=== PATIENT | male | born 1955 | race Caucasian/White ===

== ENCOUNTER 2024-07-26 14:43 | Inpatient (IN) | payer MEDICARE ==
[~2024-07-26] VITALS: Ht 177.8 cm; Wt 144.3 kg
--- NOTE | 2024-07-26 15:04 | EKG ---
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
[2024-07-26 15:17] LABS: BASOPHILS # (AUTO) 0.03 K/uL (0.00-0.20); BASOPHILS % (AUTO) 0.3 % (0.0-5.0); EOSINOPHILS # (AUTO) 0.26 K/uL (0.00-0.70); EOSINOPHILS % (AUTO) 2.2 % (0.0-8.0); HEMATOCRIT 52.6 % (42-54); IMMATURE GRANULOCYTE ABSOLUTE 0.05 K/uL (0-1); LYMPHOCYTES # (AUTO) 2.8 K/uL (1.0-4.8); LYMPHOCYTES % (AUTO) 24.3 % (21.0-51.0); MEAN CORPUSCULAR HEMOGLOBIN 30.1 pg (27.0-33.0); MEAN CORPUSCULAR HGB CONC 32.1 g/dL (32.0-36.0); MEAN CORPUSCULAR VOLUME 93.6 fL (79-99); MONOCYTES # (AUTO) 1.1 K/uL (0.1-1.0); MONOCYTES % (AUTO) 9.2 % (3.0-13.0); NEUTROPHILS # (AUTO) 7.4 K/uL (1.8-7.7); NEUTROPHILS % (AUTO) 63.6 % (40.0-77.0); PLATELET COUNT (AUTO) 164 K/uL (130-400); RED BLOOD CELL COUNT(AUTO) 5.62 MIL/uL (4.50-6.20); RED CELL DISTRIBUTION WIDTH 14.1 % (11.0-15.5); WHITE BLOOD COUNT (AUTO) 11.7 K/uL (4.8-10.8)
[2024-07-26 15:28] LABS: ABG BASE EXCESS -4.7 mmol/L (-2.0-3.0); ABG HCO3 19.2 mmol/L (21.0-28.0); ABG OXYGEN SATURATION 88.4 % (94.0-98.0); ABG PCO2 32 mmHg (35-48); PO2, ARTERIAL BG 54.4 mmHg (83.0-108.0); VENT MODE, BG RA (ROOM AIR)
[2024-07-26 15:35] LABS: INR 1.46 (0.85-1.15); PROTHROMBIN TIME 14.9 SEC (9.6-11.6)
--- NOTE | 2024-07-26 15:39 | ERN ---
General Chief Complaint: Shortness of Breath Stated Complaint: SOB,SWOLLEN ABDOMEN,MULTIPLE COMPLAINTS Time Seen by MD: 14:47 History of Present Illness Initial Comments 69-year-old gentleman presents from home for dyspnea, weakness, and fluid retention increasing over the last few months. Patient reports he was not seen a doctor in over 40 years. Over the last few months he has noticed his legs h ave been swelling more, he was having difficulty lying flat, he gets very winded with simple exercises such as short walks. He was also been feeling some palpitations on and off. He does not take any medications. He reports he does drink four or five beers on the weekends. No other drug use. He reports that as a young person he did have episodes of atrial fibrillation. He was briefly on medications for this but is not currently. He was in the process [place], but reports that over the last couple of days he becomes so winded that he can not even walk around his house without having to rest. Allergies: Coded Allergies: No Known Drug Allergies (Unverified Allergy, Unknown, 07/26/24) Past Medical History Past Medical History: Other Past Surgical History: None ROS Dictation CONSTITUTIONAL: No chills, no fever, no weakness, no diaphoresis, no malaise. HEAD/FACE: No signs of trauma. EENT: No eye pain, no blurred vision, no tearing, no double vision, no ear pain, no ear discharge, no nose pain, no nasal congestion, no throat pain, no throat swelling, no mouth pain. RESPIRATORY: Dyspnea, swelling CARDIOVASCULAR: No chest pain, no edema, no palpitations, no syncope. GASTROINTESTINAL/ABDOMINAL: No abdominal pain, no constipation, no diarrhea, no nausea, no vomiting. GENITOURINARY: No abnormal discharge, no dysuria, no frequent urination, no hematuria. No complaints of pain in the genitals. MUSCULOSKELETAL: No back pain, no gout, no joint pain, no joint swelling, no muscle pain, no muscle stiffness, no neck pain. INTEGUMENTARY: No change in color, no change in hair/nails, no dryness, no lesion, no lumps, no rash. NEUROLOGICAL/PSYCH: No anxiety, not depressed, no emotional problem, no headache, no numbness, no pre-existing deficit, no history of seizures, no tremors, no weakness. HEMATOLOGIC/LYMPHATIC: Not anemic, no history of blood clots, no apparent bleeding, no bruising, glands not swollen. All Systems Negative, Except as Noted. Physical Exam Physical Exam Dictation VITAL SIGNS: Reviewed. GENERAL APPEARANCE: Alert, oriented x3, moderate distress due to dyspnea HEAD AND FACE: Non-traumatic. EYES: PERRL, pink conjunctivas, eyelid no trauma, anterior chamber clear. EARS: Pinnas intact and no signs of trauma or erythema. Ear canals clear and no discharge. TMs no erythema. NOSE: No discharge, no bleeding. OROPHARYNX: Mouth normal, teeth no caries, tongue pink. Pharynx clear, no erythema. Tonsils no exudates, no abscesses noted. Mucous membrane moist. NECK: Supple, non-tender, no thyromegaly, no masses, no JVD, no bruits. BREAST: Deferred. CHEST: No tenderness, no crepitus, no paradoxical movement, no retractions. LUNGS: Crackles at the bases of the lungs HEART: Regular rate, regular rhythm, no murmur, no gallops. VASCULAR: No peripheral edema. ABDOMEN: Soft, positive bowel sounds, nondistended, no guarding, nontender, no rebound, no masses no hepatomegaly, no splenomegaly, no Zamudio's sign, no hernias. RECTAL: Deferred. GENITAL: Deferred. NEUROLOGICAL: Normal speech, gross motor function intact, gross sensory function intact. MUSCULOSKELETAL: Neck nontender, full range of motion, back nontender, full range of motion. EXTREMITIES: 4+ pitting edema up to the knees, abdominal distention SKIN: Color pink, dry, no turgor, no rash, no lacerations, no abrasions, no contusions. LYMPHATICS: Deferred. Results Laboratory and Microbiology Lab and Micro Result Laboratory Tests Test 07/26/24 15:03 07/26/24 15:26 07/26/24 16:32 White Blood Count 11.7 K/uL (4.8-10.8) H Red Blood Count 5.62 MIL/uL (4.50-6.20) Hemoglobin 16.9 g/dL (14.0-18.0) Hematocrit 52.6 % (42-54) Mean Corpuscular Volume 93.6 fL (79-99) Mean Corpuscular Hemoglobin 30.1 pg (27.0-33.0) Mean Corpuscular Hemoglobin Concent 32.1 g/dL (32.0-36.0) Red Cell Distribution Width 14.1 % (11.0-15.5) Platelet Count 164 K/uL (130-400) Mean Platelet Volume 11.1 fL (7.5-10.5) H Immature Granulocyte % (Auto) 0.4 % (0-1) Neutrophils (%) (Auto) 63.6 % (40.0-77.0) Lymphocytes (%) (Auto) 24.3 % (21.0-51.0) Monocytes (%) (Auto) 9.2 % (3.0-13.0) Eosinophils (%) (Auto) 2.2 % (0.0-8.0) Basophils (%) (Auto) 0.3 % (0.0-5.0) Neutrophils # (Auto) 7.4 K/uL (1.8-7.7) Lymphocytes # (Auto) 2.8 K/uL (1.0-4.8) Monocytes # (Auto) 1.1 K/uL (0.1-1.0) H Eosinophils # (Auto) 0.26 K/uL (0.00-0.70) Basophils # (Auto) 0.03 K/uL (0.00-0.20) Absolute Immature Granulocyte (auto 0.05 K/uL (0-1) Nucleated Red Blood Cells 0.0 % (0.0-0.19) Prothrombin Time 14.9 SEC (9.6-11.6) H Prothromb Time International Ratio 1.46 (0.85-1.15) H Hemoglobin A1c 6.9 % (4.0-6.0) H Estimated Average Glucose (eAG) 151 mg/dL (70-126) H Magnesium Level 2.50 mg/dL (1.80-2.40) H Total Creatine Kinase 90 U/L (21-232) Troponin I High Sensitivity 40.9 ng/L (4-75) B-Type Natriuretic Peptide 927 pg/mL (0-100) H Triglycerides Level 160 mg/dL (30-200) Cholesterol Level 159 mg/dL (<200) LDL Cholesterol 106 mg/dL (0-99) H HDL Cholesterol 30 mg/dL (29-71) Procalcitonin 0.14 ng/mL (0.05-0.5) Blood Gas Specimen Type Arterial Arterial Blood pH 7.390 (7.350-7.450) Arterial Blood Partial Pressure CO2 32 mmHg (35-48) L Arterial Blood Partial Pressure O2 54.4 mmHg (83.0-108.0) Arterial Blood HCO3 19.2 mmol/L (21.0-28.0) L Arterial Blood Oxygen Saturation 88.4 % (94.0-98.0) L Arterial Blood Base Excess -4.7 mmol/L (-2.0-3.0) L Blood Gas Temperature 37.0 CELSIUS (35.5-37.0) Blood Gas Vent Mode RA (ROOM AIR) FiO2 21.0 % Blood Gas Specimen Comment ANNETTE FERRELL MD Sodium Level 137 mmol/L (136-145) Potassium Level 4.8 mmol/L (3.5-5.1) Chloride Level 100 mmol/L (101-111) L Carbon Dioxide Level 23 mmol/L (21-32) Blood Urea Nitrogen 45 mg/dL (7-18) H Creatinine 2.6 mg/dL (0.5-1.3) H Glomerular Filtration Rate Calc 26 mL/min (>90) Random Glucose 178 mg/dL (70-105) H Total Calcium 9.2 mg/dL (8.5-10.1) MDM CC: Fluid overload, dyspnea, pedal edema, palpitations Historian: Patient Comorbidities: Obesity. Patient was not been to a physician in decades. Limitations by social determinants of health: None Differential diagnosis: Fluid overload, electrolyte abnormality, heart failure, kidney failure, liver failure, other. vital signs: Heart rate 145, blood pressure stable. Oxygen saturation 90% on room air. repeat vital signs: Heart rate improved to 109, oxygen saturation improved with the nasal cannula. Blood pressure remained stable. Initial EKG: Atrial fibrillation, rate 148, normal axis, delayed R-wave progression. Independently interpreted by me. Labs (independently ordered and interpreted by me ): Stable CBC. The ABG shows a pCO2 of 32,PaO2 of 54, Base excess -4.7, bicarb 19.2,otherwise unremarkable. coags mildly elevated INR 1.46. A1c is elevated 6.9 BNP elevated 927 consistent with presentation. Procalcitonin stable. Troponin stable. Metabolic panel shows stable electrolytes, the creatinine is 2.6 BUN of 45. CXR (independently interpreted by me ): Cardiomegaly, likely right pleural effusion, some vascular congestion. Consistent with fluid overload. Treatment in ED: 40 mg IV Lasix, 20 mg IV diltiazem, 30 mg oral diltiazem. Oxygen therapy. Re-evaluation: Vital signs have improved. Oxygen saturation has improved. Plan: We will admit for diuresis and further workup. Patient was agreeable. Consultation: Hospitalist for admission. ED Course Orders Procedure Category Date Status Time Cbc With Differential LAB 07/26/24 Complete 14:52 Prothrombin Time With LAB 07/26/24 Complete INR 14:52 B-Type Natriuretic LAB 07/26/24 Complete Peptide 14:52 Lipid Panel LAB 07/26/24 Complete 14:52 Chest 1vw RAD 07/26/24 Resulted 14:52 12 Lead Ekg Tracing- EKG 07/26/24 Complete Technical 14:52 Magnesium LAB 07/26/24 Complete 14:52 Arterial Blood Gas RT 07/26/24 Transmitted 14:52 Urinalysis LAB 07/26/24 Logged W/Microscopic 14:52 Procalcitonin LAB 07/26/24 Complete 14:52 Cardiac Panel LAB 07/26/24 Complete 14:52 Furosemide 40mg Vial PHA 07/26/24 Complete (Lasix 40mg Vial) 15:30 Arterial Blood Gas LAB 07/26/24 Complete 15:26 Diltiazem 25mg Inj PHA 07/26/24 Complete (Cardizem 25mg Inj) 16:00 Hemoglobin A1c LAB 07/26/24 Complete 15:40 Basic Metabolic Panel LAB 07/26/24 Complete 15:55 Diltiazem 60mg Tab PHA 07/26/24 Complete (Cardizem 60mg Tab) 16:30 Current Medications Medications (Trade) Dose Ordered Sig/Melinda Route PRN Reason Start Time Stop Time Status Last Admin Dose Admin Diltiazem HCl (CARDIzem 25MG INJ) 20 mg ONCE ONCE IVP 07/26/24 16:00 07/26/24 16:01 DC 07/26/24 15:44 Diltiazem HCl (CARDIzem 60MG TAB) 30 mg ONCE ONCE PO 07/26/24 16:30 07/26/24 16:31 DC 07/26/24 16:15 Furosemide (LASix 40MG VIAL) 40 mg ONCE ONCE IV 07/26/24 15:30 07/26/24 15:31 DC 07/26/24 15:44 Vital Signs Date Time Temp Pulse Resp B/P (MAP) Pulse Ox O2 Delivery O2 Flow Rate FiO2 07/26/24 16:48 97.9 115 22 113/77 94 Nasal Cannula* 4 36 07/26/24 16:17 97.9 114 22 120/78 92 Nasal Cannula* 4 36 07/26/24 16:04 97.9 109 24 122/87 91 Nasal Cannula* 4 36 07/26/24 15:52 97.9 109 24 133/77 91 Nasal Cannula* 4 36 07/26/24 15:44 145 129/92 07/26/24 14:48 69 22 144/114 91 Room Air 0 DX & DISP Disposition: Inpatient (Hospitalist ) Departure Impression: Primary Impression: Atrial fibrillation with rapid ventricular response Additional Impressions: Fluid overload, Respiratory failure with hypoxia, Diabetes mellitus, Renal disease Critical Time: 30 minutes (Critical Care Procedure NoteAuthorized and Performed by: meTotal critical care time: Approximately 36 minutesDue to a high probability of clinically significant, life threatening deterioration, the patient required my highest level of preparedness to intervene emergently and I personally spent this critical care time directly and personally managing the patient. This critical care time included obtaining a history; examining the patient; pulse oximetry; ordering and review of studies; arranging urgent treatment with development of a management plan; evaluation of patient's response to treatment; frequent reassessment; and, discussions with other providers.This critical care time was performed to assess and manage the high probability of imminent, life-threatening deterioration that could result in multi-organ failure. It was exclusive of separately billable procedures and treating other patients and teaching time.Please see MDM section and the rest of the note for further information on patient assessment and treatment.) Condition: Stable Referrals: SELF,REFERRAL (PCP) CONNOR FERRELL DO Jul 26, 2024 15:39
[2024-07-26 15:40] LABS: B-TYPE NATRIURETIC PEPTIDE 927 pg/mL (0-100)
[2024-07-26] MEDS: furoSEMIDE 40MG VIAL IV ONE (15:44)
[2024-07-26] MEDS: dilTIAZem 25MG INJ IVP ONE (15:44)
[2024-07-26 15:56] LABS: MAGNESIUM 2.5 mg/dL (1.80-2.40)
[2024-07-26 15:57] LABS: HEMOGLOBIN A1C 6.9 % (4.0-6.0)
[2024-07-26] MEDS: dilTIAZem 60MG TAB PO ONE (16:15)
--- NOTE | 2024-07-26 16:24 | HMCIMG ---
INDICATION: dyspnea TECHNIQUE: CHEST 1VW COMPARISON: None FINDINGS AND IMPRESSION: Mild bilateral airspace consolidation suggesting vascular congestion/edema versus pneumonia. Trace of right effusion is seen. Cardiomegaly is seen Mild degenerative changes of the spine. The visualized upper abdomen appears unremarkable.
[2024-07-26 16:48] LABS: CREATININE 2.6 mg/dL (0.5-1.3); POTASSIUM 4.8 mmol/L (3.5-5.1)
--- NOTE | 2024-07-26 17:46 | HP ---
[facility] HISTORY AND PHYSICAL Date of Service: Jul 26, 2024 Time of Service: 17:46 HISTORY OF PRESENT ILLNESS: 69-year-old male with no significant past medical history who presented to the hospital secondary to shortness of breath and lower extremity edema. Patient states he has noted he has been having shortness of breath for the past 2-3 months. He has also noted swelling in the lower extremities. He endorses orthopnea and uses a pillow to sleep. He has has difficulty lying down flat and gets short of breath at rest and with exertion. He has not seen a physician in more than 40 years. He has never had prior cardiac workup or blood draws. He does not take any medications at home. Denies any chest pain at exertion, cough, fever, chills, dysuria, changes in his bowel movements. He has noted decreased urination but states he has been drinking fluids at home. Denied any melena, hematochezia, hematemesis. Secondary to non improving symptoms patient thereafter came to the hospital for further evaluation. Labs in the ED were notable for white count of 11.7, hemoglobin was 16.9, platelet count was 164 K, sodium was 137, potassium was 4.8, creatinine was 2.6, BUN was 45, blood glucose was 178, magnesium was Chest x-ray showed right-sided small effusion with congestive changes. Patient received Lasix IV 40 mg in the ED. patient also received 20 mg Cardizem, 30 mg oral Cardizem in the ED. The patient was noted to be in AFib RVR with heart rate in the 120s to 130 In the ED patient's temperature was 97.9�, heart rate was 109, blood pressure was 133/77, respiratory rate was 24 REVIEW OF SYSTEMS CONSTITUTIONAL: Denies fevers, chills, or night sweats. Denied any changes in weight NEUROLOGICAL: Denies headache, amaurosis fugax, motor weakness, sensory deficit, vertigo/spinning sensation, gait abnormalities, or tremors. ENT: No hearing loss, otalgia, otorrhea, rhinitis, rhinorrhea, hoarseness, or sore throat. CARDIOVASCULAR: Denies any exertional angina, dyspnea on exertion, orthopnea, paroxysmal nocturnal dyspnea, palpitations, life-threatening arrhythmias, claudication. PULMONARY: Positive for shortness of breath, cough. Denied any sputum production GASTROINTESTINAL: Denies any type of dysphagia to either liquids or solids. Denies nausea, vomiting, pyrosis, early satiety, abdominal pain, diarrhea, constipation, or changes in stool consistency or caliber. Denies coffee-ground emesis, hematemesis, hematochezia, or melanotic stools. GENITOURINARY: Positive for decreased urination. Denied any hematuria, dysuria ENDOCRINOLOGIC: Denies polyuria, polydipsia, polyphagia or heat/cold intolerances. HEMATOLOGIC: Denies thrombophilia/previous clots, or coagulopathy/bleeding di sorders. ONCOLOGIC: Denies personal history of malignancy. DERMATOLOGIC: Denies rashes or pruritus. PSYCHIATRIC: Denies any suicidal or homicidal ideation. Denies hallucinations. Musculoskeletal: Positive for swelling in the lower extremity PAST MEDICAL HISTORY: No significant medical history PAST SURGICAL HISTORY: Denied any previous surgical history PAST SOCIAL HISTORY: Drinks 4-5 beers every 3-4 days for at least 10 years. Denied any smoking or drug use FAMILY HISTORY: Denied any pertinent family history Coded Allergies: No Known Drug Allergies (Unverified Allergy, Unknown, 07/26/24) Penicillins (Verified Allergy, Unknown, 07/26/24) PHYSICAL EXAM GENERAL APPEARANCE: The patient is awake, alert, and oriented, in no acute cardiopulmonary distress. NEUROLOGICAL: Cranial nerves II-XII grossly intact. Motor is 5/5 in bilateral upper and lower extremities proximal to distal. No sensory deficits. HEENT: Face is symmetric. Pupils are equal and reactive. Extraocular movements are intact. NECK: Supple. No JVD. No thyromegaly. No submental, submandibular, pre- /postauricular, occipital or supraclavicular lymphadenopathy. CHEST: Normal chest expansion. No Telemetry. LUNGS: Positive for crackles in the right side CARDIOVASCULAR: Regular. S1 and S2 normal. No appreciable rubs, murmurs or gallops. ABDOMEN: Abdomen is distended. He has soft tissue edema in the abdominal wall. Bowel sounds are active. : Deferred. No Garcia. EXTREMITIES:3+ pitting edema in the lower extremity bilaterally he also has venous stasis changes.. No clubbing. Good capillary refill. SKIN: No skin breakdown. Vital Sign (Last 24 Hours) 07/26/24 17:36 Temp 98.1 Pulse 115 Resp 20 B/P (MAP) 132/74 Pulse Ox 94 O2 Delivery Nasal Cannula* O2 Flow Rate 4 FiO2 36 LABS: Laboratory: Test 07/26/24 16:32 07/26/24 15:26 07/26/24 15:03 Range/Units Sodium Level 137 136-145 mmol/L Potassium Level 4.8 3.5-5.1 mmol/L Chloride Level 100 L 101-111 mmol/L Carbon Dioxide Level 23 21-32 mmol/L Blood Urea Nitrogen 45 H 7-18 mg/dL Creatinine 2.6 H 0.5-1.3 mg/dL Glomerular Filtration Rate Calc 26 >90 mL/min Random Glucose 178 H 70-105 mg/dL Total Calcium 9.2 8.5-10.1 mg/dL Blood Gas Specimen Type Arterial Arterial Blood pH 7.390 7.350-7.450 Arterial Blood Partial Pressure CO2 32 L 35-48 mmHg Arterial Blood Partial Pressure O2 54.4 *L 83.0-108.0 mmHg Arterial Blood HCO3 19.2 L 21.0-28.0 mmol/L Arterial Blood Oxygen Saturation 88.4 L 94.0-98.0 % Arterial Blood Base Excess -4.7 L -2.0-3.0 mmol/L Blood Gas Temperature 37.0 35.5-37.0 CELSIUS Blood Gas Vent Mode RA ROOM AIR FiO2 21.0 % Blood Gas Specimen Comment RR MD MARIAELENA White Blood Count 11.7 H 4.8-10.8 K/uL Red Blood Count 5.62 4.50-6.20 MIL/uL Hemoglobin 16.9 14.0-18.0 g/dL Hematocrit 52.6 42-54 % Mean Corpuscular Volume 93.6 79-99 fL Mean Corpuscular Hemoglobin 30.1 27.0-33.0 pg Mean Corpuscular Hemoglobin Concent 32.1 32.0-36.0 g/dL Red Cell Distribution Width 14.1 11.0-15.5 % Platelet Count 164 130-400 K/uL Mean Platelet Volume 11.1 H 7.5-10.5 fL Immature Granulocyte % (Auto) 0.4 0-1 % Neutrophils (%) (Auto) 63.6 40.0-77.0 % Lymphocytes (%) (Auto) 24.3 21.0-51.0 % Monocytes (%) (Auto) 9.2 3.0-13.0 % Eosinophils (%) (Auto) 2.2 0.0-8.0 % Basophils (%) (Auto) 0.3 0.0-5.0 % Neutrophils # (Auto) 7.4 1.8-7.7 K/uL Lymphocytes # (Auto) 2.8 1.0-4.8 K/uL Monocytes # (Auto) 1.1 H 0.1-1.0 K/uL Eosinophils # (Auto) 0.26 0.00-0.70 K/uL Basophils # (Auto) 0.03 0.00-0.20 K/uL Absolute Immature Granulocyte (auto 0.05 0-1 K/uL Nucleated Red Blood Cells 0.0 0.0-0.19 % Prothrombin Time 14.9 H 9.6-11.6 SEC Prothromb Time International Ratio 1.46 H 0.85-1.15 Hemoglobin A1c 6.9 H 4.0-6.0 % Estimated Average Glucose (eAG) 151 H 70-126 mg/dL Magnesium Level 2.50 H 1.80-2.40 mg/dL Total Creatine Kinase 90 21-232 U/L Troponin I High Sensitivity 40.9 4-75 ng/L B-Type Natriuretic Peptide 927 H 0-100 pg/mL Triglycerides Level 160 30-200 mg/dL Cholesterol Level 159 <200 mg/dL LDL Cholesterol 106 H 0-99 mg/dL HDL Cholesterol 30 29-71 mg/dL Procalcitonin 0.14 0.05-0.5 ng/mL Current Medications Medications (Trade) Dose Ordered Sig/Melinda Route PRN Reason Start Time Stop Time Status Last Admin Dose Admin Acetaminophen (TYLenol 500MG TAB) 500 mg Q6H PRN PO MILD PAIN (1-3) 07/26/24 18:00 08/25/24 17:59 UNV Folic Acid (FOLic ACID 1 MG TABLET) 1 mg DAILY PO 07/27/24 09:00 08/26/24 08:59 UNV Furosemide (LASix 40MG VIAL) 40 mg Q12H IV 07/26/24 23:00 08/25/24 22:59 UNV Magnesium Sulfate 50 ml @ 0 mls/hr PROTOCOL PRN IV hypomagnesemia 07/26/24 18:00 08/25/24 17:59 UNV Metoprolol Tartrate (loprESSOR) 25 mg BID PO 07/26/24 21:00 08/25/24 20:59 UNV Potassium Chloride 100 ml @ 100 mls/hr AD PRN IV POTASSIUM PROTOCOL 07/26/24 18:00 08/25/24 17:59 UNV Potassium Chloride (K-Dur/Klor-Con 20meq) 20 meq AD PRN PO POTASSIUM PROTOCOL 07/26/24 18:00 08/25/24 17:59 UNV Potassium Chloride (KCl 10% Elixir 20meq/15ml) 20 meq AD PRN PO POTASSIUM PROTOCOL 07/26/24 18:00 08/25/24 17:59 UNV Thiamine HCl (Vitamin B-1) 100 mg DAILY PO 07/27/24 09:00 08/26/24 08:59 UNV DIAGNOSTICS / RADIOLOGY: [ ] ASSESSMENT: Acute CHF exacerbation POA Acute hypoxic respiratory failure secondary to CHF exacerbation New onset paroxysmal atrial fibrillation with RVR Generalized anasarca Acute kidney injury Lower extremity edema History of alcohol use Mild coagulopathy Mild leukocytosis differential infectious versus reactive PLAN: - patient to be admitted to PCCU -in reference to CHF exacerbation. Patient will be started on IV Lasix 40 mg q.12 hours. Monitor urine output. Daily weights. Obtain a echocardiogram. Keep potassium greater than four and magnesium greater than two. Request con sultation with Cardiology. We will start patient on Lopressor 25 mg. We will follow up with Cardiology regarding anticoagulation -in reference to acute kidney injury. We will obtain a UA, urine sodium, urine creatinine. We will request consultation with Nephrology -obtain a CT abdomen pelvis for further evaluation -check TSH, A1c, procal, CRP -obtain a venous Doppler -start patient on thiamine and folic acid. Closely monitor patient for alcohol withdrawals -further orders per hospitalization course. Advanced Care Planning Which of the following were discussed: Hospice care: Yes __ No _x_ Therapeutic options: Yes __ No __ Advance directives: Yes __ No __ Other discussions: Discussed with who?: patient (Patient, family or surrogates) Voluntary nature of this service was explained to the patient? Yes _x_ No __ Amount of time spent: 25 minutes SHERRI Junior MD, MD Jul 26, 2024 17:46
[2024-07-26] MEDS ORDERED: PoTASSium chl 10% ELIXIR 20MEQ 20 MEQ/15 ML UDCUP PO PRN (18:00)
[2024-07-26 18:21] LABS: THYROID STIMULATING HORMONE 3.57 uIU/mL (0.36-3.74)
--- NOTE | 2024-07-26 18:35 | HMCIMG ---
CT ABDOMEN/PELVIS W/O CONTRAST INDICATION: abdominal distention, jefferson. TECHNIQUE: CT ABDOMEN/PELVIS W/O CONTRAST. Oral contrast was not given. Coronal and sagittal reformats were performed. CT was performed with one or more of the following dose reduction techniques: Automated exposure control, adjustment of the mA and/or kV according to the patient's size, or use of the iterative reconstruction technique. Comparison: None. FINDINGS: The noncontrast nature this study limits evaluation of abdominal viscera. Small right pleural effusion is seen with right lower lobe atelectasis infection. There is cardiomegaly. There is hepatic steatosis. No calcified gallstone is seen. The spleen, pancreas, and adrenal glands are within normal limits. No hydronephrosis. The urinary bladder is partially collapsed. 5.9 cm hypodense focus in the left kidney, probably a cyst. Consider correlation with nonemergent renal ultrasound. Study is degraded due to patient's large body habitus. No bowel obstruction is seen. Scattered diverticulosis coli without evidence of acute diverticulitis. Small amount of ascites seen in the upper abdomen and pelvis. There is diffuse soft tissue anasarca and mesenteric edema. Appendix is not clearly visualized limiting evaluation. Correlate clinically. Atherosclerotic changes of the aorta with calcified plaques. Degenerative changes of the spine are seen. IMPRESSION: 1. Study is degraded due to patient's large body habitus. No bowel obstruction is seen. 2. Scattered diverticulosis coli without evidence of acute diverticulitis. 3. Small amount of ascites seen in the upper abdomen and pelvis. 4. There is diffuse soft tissue anasarca and mesenteric edema. Additional findings as described above.
--- NOTE | 2024-07-26 18:52 | NUR ---
dr. tiff smith called back aware of consult. will be here shortly to assess pt.
--- NOTE | 2024-07-26 19:04 | CONS ---
CONSULT NOTE: CARDIOLOGY Reason for consult: CHF HPI/story at presentation: This is a pleasant 69-year-old male with past medical history as per present with complaints of shortness of breath with worsening edema and abdominal bloati ng and distention. He was diagnosed CHF exacerbation, cardiology scheduled for evaluation management. Patient was also found to be atrial fibrillation with rapid ventricular sponsor presentation to the hospital. Diuresis was initiated. Subjective: 07/26/2024 shortness of breath Past medical history: See below Allergies, Meds See chart Review of systems Review of Systems Constitutional: Negative for chills and fever. HENT: Negative for ear discharge and ear pain. Eyes: Negative for photophobia and discharge. Respiratory: Negative for cough, sputum production and stridor. Cardiovascular: Negative for chest pain and palpitations. Gastrointestinal: Negative for diarrhea and vomiting. Genitourinary: Negative for frequency. Musculoskeletal: Negative for myalgias. Skin: Negative for rash. Neurological: Negative for focal weakness and seizures. Endo/Heme/Allergies: Negative for polydipsia. Psychiatric/Behavioral: Negative for hallucinations. Vitals see chart PHYSICAL EXAMINATION GENERAL: The patient is alert and oriented*3 HEENT: Nonicteric sclerae, non traumatic HEART: Regular rate and rhythm with no murmurs LUNGS: mild crackles 07/26/2024 ABDOMEN: No acute issues, non tender GENITAL, RECTAL: deferred SKIN: No rash NEUROLOGIC: NFND EXTREMITIES: bilareral edema 07/26/2024 ASSESSMENT ATRIAL FIBRILLATION Presentation Associated RVR at presentation CONGESTIVE HEART FAILURE With abdominal distention lower extremity manage at presentation ACUTE KIDNEY INJURY At presentation Condition nephropathy versus prerenal OBESITY CORE MEASURES OTHER MEDICAL PROBLEMS Reviewed PLAN 07/26/2024 agree with rate control for atrial fibrillation, will likely benefit from further anticoagulation as well. Possible liver etiology of elevated INR. Follow-up with renal function panel including albumin ordered. Agree with diuresis for now. Echocardiogram has been ordered and is pending as well. On IV twice daily of Lasix and metoprolol at this time. Further recommendations after echo. Seen and examined 07/26/2024 around 1900 ATTESTATION I was involved substantially in the care of this patient Number and complexity of problems addressed: 1 acute illness with systemic features Amount and or complexity of data Review of prior external note(s) from each unique source: 2+ Ordering of each unique test : 0 Review of the result(s) of each unique test: 2+ Assessment requiring an independent historian(s): No Independent interpretation of test performed by another MD/QHCP/appropriate source (not separately reported) : No Discussion of management or test interpretation with external MD/QHCP/appropriate source (not separately reported) : No Risk status (cardiac, billing related): Moderate LANI GRACIA MD Jul 26, 2024 19:04
--- NOTE | 2024-07-26 19:20 | NUR ---
general clerk bedside
--- NOTE | 2024-07-26 19:33 | CONS ---
[facility] CONSULTATION NOTE Date Patient Seen: Jul 26, 2024 Time of Visit: 19:32 Supervising Physician: [ ] Reason for Consultation: [ ] Consulting Physician: Hospitalist Outpatient Specialists: [ ] Inpatient Consults: [ ] PROBLEM LIST: Acute hypoxic respiratory failure, POA Congestive heart failure, chest x-ray showed bilateral pulmonary congestion, with BNP above 900 POA Acute kidney injury, POA Leukocytosis, POA Atrial fibrillation with RVR, POA Morbid obesity, BMI of 38.7 Plan: Admit per primary Facilitate 2D echo Obtain EKG if not done Keep potassium level above four, magnesium level above two Continue cardiac monitoring Use BiPAP at night DuoNeb q.6 Consider diuretics Keep head of bed above 30� Aspiration precautions Pulmonary toilet Rest of plan care of Cardiology and primary HPI: 69-year-old male with past medical history of atrial fibrillation, mor bid obesity, possible ARNOLDO who presented to ED via private vehicle with complaint of worsening shortness of breaths for several days and found to have acute hypoxic respiratory failure, acute kidney injury, and CHF in acute exacerbation. Patient was seen and examined in ED with present at bedside. According to the patient he has been having issues with shortness of breaths worse with exertion with associated dizziness, and palpitation. Patient also reported that he needs to sleep in the recliner as he can not tolerate laying flat in bed. There is also worsening bilateral lower extremity edema. In ED stat chest x-ray was done and showed bilateral vascular congestion, cardiomegaly, and right trace pleural effusion. His venous Doppler did not reveal any DVT, his CBC showed WBC of 11.7, chemistry is significant for creatinine level of 2.6, and BUN of 45, BNP more than 900, and initial troponin of 40. EKG showed atrial fibrillation. Initial evaluation in ED patient was found to be mildly hypoxic on ABG with significant improvement on O2 administration. Be IS pulmonology is consulted for acute respiratory failure. At present patient is currently hemodynamically stable, irregularly irregular on the monitor, not in acute respiratory distress, on auscultation there is coarse bilateral lung sounds, and 4+ pitting edema on bilateral lower extremity. Patient denies any fever, chest pain, abdominal pain, cough, diarrhea, or difficulty urinating. Patient denies any smoking, alcohol intake, or illicit drug use. Patient is previously vaccinated with COVID vaccine. Does not take flu shot PAST MEDICAL HX: see above PAST SURGICAL HX: noncontributory SOCIAL HISTORY: No tobacco, ETOH, or illicit drug use Coded Allergies: No Known Drug Allergies (Unverified Allergy, Unknown, 07/26/24) Penicillins (Verified Allergy, Unknown, 07/26/24) REVIEW OF SYSTEMS: 12 point ROS reviewed with patient. Pertinent positives mentioned above. Otherwise negative. PHYSICAL EXAM: GENERAL: alert, weak, awake oriented x 3 HEENT: EOMI, Sclera non icteric, moist mucosa NECK: Supple, no JVD, trachea midline LUNGS: Coarse bilateral lung sounds HEART: Regular rate and rhythm. Normal S1 and S2, without murmurs ABD: Large abdomen EXT: 4+ pitting edema NEURO: Alert and oriented to person, follows commands Vital Signs (last 8hr) Date Time Temp Pulse Resp B/P (MAP) Pulse Ox O2 Delivery O2 Flow Rate FiO2 07/26/24 18:28 97.9 120 22 141/86 92 Nasal Cannula* 4 36 07/26/24 17:36 98.1 115 20 132/74 94 Nasal Cannula* 4 36 07/26/24 16:48 97.9 115 22 113/77 94 Nasal Cannula* 4 36 07/26/24 16:17 97.9 114 22 120/78 92 Nasal Cannula* 4 36 07/26/24 16:04 97.9 109 24 122/87 91 Nasal Cannula* 4 36 07/26/24 15:52 97.9 109 24 133/77 91 Nasal Cannula* 4 36 07/26/24 15:44 145 129/92 07/26/24 14:48 69 22 144/114 91 Room Air 0 LABS: Hematology Labs: Test 07/26/24 15:03 Range/Units White Blood Count 11.7 H 4.8-10.8 K/uL Red Blood Count 5.62 4.50-6.20 MIL/uL Hemoglobin 16.9 14.0-18.0 g/dL Hematocrit 52.6 42-54 % Mean Corpuscular Volume 93.6 79-99 fL Mean Corpuscular Hemoglobin 30.1 27.0-33.0 pg Mean Corpuscular Hemoglobin Concent 32.1 32.0-36.0 g/dL Red Cell Distribution Width 14.1 11.0-15.5 % Platelet Count 164 130-400 K/uL Mean Platelet Volume 11.1 H 7.5-10.5 fL Immature Granulocyte % (Auto) 0.4 0-1 % Neutrophils (%) (Auto) 63.6 40.0-77.0 % Lymphocytes (%) (Auto) 24.3 21.0-51.0 % Monocytes (%) (Auto) 9.2 3.0-13.0 % Eosinophils (%) (Auto) 2.2 0.0-8.0 % Basophils (%) (Auto) 0.3 0.0-5.0 % Neutrophils # (Auto) 7.4 1.8-7.7 K/uL Lymphocytes # (Auto) 2.8 1.0-4.8 K/uL Monocytes # (Auto) 1.1 H 0.1-1.0 K/uL Eosinophils # (Auto) 0.26 0.00-0.70 K/uL Basophils # (Auto) 0.03 0.00-0.20 K/uL Absolute Immature Granulocyte (auto 0.05 0-1 K/uL Nucleated Red Blood Cells 0.0 0.0-0.19 % Chemistry Labs: Test 07/26/24 16:32 07/26/24 15:03 Range/Units Sodium Level 137 136-145 mmol/L Potassium Level 4.8 3.5-5.1 mmol/L Chloride Level 100 L 101-111 mmol/L Carbon Dioxide Level 23 21-32 mmol/L Blood Urea Nitrogen 45 H 7-18 mg/dL Creatinine 2.6 H 0.5-1.3 mg/dL Glomerular Filtration Rate Calc 26 >90 mL/min Random Glucose 178 H 70-105 mg/dL Total Calcium 9.2 8.5-10.1 mg/dL C-Reactive Protein, Quantitative 29.20 H 0.5-3.0 mg/L Thyroid Stimulating Hormone (TSH) 3.57 0.36-3.74 uIU/mL Hemoglobin A1c 6.9 H 4.0-6.0 % Estimated Average Glucose (eAG) 151 H 70-126 mg/dL Magnesium Level 2.50 H 1.80-2.40 mg/dL Total Creatine Kinase 90 21-232 U/L Troponin I High Sensitivity 40.9 4-75 ng/L B-Type Natriuretic Peptide 927 H 0-100 pg/mL Triglycerides Level 160 30-200 mg/dL Cholesterol Level 159 <200 mg/dL LDL Cholesterol 106 H 0-99 mg/dL HDL Cholesterol 30 29-71 mg/dL Procalcitonin 0.14 0.05-0.5 ng/mL Coagulation Labs: Test 07/26/24 15:03 Range/Units Prothrombin Time 14.9 H 9.6-11.6 SEC Prothromb Time International Ratio 1.46 H 0.85-1.15 DIAGNOSTICS / RADIOLOGY RESULTS: INDICATION: dyspnea TECHNIQUE: CHEST 1VW COMPARISON: None FINDINGS AND IMPRESSION: Mild bilateral airspace consolidation suggesting vascular congestion/edema versus pneumonia. Trace of right effusion is seen. Cardiomegaly is seen Mild degenerative changes of the spine. The visualized upper abdomen appears unremarkable. CT ABDOMEN/PELVIS W/O CONTRAST INDICATION: abdominal distention, jefferson. TECHNIQUE: CT ABDOMEN/PELVIS W/O CONTRAST. Oral contrast was not given. Coronal and sagittal reformats were performed. CT was performed with one or more of the following dose reduction techniques: Automated exposure control, adjustment of the mA and/or kV according to the patient's size, or use of the iterative reconstruction technique. Comparison: None. FINDINGS: The noncontrast nature this study limits evaluation of abdominal viscera. Small right pleural effusion is seen with right lower lobe atelectasis infection. There is cardiomegaly. There is hepatic steatosis. No calcified gallstone is seen. The spleen, pancreas, and adrenal glands are within normal limits. No hydronephrosis. The urinary bladder is partially collapsed. 5.9 cm hypodense focus in the left kidney, probably a cyst. Consider correlation with nonemergent renal ultrasound. Study is degraded due to patient's large body habitus. No bowel obstruction is seen. Scattered diverticulosis coli without evidence of acute diverticulitis. Small amount of ascites seen in the upper abdomen and pelvis. There is diffuse soft tissue anasarca and mesenteric edema. Appendix is not clearly visualized limiting evaluation. Correlate clinically. Atherosclerotic changes of the aorta with calcified plaques. Degenerative changes of the spine are seen. IMPRESSION: 1. Study is degraded due to patient's large body habitus. No bowel obstruction is seen. 2. Scattered diverticulosis coli without evidence of acute diverticulitis. 3. Small amount of ascites seen in the upper abdomen and pelvis. 4. There is diffuse soft tissue anasarca and mesenteric edema. Additional findings as described above. PLAN NEURO: Minimize central acting medications as possible. Maintain fall precautions, adequate lighting during the day PULMONARY: Supplemental 02 as needed. Maintain aspiration precautions at all times CARDIOVASCULAR: Follow hemodynamics. Vital signs per facility protocol GI & NUTRITION: Continue with nutritional support. Continue stool softeners and laxatives as needed. KIDNEYS & ELECTROLYTES: Strict monitoring of intake, output and overall fluid balance. Avoid nephrotoxic medications to the extent possible. Medications to be dosed according to renal function. Monitor electrolytes and replace as needed ENDOCRINE: Maintain blood glucose between 100-180 at all times. Hypoglycemia protocol in place INFECTIOUS DISEASE: Trend temperature, WBC and procalcitonin level Follow cultures, deescalate antibiotics as soon as possible. Panculture if new onset fever ONCOLOGY/HEMATOLOGY/COAGULATION: Monitor for s/s of bleeding Monitor hemoglobin, coagulation studies as needed SKIN: Pressure ulcer prevention per facility protocol Specialty mattress ORTHO/REHAB: Continue PT/OT Prophylaxis: Continue GI and DVT prophylaxis Code Status: Full Resuscitation Disposition: TBD Other: Total patient care time exceeds 35 minutes excluding all procedures. Supervising physician: JUS June BALLAST CLEANING OPERATOR Jul 26, 2024 19:33
--- NOTE | 2024-07-26 20:30 | HMCIMG ---
US VENOUS DOPPLER BILATERAL INDICATION: Swelling. Evaluate for dvt TECHNIQUE: US VENOUS DOPPLER BILATERAL Real-time venous Doppler ultrasound was performed using B mode, color flow and spectral analysis. FINDINGS: The visualized greater saphenous junction, common femoral, deep femoral, superficial femoral, popliteal and posterior tibial veins demonstrate normal compressibility and flow. No DVT is identified. Left superficial femoral vein was not visualized. Study is degraded due to patient's large body habitus. IMPRESSION: No evidence of DVT in the visualized bilateral extremities.
[2024-07-26] MEDS: metoPROLOL tartRATE 25 MG TAB PO SCH (21:06)
[2024-07-26] MEDS: HEParin 5,000 UNIT VIAL SQ SCH (21:07)
[2024-07-26 22:00] LABS: APPEARANCE,URINE CLOUDY (CLEAR); BILIRUBIN,URINE NEGATIVE (NEGATIVE); COLOR,URINE YELLOW (YELLOW); GLUCOSE, URINE (UA) NEGATIVE (NEGATIVE); KETONES,URINE NEGATIVE (NEGATIVE); LEUKOCYTE ESTERASE ,URINE NEGATIVE Leu/uL (NEGATIVE); NITRATE,URINE NEGATIVE (NEGATIVE); OCCULT BLOOD,URINE NEGATIVE (NEGATIVE); PROTEIN,URINE 20 mg/dL (NEGATIVE)
[2024-07-26 22:02] LABS: ADD UA MICROSCOPIC YES
[2024-07-26 22:03] LABS: CREATININE,URINE RANDOM 209.62 mg/dL (30-135); SODIUM,URINE RANDOM 48 mmol/l (40-220)
[2024-07-26 22:04] LABS: MUCUS,URINE RARE LPF (None Seen); RBC,URINE 0-1 /HPF (0-1); SQUAMOUS EPITHELIAL CELL,UR RARE /HPF (0-2)
[2024-07-26] MEDS: furoSEMIDE 40MG VIAL IV SCH (23:09)
[2024-07-27] VITALS (10 sets, daily range): BP systolic 115–134; BP diastolic 65–94; PULSE 100–130; RESP 18–23; TEMP 93.4–97.8; O2SAT 94–96
[2024-07-27 01:08] LABS: ALBUMIN 3.6 g/dL (3.5-5.0); BILIRUBIN,TOTAL 0.9 mg/dL (0.2-1.0); CREATININE 2.8 mg/dL (0.5-1.3); POTASSIUM 5.4 mmol/L (3.5-5.1); TOTAL PROTEIN, SERUM 6.6 g/dL (6.0-8.3)
[2024-07-27] MEDS: HEParin 25,000 UNITS/250ML D5W 250 ML IV SCH (02:37)
--- NOTE | 2024-07-27 07:30 | NUR ---
placed 20g on right hand, patent, saline lock.
--- NOTE | 2024-07-27 08:00 | NUR ---
NO HOME MEDICATIONS.
[2024-07-27 08:20] LABS: BASOPHILS # (AUTO) 0.03 K/uL (0.00-0.20); BASOPHILS % (AUTO) 0.3 % (0.0-5.0); EOSINOPHILS # (AUTO) 0.55 K/uL (0.00-0.70); EOSINOPHILS % (AUTO) 4.7 % (0.0-8.0); HEMATOCRIT 48.9 % (42-54); IMMATURE GRANULOCYTE ABSOLUTE 0.03 K/uL (0-1); LYMPHOCYTES # (AUTO) 3.6 K/uL (1.0-4.8); LYMPHOCYTES % (AUTO) 31.4 % (21.0-51.0); MEAN CORPUSCULAR HEMOGLOBIN 30.3 pg (27.0-33.0); MEAN CORPUSCULAR HGB CONC 32.1 g/dL (32.0-36.0); MEAN CORPUSCULAR VOLUME 94.2 fL (79-99); MONOCYTES # (AUTO) 1.2 K/uL (0.1-1.0); MONOCYTES % (AUTO) 10.2 % (3.0-13.0); NEUTROPHILS # (AUTO) 6.2 K/uL (1.8-7.7); NEUTROPHILS % (AUTO) 53.1 % (40.0-77.0); PLATELET COUNT (AUTO) 141 K/uL (130-400); RED BLOOD CELL COUNT(AUTO) 5.19 MIL/uL (4.50-6.20); RED CELL DISTRIBUTION WIDTH 14.2 % (11.0-15.5); WHITE BLOOD COUNT (AUTO) 11.6 K/uL (4.8-10.8)
[2024-07-27 08:32] LABS: INR 1.48 (0.85-1.15); PROTHROMBIN TIME 15.1 SEC (9.6-11.6)
[2024-07-27] MEDS: FOLic ACID 1 MG TABLET PO SCH (08:53)
[2024-07-27] MEDS: BUMETANIDE 1MG/4ML VIAL IVP SCH (08:53)
--- NOTE | 2024-07-27 08:59 | NUR ---
waiting for ptt results to adjust heparin drip
[2024-07-27] MEDS: THIAMINE HCL 100 MG TABLET PO SCH (09:00)
--- NOTE | 2024-07-27 09:00 | NUR ---
Called Sherrie from pharmacy to notify her that we do not have thiamine po in [facility]. Waiting for it to be restock.
--- NOTE | 2024-07-27 09:00 | NUR ---
HEPARIN STOPPED PER PROTOCOL. PTT 102
[2024-07-27 09:04] LABS: PARTIAL THROMBOPLASTIN TIME 102.5 SEC (26.3-35.5)
[2024-07-27 09:21] LABS: CREATININE 2.6 mg/dL (0.5-1.3); POTASSIUM 4.7 mmol/L (3.5-5.1)
--- NOTE | 2024-07-27 10:02 | NUR ---
CALLED [facility], GAVE REPORT TO MRS. KEKE LIPSCOMB. NOTOFY HER THAT PATIENT IS IN A HEPARIN DRIP AND HAS NO HOME MEDICATIONS. SHE VERBALIZED UNDERSTANDING.
--- NOTE | 2024-07-27 10:08 | NUR ---
WAITING ON 2D ECHO TO BE DONE SO THAT I CAN TRANSPORT PATIENT TO ROOM 226.
--- NOTE | 2024-07-27 10:10 | NUR ---
HEPARIN DRIP RE STARTED, 2UNITS/KG/HR. HEPARIN DRIP AT 14.99U/KG/HR
[2024-07-27] MEDS: metOPROLol sucCINATE 50 MG TAB.SR.24H PO SCH (11:52)
--- NOTE | 2024-07-27 12:21 | HMCSR ---
APPROVED REPORT EXAM: Two-dimensional and M-mode echocardiogram with Doppler and color Doppler. INDICATION ICD: Congestive heart failure, new onset of atrial fibrillation 2D Dimensions RVDd5.5 cmLVEF(%)17.1 (>50%)LVED Vol(simp.)151.0 mL IVSd1.1 (0.7-1.1cm)FS(%)8 %LVES Vol(simp.)124.0 mL LVDd6.1 (3.8-5.6cm)LA (2D)6.0 (1.6-4.0cm)LVEF(%, simp.)18 % PWd1.2 (0.7-1.1cm)Ao Root(2D)3.8 (2.0-3.7cm)LA ESV INDEX (BP)46.39 mL/m2 IVSs1.3 cmLVOT diam2.6 (1.8-2.4cm) LVDs5.6 (2.5-4.0cm) PWs1.3 cm M-Mode Dimensions EPSS1.8 cm LA (MM)6.1 (1.6-4.0cm) Ao Root(MM)4.3 (2.0-3.7cm) Aortic Valve AoV Vmax1.0 m/Lit Peak GR3.9 mmHgLVOT Vmax0.5 m/s AoV VTI0.1 mAo Mean GR2.6 mmHgLVOT VTI0.07 m GABRIELLA (VMAX)2.41 cm2AVA (VTI) 2.4 cm2 Mitral Valve MV E Vmax85.1 cm/sDECEL Zmpz187 ms P 1/2 T33 ms MVA (PHT)6.7 cm2 TDI E/E' Ppjazc47.9E/E' Upyhhsf46.0 Medial E' Peak V1.94 cm/sLateral E' Peak V5.32 cm/s Tricuspid Valve TR Vmax3.1 m/sRAP (EST) 8 sdAmAJKP52.1 mmHg TR Peak GR40.1 mmHg Left Ventricle The left ventricle is dilated. Severe hypokinesis There is normal left ventricular wall thickness. Se verely reduced left ventricular function <20%. The LV diastolic function was unable to be assessed du e to atrial arrhythmia. Right Ventricle The right ventricle is severely dilated. Right ventricular systolic function is severely reduced. Atria The left atrium is moderately dilated. The right atrium is severely dilated. Aortic Valve Aortic valve is trileaflet and opens well. No aortic regurgitation is present. There is no aortic june vular stenosis. Mitral Valve The mitral valve is normal in structure. There is mild mitral valve regurgitation noted. There is no mitral valve stenosis. Tricuspid Valve The tricuspid valve is normal in structure. There is mild to moderate tricuspid valve regurgitation n oted. May be underestimated due to low flow pressure gradient. Pulmonic Valve The pulmonary valve is normal in structure. There is no pulmonic valvular regurgitation. Great Vessels The aortic root is normal in size. IVC is not well visualized. Pericardium There is no pericardial effusion. Other Information Quality : Adequate Conclusion Severely reduced left ventricular function <20%. The LV diastolic function was unable to be assessed due to atrial arrhythmia. There is normal left ventricular wall thickness. The left ventricle is dilated. Severe hypokinesis The right ventricle is severely dilated. Right ventricular systolic function is severely reduced. The left atrium is moderately dilated. The right atrium is severely dilated. There is mild mitral valve regurgitation noted. There is mild to moderate tricuspid valve regurgitation noted. May be underestimated due to low flow pressure gradient. There is no pericardial effusion.
--- NOTE | 2024-07-27 14:05 | PN ---
[facility] PROGRESS NOTE Date of Service: Jul 27, 2024 Time of Service: 14:04 SUBJECTIVE: [ 69 YEAR OLD MALE ADMITTED FOR SOB, HE WAS NOTED WITH BILATERAL LOWER EXTREMITY EDEMA AND DISTENDED ABDOMEN. 2D ECHO WAS DONE THIS MORNING WHICH SHOWED LESS THAN 20% EF. PATIENT IS BEING FOLLOWED BY HAMMER OPERATOR, DR. WILLARD AND CRITICAL CARE TEAM. HE IS CURRENTLY ON O2 VIA NASAL CANNULA AT 2 L WITH SATURATION AT 96%. PATIENT HAS FAMILY HISTORY OF MALIGNANT HYPERTHERMIA. PATIENT CONTINUES TO BE WITH AFIB RVR HE IS ON BETA POORNIMA AND DIURETICS. WE WILL CONTINUE TO MONITOR AND FOLLOW RECOMMENDATIONS FROM HAMMER OPERATOR.] REVIEW OF SYSTEMS CONSTITUTIONAL: Denies fevers, chills, or night sweats. Denied any changes in weight NEUROLOGICAL: Denies headache, amaurosis fugax, motor weakness, sensory deficit, vertigo/spinning sensation, gait abnormalities, or tremors. ENT: No hearing loss, otalgia, otorrhea, rhinitis, rhinorrhea, hoarseness, or sore throat. CARDIOVASCULAR: Denies any exertional angina, dyspnea on exertion, orthopnea, paroxysmal nocturnal dyspnea, palpitations, life-threatening arrhythmias, claudication. PULMONARY: Positive for shortness of breath, cough. Denied any sputum production GASTROINTESTINAL: Denies any type of dysphagia to either liquids or solids. Denies nausea, vomiting, pyrosis, early satiety, abdominal pain, diarrhea, constipation, or changes in stool consistency or caliber. Denies coffee-ground emesis, hematemesis, hematochezia, or melanotic stools. GENITOURINARY: Positive for decreased urination. Denied any hematuria, dysuria ENDOCRINOLOGIC: Denies polyuria, polydipsia, polyphagia or heat/cold intolerances. HEMATOLOGIC: Denies thrombophilia/previous clots, or coagulopathy/bleeding disorders. ONCOLOGIC: Denies personal history of malignancy. DERMATOLOGIC: Denies rashes or pruritus. PSYCHIATRIC: Denies any suicidal or homicidal ideation. Denies hallucinations. Musculoskeletal: Positive for swelling in the lower extremity PHYSICAL EXAM GENERAL APPEARANCE: The patient is awake, alert, and oriented, in no acute cardiopulmonary distress. NEUROLOGICAL: Cranial nerves II-XII grossly intact. Motor is 5/5 in bilateral upper and lower extremities proximal to distal. No sensory deficits. HEENT: Face is symmetric. Pupils are equal and reactive. Extraocular movements are intact. NECK: Supple. No JVD. No thyromegaly. No submental, submandibular, pre- /postauricular, occipital or supraclavicular lymphadenopathy. CHEST: Normal chest expansion. No Telemetry. LUNGS: Positive for crackles in the right side CARDIOVASCULAR: Regular. S1 and S2 normal. No appreciable rubs, murmurs or gallops. ABDOMEN: Abdomen is distended. He has soft tissue edema in the abdominal wall. Bowel sounds are active. : Deferred. No Garcia. EXTREMITIES:3+ pitting edema in the lower extremity bilaterally he also has venous stasis changes.. No clubbing. Good capillary refill. SKIN: No skin breakdown. Vital Signs (last 8hr) Date Time Temp Pulse Resp B/P (MAP) Pulse Ox O2 Delivery O2 Flow Rate FiO2 07/27/24 13:25 97.9 07/27/24 10:44 96 Nasal Cannula* 2 28 07/27/24 10:21 93.4 117 20 134/94 92 Room Air 07/27/24 10:21 93.9 07/27/24 07:05 98.1 113 21 113/60 97 Nasal Cannula* 4 36 LABS: Laboratory: Test 07/27/24 09:05 07/27/24 08:14 07/27/24 00:28 07/26/24 21:30 Range/Units Sodium Level 137 136-145 mmol/L Potassium Level 4.7 3.5-5.1 mmol/L Chloride Level 103 101-111 mmol/L Carbon Dioxide Level 24 21-32 mmol/L Blood Urea Nitrogen 48 H 7-18 mg/dL Creatinine 2.6 H 0.5-1.3 mg/dL Glomerular Filtration Rate Calc 26 >90 mL/min Random Glucose 144 H 70-105 mg/dL Total Calcium 8.8 8.5-10.1 mg/dL White Blood Count 11.6 H 4.8-10.8 K/uL Red Blood Count 5.19 4.50-6.20 MIL/uL Hemoglobin 15.7 14.0-18.0 g/dL Hematocrit 48.9 42-54 % Mean Corpuscular Volume 94.2 79-99 fL Mean Corpuscular Hemoglobin 30.3 27.0-33.0 pg Mean Corpuscular Hemoglobin Concent 32.1 32.0-36.0 g/dL Red Cell Distribution Width 14.2 11.0-15.5 % Platelet Count 141 130-400 K/uL Mean Platelet Volume 11.1 H 7.5-10.5 fL Immature Granulocyte % (Auto) 0.3 0-1 % Neutrophils (%) (Auto) 53.1 40.0-77.0 % Lymphocytes (%) (Auto) 31.4 21.0-51.0 % Monocytes (%) (Auto) 10.2 3.0-13.0 % Eosinophils (%) (Auto) 4.7 0.0-8.0 % Basophils (%) (Auto) 0.3 0.0-5.0 % Neutrophils # (Auto) 6.2 1.8-7.7 K/uL Lymphocytes # (Auto) 3.6 1.0-4.8 K/uL Monocytes # (Auto) 1.2 H 0.1-1.0 K/uL Eosinophils # (Auto) 0.55 0.00-0.70 K/uL Basophils # (Auto) 0.03 0.00-0.20 K/uL Absolute Immature Granulocyte (auto 0.03 0-1 K/uL Nucleated Red Blood Cells 0.0 0.0-0.19 % Prothrombin Time 15.1 H 9.6-11.6 SEC Prothromb Time International Ratio 1.48 H 0.85-1.15 Activated Partial Thromboplast Time 102.5 #*H 26.3-35.5 SEC Hemoglobin A1c 7.0 H 4.0-6.0 % Estimated Average Glucose (eAG) 154 H 70-126 mg/dL Total Bilirubin 0.9 0.2-1.0 mg/dL Aspartate Amino Transf (AST/SGOT) 30 10-37 U/L Alanine Aminotransferase (ALT/SGPT) 20 12-78 U/L Alkaline Phosphatase 77 50-136 U/L Total Protein 6.6 6.0-8.3 g/dL Albumin 3.6 3.5-5.0 g/dL Urine Color YELLOW YELLOW Urine Appearance CLOUDY H CLEAR Urine pH 5.0 5.0-8.0 Urine Specific [place] 1.015 1.001-1.031 Urine Protein 20 H NEGATIVE mg/dL Urine Glucose (UA) NEGATIVE NEGATIVE mg/dL Urine Ketones NEGATIVE NEGATIVE mg/dL Urine Occult Blood NEGATIVE NEGATIVE Urine Nitrate NEGATIVE NEGATIVE Urine Bilirubin NEGATIVE NEGATIVE mg/dL Urine Urobilinogen 2.0 H 0.2-1.0 mg/dL Urine Leukocyte Esterase NEGATIVE NEGATIVE Max/uL Urine RBC 0-1 0-1 /HPF Urine WBC 2-5 H 0-1 /HPF Urine Squamous Epithelial Cells RARE 0-2 /HPF Urine Bacteria None None Seen /HPF Urine Hyaline Casts 11-25 H 0-1 /LPF /LPF Urine Random Creatinine 209.62 H 30-135 mg/dL Urine Random Sodium 48 40-220 mmol/l Test 07/26/24 16:32 07/26/24 15:26 07/26/24 15:03 Range/Units C-Reactive Protein, Quantitative 29.20 H 0.5-3.0 mg/L Thyroid Stimulating Hormone (TSH) 3.57 0.36-3.74 uIU/mL Blood Gas Specimen Type Arterial Arterial Blood pH 7.390 7.350-7.450 Arterial Blood Partial Pressure CO2 32 L 35-48 mmHg Arterial Blood Partial Pressure O2 54.4 *L 83.0-108.0 mmHg Arterial Blood HCO3 19.2 L 21.0-28.0 mmol/L Arterial Blood Oxygen Saturation 88.4 L 94.0-98.0 % Arterial Blood Base Excess -4.7 L -2.0-3.0 mmol/L Blood Gas Temperature 37.0 35.5-37.0 CELSIUS Blood Gas Vent Mode RA ROOM AIR FiO2 21.0 % Blood Gas Specimen Comment RR MD MARIAELENA Magnesium Level 2.50 H 1.80-2.40 mg/dL Total Creatine Kinase 90 21-232 U/L Troponin I High Sensitivity 40.9 4-75 ng/L B-Type Natriuretic Peptide 927 H 0-100 pg/mL Triglycerides Level 160 30-200 mg/dL Cholesterol Level 159 <200 mg/dL LDL Cholesterol 106 H 0-99 mg/dL HDL Cholesterol 30 29-71 mg/dL Procalcitonin 0.14 0.05-0.5 ng/mL Current Medications Medications (Trade) Dose Ordered Sig/Melinda Route PRN Reason Start Time Stop Time Status Last Admin Dose Admin Acetaminophen (TYLenol 500MG TAB) 500 mg Q6H PRN PO MILD PAIN (1-3) 07/26/24 18:00 08/25/24 17:59 Bumetanide (Bumex 1mg Vial) 1 mg Q12H IVP 07/27/24 09:00 08/26/24 08:59 07/27/24 08:53 1 MG Folic Acid (FOLic ACID 1 MG TABLET) 1 mg DAILY PO 07/27/24 09:00 08/26/24 08:59 07/27/24 08:53 1 MG Furosemide (LASix 40MG VIAL) 40 mg Q12H IV 07/26/24 23:00 07/27/24 06:31 DC 07/26/24 23:09 40 MG Heparin Sodium (Porcine) (HEParin 5,000 UNIT VIAL) 5,000 unit Q12H SQ 07/26/24 21:00 07/27/24 00:12 DC 07/26/24 21:07 5,000 UNIT Heparin Sodium/ Dextrose 250 ml @ 0 mls/hr Q6H IV 07/27/24 01:00 08/26/24 00:59 07/27/24 09:18 10.9 MLS/HR Magnesium Sulfate 50 ml @ 0 mls/hr PROTOCOL PRN IV hypomagnesemia 07/26/24 18:00 08/25/24 17:59 Metoprolol Succinate (TopROL XL) 50 mg BID PO 07/27/24 10:30 08/26/24 10:29 07/27/24 11:52 50 MG Metoprolol Tartrate (loprESSOR) 25 mg BID PO 07/26/24 21:00 07/27/24 10:29 DC 07/27/24 08:53 25 MG Pantoprazole Sodium (PROTonix 40MG INJ) 40 mg DAILY IVP 07/28/24 09:00 08/27/24 08:59 Potassium Chloride 100 ml @ 100 mls/hr AD PRN IV POTASSIUM PROTOCOL 07/26/24 18:00 08/25/24 17:59 Potassium Chloride (K-Dur/Klor-Con 20meq) 20 meq AD PRN PO POTASSIUM PROTOCOL 07/26/24 18:00 08/25/24 17:59 Potassium Chloride (KCl 10% Elixir 20meq/15ml) 20 meq AD PRN PO POTASSIUM PROTOCOL 07/26/24 18:00 08/25/24 17:59 Thiamine HCl (Vitamin B-1) 100 mg DAILY PO 07/27/24 09:00 08/26/24 08:59 DIAGNOSTICS / RADIOLOGY: [ ] ASSESSMENT: Acute CHF exacerbation POA Acute hypoxic respiratory failure secondary to CHF exacerbation New onset paroxysmal atrial fibrillation with RVR Generalized anasarca Acute kidney injury Lower extremity edema History of alcohol use Mild coagulopathy Mild leukocytosis differential infectious versus reactive PLAN: - patient to be admitted to [facility] -in reference to CHF exacerbation. CONTINUE WITH OXYGEN SUPPLEMENTATION TO KEEP O2 SAT GREATER THAN 92% CONTINUE WITH IV DIURETICS WITH BUMEX 1 MG Q.12 HOURS PATIENT WILL BE ON STRICT I&O AND DAILY WEIGHTS PATIENT WILL BE ON HEPARIN DRIP PER PROTOCOL WE WILL CONTINUE TO MONITOR KIDNEY FUNCTION NEPHROLOGY CONSULTED, WE WILL RENALLY DOSE MEDICATION AND AVOID OF NEPHROTOXIC PATIENT HAS BILATERAL LOWER EXTREMITY EDEMA WITH LOWER EXTREMITY ULCER, WE WILL ORDER ARTERIAL DOPPLER BILATERALLY CONTINUE WITH GI AND DVT PROPHYLAXIS REPEAT LABS TOMORROW CASE WAS SEEN AND EXAMINED WITH DR. BANEGAS, ABOVE PLAN WAS FORMULATED ATTESTATION BY PHYSICIAN I have seen and examined the patient. I reviewed the documentation, medical decision making, and treatment plan as noted by the mid-level provider above. I agree with the findings and plan of care. Xochitl Banegas MD, [facility] Jul 27, 2024 14:05
--- NOTE | 2024-07-27 15:40 | CONS ---
REFERRING PHYSICIAN: Kristopher Mae MD REASON FOR CONSULTATION: Renal failure. HISTORY OF PRESENT ILLNESS: A 69-year-old male denies any significant past history. The patient presents to the hospital with increasing shortness of breath and orthopnea. The patient states for the past 2 months, he has noted increasing shortness of breath and lower extremity edema. The patient presented to the hospital and found to have significant renal dysfunction with an elevated BUN and creatinine. The patient's chest x-ray consistent with pulmonary vascular congestion. CT scan did reveal ascites and he is being seen as a followup visit for all the above. The patient was started on the diuretics. PAST MEDICAL HISTORY: He denies. SOCIAL HISTORY: There is no alcohol or tobacco use. FAMILY HISTORY: There is no renal disease in the family. ALLERGIES: There are no allergies. MEDICATIONS: Noted. REVIEW OF SYSTEMS: GENERAL: He is feeling weak and tired. HEENT: No change in vision. No change in hearing. CARDIOVASCULAR: There is no current chest pain or palpitations. PULMONARY: As described above. GASTROINTESTINAL: The patient is tolerating a diet. MUSCULOSKELETAL: Complains of weakness. NEUROLOGIC: No seizures or focal deficits. PSYCHIATRIC: No history of hallucinations or psychosis. ENDOCRINE: He denies diabetes mellitus or thyroid disease. HEME: No history of anemia or malignancy. PHYSICAL EXAMINATION: VITAL SIGNS: Blood pressure 134/94, pulse 100s. He is afebrile. GENERAL: He is a chronically ill male, obese, lying in bed on the medical floor. HEENT: Head is traumatic. Pupils are equal, roving to light. Oropharynx is without exudate. Near is clear. NECK: There is no JVP. There is no thyromegaly. No masses. CARDIOVASCULAR: Regular. There is no S3, S4 gallop. LUNGS: Coarse with equal thoracic movement. ABDOMEN: Soft, nondistended, nontender. EXTREMITIES: Reveal no clubbing or cyanosis. NEUROLOGICAL: He is awake. He is alert. He is oriented. SKIN: Reveals no rashes or nodules. BACK: There is no CVA tenderness. No back deformities. LABORATORY DATA: BUN 48, creatinine 2.6, sodium 137, potassium 4.7. Hemoglobin 15, hematocrit 48, white blood cell count 11,000. Urinalysis is noted. less than 1. Chest x-ray reveals pulmonary vascular congestion. IMPRESSION: * Acute on chronic renal failure. * Volume overload. * Ascites. * Hypertension. * Electrolyte abnormalities. PLAN: The patient presents with significant volume overload. Urinalysis reveals minimal amount of proteinuria. No evidence of nephrotic syndrome. The patient was started on the diuretics and we will continue to follow the patient closely. 2D echo is pending. The patient's electrolytes have all been aggressively repleted and we will follow the patient closely. We will obtain a renal ultrasound for completeness and we will follow the patient while in the hospital. TID: [id number] RECEIPT: [id number]
--- NOTE | 2024-07-27 16:00 | NUR ---
HEPARIN DRIP PROTOCOL PTT RESULTED 132, CRITICAL HIGH. HEPARIN DRIP STOPPED PER PROTOCOL.
--- NOTE | 2024-07-27 17:05 | NUR ---
HEPARIN DRIP HEPARIN DRIP DECREASED BY 2 UNITS/KG/HR. HEPARIN DRIP RESTARTED AT LOWER RATE OF 13 UNITS/KG/HR.
--- NOTE | 2024-07-27 17:50 | NUR ---
DR. MONTSE WILLARD ROUNDING ON PATIENT. DR. WILLARD REVIEWED PLAN OF CARE WITH PATIENT. ORDERS RECEIVED.
--- NOTE | 2024-07-27 17:53 | PN ---
CARDIOLOGY Reason for consult: CHF HPI/story at presentation: This is a pleasant 69-year-old male with past medical history as per present with complaints of shortness of breath with worsening edema and abdominal bloating and distention. He was diagnosed CHF exacerbation, cardiology scheduled for evaluation management. Patient was also found to be atrial fibrillation with rapid ventricular sponsor presentation to the hospital. Diuresis was initiated. Subjective: 07/26/2024 shortness of breath Past medical history: See below Allergies, Meds See chart Review of systems Review of Systems Constitutional: Negative for chills and fever. HENT: Negative for ear discharge and ear pain. Eyes: Negative for photophobia and discharge. Respiratory: Negative for cough, sputum production and stridor. Cardiovascular: Negative for chest pain and palpitations. Gastrointestinal: Negative for diarrhea and vomiting. Genitourinary: Negative for frequency. Musculoskeletal: Negative for myalgias. Skin: Negative for rash. Neurological: Negative for focal weakness and seizures. Endo/Heme/Allergies: Negative for polydipsia. Psychiatric/Behavioral: Negative for hallucinations. Vitals see chart PHYSICAL EXAMINATION GENERAL: The patient is alert and oriented*3 HEENT: Nonicteric sclerae, non traumatic HEART: Regular rate and rhythm with no murmurs LUNGS: mild crackles 07/26/2024 ABDOMEN: No acute issues, non tender GENITAL, RECTAL: deferred SKIN: No rash NEUROLOGIC: NFND EXTREMITIES: bilareral edema 07/26/2024 ASSESSMENT ATRIAL FIBRILLATION Presentation Associated RVR at presentation CONGESTIVE HEART FAILURE With abdominal distention lower extremity manage at presentation ACUTE KIDNEY INJURY At presentation Condition nephropathy versus prerenal OBESITY CORE MEASURES OTHER MEDICAL PROBLEMS Reviewed PLAN 07/26/2024 agree with rate control for atrial fibrillation, will likely benefit from further anticoagulation as well. Possible liver etiology of elevated INR. Follow-up with renal function panel including albumin ordered. Agree with diuresis for now. Echocardiogram has been ordered and is pending as well. On IV twice daily of Lasix and metoprolol at this time. Further recommendations after echo. Seen and examined 07/26/2024 around 1900 07/27/2024 Shortness of breath is stable. Labs reviewed. Renal function is still elevated between 2.6 and 3. On heparin for anticoagulation. Echocardiogram with EF less than 20%, arterial duplex was normal. Ultrasound of the lower extremities and venous duplex were within normal limits. Renal ultrasound was negative, bladder scan with less than 100 cc. Difficult situation in the setting of significant RV failure associated with edema and ascites in the setting of severe cardiomyopathy and A-fib RVR. Suspected nonischemic in setting of A-fib although, CAD has not been ruled out yet. Unable to proceed with catheterization given acute kidney injury. milrinone was started to better help with renal perfusion. Caution in the setting of underlying renal dysfunction and therefore starting a low dose first. No dobutamine as patient is on beta eugene for rate control . May transfer to the heart failure center if renal function continues to worsen or if rate control is a challenge. Critically ill, prognosis is guarded. Spoke with multiple family members during the course of the day seen and examined multiple times, 07/27/2024. ATTESTATION I was involved substantially in the care of this patient Number and complexity of problems addressed: 1 acute illness that is a threat to life or bodily function Amount and or complexity of data Review of prior external note(s) from each unique source: 2+ Ordering of each unique test : 0 Review of the result(s) of each unique test: 2+ Assessment requiring an independent historian(s): No Independent interpretation of test performed by another MD/QHCP/appropriate source (not separately reported) : No Discussion of management or test interpretation with external MD/QHCP/appropriate source (not separately reported) : IM Risk status (cardiac, billing related): high Vitals/Labs Vital Signs Date Time Temp Pulse Resp B/P (MAP) Pulse Ox O2 Delivery O2 Flow Rate FiO2 07/27/24 16:19 97.5 112 18 128/65 95 Nasal Cannula 2.0 07/27/24 10:44 28 Laboratory Tests 07/27/24 00:28 07/27/24 08:14 07/27/24 09:05 Medications Current Medications Furosemide 40 mg ONCE ONCE IV Last administered on 07/26/24at 15:44; Start 07/26/24 at 15:30; Stop 07/26/24 at 15:31; Status DC Diltiazem HCl 20 mg ONCE ONCE IVP Last administered on 07/26/24at 15:44; Start 07/26/24 at 16:00; Stop 07/26/24 at 16:01; Status DC Diltiazem HCl 30 mg ONCE ONCE PO Last administered on 07/26/24at 16:15; Start 07/26/24 at 16:30; Stop 07/26/24 at 16:31; Status DC Acetaminophen 500 mg Q6H PRN PO; Start 07/26/24 at 18:00; Stop 08/25/24 at 17:59 Thiamine HCl 100 mg DAILY PO; Start 07/27/24 at 09:00; Stop 08/26/24 at 08:59 Folic Acid 1 mg DAILY PO Last administered on 07/27/24at 08:53; Start 07/27/24 at 09:00; Stop 08/26/24 at 08:59 Metoprolol Tartrate 25 mg BID PO Last administered on 07/27/24at 08:53; Start 07/26/24 at 21:00; Stop 07/27/24 at 10:29; Status DC Potassium Chloride 100 ml @ 100 mls/hr AD PRN IV; Start 07/26/24 at 18:00; Stop 08/25/24 at 17:59 Potassium Chloride 20 meq AD PRN PO; Start 07/26/24 at 18:00; Stop 08/25/24 at 17:59 Potassium Chloride 20 meq AD PRN PO; Start 07/26/24 at 18:00; Stop 08/25/24 at 17:59 Magnesium Sulfate 50 ml @ 0 mls/hr PROTOCOL PRN IV; Start 07/26/24 at 18:00; Stop 08/25/24 at 17:59 Furosemide 40 mg Q12H IV Last administered on 07/26/24at 23:09; Start 07/26/24 at 23:00; Stop 07/27/24 at 06:31; Status DC Heparin Sodium (Porcine) 5,000 unit Q12H SQ Last administered on 07/26/24at 21:07; Start 07/26/24 at 21:00; Stop 07/27/24 at 00:12; Status DC Heparin Sodium/ Dextrose 250 ml @ 0 mls/hr Q6H IV Last administered on 07/27/24at 17:12; Start 07/27/24 at 01:00; Stop 08/26/24 at 00:59 Bumetanide 1 mg Q12H IVP Last administered on 07/27/24at 08:53; Start 07/27/24 at 09:00; Stop 08/26/24 at 08:59 Pantoprazole Sodium 40 mg DAILY IVP; Start 07/28/24 at 09:00; Stop 08/27/24 at 08:59 Metoprolol Succinate 50 mg BID PO Last administered on 07/27/24at 11:52; Start 07/27/24 at 10:30; Stop 08/26/24 at 10:29 LANI GRACIA MD Jul 27, 2024 17:52
[2024-07-27] MEDS ORDERED: MILRINONE-D5W 20 MG/100 ML 100 ML IV SCH (18:00)
[2024-07-27] MEDS: MILRINONE-D5W 20 MG/100 ML 100 ML IV SCH (18:44)
--- NOTE | 2024-07-27 18:45 | HMCIMG ---
US RENAL SONOGRAM HISTORY: renal failure TECHNIQUE: US RENAL SONOGRAM. FINDINGS: RIGHT KIDNEY: The right kidney measures 10.3cm. No hydronephrosis or renal calculus seen. LEFT KIDNEY: The left kidney measures 9.3cm. There is no hydronephrosis. There is an approximate pole cyst measuring 5.5 cm. The visualized urinary bladder is within normal limits. IMPRESSION: No hydronephrosis is seen.
--- NOTE | 2024-07-27 18:50 | HMCIMG ---
US ARTERIAL BILAT LOW EXT DUPL HISTORY: CHECK CIRCULATION TECHNIQUE: Real-time arterial doppler ultrasound of the lower extremity was performed using B mode, color flow and spectral analysis. FINDINGS: RIGHT: Normal triphasic and biphasic waveforms seen in the evaluated arteries. The visualized common femoral, superficial femoral, popliteal, posterior tibial, anterior tibial and dorsalis pedis arteries demonstrate velocities within normal limits. LEFT: Normal triphasic and biphasic waveforms seen in the evaluated arteries. The visualized common femoral, superficial femoral, popliteal, posterior tibial, anterior tibial and dorsalis pedis arteries demonstrate velocities within normal limits. IMPRESSION: No evidence of major vessel occlusion or high-grade stenosis.
--- NOTE | 2024-07-27 19:41 | NUR ---
cm note met with pt and spouse,states lives with spouse, independent with adls/ambulation. no dme. no home services. drives. dc plan is home. states no dc needs. Addendum: 07/27/24 at 1950 by SARI CHARLES CM Amended: Links added.
--- NOTE | 2024-07-27 21:38 | PN ---
[facility] PROGRESS NOTE Date Patient Seen: Jul 27, 2024 Time of Visit: 21:38 Supervising Physician: Dr. Iggy Oreilly Consulting Physician: Hospitalist Outpatient Specialists: [ ] Inpatient Consults: Dr. Javier (cardio) PROBLEM LIST: Acute hypoxic respiratory failure, POA Congestive heart failure, chest x-ray showed bilateral pulmonary congestion, with BNP above 900 POA Acute kidney injury, POA Leukocytosis, POA Atrial fibrillation with RVR, POA Morbid obesity, BMI of 38.7 Plan: Admit per primary Facilitate 2D echo Obtain EKG if not done Keep potassium level above four, magnesium level above two Continue cardiac monitoring Use BiPAP at night DuoNeb q.6 Consider diuretics Keep head of bed above 30� Aspiration precautions Pulmonary toilet Rest of plan care of Cardiology and primary INTERVAL HISTORY: Patient evaluated at bedside in the emergency department, currently on 2 L nasal cannula, no acute distress at this time. Patient's BNP remains elevated he continues to diurese, he is being seen by Cardiology at this time. Currently on Bumex, radiology studies show CHF pulmonary vascular congestion, we will defer antibiotic therapy at this time and continue with the aggressive management of congestive heart failure per cardiology's recommendations. Pending COVID and flu rapid test We will continue to follow the patient while on the floor. REVIEW OF SYSTEMS: 12 point ROS reviewed with patient. Pertinent positives mentioned above. Otherwise negative. PHYSICAL EXAM: GENERAL: alert, weak, awake oriented x 3 HEENT: EOMI, Sclera non icteric, moist mucosa NECK: Supple, no JVD, trachea midline LUNGS: Coarse bilateral lung sounds HEART: Regular rate and rhythm. Normal S1 and S2, without murmurs ABD: Large abdomen EXT: 4+ pitting edema NEURO: Alert and oriented to person, follows commands Vital Signs (last 8hr) Date Time Temp Pulse Resp B/P (MAP) Pulse Ox O2 Delivery O2 Flow Rate FiO2 07/27/24 20:12 97.3 130 20 115/79 96 Nasal Cannula 2.0 07/27/24 18:36 97.3 123 20 118/84 93 Nasal Cannula 2.0 07/27/24 16:19 97.5 112 18 128/65 95 Nasal Cannula 2.0 LABS: Hematology Labs: Test 07/27/24 08:14 Range/Units White Blood Count 11.6 H 4.8-10.8 K/uL Red Blood Count 5.19 4.50-6.20 MIL/uL Hemoglobin 15.7 14.0-18.0 g/dL Hematocrit 48.9 42-54 % Mean Corpuscular Volume 94.2 79-99 fL Mean Corpuscular Hemoglobin 30.3 27.0-33.0 pg Mean Corpuscular Hemoglobin Concent 32.1 32.0-36.0 g/dL Red Cell Distribution Width 14.2 11.0-15.5 % Platelet Count 141 130-400 K/uL Mean Platelet Volume 11.1 H 7.5-10.5 fL Immature Granulocyte % (Auto) 0.3 0-1 % Neutrophils (%) (Auto) 53.1 40.0-77.0 % Lymphocytes (%) (Auto) 31.4 21.0-51.0 % Monocytes (%) (Auto) 10.2 3.0-13.0 % Eosinophils (%) (Auto) 4.7 0.0-8.0 % Basophils (%) (Auto) 0.3 0.0-5.0 % Neutrophils # (Auto) 6.2 1.8-7.7 K/uL Lymphocytes # (Auto) 3.6 1.0-4.8 K/uL Monocytes # (Auto) 1.2 H 0.1-1.0 K/uL Eosinophils # (Auto) 0.55 0.00-0.70 K/uL Basophils # (Auto) 0.03 0.00-0.20 K/uL Absolute Immature Granulocyte (auto 0.03 0-1 K/uL Nucleated Red Blood Cells 0.0 0.0-0.19 % Chemistry Labs: Test 07/27/24 19:32 07/27/24 09:05 07/27/24 00:28 07/26/24 16:32 Range/Units Whole Blood Glucose 185 H 70-110 MG/DL Sodium Level 137 136-145 mmol/L Potassium Level 4.7 3.5-5.1 mmol/L Chloride Level 103 101-111 mmol/L Carbon Dioxide Level 24 21-32 mmol/L Blood Urea Nitrogen 48 H 7-18 mg/dL Creatinine 2.6 H 0.5-1.3 mg/dL Glomerular Filtration Rate Calc 26 >90 mL/min Random Glucose 144 H 70-105 mg/dL Total Calcium 8.8 8.5-10.1 mg/dL Hemoglobin A1c 7.0 H 4.0-6.0 % Estimated Average Glucose (eAG) 154 H 70-126 mg/dL Total Bilirubin 0.9 0.2-1.0 mg/dL Aspartate Amino Transf (AST/SGOT) 30 10-37 U/L Alanine Aminotransferase (ALT/SGPT) 20 12-78 U/L Alkaline Phosphatase 77 50-136 U/L Total Protein 6.6 6.0-8.3 g/dL Albumin 3.6 3.5-5.0 g/dL C-Reactive Protein, Quantitative 29.20 H 0.5-3.0 mg/L Thyroid Stimulating Hormone (TSH) 3.57 0.36-3.74 uIU/mL Test 07/26/24 15:03 Range/Units Magnesium Level 2.50 H 1.80-2.40 mg/dL Total Creatine Kinase 90 21-232 U/L Troponin I High Sensitivity 40.9 4-75 ng/L B-Type Natriuretic Peptide 927 H 0-100 pg/mL Triglycerides Level 160 30-200 mg/dL Cholesterol Level 159 <200 mg/dL LDL Cholesterol 106 H 0-99 mg/dL HDL Cholesterol 30 29-71 mg/dL Procalcitonin 0.14 0.05-0.5 ng/mL Coagulation Labs: Test 07/27/24 21:00 07/27/24 08:14 Range/Units Activated Partial Thromboplast Time 82.2 #H 26.3-35.5 SEC Prothrombin Time 15.1 H 9.6-11.6 SEC Prothromb Time International Ratio 1.48 H 0.85-1.15 DIAGNOSTICS / RADIOLOGY RESULTS: [ ] PLAN NEURO: Minimize central acting medications as possible. Maintain fall precautions, adequate lighting during the day PULMONARY: Supplemental 02 as needed. Maintain aspiration precautions at all times CARDIOVASCULAR: Follow hemodynamics. Vital signs per facility protocol GI & NUTRITION: Continue with nutritional support. Continue stool softeners and laxatives as needed. KIDNEYS & ELECTROLYTES: Strict monitoring of intake, output and overall fluid balance. Avoid nephrotoxic medications to the extent possible. Medications to be dosed according to renal function. Monitor electrolytes and replace as needed ENDOCRINE: Maintain blood glucose between 100-180 at all times. Hypoglycemia protocol in place INFECTIOUS DISEASE: Trend temperature, WBC and procalcitonin level Follow cultures, deescalate antibiotics as soon as possible. Panculture if new onset fever ONCOLOGY/HEMATOLOGY/COAGULATION: Monitor for s/s of bleeding Monitor hemoglobin, coagulation studies as needed SKIN: Pressure ulcer prevention per facility protocol Specialty mattress ORTHO/REHAB: Continue PT/OT Prophylaxis: Continue GI and DVT prophylaxis Code Status: Full Resuscitation Disposition: TBD Other: Total patient care time exceeds 35 minutes excluding all procedures. DELMY SEWELL Jul 27, 2024 21:38
--- NOTE | 2024-07-27 22:45 | NUR ---
RE: HR Informed Dr. Mitchell regarding pt with HR sustaining 130s despite Toprol administration at 2019. MD also made aware of urine out of only 50 ml after IV bumex administration. Per Dr. Mitchell administer additional dose of metoprolol succinate 50 mg and change dose to 100 mg PO BID. Obtain stat BMP and call back with results.
[2024-07-27] MEDS: metOPROLol sucCINATE 50 MG TAB.SR.24H PO ONE (23:43)
--- NOTE | 2024-07-27 23:45 | NUR ---
RE: BMP Results Readback BMP results to Dr. Mitchell. Informed him patient had not voided since earlier just [address] Mitchell do bladder scan. Bladder scan performed and only [address] Mitchell increase milrinone drip to 0.25 mcg/kg/min.
--- NOTE | 2024-07-27 23:45 | NUR ---
Patient states he does not like the bipap. Addendum: 07/27/24 at 2346 by JORGE MOHAMUD RT Amended: Links added.
[2024-07-28] VITALS (13 sets, daily range): BP systolic 98–144; BP diastolic 62–79; PULSE 57–122; RESP 16–20; TEMP 97–97.8; O2SAT 92–95
--- NOTE | 2024-07-28 02:28 | NUR ---
RE: Urine Output Informed Dr. Mitchell pt has not voided despite increase in milrinone. Bladder scan repeat reveals [address] Mitchell, start patient on lasix drip at 10 mg/hr and reduce milrinone to 0.125 mcg/kg/min.
[2024-07-28] MEDS: furoSEMIDE 100MG VIAL 100 MG in 0.9%NACL 100ML 100 ML IV SCH (03:02)
[2024-07-28 04:23] LABS: BASOPHILS # (AUTO) 0.04 K/uL (0.00-0.20); BASOPHILS % (AUTO) 0.3 % (0.0-5.0); EOSINOPHILS # (AUTO) 0.07 K/uL (0.00-0.70); EOSINOPHILS % (AUTO) 0.6 % (0.0-8.0); HEMATOCRIT 46.3 % (42-54); IMMATURE GRANULOCYTE ABSOLUTE 0.04 K/uL (0-1); LYMPHOCYTES % (AUTO) 32.9 % (21.0-51.0); MEAN CORPUSCULAR HEMOGLOBIN 29.9 pg (27.0-33.0); MEAN CORPUSCULAR HGB CONC 31.3 g/dL (32.0-36.0); MEAN CORPUSCULAR VOLUME 95.5 fL (79-99); MONOCYTES # (AUTO) 1.3 K/uL (0.1-1.0); MONOCYTES % (AUTO) 10.6 % (3.0-13.0); NEUTROPHILS # (AUTO) 6.7 K/uL (1.8-7.7); NEUTROPHILS % (AUTO) 55.3 % (40.0-77.0); NUCLEATED RED BLOOD CELLS 0.2 % (0.0-0.19); PLATELET COUNT (AUTO) 155 K/uL (130-400); RED BLOOD CELL COUNT(AUTO) 4.85 MIL/uL (4.50-6.20); RED CELL DISTRIBUTION WIDTH 14.1 % (11.0-15.5); WHITE BLOOD COUNT (AUTO) 12.1 K/uL (4.8-10.8)
[2024-07-28 04:47] LABS: CREATININE 3.2 mg/dL (0.5-1.3)
--- NOTE | 2024-07-28 08:53 | PN ---
[facility] PROGRESS NOTE Date Patient Seen: Jul 28, 2024 Time of Visit: 08:52 Supervising Physician: Dr. Iggy Oreilly Consulting Physician: Hospitalist Outpatient Specialists: [ ] Inpatient Consults: Dr. Javier (cardio) PROBLEM LIST: Acute hypoxic respiratory failure, POA Congestive heart failure, chest x-ray showed bilateral pulmonary congestion, with BNP above 900 POA Acute kidney injury, POA Leukocytosis, POA Atrial fibrillation with RVR, POA Morbid obesity, BMI of 38.7 Plan: Admit per primary Facilitate 2D echo Obtain EKG if not done Keep potassium level above four, magnesium level above two Continue cardiac monitoring Use BiPAP at night DuoNeb q.6 Consider diuretics Keep head of bed above 30� Aspiration precautions Pulmonary toilet Rest of plan care of Cardiology and primary INTERVAL HISTORY: Patient evaluated at bedside, he is currently on 3 L nasal cannula, patient has been transitioned to a furosemide drip along with Milrinone per Cardiology recommendations, patient's BNP this morning is 866, creatinine is 3.2. Patient negative for COVID and flu. Cardiology continuing with the aggressive management of his diuresis for biventricular heart failure. Pulmonary Services will continue to follow the patient while he remains in supplemental O2. REVIEW OF SYSTEMS: 12 point ROS reviewed with patient. Pertinent positives mentioned above. Otherwise negative. PHYSICAL EXAM: GENERAL: alert, weak, awake oriented x 3 HEENT: EOMI, Sclera non icteric, moist mucosa NECK: Supple, no JVD, trachea midline LUNGS: Coarse bilateral lung sounds HEART: Regular rate and rhythm. Normal S1 and S2, without murmurs ABD: Large abdomen EXT: 4+ pitting edema NEURO: Alert and oriented to person, follows commands Vital Signs (last 8hr) Date Time Temp Pulse Resp B/P (MAP) Pulse Ox O2 Delivery O2 Flow Rate FiO2 07/28/24 07:48 97.0 122 18 132/70 92 Nasal Cannula 2.0 07/28/24 07:30 95 Nasal Cannula* 2 28 07/28/24 06:57 74 20 07/28/24 06:56 74 20 N/Cannula Low lpm 2.0 07/28/24 04:00 97.7 57 20 118/79 91 Nasal Cannula 2.0 LABS: Hematology Labs: Test 07/28/24 04:08 Range/Units White Blood Count 12.1 H 4.8-10.8 K/uL Red Blood Count 4.85 4.50-6.20 MIL/uL Hemoglobin 14.5 14.0-18.0 g/dL Hematocrit 46.3 42-54 % Mean Corpuscular Volume 95.5 79-99 fL Mean Corpuscular Hemoglobin 29.9 27.0-33.0 pg Mean Corpuscular Hemoglobin Concent 31.3 L 32.0-36.0 g/dL Red Cell Distribution Width 14.1 11.0-15.5 % Platelet Count 155 130-400 K/uL Mean Platelet Volume 10.7 H 7.5-10.5 fL Immature Granulocyte % (Auto) 0.3 0-1 % Neutrophils (%) (Auto) 55.3 40.0-77.0 % Lymphocytes (%) (Auto) 32.9 21.0-51.0 % Monocytes (%) (Auto) 10.6 3.0-13.0 % Eosinophils (%) (Auto) 0.6 0.0-8.0 % Basophils (%) (Auto) 0.3 0.0-5.0 % Neutrophils # (Auto) 6.7 1.8-7.7 K/uL Lymphocytes # (Auto) 4.0 1.0-4.8 K/uL Monocytes # (Auto) 1.3 H 0.1-1.0 K/uL Eosinophils # (Auto) 0.07 0.00-0.70 K/uL Basophils # (Auto) 0.04 0.00-0.20 K/uL Absolute Immature Granulocyte (auto 0.04 0-1 K/uL Nucleated Red Blood Cells 0.2 H 0.0-0.19 % Chemistry Labs: Test 07/28/24 05:26 07/28/24 04:08 07/27/24 00:28 07/26/24 16:32 Range/Units Whole Blood Glucose 137 H 70-110 MG/DL Sodium Level 134 L 136-145 mmol/L Potassium Level 5.0 3.5-5.1 mmol/L Chloride Level 97 L 101-111 mmol/L Carbon Dioxide Level 28 21-32 mmol/L Blood Urea Nitrogen 56 H 7-18 mg/dL Creatinine 3.2 H 0.5-1.3 mg/dL Glomerular Filtration Rate Calc 20 >90 mL/min Random Glucose 142 H 70-105 mg/dL Total Calcium 9.0 8.5-10.1 mg/dL B-Type Natriuretic Peptide 866 H 0-100 pg/mL Hemoglobin A1c 7.0 H 4.0-6.0 % Estimated Average Glucose (eAG) 154 H 70-126 mg/dL Total Bilirubin 0.9 0.2-1.0 mg/dL Aspartate Amino Transf (AST/SGOT) 30 10-37 U/L Alanine Aminotransferase (ALT/SGPT) 20 12-78 U/L Alkaline Phosphatase 77 50-136 U/L Total Protein 6.6 6.0-8.3 g/dL Albumin 3.6 3.5-5.0 g/dL C-Reactive Protein, Quantitative 29.20 H 0.5-3.0 mg/L Thyroid Stimulating Hormone (TSH) 3.57 0.36-3.74 uIU/mL Test 07/26/24 15:03 Range/Units Magnesium Level 2.50 H 1.80-2.40 mg/dL Total Creatine Kinase 90 21-232 U/L Troponin I High Sensitivity 40.9 4-75 ng/L Triglycerides Level 160 30-200 mg/dL Cholesterol Level 159 <200 mg/dL LDL Cholesterol 106 H 0-99 mg/dL HDL Cholesterol 30 29-71 mg/dL Procalcitonin 0.14 0.05-0.5 ng/mL Coagulation Labs: Test 07/28/24 04:08 07/27/24 08:14 Range/Units Activated Partial Thromboplast Time 84.2 H 26.3-35.5 SEC Prothrombin Time 15.1 H 9.6-11.6 SEC Prothromb Time International Ratio 1.48 H 0.85-1.15 DIAGNOSTICS / RADIOLOGY RESULTS: [ ] PLAN NEURO: Minimize central acting medications as possible. Maintain fall precautions, adequate lighting during the day PULMONARY: Supplemental 02 as needed. Maintain aspiration precautions at all times CARDIOVASCULAR: Follow hemodynamics. Vital signs per facility protocol GI & NUTRITION: Continue with nutritional support. Continue stool softeners and laxatives as needed. KIDNEYS & ELECTROLYTES: Strict monitoring of intake, output and overall fluid balance. Avoid nephrotoxic medications to the extent possible. Medications to be dosed according to renal function. Monitor electrolytes and replace as needed ENDOCRINE: Maintain blood glucose between 100-180 at all times. Hypoglycemia protocol in place INFECTIOUS DISEASE: Trend temperature, WBC and procalcitonin level Follow cultures, deescalate antibiotics as soon as possible. Panculture if new onset fever ONCOLOGY/HEMATOLOGY/COAGULATION: Monitor for s/s of bleeding Monitor hemoglobin, coagulation studies as needed SKIN: Pressure ulcer prevention per facility protocol Specialty mattress ORTHO/REHAB: Continue PT/OT Prophylaxis: Continue GI and DVT prophylaxis Code Status: Full Resuscitation Disposition: TBD Other: Total patient care time exceeds 35 minutes excluding all procedures. DELMY SEWELL Jul 28, 2024 08:53
--- NOTE | 2024-07-28 09:05 | PN ---
FOLLOWUP PROGRESS NOTE SUBJECTIVE: A 69-year-old male presented to the hospital and was found to have severe cardiomyopathy. The patient has an ejection fraction of 20%. The patient was started on milrinone. He has had acute on chronic renal failure in the hospital. Creatinine has been elevated and the patient is being seen as a followup visit for all of the above. REVIEW OF SYSTEMS: GENERAL: He is feeling somewhat improved. HEENT: No change in vision. No change in hearing. CARDIOVASCULAR: There is no current chest pain or palpitations. PULMONARY: Shortness of breath has improved. GASTROINTESTINAL: The patient is tolerating a diet. MUSCULOSKELETAL: Complaints of weakness. PHYSICAL EXAMINATION: VITAL SIGNS: Blood pressure is 132/70, pulse in the 70s, afebrile. GENERAL: He is a chronically ill male, lying in bed on the medical floor. HEENT: Head is atraumatic. Pupils are equal, roving to light. Oropharynx is without exudate. Nares clear. NECK: There is no JVP. There is no thyromegaly. No mass. CARDIOVASCULAR: Regular. There is no S3 or S4 gallop. LUNGS: Coarse with equal thoracic movement. ABDOMEN: Soft, nondistended, and nontender. EXTREMITIES: Reveal no clubbing, no cyanosis. NEUROLOGICAL: He is awake. He is alert. LABORATORY DATA: Sodium 134, potassium is 5, BUN 56, creatinine 3.2. Hemoglobin 14, hematocrit 46. IMPRESSION: * Acute on chronic renal failure. * Severe cardiomyopathy. * Diabetes mellitus. * Hypertension. PLAN: The patient's creatinine continues to be elevated. The patient has been started on milrinone. We will continue to monitor the chemistries closely. The patient has been started on the IV Lasix. Workup is ongoing per Cardiology and we will follow the patient closely. The patient with multiple questions, all of which were all answered. TID: [id number] RECEIPT: [id number]
[2024-07-28] MEDS: metOPROLol sucCINATE 50 MG TAB.SR.24H PO SCH (09:41)
[2024-07-28] MEDS: PANTOPrazole 40 MG/VIAL IVP SCH (09:41)
--- NOTE | 2024-07-28 11:03 | PN ---
CARDIOLOGY Reason for consult: CHF HPI/story at presentation: This is a pleasant 69-year-old male with past medical history as per present with complaints of shortness of breath with worsening edema and abdominal bloating and distention. He was diagnosed CHF exacerbation, cardiology scheduled for evaluation management. Patient was also found to be atrial fibrillation with rapid ventricular sponsor presentation to the hospital. Diuresis was initiated. Subjective: 07/26/2024 shortness of breath Past medical history: See below Allergies, Meds See chart Review of systems Review of Systems Constitutional: Negative for chills and fever. HENT: Negative for ear discharge and ear pain. Eyes: Negative for photophobia and discharge. Respiratory: Negative for cough, sputum production and stridor. Cardiovascular: Negative for chest pain and palpitations. Gastrointestinal: Negative for diarrhea and vomiting. Genitourinary: Negative for frequency. Musculoskeletal: Negative for myalgias. Skin: Negative for rash. Neurological: Negative for focal weakness and seizures. Endo/Heme/Allergies: Negative for polydipsia. Psychiatric/Behavioral: Negative for hallucinations. Vitals see chart PHYSICAL EXAMINATION GENERAL: The patient is alert and oriented*3 HEENT: Nonicteric sclerae, non traumatic HEART: Regular rate and rhythm with no murmurs LUNGS: mild crackles 07/26/2024 ABDOMEN: No acute issues, non tender GENITAL, RECTAL: deferred SKIN: No rash NEUROLOGIC: NFND EXTREMITIES: bilareral edema 07/26/2024 ASSESSMENT ATRIAL FIBRILLATION Presentation Associated RVR at presentation CONGESTIVE HEART FAILURE With abdominal distention lower extremity manage at presentation ACUTE KIDNEY INJURY At presentation Condition nephropathy versus prerenal OBESITY CORE MEASURES OTHER MEDICAL PROBLEMS Reviewed PLAN 07/26/2024 agree with rate control for atrial fibrillation, will likely benefit from further anticoagulation as well. Possible liver etiology of elevated INR. Follow-up with renal function panel including albumin ordered. Agree with diuresis for now. Echocardiogram has been ordered and is pending as well. On IV twice daily of Lasix and metoprolol at this time. Further recommendations after echo. Seen and examined 07/26/2024 around 1900 07/27/2024 Shortness of breath is stable. Labs reviewed. Renal function is still elevated between 2.6 and 3. On heparin for anticoagulation. Echocardiogram with EF less than 20%, arterial duplex was normal. Ultrasound of the lower extremities and venous duplex were within normal limits. Renal ultrasound was negative, bladder scan with less than 100 cc. Difficult situation in the setting of significant RV failure associated with edema and ascites in the setting of severe cardiomyopathy and A-fib RVR. Suspected nonischemic in setting of A-fib although, CAD has not been ruled out yet. Unable to proceed with catheterization given acute kidney injury. milrinone was started to better help with renal perfusion. Caution in the setting of underlying renal dysfunction and therefore starting a low dose first. No dobutamine as patient is on beta eugene for rate control . May transfer to the heart failure center if renal function continues to worsen or if rate control is a challenge. Critically ill, prognosis is guarded. Spoke with multiple family members during the course of the day seen and examined multiple times, 07/27/2024. 07/28/2024 Overnight, patient was started on milrinone to help with urine output but there is no significant response to bed and this was increased from 0.125- 0.25. However, even with elevated doses, no significant output was present after a few hours. Given underlying renal failure, milrinone was not increased any further. Also, patient was having issues with tachycardia with increased dose of milrinone. Metoprolol was increased to help with rate control. Dobutamine is not being considered because of metoprolol use. Diuresis was ineffective and therefore, patient was started on a Lasix drip at 10 to try to help with diuresis. This morning, urine output has improved about 200 cc. Low- dose milrinone has been continued, urine is dark, possibly ATN. Will watch for worsening renal function although, this is likely in the current situation. Will need to ensure there is quite adequate urine output. Discussed transfer to advanced heart failure management programs and at this time, plan is to wait. Seen and examined 07/28/2024 at around 1130 ATTESTATION I was involved substantially in the care of this patient Number and complexity of problems addressed: 1 acute illness that is a threat to life or bodily function Amount and or complexity of data Review of prior external note(s) from each unique source: 2+ Ordering of each unique test : 0 Review of the result(s) of each unique test: 2+ Assessment requiring an independent historian(s): No Independent interpretation of test performed by another MD/QHCP/appropriate source (not separately reported) : No Discussion of management or test interpretation with external MD/QHCP/appropriate source (not separately reported) : IM Risk status (cardiac, billing related): high Vitals/Labs Vital Signs Date Time Temp Pulse Resp B/P (MAP) Pulse Ox O2 Delivery O2 Flow Rate FiO2 07/28/24 07:48 97.0 122 18 132/70 92 Nasal Cannula 2.0 07/28/24 07:30 28 Laboratory Tests 07/27/24 23:05 07/28/24 04:08 Medications Current Medications Furosemide 40 mg ONCE ONCE IV Last administered on 07/26/24at 15:44; Start 07/26/24 at 15:30; Stop 07/26/24 at 15:31; Status DC Diltiazem HCl 20 mg ONCE ONCE IVP Last administered on 07/26/24at 15:44; Start 07/26/24 at 16:00; Stop 07/26/24 at 16:01; Status DC Diltiazem HCl 30 mg ONCE ONCE PO Last administered on 07/26/24at 16:15; Start 07/26/24 at 16:30; Stop 07/26/24 at 16:31; Status DC Acetaminophen 500 mg Q6H PRN PO; Start 07/26/24 at 18:00; Stop 08/25/24 at 17:59 Thiamine HCl 100 mg DAILY PO Last administered on 07/28/24at 09:41; Start 07/27/24 at 09:00; Stop 08/26/24 at 08:59 Folic Acid 1 mg DAILY PO Last administered on 07/28/24at 09:41; Start 07/27/24 at 09:00; Stop 08/26/24 at 08:59 Metoprolol Tartrate 25 mg BID PO Last administered on 07/27/24at 08:53; Start 07/26/24 at 21:00; Stop 07/27/24 at 10:29; Status DC Potassium Chloride 100 ml @ 100 mls/hr AD PRN IV; Start 07/26/24 at 18:00; Stop 08/25/24 at 17:59 Potassium Chloride 20 meq AD PRN PO; Start 07/26/24 at 18:00; Stop 08/25/24 at 17:59 Potassium Chloride 20 meq AD PRN PO; Start 07/26/24 at 18:00; Stop 08/25/24 at 17:59 Magnesium Sulfate 50 ml @ 0 mls/hr PROTOCOL PRN IV; Start 07/26/24 at 18:00; Stop 08/25/24 at 17:59 Furosemide 40 mg Q12H IV Last administered on 07/26/24at 23:09; Start 07/26/24 at 23:00; Stop 07/27/24 at 06:31; Status DC Heparin Sodium (Porcine) 5,000 unit Q12H SQ Last administered on 07/26/24at 21:07; Start 07/26/24 at 21:00; Stop 07/27/24 at 00:12; Status DC Heparin Sodium/ Dextrose 250 ml @ 0 mls/hr Q6H IV Last administered on 07/27/24at 17:12; Start 07/27/24 at 01:00; Stop 08/26/24 at 00:59 Bumetanide 1 mg Q12H IVP Last administered on 07/27/24at 20:19; Start 07/27/24 at 09:00; Stop 07/28/24 at 02:44; Status DC Pantoprazole Sodium 40 mg DAILY IVP Last administered on 07/28/24at 09:41; Start 07/28/24 at 09:00; Stop 08/27/24 at 08:59 Metoprolol Succinate 50 mg BID PO Last administered on 07/27/24at 20:19; Start 07/27/24 at 10:30; Stop 07/27/24 at 22:52; Status DC Milrinone Lactate/ Dextrose 100 ml @ 0 mls/hr PROTOCOL IV; Start 07/27/24 at 18:00; Stop 07/27/24 at 18:05; Status DC Milrinone Lactate/ Dextrose 100 ml @ 0 mls/hr PROTOCOL IV Last administered on 07/27/24at 18:44; Start 07/27/24 at 18:30; Stop 08/26/24 at 18:29 Metoprolol Succinate 50 mg ONCE ONCE PO Last administered on 07/27/24at 23:43; Start 07/27/24 at 23:00; Stop 07/27/24 at 23:01; Status DC Metoprolol Succinate 100 mg BID PO Last administered on 07/28/24at 09:41; Start 07/28/24 at 09:00; Stop 08/27/24 at 08:59 Furosemide 100 mg/ Sodium Chloride 100 ml @ 0 mls/hr PROTOCOL IV Last administered on 07/28/24at 03:02; Start 07/28/24 at 03:00; Stop 08/27/24 at 02:59 LANI GRACIA MD Jul 28, 2024 11:03
[2024-07-28 12:37] LABS: COVID19 (SARS ANTIGEN RAPID) PRESUMPTIVE NEGATIVE (NEGATIVE)
[2024-07-28 12:38] LABS: INFLUENZA TYPE A Negative For Type A (NEGATIVE); INFLUENZA TYPE B Negative For Type B (NEGATIVE)
--- NOTE | 2024-07-28 12:58 | PN ---
[facility] PROGRESS NOTE Date of Service: Jul 28, 2024 Time of Service: 12:55 SUBJECTIVE: [ 69 YEAR OLD MALE ADMITTED FOR SOB, HE WAS NOTED WITH BILATERAL LOWER EXTREMITY EDEMA AND DISTENDED ABDOMEN. 2D ECHO WAS DONE THIS MORNING WHICH SHOWED LESS THAN 20% EF. PATIENT IS BEING FOLLOWED BY PRINTING SERVICES COORDINATOR, DR. WILLARD AND CRITICAL CARE TEAM. HE IS CURRENTLY ON O2 VIA NASAL CANNULA AT 2 L WITH SATURATION AT 96%. PATIENT HAS FAMILY HISTORY OF MALIGNANT HYPERTHERMIA. PATIENT CONTINUES TO BE WITH AFIB RVR HE IS ON BETA POORNIMA AND DIURETICS. WE WILL CONTINUE TO MONITOR AND FOLLOW RECOMMENDATIONS FROM PRINTING SERVICES COORDINATOR.] REVIEW OF SYSTEMS CONSTITUTIONAL: Denies fevers, chills, or night sweats. Denied any changes in weight NEUROLOGICAL: Denies headache, amaurosis fugax, motor weakness, sensory deficit, vertigo/spinning sensation, gait abnormalities, or tremors. ENT: No hearing loss, otalgia, otorrhea, rhinitis, rhinorrhea, hoarseness, or sore throat. CARDIOVASCULAR: Denies any exertional angina, dyspnea on exertion, orthopnea, paroxysmal nocturnal dyspnea, palpitations, life-threatening arrhythmias, claudication. PULMONARY: Positive for shortness of breath, cough. Denied any sputum production GASTROINTESTINAL: Denies any type of dysphagia to either liquids or solids. Denies nausea, vomiting, pyrosis, early satiety, abdominal pain, diarrhea, constipation, or changes in stool consistency or caliber. Denies coffee-ground emesis, hematemesis, hematochezia, or melanotic stools. GENITOURINARY: Positive for decreased urination. Denied any hematuria, dysuria ENDOCRINOLOGIC: Denies polyuria, polydipsia, polyphagia or heat/cold intolerances. HEMATOLOGIC: Denies thrombophilia/previous clots, or coagulopathy/bleeding disorders. ONCOLOGIC: Denies personal history of malignancy. DERMATOLOGIC: Denies rashes or pruritus. PSYCHIATRIC: Denies any suicidal or homicidal ideation. Denies hallucinations. Musculoskeletal: Positive for swelling in the lower extremity PHYSICAL EXAM GENERAL APPEARANCE: The patient is awake, alert, and oriented, in no acute cardiopulmonary distress. NEUROLOGICAL: Cranial nerves II-XII grossly intact. Motor is 5/5 in bilateral upper and lower extremities proximal to distal. No sensory deficits. HEENT: Face is symmetric. Pupils are equal and reactive. Extraocular movements are intact. NECK: Supple. No JVD. No thyromegaly. No submental, submandibular, pre- /postauricular, occipital or supraclavicular lymphadenopathy. CHEST: Normal chest expansion. No Telemetry. LUNGS: Positive for crackles in the right side CARDIOVASCULAR: Regular. S1 and S2 normal. No appreciable rubs, murmurs or gallops. ABDOMEN: Abdomen is distended. He has soft tissue edema in the abdominal wall. Bowel sounds are active. : Deferred. No Garcia. EXTREMITIES:3+ pitting edema in the lower extremity bilaterally he also has venous stasis changes.. No clubbing. Good capillary refill. SKIN: No skin breakdown. Vital Signs (last 8hr) Date Time Temp Pulse Resp B/P (MAP) Pulse Ox O2 Delivery O2 Flow Rate FiO2 07/28/24 12:04 97.5 112 18 108/65 92 Nasal Cannula 2.0 07/28/24 07:48 97.0 122 18 132/70 92 Nasal Cannula 2.0 07/28/24 07:30 95 Nasal Cannula* 2 28 07/28/24 06:57 74 20 07/28/24 06:56 74 20 N/Cannula Low lpm 2.0 LABS: Laboratory: Test 07/28/24 11:27 07/28/24 11:25 07/28/24 10:57 07/28/24 04:08 Range/Units Whole Blood Glucose 139 H 70-110 MG/DL Influenza Type A Antigen Negative For Type A NEGATIVE Influenza Type B Antigen Negative For Type B NEGATIVE SARS-CoV-2 Antigen (Rapid) PRESUMPTIVE NEGATIVE NEGATIVE Activated Partial Thromboplast Time 67.8 H 26.3-35.5 SEC White Blood Count 12.1 H 4.8-10.8 K/uL Red Blood Count 4.85 4.50-6.20 MIL/uL Hemoglobin 14.5 14.0-18.0 g/dL Hematocrit 46.3 42-54 % Mean Corpuscular Volume 95.5 79-99 fL Mean Corpuscular Hemoglobin 29.9 27.0-33.0 pg Mean Corpuscular Hemoglobin Concent 31.3 L 32.0-36.0 g/dL Red Cell Distribution Width 14.1 11.0-15.5 % Platelet Count 155 130-400 K/uL Mean Platelet Volume 10.7 H 7.5-10.5 fL Immature Granulocyte % (Auto) 0.3 0-1 % Neutrophils (%) (Auto) 55.3 40.0-77.0 % Lymphocytes (%) (Auto) 32.9 21.0-51.0 % Monocytes (%) (Auto) 10.6 3.0-13.0 % Eosinophils (%) (Auto) 0.6 0.0-8.0 % Basophils (%) (Auto) 0.3 0.0-5.0 % Neutrophils # (Auto) 6.7 1.8-7.7 K/uL Lymphocytes # (Auto) 4.0 1.0-4.8 K/uL Monocytes # (Auto) 1.3 H 0.1-1.0 K/uL Eosinophils # (Auto) 0.07 0.00-0.70 K/uL Basophils # (Auto) 0.04 0.00-0.20 K/uL Absolute Immature Granulocyte (auto 0.04 0-1 K/uL Nucleated Red Blood Cells 0.2 H 0.0-0.19 % Sodium Level 134 L 136-145 mmol/L Potassium Level 5.0 3.5-5.1 mmol/L Chloride Level 97 L 101-111 mmol/L Carbon Dioxide Level 28 21-32 mmol/L Blood Urea Nitrogen 56 H 7-18 mg/dL Creatinine 3.2 H 0.5-1.3 mg/dL Glomerular Filtration Rate Calc 20 >90 mL/min Random Glucose 142 H 70-105 mg/dL Total Calcium 9.0 8.5-10.1 mg/dL B-Type Natriuretic Peptide 866 H 0-100 pg/mL Test 07/27/24 08:14 07/27/24 00:28 07/26/24 21:30 07/26/24 16:32 Range/Units Prothrombin Time 15.1 H 9.6-11.6 SEC Prothromb Time International Ratio 1.48 H 0.85-1.15 Hemoglobin A1c 7.0 H 4.0-6.0 % Estimated Average Glucose (eAG) 154 H 70-126 mg/dL Total Bilirubin 0.9 0.2-1.0 mg/dL Aspartate Amino Transf (AST/SGOT) 30 10-37 U/L Alanine Aminotransferase (ALT/SGPT) 20 12-78 U/L Alkaline Phosphatase 77 50-136 U/L Total Protein 6.6 6.0-8.3 g/dL Albumin 3.6 3.5-5.0 g/dL Urine Color YELLOW YELLOW Urine Appearance CLOUDY H CLEAR Urine pH 5.0 5.0-8.0 Urine Specific [place] 1.015 1.001-1.031 Urine Protein 20 H NEGATIVE mg/dL Urine Glucose (UA) NEGATIVE NEGATIVE mg/dL Urine Ketones NEGATIVE NEGATIVE mg/dL Urine Occult Blood NEGATIVE NEGATIVE Urine Nitrate NEGATIVE NEGATIVE Urine Bilirubin NEGATIVE NEGATIVE mg/dL Urine Urobilinogen 2.0 H 0.2-1.0 mg/dL Urine Leukocyte Esterase NEGATIVE NEGATIVE Max/uL Urine RBC 0-1 0-1 /HPF Urine WBC 2-5 H 0-1 /HPF Urine Squamous Epithelial Cells RARE 0-2 /HPF Urine Bacteria None None Seen /HPF Urine Hyaline Casts 11-25 H 0-1 /LPF /LPF Urine Random Creatinine 209.62 H 30-135 mg/dL Urine Random Sodium 48 40-220 mmol/l C-Reactive Protein, Quantitative 29.20 H 0.5-3.0 mg/L Thyroid Stimulating Hormone (TSH) 3.57 0.36-3.74 uIU/mL Test 07/26/24 15:26 07/26/24 15:03 Range/Units Blood Gas Specimen Type Arterial Arterial Blood pH 7.390 7.350-7.450 Arterial Blood Partial Pressure CO2 32 L 35-48 mmHg Arterial Blood Partial Pressure O2 54.4 *L 83.0-108.0 mmHg Arterial Blood HCO3 19.2 L 21.0-28.0 mmol/L Arterial Blood Oxygen Saturation 88.4 L 94.0-98.0 % Arterial Blood Base Excess -4.7 L -2.0-3.0 mmol/L Blood Gas Temperature 37.0 35.5-37.0 CELSIUS Blood Gas Vent Mode RA ROOM AIR FiO2 21.0 % Blood Gas Specimen Comment RR MD MARIAELENA Magnesium Level 2.50 H 1.80-2.40 mg/dL Total Creatine Kinase 90 21-232 U/L Troponin I High Sensitivity 40.9 4-75 ng/L Triglycerides Level 160 30-200 mg/dL Cholesterol Level 159 <200 mg/dL LDL Cholesterol 106 H 0-99 mg/dL HDL Cholesterol 30 29-71 mg/dL Procalcitonin 0.14 0.05-0.5 ng/mL Current Medications Medications (Trade) Dose Ordered Sig/Melinda Route PRN Reason Start Time Stop Time Status Last Admin Dose Admin Acetaminophen (TYLenol 500MG TAB) 500 mg Q6H PRN PO MILD PAIN (1-3) 07/26/24 18:00 08/25/24 17:59 Bumetanide (Bumex 1mg Vial) 1 mg Q12H IVP 07/27/24 09:00 07/28/24 02:44 DC 07/27/24 20:19 1 MG Folic Acid (FOLic ACID 1 MG TABLET) 1 mg DAILY PO 07/27/24 09:00 08/26/24 08:59 07/28/24 09:41 1 MG Furosemide (LASix 40MG VIAL) 40 mg Q12H IV 07/26/24 23:00 07/27/24 06:31 DC 07/26/24 23:09 40 MG Furosemide 100 mg/ Sodium Chloride 100 ml @ 0 mls/hr PROTOCOL IV 07/28/24 03:00 08/27/24 02:59 07/28/24 12:43 10 MLS/HR Heparin Sodium (Porcine) (HEParin 5,000 UNIT VIAL) 5,000 unit Q12H SQ 07/26/24 21:00 07/27/24 00:12 DC 07/26/24 21:07 5,000 UNIT Heparin Sodium/ Dextrose 250 ml @ 0 mls/hr Q6H IV 07/27/24 01:00 08/26/24 00:59 07/28/24 12:29 13.65 MLS/HR Magnesium Sulfate 50 ml @ 0 mls/hr PROTOCOL PRN IV hypomagnesemia 07/26/24 18:00 08/25/24 17:59 Metoprolol Succinate (TopROL XL) 50 mg BID PO 07/27/24 10:30 07/27/24 22:52 DC 07/27/24 20:19 50 MG Metoprolol Succinate (TopROL XL) 100 mg BID PO 07/28/24 09:00 08/27/24 08:59 07/28/24 09:41 100 MG Metoprolol Tartrate (loprESSOR) 25 mg BID PO 07/26/24 21:00 07/27/24 10:29 DC 07/27/24 08:53 25 MG Milrinone Lactate/ Dextrose 100 ml @ 0 mls/hr PROTOCOL IV 07/27/24 18:00 07/27/24 18:05 DC Milrinone Lactate/ Dextrose 100 ml @ 0 mls/hr PROTOCOL IV 07/27/24 18:30 08/26/24 18:29 07/27/24 18:44 2.58 MLS/HR Pantoprazole Sodium (PROTonix 40MG INJ) 40 mg DAILY IVP 07/28/24 09:00 08/27/24 08:59 07/28/24 09:41 40 MG Potassium Chloride 100 ml @ 100 mls/hr AD PRN IV POTASSIUM PROTOCOL 07/26/24 18:00 08/25/24 17:59 Potassium Chloride (K-Dur/Klor-Con 20meq) 20 meq AD PRN PO POTASSIUM PROTOCOL 07/26/24 18:00 08/25/24 17:59 Potassium Chloride (KCl 10% Elixir 20meq/15ml) 20 meq AD PRN PO POTASSIUM PROTOCOL 07/26/24 18:00 08/25/24 17:59 Thiamine HCl (Vitamin B-1) 100 mg DAILY PO 07/27/24 09:00 08/26/24 08:59 07/28/24 09:41 100 MG DIAGNOSTICS / RADIOLOGY: [ ] ATTESTATION BY PHYSICIAN I have seen and examined the patient. I reviewed the documentation, medical decision making, and treatment plan as noted by the mid-level provider above. I agree with the findings and plan of care. Xochitl Rothman MD ASSESSMENT: Acute CHF exacerbation POA Acute hypoxic respiratory failure secondary to CHF exacerbation New onset paroxysmal atrial fibrillation with RVR Generalized anasarca Acute kidney injury, 2/2 ATN, POA Lower extremity edema History of alcohol use Mild coagulopathy Mild leukocytosis differential infectious versus reactive PLAN: - patient to be admitted to PCCU -in reference to CHF exacerbation. CONTINUE WITH OXYGEN SUPPLEMENTATION TO KEEP O2 SAT GREATER THAN 92% -CONTINUE WITH MILRINONE GTT PATIENT WILL BE ON STRICT I&O AND DAILY WEIGHTS PATIENT WILL BE ON HEPARIN DRIP PER PROTOCOL WE WILL CONTINUE TO MONITOR KIDNEY FUNCTION NEPHROLOGY CONSULTED, WE WILL RENALLY DOSE MEDICATION AND AVOID OF NEPHROTOXIC CONTINUE WITH GI AND DVT PROPHYLAXIS REPEAT LABS TOMORROW CASE WAS SEEN AND EXAMINED WITH DR. ROTHMAN, ABOVE PLAN WAS FORMULATED ALICE DE LOS SANTOS AGPCNEELAM Jul 28, 2024 12:58
--- NOTE | 2024-07-28 16:35 | NUR ---
[facility] Consult: Patient assessed by wound healing team. See wound assessment. Assessment and recommendations provided to primary nurse. Education provided. Wound care done. Addendum: 07/29/24 at 1350 by GAGE DOBBINS RN RN/ Amended: Links added.
[2024-07-28 19:06] LABS: CREATININE 3.1 mg/dL (0.5-1.3); MAGNESIUM 2.4 mg/dL (1.80-2.40); POTASSIUM 4.9 mmol/L (3.5-5.1)
[2024-07-29] VITALS (10 sets, daily range): BP systolic 106–130; BP diastolic 70–89; PULSE 104–120; RESP 17–20; TEMP 97.6–98.3; O2SAT 94–97
[2024-07-29 03:58] LABS: HEMATOCRIT 42.6 % (42-54); MEAN CORPUSCULAR HEMOGLOBIN 30.5 pg (27.0-33.0); MEAN CORPUSCULAR HGB CONC 32.4 g/dL (32.0-36.0); MEAN CORPUSCULAR VOLUME 94.2 fL (79-99); NUCLEATED RED BLOOD CELLS 0.2 % (0.0-0.19); RED BLOOD CELL COUNT(AUTO) 4.52 MIL/uL (4.50-6.20); WHITE BLOOD COUNT (AUTO) 8.6 K/uL (4.8-10.8)
[2024-07-29 04:07] LABS: CREATININE 2.9 mg/dL (0.5-1.3); POTASSIUM 4.6 mmol/L (3.5-5.1)
--- NOTE | 2024-07-29 09:23 | PN ---
[facility] PROGRESS NOTE Date of Service: Jul 29, 2024 Time of Service: 09:14 SUBJECTIVE: [69 old male admitted due to shortness of breaths, patient was REVIEW OF SYSTEMS CONSTITUTIONAL: Denies fevers, chills, or night sweats. Denied any changes in weight NEUROLOGICAL: Denies headache, amaurosis fugax, motor weakness, sensory deficit, vertigo/spinning sensation, gait abnormalities, or tremors. ENT: No hearing loss, otalgia, otorrhea, rhinitis, rhinorrhea, hoarseness, or sore throat. CARDIOVASCULAR: Denies any exertional angina, dyspnea on exertion, orthopnea, paroxysmal nocturnal dyspnea, palpitations, life-threatening arrhythmias, claudication. PULMONARY: Positive for shortness of breath, cough. Denied any sputum production GASTROINTESTINAL: Denies any type of dysphagia to either liquids or solids. Denies nausea, vomiting, pyrosis, early satiety, abdominal pain, diarrhea, constipation, or changes in stool consistency or caliber. Denies coffee-ground emesis, hematemesis, hematochezia, or melanotic stools. GENITOURINARY: Positive for decreased urination. Denied any hematuria, dysuria ENDOCRINOLOGIC: Denies polyuria, polydipsia, polyphagia or heat/cold intolerances. HEMATOLOGIC: Denies thrombophilia/previous clots, or coagulopathy/bleeding disorders. ONCOLOGIC: Denies personal history of malignancy. DERMATOLOGIC: Denies rashes or pruritus. PSYCHIATRIC: Denies any suicidal or homicidal ideation. Denies hallucinations. Musculoskeletal: Positive for swelling in the lower extremity PHYSICAL EXAM GENERAL APPEARANCE: The patient is awake, alert, and oriented, in no acute cardiopulmonary distress. NEUROLOGICAL: Cranial nerves II-XII grossly intact. Motor is 5/5 in bilateral upper and lower extremities proximal to distal. No sensory deficits. HEENT: Face is symmetric. Pupils are equal and reactive. Extraocular movements are intact. NECK: Supple. No JVD. No thyromegaly. No submental, submandibular, pre-/postauricular, occipital or supraclavicular lymphadenopathy. CHEST: Normal chest expansion. No Telemetry. LUNGS: Positive for crackles in the right side CARDIOVASCULAR: Regular. S1 and S2 normal. No appreciable rubs, murmurs or gallops. ABDOMEN: Abdomen is distended. He has soft tissue edema in the abdominal wall. Bowel sounds are active. : Deferred. No Garcia. EXTREMITIES:3+ pitting edema in the lower extremity bilaterally he also has venous stasis changes.. No clubbing. Good capillary refill. SKIN: No skin breakdown. Vital Signs (last 8hr) Date Time Temp Pulse Resp B/P (MAP) Pulse Ox O2 Delivery O2 Flow Rate FiO2 07/29/24 07:06 112 20 N/Cannula Low lpm 2.0 28 07/29/24 07:00 97.7 112 17 122/80 95 Nasal Cannula 2.0 07/29/24 03:22 97.5 109 20 114/71 95 Nasal Cannula 2.0 LABS: Laboratory: Test 07/29/24 03:38 07/28/24 18:30 07/28/24 16:35 07/28/24 11:27 Range/Units White Blood Count 8.6 # 4.8-10.8 K/uL Red Blood Count 4.52 4.50-6.20 MIL/uL Hemoglobin 13.8 L 14.0-18.0 g/dL Hematocrit 42.6 42-54 % Mean Corpuscular Volume 94.2 79-99 fL Mean Corpuscular Hemoglobin 30.5 27.0-33.0 pg Mean Corpuscular Hemoglobin Concent 32.4 32.0-36.0 g/dL Red Cell Distribution Width 14.0 11.0-15.5 % Platelet Count 144 130-400 K/uL Mean Platelet Volume 10.2 7.5-10.5 fL Nucleated Red Blood Cells 0.2 H 0.0-0.19 % Sodium Level 134 L 136-145 mmol/L Potassium Level 4.6 3.5-5.1 mmol/L Chloride Level 98 L 101-111 mmol/L Carbon Dioxide Level 29 21-32 mmol/L Blood Urea Nitrogen 59 H 7-18 mg/dL Creatinine 2.9 H 0.5-1.3 mg/dL Glomerular Filtration Rate Calc 23 >90 mL/min Random Glucose 148 H 70-105 mg/dL Total Calcium 8.6 8.5-10.1 mg/dL B-Type Natriuretic Peptide 633 H 0-100 pg/mL Magnesium Level 2.40 1.80-2.40 mg/dL Activated Partial Thromboplast Time 57.1 H 26.3-35.5 SEC Whole Blood Glucose 139 H 70-110 MG/DL Test 07/28/24 11:25 07/28/24 04:08 Range/Units Influenza Type A Antigen Negative For Type A NEGATIVE Influenza Type B Antigen Negative For Type B NEGATIVE SARS-CoV-2 Antigen (Rapid) PRESUMPTIVE NEGATIVE NEGATIVE Immature Granulocyte % (Auto) 0.3 0-1 % Neutrophils (%) (Auto) 55.3 40.0-77.0 % Lymphocytes (%) (Auto) 32.9 21.0-51.0 % Monocytes (%) (Auto) 10.6 3.0-13.0 % Eosinophils (%) (Auto) 0.6 0.0-8.0 % Basophils (%) (Auto) 0.3 0.0-5.0 % Neutrophils # (Auto) 6.7 1.8-7.7 K/uL Lymphocytes # (Auto) 4.0 1.0-4.8 K/uL Monocytes # (Auto) 1.3 H 0.1-1.0 K/uL Eosinophils # (Auto) 0.07 0.00-0.70 K/uL Basophils # (Auto) 0.04 0.00-0.20 K/uL Absolute Immature Granulocyte (auto 0.04 0-1 K/uL Current Medications Medications (Trade) Dose Ordered Sig/Melinda Route PRN Reason Start Time Stop Time Status Last Admin Dose Admin Acetaminophen (TYLenol 500MG TAB) 500 mg Q6H PRN PO MILD PAIN (1-3) 07/26/24 18:00 08/25/24 17:59 Bacitracin (Bacitracin 28.4gm) Right and left lower leg DAILY TP 07/29/24 09:00 08/28/24 08:59 Bumetanide (Bumex 1mg Vial) 1 mg Q12H IVP 07/27/24 09:00 07/28/24 02:44 DC 07/27/24 20:19 1 MG Folic Acid (FOLic ACID 1 MG TABLET) 1 mg DAILY PO 07/27/24 09:00 08/26/24 08:59 07/29/24 08:33 1 MG Furosemide (LASix 40MG VIAL) 40 mg Q12H IV 07/26/24 23:00 07/27/24 06:31 DC 07/26/24 23:09 40 MG Furosemide 100 mg/ Sodium Chloride 100 ml @ 0 mls/hr PROTOCOL IV 07/28/24 03:00 08/27/24 02:59 07/29/24 01:39 10 MLS/HR Heparin Sodium (Porcine) (HEParin 5,000 UNIT VIAL) 5,000 unit Q12H SQ 07/26/24 21:00 07/27/24 00:12 DC 07/26/24 21:07 5,000 UNIT Heparin Sodium/ Dextrose 250 ml @ 0 mls/hr Q6H IV 07/27/24 01:00 08/26/24 00:59 07/29/24 07:26 13.6 MLS/HR Magnesium Sulfate 50 ml @ 0 mls/hr PROTOCOL PRN IV hypomagnesemia 07/26/24 18:00 08/25/24 17:59 Metoprolol Succinate (TopROL XL) 50 mg BID PO 07/27/24 10:30 07/27/24 22:52 DC 07/27/24 20:19 50 MG Metoprolol Succinate (TopROL XL) 100 mg BID PO 07/28/24 09:00 08/27/24 08:59 07/29/24 08:32 100 MG Metoprolol Tartrate (loprESSOR) 25 mg BID PO 07/26/24 21:00 07/27/24 10:29 DC 07/27/24 08:53 25 MG Milrinone Lactate/ Dextrose 100 ml @ 0 mls/hr PROTOCOL IV 07/27/24 18:00 07/27/24 18:05 DC Milrinone Lactate/ Dextrose 100 ml @ 0 mls/hr PROTOCOL IV 07/27/24 18:30 08/26/24 18:29 07/28/24 20:03 2.5 MLS/HR Pantoprazole Sodium (PROTonix 40MG INJ) 40 mg DAILY IVP 07/28/24 09:00 08/27/24 08:59 07/29/24 08:29 40 MG Potassium Chloride 100 ml @ 100 mls/hr AD PRN IV POTASSIUM PROTOCOL 07/26/24 18:00 08/25/24 17:59 Potassium Chloride (K-Dur/Klor-Con 20meq) 20 meq AD PRN PO POTASSIUM PROTOCOL 07/26/24 18:00 08/25/24 17:59 Potassium Chloride (KCl 10% Elixir 20meq/15ml) 20 meq AD PRN PO POTASSIUM PROTOCOL 07/26/24 18:00 08/25/24 17:59 Thiamine HCl (Vitamin B-1) 100 mg DAILY PO 07/27/24 09:00 08/26/24 08:59 07/29/24 08:33 100 MG DIAGNOSTICS / RADIOLOGY: [ ] ATTESTATION BY PHYSICIAN I have seen and examined the patient. I reviewed the documentation, medical decision making, and treatment plan as noted by the mid-level provider above. I agree with the findings and plan of care. Xochitl Banegas MD ASSESSMENT: Acute CHF exacerbation POA Acute hypoxic respiratory failure secondary to CHF exacerbation New onset paroxysmal atrial fibrillation with RVR Generalized anasarca Acute kidney injury, 2/2 ATN, POA Lower extremity edema History of alcohol use Mild coagulopathy Mild leukocytosis differential infectious versus reactive PLAN: - patient to be admitted to PCCU -in reference to CHF exacerbation. CONTINUE WITH OXYGEN SUPPLEMENTATION TO KEEP O2 SAT GREATER THAN 92% -CONTINUE WITH MILRINONE GTT PATIENT WILL BE ON STRICT I&O AND DAILY WEIGHTS PATIENT WILL BE ON HEPARIN DRIP PER PROTOCOL WE WILL CONTINUE TO MONITOR KIDNEY FUNCTION NEPHROLOGY CONSULTED, WE WILL RENALLY DOSE MEDICATION AND AVOID OF NEPHROTOXIC CONTINUE WITH GI AND DVT PROPHYLAXIS REPEAT LABS TOMORROW CASE WAS SEEN AND EXAMINED WITH DR. BANEGAS, ABOVE PLAN WAS FORMULATED ALICE DE LOS SANTOS Jul 29, 2024 09:23
--- NOTE | 2024-07-29 09:30 | PN ---
FOLLOWUP PROGRESS NOTE SUBJECTIVE: The patient is a 69-year-old male who presented to the hospital and found to have severe cardiomyopathy. The patient was started on milrinone and creatinine has stabilized overnight. The patient's urine output is greatly improved and he is being seen as a followup visit for all of the above. REVIEW OF SYSTEMS: GENERAL: He is feeling improved. HEENT: No change in vision. No change in hearing. CARDIOVASCULAR: There is no current chest pain, palpitations. PULMONARY: Shortness of breath has improved. GASTROINTESTINAL: The patient is tolerating a diet. MUSCULOSKELETAL: Complaints of weakness. PHYSICAL EXAMINATION: VITAL SIGNS: Blood pressure is 122/80, pulse in the 100s. GENERAL: He is a chronically ill male. Lying in bed on the medical floor. HEENT: Head is atraumatic. Pupils are equal, roving to light. Oropharynx is without exudate. Nares clear. NECK: There is no JVP. There is no thyromegaly, no mass. CARDIOVASCULAR: Regular. There is no S3, S4 gallop. LUNGS: Coarse with equal thoracic movement. ABDOMEN: Soft, nondistended, and nontender. EXTREMITIES: Reveal no clubbing, no cyanosis. NEUROLOGICAL: He is awake. He is alert. He is oriented. LABORATORY DATA: Sodium 134, potassium 4.6, BUN 59, creatinine 2.9, hemoglobin 13, hematocrit 42. IMPRESSION: * Acute renal failure. * Cardiomyopathy. * Hypertension. * Volume overload. PLAN: The patient's creatinine has stabilized overnight. The patient's urine output has improved with milrinone. We will continue to follow the patient closely. The patient's cardiac workup is ongoing and we will follow the chemistries closely. The patient with multiple questions, which were all answered. TID: [id number] RECEIPT: [id number]
[2024-07-29] MEDS: BACITRACIN 28.4 GM OINT TP SCH (14:14)
--- NOTE | 2024-07-29 14:30 | PN ---
[facility] PROGRESS NOTE Date of Service: Jul 29, 2024 Time of Service: 14:28 SUBJECTIVE: [69 old male admitted due to shortness of breaths, patient was at kidney failure on admission suspected due to acute tubular necrosis. Patient also was noted with cardiomyopathy, EF is less than 20%, patient is currently on oxygen supplementation. Cardiology on board on Milrinone drip being adjusted and monitored closely. 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 REVIEW OF SYSTEMS CONSTITUTIONAL: Denies fevers, chills, or night sweats. Denied any changes in weight NEUROLOGICAL: Denies headache, amaurosis fugax, motor weakness, sensory deficit, vertigo/spinning sensation, gait abnormalities, or tremors. ENT: No hearing loss, otalgia, otorrhea, rhinitis, rhinorrhea, hoarseness, or sore throat. CARDIOVASCULAR: Denies any exertional angina, dyspnea on exertion, orthopnea, paroxysmal nocturnal dyspnea, palpitations, life-threatening arrhythmias, claudication. PULMONARY: Positive for shortness of breath, cough. Denied any sputum production GASTROINTESTINAL: Denies any type of dysphagia to either liquids or solids. Denies nausea, vomiting, pyrosis, early satiety, abdominal pain, diarrhea, constipation, or changes in stool consistency or caliber. Denies coffee-ground emesis, hematemesis, hematochezia, or melanotic stools. GENITOURINARY: Positive for decreased urination. Denied any hematuria, dysuria ENDOCRINOLOGIC: Denies polyuria, polydipsia, polyphagia or heat/cold intolerances. HEMATOLOGIC: Denies thrombophilia/previous clots, or coagulopathy/bleeding disorders. ONCOLOGIC: Denies personal history of malignancy. DERMATOLOGIC: Denies rashes or pruritus. PSYCHIATRIC: Denies any suicidal or homicidal ideation. Denies hallucinations. Musculoskeletal: Positive for swelling in the lower extremity PHYSICAL EXAM GENERAL APPEARANCE: The patient is awake, alert, and oriented, in no acute cardiopulmonary distress. NEUROLOGICAL: Cranial nerves II-XII grossly intact. Motor is 5/5 in bilateral upper and lower extremities proximal to distal. No sensory deficits. HEENT: Face is symmetric. Pupils are equal and reactive. Extraocular movements are intact. NECK: Supple. No JVD. No thyromegaly. No submental, submandibular, pre- /postauricular, occipital or supraclavicular lymphadenopathy. CHEST: Normal chest expansion. No Telemetry. LUNGS: Positive for crackles in the right side CARDIOVASCULAR: Regular. S1 and S2 normal. No appreciable rubs, murmurs or gallops. ABDOMEN: Abdomen is distended. He has soft tissue edema in the abdominal wall. Bowel sounds are active. : Deferred. No Garcia. EXTREMITIES:3+ pitting edema in the lower extremity bilaterally he also has v enous stasis changes.. No clubbing. Good capillary refill. SKIN: No skin breakdown. Vital Signs (last 8hr) Date Time Temp Pulse Resp B/P (MAP) Pulse Ox O2 Delivery O2 Flow Rate FiO2 07/29/24 11:00 97.9 110 18 117/70 96 Nasal Cannula 2.0 07/29/24 08:00 97 Nasal Cannula* 2 07/29/24 07:06 112 20 N/Cannula Low lpm 2.0 07/29/24 07:00 97.7 112 17 122/80 95 Nasal Cannula 2.0 LABS: Laboratory: Test 07/29/24 03:38 07/28/24 18:30 07/28/24 16:35 07/28/24 11:27 Range/Units White Blood Count 8.6 # 4.8-10.8 K/uL Red Blood Count 4.52 4.50-6.20 MIL/uL Hemoglobin 13.8 L 14.0-18.0 g/dL Hematocrit 42.6 42-54 % Mean Corpuscular Volume 94.2 79-99 fL Mean Corpuscular Hemoglobin 30.5 27.0-33.0 pg Mean Corpuscular Hemoglobin Concent 32.4 32.0-36.0 g/dL Red Cell Distribution Width 14.0 11.0-15.5 % Platelet Count 144 130-400 K/uL Mean Platelet Volume 10.2 7.5-10.5 fL Nucleated Red Blood Cells 0.2 H 0.0-0.19 % Sodium Level 134 L 136-145 mmol/L Potassium Level 4.6 3.5-5.1 mmol/L Chloride Level 98 L 101-111 mmol/L Carbon Dioxide Level 29 21-32 mmol/L Blood Urea Nitrogen 59 H 7-18 mg/dL Creatinine 2.9 H 0.5-1.3 mg/dL Glomerular Filtration Rate Calc 23 >90 mL/min Random Glucose 148 H 70-105 mg/dL Total Calcium 8.6 8.5-10.1 mg/dL B-Type Natriuretic Peptide 633 H 0-100 pg/mL Magnesium Level 2.40 1.80-2.40 mg/dL Activated Partial Thromboplast Time 57.1 H 26.3-35.5 SEC Whole Blood Glucose 139 H 70-110 MG/DL Test 07/28/24 11:25 07/28/24 04:08 Range/Units Influenza Type A Antigen Negative For Type A NEGATIVE Influenza Type B Antigen Negative For Type B NEGATIVE SARS-CoV-2 Antigen (Rapid) PRESUMPTIVE NEGATIVE NEGATIVE Immature Granulocyte % (Auto) 0.3 0-1 % Neutrophils (%) (Auto) 55.3 40.0-77.0 % Lymphocytes (%) (Auto) 32.9 21.0-51.0 % Monocytes (%) (Auto) 10.6 3.0-13.0 % Eosinophils (%) (Auto) 0.6 0.0-8.0 % Basophils (%) (Auto) 0.3 0.0-5.0 % Neutrophils # (Auto) 6.7 1.8-7.7 K/uL Lymphocytes # (Auto) 4.0 1.0-4.8 K/uL Monocytes # (Auto) 1.3 H 0.1-1.0 K/uL Eosinophils # (Auto) 0.07 0.00-0.70 K/uL Basophils # (Auto) 0.04 0.00-0.20 K/uL Absolute Immature Granulocyte (auto 0.04 0-1 K/uL Current Medications Medications (Trade) Dose Ordered Sig/Melinda Route PRN Reason Start Time Stop Time Status Last Admin Dose Admin Acetaminophen (TYLenol 500MG TAB) 500 mg Q6H PRN PO MILD PAIN (1-3) 07/26/24 18:00 08/25/24 17:59 Bacitracin (Bacitracin 28.4gm) Right and left lower leg DAILY TP 07/29/24 09:00 08/28/24 08:59 07/29/24 14:14 1 GM Bumetanide (Bumex 1mg Vial) 1 mg Q12H IVP 07/27/24 09:00 07/28/24 02:44 DC 07/27/24 20:19 1 MG Folic Acid (FOLic ACID 1 MG TABLET) 1 mg DAILY PO 07/27/24 09:00 08/26/24 08:59 07/29/24 08:33 1 MG Furosemide (LASix 40MG VIAL) 40 mg Q12H IV 07/26/24 23:00 07/27/24 06:31 DC 07/26/24 23:09 40 MG Furosemide 100 mg/ Sodium Chloride 100 ml @ 0 mls/hr PROTOCOL IV 07/28/24 03:00 08/27/24 02:59 07/29/24 01:39 10 MLS/HR Heparin Sodium (Porcine) (HEParin 5,000 UNIT VIAL) 5,000 unit Q12H SQ 07/26/24 21:00 07/27/24 00:12 DC 07/26/24 21:07 5,000 UNIT Heparin Sodium/ Dextrose 250 ml @ 0 mls/hr Q6H IV 07/27/24 01:00 08/26/24 00:59 07/29/24 07:26 13.6 MLS/HR Magnesium Sulfate 50 ml @ 0 mls/hr PROTOCOL PRN IV hypomagnesemia 07/26/24 18:00 08/25/24 17:59 Metoprolol Succinate (TopROL XL) 50 mg BID PO 07/27/24 10:30 07/27/24 22:52 DC 07/27/24 20:19 50 MG Metoprolol Succinate (TopROL XL) 100 mg BID PO 07/28/24 09:00 08/27/24 08:59 07/29/24 08:32 100 MG Metoprolol Tartrate (loprESSOR) 25 mg BID PO 07/26/24 21:00 07/27/24 10:29 DC 07/27/24 08:53 25 MG Milrinone Lactate/ Dextrose 100 ml @ 0 mls/hr PROTOCOL IV 07/27/24 18:00 07/27/24 18:05 DC Milrinone Lactate/ Dextrose 100 ml @ 0 mls/hr PROTOCOL IV 07/27/24 18:30 08/26/24 18:29 07/28/24 20:03 2.5 MLS/HR Pantoprazole Sodium (PROTonix 40MG INJ) 40 mg DAILY IVP 07/28/24 09:00 08/27/24 08:59 07/29/24 08:29 40 MG Potassium Chloride 100 ml @ 100 mls/hr AD PRN IV POTASSIUM PROTOCOL 07/26/24 18:00 08/25/24 17:59 Potassium Chloride (K-Dur/Klor-Con 20meq) 20 meq AD PRN PO POTASSIUM PROTOCOL 07/26/24 18:00 08/25/24 17:59 Potassium Chloride (KCl 10% Elixir 20meq/15ml) 20 meq AD PRN PO POTASSIUM PROTOCOL 07/26/24 18:00 08/25/24 17:59 Thiamine HCl (Vitamin B-1) 100 mg DAILY PO 07/27/24 09:00 08/26/24 08:59 07/29/24 08:33 100 MG DIAGNOSTICS / RADIOLOGY: [ ] ASSESSMENT: Acute CHF exacerbation POA Acute hypoxic respiratory failure secondary to CHF exacerbation New onset paroxysmal atrial fibrillation with RVR Generalized anasarca Acute kidney injury, 2/2 ATN, POA Lower extremity edema History of alcohol use Mild coagulopathy Mild leukocytosis differential infectious versus reactive PLAN: - patient to be admitted to [facility] -in reference to CHF exacerbation; -CONTINUE WITH MILRINONE GTT CONTINUE WITH OXYGEN SUPPLEMENTATION TO KEEP O2 SAT GREATER THAN 92% PATIENT WILL BE ON STRICT I&O AND DAILY WEIGHTS PATIENT WILL BE ON HEPARIN DRIP PER PROTOCOL WE WILL CONTINUE TO MONITOR KIDNEY FUNCTION NEPHROLOGY CONSULTED, WE WILL continue RENALLY DOSE MEDICATION AND AVOID OF NEPHROTOXIC CONTINUE WITH GI AND DVT PROPHYLAXIS REPEAT LABS TOMORROW CASE WAS SEEN AND EXAMINED WITH DR. BANEGAS, ABOVE PLAN WAS FORMULATED ATTESTATION BY PHYSICIAN I have seen and examined the patient. I reviewed the documentation, medical decision making, and treatment plan as noted by the mid-level provider above. I agree with the findings and plan of care. Xochitl Banegas MD, [facility] Jul 29, 2024 14:30
--- NOTE | 2024-07-29 15:09 | PN ---
CARDIOLOGY Reason for consult: CHF HPI/story at presentation: This is a pleasant 69-year-old male with past medical history as per present with complaints of shortness of breath with worsening edema and abdominal bloating and distention. He was diagnosed CHF exacerbation, cardiology scheduled for evaluation management. Patient was also found to be atrial fibrillation with rapid ventricular sponsor presentation to the hospital. Diuresis was initiated. Subjective: 07/26/2024 shortness of breath 07/29/2024 no complaints Past medical history: See below Allergies, Meds See chart Review of systems Review of Systems Constitutional: Negative for chills and fever. HENT: Negative for ear discharge and ear pain. Eyes: Negative for photophobia and discharge. Respiratory: Negative for cough, sputum production and stridor. Cardiovascular: Negative for chest pain and palpitations. Gastrointestinal: Negative for diarrhea and vomiting. Genitourinary: Negative for frequency. Musculoskeletal: Negative for myalgias. Skin: Negative for rash. Neurological: Negative for focal weakness and seizures. Endo/Heme/Allergies: Negative for polydipsia. Psychiatric/Behavioral: Negative for hallucinations. Vitals see chart PHYSICAL EXAMINATION GENERAL: The patient is alert and oriented*3 HEENT: Nonicteric sclerae, non traumatic HEART: Regular rate and rhythm with no murmurs LUNGS: mild crackles 07/26/2024 ABDOMEN: No acute issues, non tender GENITAL, RECTAL: deferred SKIN: No rash NEUROLOGIC: NFND EXTREMITIES: bilareral edema 07/26/2024 ASSESSMENT ATRIAL FIBRILLATION Presentation Associated RVR at presentation CONGESTIVE HEART FAILURE With abdominal distention lower extremity manage at presentation ACUTE KIDNEY INJURY At presentation Condition nephropathy versus prerenal OBESITY CORE MEASURES OTHER MEDICAL PROBLEMS Reviewed PLAN 07/26/2024 agree with rate control for atrial fibrillation, will likely benefit from further anticoagulation as well. Possible liver etiology of elevated INR. Follow-up with renal function panel including albumin ordered. Agree with diuresis for now. Echocardiogram has been ordered and is pending as well. On IV twice daily of Lasix and metoprolol at this time. Further recommendations after echo. Seen and examined 07/26/2024 around 1900 07/27/2024 Shortness of breath is stable. Labs reviewed. Renal function is still elevated between 2.6 and 3. On heparin for anticoagulation. Echocardiogram with EF less than 20%, arterial duplex was normal. Ultrasound of the lower extremities and venous duplex were within normal limits. Renal ultrasound was negative, bladder scan with less than 100 cc. Difficult situation in the setting of significant RV failure associated with edema and ascites in the setting of severe cardiomyopathy and A-fib RVR. Suspected nonischemic in setting of A-fib although, CAD has not been ruled out yet. Unable to proceed with catheterization given acute kidney injury. milrinone was started to better help with renal perfusion. Caution in the setting of underlying renal dysfunction and therefore starting a low dose first. No dobutamine as patient is on beta eugene for rate control . May transfer to the heart failure center if renal function continues to worsen or if rate control is a challenge. Critically ill, prognosis is guarded. Spoke with multiple family members during the course of the day seen and examined multiple times, 07/27/2024. 07/28/2024 Overnight, patient was started on milrinone to help with urine output but there is no significant response to bed and this was increased from 0.125- 0.25. However, even with elevated doses, no significant output was present after a few hours. Given underlying renal failure, milrinone was not increased any further. Also, patient was having issues with tachycardia with increased dose of milrinone. Metoprolol was increased to help with rate control. Dobutamine is not being considered because of metoprolol use. Diuresis was ineffective and therefore, patient was started on a Lasix drip at 10 to try to help with diuresis. This morning, urine output has improved about 200 cc. Low- dose milrinone has been continued, urine is dark, possibly ATN. Will watch for worsening renal function although, this is likely in the current situation. Will need to ensure there is quite adequate urine output. Discussed transfer to advanced heart failure management programs and at this time, plan is to wait. Seen and examined 07/28/2024 at around 1130 07/29/2024 Renal function somewhat better. Output has improved, continue current regimen. Breathing better rates are acceptable. May need to consider increasing beta-eugene. On 100 twice daily metoprolol succinate at this time. Seen and examined 07/29/2024 at around 1600 ATTESTATION I was involved substantially in the care of this patient Number and complexity of problems addressed: 1 acute illness that is a threat to life or bodily function Amount and or complexity of data Review of prior external note(s) from each unique source: 2+ Ordering of each unique test : 0 Review of the result(s) of each unique test: 2+ Assessment requiring an independent historian(s): No Independent interpretation of test performed by another MD/QHCP/appropriate source (not separately reported) : No Discussion of management or test interpretation with external MD/QHCP/appropriate source (not separately reported) : IM Risk status (cardiac, billing related): high Vitals/Labs Vital Signs Date Time Temp Pulse Resp B/P (MAP) Pulse Ox O2 Delivery O2 Flow Rate FiO2 07/29/24 11:00 97.9 110 18 117/70 96 Nasal Cannula 2.0 07/29/24 08:00 28 Laboratory Tests 07/28/24 18:30 07/29/24 03:38 Medications Current Medications Furosemide 40 mg ONCE ONCE IV Last administered on 07/26/24at 15:44; Start 07/26/24 at 15:30; Stop 07/26/24 at 15:31; Status DC Diltiazem HCl 20 mg ONCE ONCE IVP Last administered on 07/26/24at 15:44; Start 07/26/24 at 16:00; Stop 07/26/24 at 16:01; Status DC Diltiazem HCl 30 mg ONCE ONCE PO Last administered on 07/26/24at 16:15; Start 07/26/24 at 16:30; Stop 07/26/24 at 16:31; Status DC Acetaminophen 500 mg Q6H PRN PO; Start 07/26/24 at 18:00; Stop 08/25/24 at 17:59 Thiamine HCl 100 mg DAILY PO Last administered on 07/29/24at 08:33; Start 07/27/24 at 09:00; Stop 08/26/24 at 08:59 Folic Acid 1 mg DAILY PO Last administered on 07/29/24at 08:33; Start 07/27/24 at 09:00; Stop 08/26/24 at 08:59 Metoprolol Tartrate 25 mg BID PO Last administered on 07/27/24at 08:53; Start 07/26/24 at 21:00; Stop 07/27/24 at 10:29; Status DC Potassium Chloride 100 ml @ 100 mls/hr AD PRN IV; Start 07/26/24 at 18:00; Stop 08/25/24 at 17:59 Potassium Chloride 20 meq AD PRN PO; Start 07/26/24 at 18:00; Stop 08/25/24 at 17:59 Potassium Chloride 20 meq AD PRN PO; Start 07/26/24 at 18:00; Stop 08/25/24 at 17:59 Magnesium Sulfate 50 ml @ 0 mls/hr PROTOCOL PRN IV; Start 07/26/24 at 18:00; Stop 08/25/24 at 17:59 Furosemide 40 mg Q12H IV Last administered on 07/26/24at 23:09; Start 07/26/24 at 23:00; Stop 07/27/24 at 06:31; Status DC Heparin Sodium (Porcine) 5,000 unit Q12H SQ Last administered on 07/26/24at 21:07; Start 07/26/24 at 21:00; Stop 07/27/24 at 00:12; Status DC Heparin Sodium/ Dextrose 250 ml @ 0 mls/hr Q6H IV Last administered on 07/29/24at 07:26; Start 07/27/24 at 01:00; Stop 08/26/24 at 00:59 Bumetanide 1 mg Q12H IVP Last administered on 07/27/24at 20:19; Start 07/27/24 at 09:00; Stop 07/28/24 at 02:44; Status DC Pantoprazole Sodium 40 mg DAILY IVP Last administered on 07/29/24at 08:29; Start 07/28/24 at 09:00; Stop 08/27/24 at 08:59 Metoprolol Succinate 50 mg BID PO Last administered on 07/27/24at 20:19; Start 07/27/24 at 10:30; Stop 07/27/24 at 22:52; Status DC Milrinone Lactate/ Dextrose 100 ml @ 0 mls/hr PROTOCOL IV; Start 07/27/24 at 18:00; Stop 07/27/24 at 18:05; Status DC Milrinone Lactate/ Dextrose 100 ml @ 0 mls/hr PROTOCOL IV Last administered on 07/28/24at 20:03; Start 07/27/24 at 18:30; Stop 08/26/24 at 18:29 Metoprolol Succinate 50 mg ONCE ONCE PO Last administered on 07/27/24at 23:43; Start 07/27/24 at 23:00; Stop 07/27/24 at 23:01; Status DC Metoprolol Succinate 100 mg BID PO Last administered on 07/29/24at 08:32; Start 07/28/24 at 09:00; Stop 08/27/24 at 08:59 Furosemide 100 mg/ Sodium Chloride 100 ml @ 0 mls/hr PROTOCOL IV Last administered on 07/29/24at 14:33; Start 07/28/24 at 03:00; Stop 08/27/24 at 02:59 Bacitracin Right and left lower leg DAILY TP Last administered on 07/29/24at 14:14; Start 07/29/24 at 09:00; Stop 08/28/24 at 08:59 LANI GRACIA MD Jul 29, 2024 15:09
--- NOTE | 2024-07-29 22:37 | PN ---
[facility] PROGRESS NOTE Date Patient Seen: Jul 29, 2024 Time of Visit: 22:34 Supervising Physician: Dr. Alonso Consulting Physician: Hospitalist Outpatient Specialists: [ ] Inpatient Consults: Dr. Mitchell (cardio) PROBLEM LIST: Acute hypoxic respiratory failure, POA Congestive heart failure, chest x-ray showed bilateral pulmonary congestion, with BNP above 900 POA Acute kidney injury, POA Leukocytosis, POA Atrial fibrillation with RVR, POA Morbid obesity, BMI of 38.7 INTERVAL HISTORY: Patient evaluated at bedside, he is currently on 3 L nasal cannula, patient has been transitioned to a furosemide drip along with Milrinone per Cardiology recommendations, patient's BNP this morning is 866, creatinine is 3.2. Patient negative for COVID and flu. Cardiology continuing with the aggressive management of his diuresis for biventricular heart failure. Pulmonary Services will continue to follow the patient while he remains in supplemental O2. 07/29/2024: At the time of my evaluation, the patient was lying in bed. Staff nurse reports no acute events overnight. On the monitor, the patient remains on nasal cannula. She is mildly tachycardic and normotensive. Patient had a urinary output of approximately 1 L over the past 24 hours. Laboratory data was notable for a sodium of 134, chloride of 98, BUN of 59, creatinine of 2.9 and a GFR of 23. BNP of 633. Remaining laboratory data were not of concern. Blood cultures x2 are negative. The patient remains on diuretic therapy with furosemide, Milrinone and is on a heparin drip. No new complaint. REVIEW OF SYSTEMS: 12 point ROS reviewed with patient. Pertinent positives mentioned above. Otherwise negative. PHYSICAL EXAM: GENERAL: alert, weak, awake oriented x 3 HEENT: EOMI, Sclera non icteric, moist mucosa NECK: Supple, no JVD, trachea midline LUNGS: Coarse bilateral lung sounds HEART: Regular rate and rhythm. Normal S1 and S2, without murmurs ABD: Large abdomen EXT: 4+ pitting edema NEURO: Alert and oriented to person, follows commands Vital Signs (last 8hr) Date Time Temp Pulse Resp B/P (MAP) Pulse Ox O2 Delivery O2 Flow Rate FiO2 07/29/24 19:00 98.2 120 20 118/72 95 Nasal Cannula 2.0 07/29/24 18:56 104 20 N/Cannula Low lpm 2.0 28 07/29/24 15:30 97.9 109 17 130/89 97 Nasal Cannula 2.0 LABS: Hematology Labs: Test 07/29/24 03:38 07/28/24 04:08 Range/Units White Blood Count 8.6 # 4.8-10.8 K/uL Red Blood Count 4.52 4.50-6.20 MIL/uL Hemoglobin 13.8 L 14.0-18.0 g/dL Hematocrit 42.6 42-54 % Mean Corpuscular Volume 94.2 79-99 fL Mean Corpuscular Hemoglobin 30.5 27.0-33.0 pg Mean Corpuscular Hemoglobin Concent 32.4 32.0-36.0 g/dL Red Cell Distribution Width 14.0 11.0-15.5 % Platelet Count 144 130-400 K/uL Mean Platelet Volume 10.2 7.5-10.5 fL Nucleated Red Blood Cells 0.2 H 0.0-0.19 % Immature Granulocyte % (Auto) 0.3 0-1 % Neutrophils (%) (Auto) 55.3 40.0-77.0 % Lymphocytes (%) (Auto) 32.9 21.0-51.0 % Monocytes (%) (Auto) 10.6 3.0-13.0 % Eosinophils (%) (Auto) 0.6 0.0-8.0 % Basophils (%) (Auto) 0.3 0.0-5.0 % Neutrophils # (Auto) 6.7 1.8-7.7 K/uL Lymphocytes # (Auto) 4.0 1.0-4.8 K/uL Monocytes # (Auto) 1.3 H 0.1-1.0 K/uL Eosinophils # (Auto) 0.07 0.00-0.70 K/uL Basophils # (Auto) 0.04 0.00-0.20 K/uL Absolute Immature Granulocyte (auto 0.04 0-1 K/uL Chemistry Labs: Test 07/29/24 03:38 07/28/24 18:30 07/28/24 11:27 Range/Units Sodium Level 134 L 136-145 mmol/L Potassium Level 4.6 3.5-5.1 mmol/L Chloride Level 98 L 101-111 mmol/L Carbon Dioxide Level 29 21-32 mmol/L Blood Urea Nitrogen 59 H 7-18 mg/dL Creatinine 2.9 H 0.5-1.3 mg/dL Glomerular Filtration Rate Calc 23 >90 mL/min Random Glucose 148 H 70-105 mg/dL Total Calcium 8.6 8.5-10.1 mg/dL B-Type Natriuretic Peptide 633 H 0-100 pg/mL Magnesium Level 2.40 1.80-2.40 mg/dL Whole Blood Glucose 139 H 70-110 MG/DL Coagulation Labs: Test 07/29/24 16:39 Range/Units Activated Partial Thromboplast Time 58.3 H 26.3-35.5 SEC DIAGNOSTICS / RADIOLOGY RESULTS: [ ] PLAN 07/29/2024: For now, going to continue current management for the patient. We will continue diuresing the patient on the furosemide on Milrinone, we will hip close eye on the renal function. The patient is to continue to limit his fluid intake and strict I and O. We are going to follow the recommendation of the Nephrology and Cardiology Specialists. We will repeat surveillance labs in the morning. We will monitor the patient's progress and response to management. We will continue to provide general supportive care, GI and DVT prophylaxis. Further orders per attending MD and hospital course. NEURO: Minimize central acting medications as possible. Maintain fall precautions, adequate lighting during the day PULMONARY: Supplemental 02 as needed. Maintain aspiration precautions at all times CARDIOVASCULAR: Follow hemodynamics. Vital signs per facility protocol GI & NUTRITION: Continue with nutritional support. Continue stool softeners and laxatives as needed. KIDNEYS & ELECTROLYTES: Strict monitoring of intake, output and overall fluid balance. Avoid nephrotoxic medications to the extent possible. Medications to be dosed according to renal function. Monitor electrolytes and replace as needed ENDOCRINE: Maintain blood glucose between 100-180 at all times. Hypoglycemia protocol in place INFECTIOUS DISEASE: Trend temperature, WBC and procalcitonin level Follow cultures, deescalate antibiotics as soon as possible. Panculture if new onset fever ONCOLOGY/HEMATOLOGY/COAGULATION: Monitor for s/s of bleeding Monitor hemoglobin, coagulation studies as needed SKIN: Pressure ulcer prevention per facility protocol Specialty mattress ORTHO/REHAB: Continue PT/OT Prophylaxis: Continue GI and DVT prophylaxis Code Status: Full Resuscitation Disposition: TBD Other: Total patient care time exceeds 35 minutes excluding all procedures. TONG CACERES NP Jul 29, 2024 22:37
[2024-07-30] VITALS (8 sets, daily range): BP systolic 103–137; BP diastolic 65–80; PULSE 60–110; RESP 18–20; TEMP 97.4–98.4; O2SAT 94–98
[2024-07-30 03:36] LABS: MEAN CORPUSCULAR HGB CONC 31.8 g/dL (32.0-36.0); MEAN CORPUSCULAR VOLUME 94.4 fL (79-99); RED BLOOD CELL COUNT(AUTO) 4.66 MIL/uL (4.50-6.20); RED CELL DISTRIBUTION WIDTH 14.2 % (11.0-15.5); WHITE BLOOD COUNT (AUTO) 8.1 K/uL (4.8-10.8)
[2024-07-30 03:56] LABS: ALBUMIN 3.4 g/dL (3.5-5.0); BILIRUBIN,TOTAL 0.8 mg/dL (0.2-1.0); CREATININE 2.8 mg/dL (0.5-1.3); POTASSIUM 4.1 mmol/L (3.5-5.1); TOTAL PROTEIN, SERUM 6.1 g/dL (6.0-8.3)
--- NOTE | 2024-07-30 07:01 | PN ---
[facility] PROGRESS NOTE Date of Service: Jul 30, 2024 Time of Service: 06:58 SUBJECTIVE: [69 old male admitted due to shortness of breaths, patient was at kidney failure on admission suspected due to acute tubular necrosis. Patient also was noted with cardiomyopathy, EF is less than 20%, patient is currently on oxygen supplementation. Today he continues with tachycardia, BB increased yesterday, now on Metoprolol XL 100 mg PO BID. He is still needs oxygen supplementation, on and off on 2L via [place]. Continue with strict I&O. REVIEW OF SYSTEMS CONSTITUTIONAL: Denies fevers, chills, or night sweats. Denied any changes in weight NEUROLOGICAL: Denies headache, amaurosis fugax, motor weakness, sensory deficit, vertigo/spinning sensation, gait abnormalities, or tremors. ENT: No hearing loss, otalgia, otorrhea, rhinitis, rhinorrhea, hoarseness, or sore throat. CARDIOVASCULAR: Denies any exertional angina, dyspnea on exertion, orthopnea, paroxysmal nocturnal dyspnea, palpitations, life-threatening arrhythmias, claudication. PULMONARY: Positive for shortness of breath, cough. Denied any sputum production GASTROINTESTINAL: Denies any type of dysphagia to either liquids or solids. Denies nausea, vomiting, pyrosis, early satiety, abdominal pain, diarrhea, constipation, or changes in stool consistency or caliber. Denies coffee-ground emesis, hematemesis, hematochezia, or melanotic stools. GENITOURINARY: Positive for decreased urination. Denied any hematuria, dysuria ENDOCRINOLOGIC: Denies polyuria, polydipsia, polyphagia or heat/cold intolerances. HEMATOLOGIC: Denies thrombophilia/previous clots, or coagulopathy/bleeding disorders. ONCOLOGIC: Denies personal history of malignancy. DERMATOLOGIC: Denies rashes or pruritus. PSYCHIATRIC: Denies any suicidal or homicidal ideation. Denies hallucinations. Musculoskeletal: Positive for swelling in the lower extremity PHYSICAL EXAM GENERAL APPEARANCE: The patient is awake, alert, and oriented, in no acute cardiopulmonary distress. NEUROLOGICAL: Cranial nerves II-XII grossly intact. Motor is 5/5 in bilateral upper and lower extremities proximal to distal. No sensory deficits. HEENT: Face is symmetric. Pupils are equal and reactive. Extraocular movements are intact. NECK: Supple. No JVD. No thyromegaly. No submental, submandibular, pre- /postauricular, occipital or supraclavicular lymphadenopathy. CHEST: Normal chest expansion. No Telemetry. LUNGS: Positive for crackles in the right side CARDIOVASCULAR: Regular. S1 and S2 normal. No appreciable rubs, murmurs or gallops. ABDOMEN: Abdomen is distended. He has soft tissue edema in the abdominal wall. Bowel sounds are active. : Deferred. No Garcia. EXTREMITIES:3+ pitting edema in the lower extremity bilaterally he also has venous stasis changes.. No clubbing. Good capillary refill. SKIN: No skin breakdown. Vital Signs (last 8hr) Date Time Temp Pulse Resp B/P (MAP) Pulse Ox O2 Delivery O2 Flow Rate FiO2 07/30/24 03:43 97.3 110 20 122/80 95 Room Air 07/29/24 23:19 97.9 110 20 106/70 95 Nasal Cannula 2.0 LABS: Laboratory: Test 07/30/24 03:26 07/29/24 16:39 07/29/24 03:38 07/28/24 18:30 Range/Units White Blood Count 8.1 4.8-10.8 K/uL Red Blood Count 4.66 4.50-6.20 MIL/uL Hemoglobin 14.0 14.0-18.0 g/dL Hematocrit 44.0 42-54 % Mean Corpuscular Volume 94.4 79-99 fL Mean Corpuscular Hemoglobin 30.0 27.0-33.0 pg Mean Corpuscular Hemoglobin Concent 31.8 L 32.0-36.0 g/dL Red Cell Distribution Width 14.2 11.0-15.5 % Platelet Count 148 130-400 K/uL Mean Platelet Volume 10.0 7.5-10.5 fL Nucleated Red Blood Cells 0.0 0.0-0.19 % Sodium Level 134 L 136-145 mmol/L Potassium Level 4.1 3.5-5.1 mmol/L Chloride Level 96 L 101-111 mmol/L Carbon Dioxide Level 31 21-32 mmol/L Blood Urea Nitrogen 59 H 7-18 mg/dL Creatinine 2.8 H 0.5-1.3 mg/dL Glomerular Filtration Rate Calc 24 >90 mL/min Random Glucose 137 H 70-105 mg/dL Total Calcium 8.5 8.5-10.1 mg/dL Total Bilirubin 0.8 0.2-1.0 mg/dL Aspartate Amino Transf (AST/SGOT) 29 10-37 U/L Alanine Aminotransferase (ALT/SGPT) 24 12-78 U/L Alkaline Phosphatase 76 50-136 U/L Total Protein 6.1 6.0-8.3 g/dL Albumin 3.4 L 3.5-5.0 g/dL Activated Partial Thromboplast Time 58.3 H 26.3-35.5 SEC B-Type Natriuretic Peptide 633 H 0-100 pg/mL Magnesium Level 2.40 1.80-2.40 mg/dL Test 07/28/24 11:27 07/28/24 11:25 Range/Units Whole Blood Glucose 139 H 70-110 MG/DL Influenza Type A Antigen Negative For Type A NEGATIVE Influenza Type B Antigen Negative For Type B NEGATIVE SARS-CoV-2 Antigen (Rapid) PRESUMPTIVE NEGATIVE NEGATIVE Current Medications Medications (Trade) Dose Ordered Sig/Melinda Route PRN Reason Start Time Stop Time Status Last Admin Dose Admin Acetaminophen (TYLenol 500MG TAB) 500 mg Q6H PRN PO MILD PAIN (1-3) 07/26/24 18:00 08/25/24 17:59 Bacitracin (Bacitracin 28.4gm) Right and left lower leg DAILY TP 07/29/24 09:00 08/28/24 08:59 07/29/24 14:14 1 GM Bumetanide (Bumex 1mg Vial) 1 mg Q12H IVP 07/27/24 09:00 07/28/24 02:44 DC 07/27/24 20:19 1 MG Folic Acid (FOLic ACID 1 MG TABLET) 1 mg DAILY PO 07/27/24 09:00 08/26/24 08:59 07/29/24 08:33 1 MG Furosemide (LASix 40MG VIAL) 40 mg Q12H IV 07/26/24 23:00 07/27/24 06:31 DC 07/26/24 23:09 40 MG Furosemide 100 mg/ Sodium Chloride 100 ml @ 0 mls/hr PROTOCOL IV 07/28/24 03:00 08/27/24 02:59 07/30/24 00:35 10 MLS/HR Heparin Sodium (Porcine) (HEParin 5,000 UNIT VIAL) 5,000 unit Q12H SQ 07/26/24 21:00 07/27/24 00:12 DC 07/26/24 21:07 5,000 UNIT Heparin Sodium/ Dextrose 250 ml @ 0 mls/hr Q6H IV 07/27/24 01:00 08/26/24 00:59 07/30/24 01:59 13.65 MLS/HR Magnesium Sulfate 50 ml @ 0 mls/hr PROTOCOL PRN IV hypomagnesemia 07/26/24 18:00 08/25/24 17:59 Metoprolol Succinate (TopROL XL) 50 mg BID PO 07/27/24 10:30 07/27/24 22:52 DC 07/27/24 20:19 50 MG Metoprolol Succinate (TopROL XL) 100 mg BID PO 07/28/24 09:00 08/27/24 08:59 07/29/24 20:50 100 MG Metoprolol Tartrate (loprESSOR) 25 mg BID PO 07/26/24 21:00 07/27/24 10:29 DC 07/27/24 08:53 25 MG Milrinone Lactate/ Dextrose 100 ml @ 0 mls/hr PROTOCOL IV 07/27/24 18:00 07/27/24 18:05 DC Milrinone Lactate/ Dextrose 100 ml @ 0 mls/hr PROTOCOL IV 07/27/24 18:30 08/26/24 18:29 07/30/24 06:23 2.58 MLS/HR Pantoprazole Sodium (PROTonix 40MG INJ) 40 mg DAILY IVP 07/28/24 09:00 08/27/24 08:59 07/29/24 08:29 40 MG Potassium Chloride 100 ml @ 100 mls/hr AD PRN IV POTASSIUM PROTOCOL 07/26/24 18:00 08/25/24 17:59 Potassium Chloride (K-Dur/Klor-Con 20meq) 20 meq AD PRN PO POTASSIUM PROTOCOL 07/26/24 18:00 08/25/24 17:59 Potassium Chloride (KCl 10% Elixir 20meq/15ml) 20 meq AD PRN PO POTASSIUM PROTOCOL 07/26/24 18:00 08/25/24 17:59 Thiamine HCl (Vitamin B-1) 100 mg DAILY PO 07/27/24 09:00 08/26/24 08:59 Hold 07/29/24 08:33 100 MG Thiamine HCl (Vitamin B-1) 300 mg DAILY08 IVP 07/30/24 08:00 08/01/24 08:01 DIAGNOSTICS / RADIOLOGY: [ ] ASSESSMENT: Acute CHF exacerbation POA Acute hypoxic respiratory failure secondary to CHF exacerbation New onset paroxysmal atrial fibrillation with RVR Generalized anasarca Acute kidney injury, 2/2 ATN, POA Lower extremity edema History of alcohol use Mild coagulopathy Mild leukocytosis differential infectious versus reactive PLAN: - patient to be admitted to [facility] -in reference to CHF exacerbation; -CONTINUE WITH MILRINONE GTT CONTINUE WITH OXYGEN SUPPLEMENTATION TO KEEP O2 SAT GREATER THAN 92% PATIENT WILL BE ON STRICT I&O AND DAILY WEIGHTS PATIENT WILL BE ON HEPARIN DRIP PER PROTOCOL WE WILL CONTINUE TO MONITOR KIDNEY FUNCTION APPRECIATE REC' S FROM NEPHRO AND PULMO, WE WILL FOLLOW THEIR RECOMMENDATIONS CONTINUE WITH GI AND DVT PROPHYLAXIS REPEAT LABS TOMORROW CASE WAS SEEN AND EXAMINED WITH DR. BANEGAS, ABOVE PLAN WAS FORMULATED ATTESTATION BY PHYSICIAN I have seen and examined the patient. I reviewed the documentation, medical decision making, and treatment plan as noted by the mid-level provider above. I agree with the findings and plan of care. Xochitl Banegas MD, [facility] Jul 30, 2024 07:01
--- NOTE | 2024-07-30 08:47 | PN ---
FOLLOWUP PROGRESS NOTE SUBJECTIVE: A 69-year-old male, history of known cardiomyopathy. The patient was initially admitted, found to have significant congestive heart failure. The patient was started on milrinone and Lasix. The patient's pulmonary symptoms have greatly improved. Creatinine continues to slowly improve and he is being seen as a followup visit for all of the above. REVIEW OF SYSTEMS: He is feeling much improved. HEENT: No change in vision. No change in hearing. CARDIOVASCULAR: There is no current chest pain or palpitations. PULMONARY: Shortness of breath has improved. GASTROINTESTINAL: He is tolerating a diet. MUSCULOSKELETAL: Complains of weakness. PHYSICAL EXAMINATION: VITAL SIGNS: Blood pressure 122/80, pulse in the 70s, afebrile. GENERAL: Chronically ill male, lying in bed on the medical floor. HEENT: Head is atraumatic. Pupils are equal, roving to light. Oropharynx is without exudate. Nares are clear. NECK: There is no JVP. There is no thyromegaly. No mass. CARDIOVASCULAR: Regular. There is no S3, S4 gallop. LUNGS: Coarse with equal thoracic movement. ABDOMEN: Soft, nondistended, and nontender. EXTREMITIES: Reveal no clubbing, no cyanosis. NEUROLOGICAL: He is awake. He is alert. LABORATORY DATA: Sodium 134, potassium is 4, BUN 59, creatinine is 2.8. Hemoglobin 14, hematocrit 44. IMPRESSION: * Acute on chronic renal failure. * Cardiomyopathy. * Hypertension. * Volume overload. PLAN: The patient's creatinine continues to slowly improve. The patient remains on the milrinone as well as the diuretics. We will continue to monitor the chemistries closely. Workup is ongoing per Cardiology. The patient with multiple questions, all of which were answered. TID: [id number] RECEIPT: [id number]
[2024-07-30] MEDS: THIAMINE HCL 100 MG/ML 2ML VIAL IVP SCH (10:01)
[2024-07-30] MEDS: acetaMINOPHEN 500 MG TABLET PO PRN (10:06)
--- NOTE | 2024-07-30 14:17 | PN ---
[facility] PROGRESS NOTE Date Patient Seen: Jul 30, 2024 Time of Visit: 14:17 Supervising Physician: Dr. Alonso Consulting Physician: Hospitalist Outpatient Specialists: [ ] Inpatient Consults: Dr. Mitchell (cardio) PROBLEM LIST: Acute hypoxic respiratory failure, POA Congestive heart failure, chest x-ray showed bilateral pulmonary congestion, with BNP above 900 POA Acute kidney injury, POA Leukocytosis, POA Atrial fibrillation with RVR, POA Morbid obesity, BMI of 38.7 INTERVAL HISTORY: Patient evaluated at bedside, he is currently on 3 L nasal cannula, patient has been transitioned to a furosemide drip along with Milrinone per Cardiology recommendations, patient's BNP this morning is 866, creatinine is 3.2. Patient negative for COVID and flu. Cardiology continuing with the aggressive management of his diuresis for biventricular heart failure. Pulmonary Services will continue to follow the patient while he remains in supplemental O2. 07/29/2024: At the time of my evaluation, the patient was lying in bed. Staff nurse reports no acute events overnight. On the monitor, the patient remains on nasal cannula. She is mildly tachycardic and normotensive. Patient had a urinary output of approximately 1 L over the past 24 hours. Laboratory data was notable for a sodium of 134, chloride of 98, BUN of 59, creatinine of 2.9 and a GFR of 23. BNP of 633. Remaining laboratory data were not of concern. Blood cultures x2 are negative. The patient remains on diuretic therapy with furosemide, Milrinone and is on a heparin drip. No new complaint. 07/30/2024: At the time of my evaluation, the patient was lying in bed. He reports feeling much better today. On the monitor, the patient is on room air and is hemodynamically stable. Laboratory data today is notable for improving renal parameters with a BUN of 59, creatinine of 2.8 and a GFR of 24. The patient had a urinary output in the last 24 hours of 1999 with a net balance of -485. No new imaging for review. The patient remains on a furosemide, Milrinone and heparin drip. No other complaint. REVIEW OF SYSTEMS: 12 point ROS reviewed with patient. Pertinent positives mentioned above. Otherwise negative. PHYSICAL EXAM: GENERAL: alert, weak, awake oriented x 3 HEENT: EOMI, Sclera non icteric, moist mucosa NECK: Supple, no JVD, trachea midline LUNGS: Coarse bilateral lung sounds HEART: Regular rate and rhythm. Normal S1 and S2, without murmurs ABD: Large abdomen EXT: 4+ pitting edema NEURO: Alert and oriented to person, follows commands Vital Signs (last 8hr) Date Time Temp Pulse Resp B/P (MAP) Pulse Ox O2 Delivery O2 Flow Rate FiO2 07/30/24 12:00 98.2 110 20 103/65 98 Nasal Cannula 2.0 07/30/24 08:00 96 Nasal Cannula* 2 28 07/30/24 08:00 97.5 96 20 136/77 96 Nasal Cannula 2.0 07/30/24 07:10 72 20 N/Cannula Low lpm 2.0 28 LABS: Hematology Labs: Test 07/30/24 03:26 Range/Units White Blood Count 8.1 4.8-10.8 K/uL Red Blood Count 4.66 4.50-6.20 MIL/uL Hemoglobin 14.0 14.0-18.0 g/dL Hematocrit 44.0 42-54 % Mean Corpuscular Volume 94.4 79-99 fL Mean Corpuscular Hemoglobin 30.0 27.0-33.0 pg Mean Corpuscular Hemoglobin Concent 31.8 L 32.0-36.0 g/dL Red Cell Distribution Width 14.2 11.0-15.5 % Platelet Count 148 130-400 K/uL Mean Platelet Volume 10.0 7.5-10.5 fL Nucleated Red Blood Cells 0.0 0.0-0.19 % Chemistry Labs: Test 07/30/24 03:26 07/29/24 03:38 07/28/24 18:30 Range/Units Sodium Level 134 L 136-145 mmol/L Potassium Level 4.1 3.5-5.1 mmol/L Chloride Level 96 L 101-111 mmol/L Carbon Dioxide Level 31 21-32 mmol/L Blood Urea Nitrogen 59 H 7-18 mg/dL Creatinine 2.8 H 0.5-1.3 mg/dL Glomerular Filtration Rate Calc 24 >90 mL/min Random Glucose 137 H 70-105 mg/dL Total Calcium 8.5 8.5-10.1 mg/dL Total Bilirubin 0.8 0.2-1.0 mg/dL Aspartate Amino Transf (AST/SGOT) 29 10-37 U/L Alanine Aminotransferase (ALT/SGPT) 24 12-78 U/L Alkaline Phosphatase 76 50-136 U/L Total Protein 6.1 6.0-8.3 g/dL Albumin 3.4 L 3.5-5.0 g/dL B-Type Natriuretic Peptide 633 H 0-100 pg/mL Magnesium Level 2.40 1.80-2.40 mg/dL Coagulation Labs: Test 07/29/24 16:39 Range/Units Activated Partial Thromboplast Time 58.3 H 26.3-35.5 SEC DIAGNOSTICS / RADIOLOGY RESULTS: [ ] PLAN 07/29/2024: For now, going to continue current management for the patient. We will continue diuresing the patient on the furosemide on Milrinone, we will hip close eye on the renal function. The patient is to continue to limit his fluid intake and strict I and O. We are going to follow the recommendation of the Nephrology and Cardiology Specialists. We will repeat surveillance labs in the morning. We will monitor the patient's progress and response to management. We will continue to provide general supportive care, GI and DVT prophylaxis. Further orders per attending MD and hospital course. 07/30/2024: For now, going to continue current management as guided by the Cardiology team. The patient will remain on current management and we will adjust as necessary. We will continue to monitor strict I and O. We will monitor the patient's progress and response to management. We will continue to provide general supportive care, GI and DVT prophylaxis. Further orders per attending MD and hospital course. NEURO: Minimize central acting medications as possible. Maintain fall precautions, adequate lighting during the day PULMONARY: Supplemental 02 as needed. Maintain aspiration precautions at all times CARDIOVASCULAR: Follow hemodynamics. Vital signs per facility protocol GI & NUTRITION: Continue with nutritional support. Continue stool softeners and laxatives as needed. KIDNEYS & ELECTROLYTES: Strict monitoring of intake, output and overall fluid balance. Avoid nephrotoxic medications to the extent possible. Medications to be dosed according to renal function. Monitor electrolytes and replace as needed ENDOCRINE: Maintain blood glucose between 100-180 at all times. Hypoglycemia protocol in place INFECTIOUS DISEASE: Trend temperature, WBC and procalcitonin level Follow cultures, deescalate antibiotics as soon as possible. Panculture if new onset fever ONCOLOGY/HEMATOLOGY/COAGULATION: Monitor for s/s of bleeding Monitor hemoglobin, coagulation studies as needed SKIN: Pressure ulcer prevention per facility protocol Specialty mattress ORTHO/REHAB: Continue PT/OT Prophylaxis: Continue GI and DVT prophylaxis Code Status: Full Resuscitation Disposition: TBD Other: The patient was seen and case was discussed with supervising MD. Plan was discu ssed and agreed upon. TONG CACERES [employer] Jul 30, 2024 14:17
--- NOTE | 2024-07-30 16:09 | PN ---
CARDIOLOGY Reason for consult: CHF HPI/story at presentation: This is a pleasant 69-year-old male with past medical history as per present with complaints of shortness of breath with worsening edema and abdominal bloating and distention. He was diagnosed CHF exacerbation, cardiology scheduled for evaluation management. Patient was also found to be atrial fibrillation with rapid ventricular sponsor presentation to the hospital. Diuresis was initiated. Subjective: 07/26/2024 shortness of breath 07/29/2024 no complaints 07/30/2024 no complaints Past medical history: See below Allergies, Meds See chart Review of systems Review of Systems Constitutional: Negative for chills and fever. HENT: Negative for ear discharge and ear pain. Eyes: Negative for photophobia and discharge. Respiratory: Negative for cough, sputum production and stridor. Cardiovascular: Negative for chest pain and palpitations. Gastrointestinal: Negative for diarrhea and vomiting. Genitourinary: Negative for frequency. Musculoskeletal: Negative for myalgias. Skin: Negative for rash. Neurological: Negative for focal weakness and seizures. Endo/Heme/Allergies: Negative for polydipsia. Psychiatric/Behavioral: Negative for hallucinations. Vitals see chart PHYSICAL EXAMINATION GENERAL: The patient is alert and oriented*3 HEENT: Nonicteric sclerae, non traumatic HEART: Regular rate and rhythm with no murmurs LUNGS: mild crackles 07/26/2024 ABDOMEN: No acute issues, non tender GENITAL, RECTAL: deferred SKIN: No rash NEUROLOGIC: NFND EXTREMITIES: bilareral edema 07/26/2024 ASSESSMENT ATRIAL FIBRILLATION Presentation Associated RVR at presentation CONGESTIVE HEART FAILURE With abdominal distention lower extremity manage at presentation ACUTE KIDNEY INJURY At presentation Condition nephropathy versus prerenal OBESITY CORE MEASURES OTHER MEDICAL PROBLEMS Reviewed PLAN 07/26/2024 agree with rate control for atrial fibrillation, will likely benefit from further anticoagulation as well. Possible liver etiology of elevated INR. Follow-up with renal function panel including albumin ordered. Agree with diuresis for now. Echocardiogram has been ordered and is pending as well. On IV twice daily of Lasix and metoprolol at this time. Further recommendations after echo. Seen and examined 07/26/2024 around 1900 07/27/2024 Shortness of breath is stable. Labs reviewed. Renal function is still elevated between 2.6 and 3. On heparin for anticoagulation. Echocardiogram with EF less than 20%, arterial duplex was normal. Ultrasound of the lower extremities and venous duplex were within normal limits. Renal ultrasound was negative, bladder scan with less than 100 cc. Difficult situation in the setting of significant RV failure associated with edema and ascites in the setting of severe cardiomyopathy and A-fib RVR. Suspected nonischemic in setting of A-fib although, CAD has not been ruled out yet. Unable to proceed with catheterization given acute kidney injury. milrinone was started to better help with renal perfusion. Caution in the setting of underlying renal dysfunction and therefore starting a low dose first. No dobutamine as patient is on beta eugene for rate control . May transfer to the heart failure center if renal function continues to worsen or if rate control is a challenge. Critically ill, prognosis is guarded. Spoke with multiple family members during the course of the day seen and examined multiple times, 07/27/2024. 07/28/2024 Overnight, patient was started on milrinone to help with urine output but there is no significant response to bed and this was increased from 0.125- 0.25. However, even with elevated doses, no significant output was present after a few hours. Given underlying renal failure, milrinone was not increased any further. Also, patient was having issues with tachycardia with increased dose of milrinone. Metoprolol was increased to help with rate control. Dobutamine is not being considered because of metoprolol use. Diuresis was ineffective and therefore, patient was started on a Lasix drip at 10 to try to help with diuresis. This morning, urine output has improved about 200 cc. Low- dose milrinone has been continued, urine is dark, possibly ATN. Will watch for worsening renal function although, this is likely in the current situation. Will need to ensure there is quite adequate urine output. Discussed transfer to advanced heart failure management programs and at this time, plan is to wait. Seen and examined 07/28/2024 at around 1130 07/29/2024 Renal function somewhat better. Output has improved, continue current regimen. Breathing better rates are acceptable. May need to consider increasing beta-eugene. On 100 twice daily metoprolol succinate at this time. Seen and examined 07/29/2024 at around 1600 07/30/2024 Clinically, continues to improve, no active cardiac complaints at this time. Shortness of breath is better, abdominal bloating has improved. Induration edema is persistent but better as well. Continue current medical therapy. Will likely stop milrinone tomorrow to see how he does just with diuresis. Renal function continues to improve. Seen and examined 07/30/2024 at around 1600. ATTESTATION I was involved substantially in the care of this patient Number and complexity of problems addressed: 1 acute illness that is a threat to life or bodily function Amount and or complexity of data Review of prior external note(s) from each unique source: 2+ Ordering of each unique test : 0 Review of the result(s) of each unique test: 2+ Assessment requiring an independent historian(s): No Independent interpretation of test performed by another MD/QHCP/appropriate source (not separately reported) : No Discussion of management or test interpretation with external MD/QHCP/appropriate source (not separately reported) : IM Risk status (cardiac, billing related): high Vitals/Labs Vital Signs Date Time Temp Pulse Resp B/P (MAP) Pulse Ox O2 Delivery O2 Flow Rate FiO2 07/30/24 12:00 98.2 110 20 103/65 98 Nasal Cannula 2.0 07/30/24 08:00 28 Laboratory Tests 07/30/24 03:26 Medications Current Medications Furosemide 40 mg ONCE ONCE IV Last administered on 07/26/24at 15:44; Start 07/26/24 at 15:30; Stop 07/26/24 at 15:31; Status DC Diltiazem HCl 20 mg ONCE ONCE IVP Last administered on 07/26/24at 15:44; Start 07/26/24 at 16:00; Stop 07/26/24 at 16:01; Status DC Diltiazem HCl 30 mg ONCE ONCE PO Last administered on 07/26/24at 16:15; Start 07/26/24 at 16:30; Stop 07/26/24 at 16:31; Status DC Acetaminophen 500 mg Q6H PRN PO Last administered on 07/30/24at 10:06; Start 07/26/24 at 18:00; Stop 08/25/24 at 17:59 Thiamine HCl 100 mg DAILY PO Last administered on 07/29/24at 08:33; Start 07/27/24 at 09:00; Stop 08/26/24 at 08:59; Status Hold Folic Acid 1 mg DAILY PO Last administered on 07/30/24at 10:00; Start 07/27/24 at 09:00; Stop 08/26/24 at 08:59 Metoprolol Tartrate 25 mg BID PO Last administered on 07/27/24at 08:53; Start 07/26/24 at 21:00; Stop 07/27/24 at 10:29; Status DC Potassium Chloride 100 ml @ 100 mls/hr AD PRN IV; Start 07/26/24 at 18:00; Stop 08/25/24 at 17:59 Potassium Chloride 20 meq AD PRN PO; Start 07/26/24 at 18:00; Stop 08/25/24 at 17:59 Potassium Chloride 20 meq AD PRN PO; Start 07/26/24 at 18:00; Stop 08/25/24 at 17:59 Magnesium Sulfate 50 ml @ 0 mls/hr PROTOCOL PRN IV; Start 07/26/24 at 18:00; Stop 08/25/24 at 17:59 Furosemide 40 mg Q12H IV Last administered on 07/26/24at 23:09; Start 07/26/24 at 23:00; Stop 07/27/24 at 06:31; Status DC Heparin Sodium (Porcine) 5,000 unit Q12H SQ Last administered on 07/26/24at 21:07; Start 07/26/24 at 21:00; Stop 07/27/24 at 00:12; Status DC Heparin Sodium/ Dextrose 250 ml @ 0 mls/hr Q6H IV Last administered on 07/30/24at 01:59; Start 07/27/24 at 01:00; Stop 08/26/24 at 00:59 Bumetanide 1 mg Q12H IVP Last administered on 07/27/24at 20:19; Start 07/27/24 at 09:00; Stop 07/28/24 at 02:44; Status DC Pantoprazole Sodium 40 mg DAILY IVP Last administered on 07/30/24at 10:00; Start 07/28/24 at 09:00; Stop 08/27/24 at 08:59 Metoprolol Succinate 50 mg BID PO Last administered on 07/27/24at 20:19; Start 07/27/24 at 10:30; Stop 07/27/24 at 22:52; Status DC Milrinone Lactate/ Dextrose 100 ml @ 0 mls/hr PROTOCOL IV; Start 07/27/24 at 18:00; Stop 07/27/24 at 18:05; Status DC Milrinone Lactate/ Dextrose 100 ml @ 0 mls/hr PROTOCOL IV Last administered on 07/30/24at 06:23; Start 07/27/24 at 18:30; Stop 08/26/24 at 18:29 Metoprolol Succinate 50 mg ONCE ONCE PO Last administered on 07/27/24at 23:43; Start 07/27/24 at 23:00; Stop 07/27/24 at 23:01; Status DC Metoprolol Succinate 100 mg BID PO Last administered on 07/30/24at 10:01; Start 07/28/24 at 09:00; Stop 08/27/24 at 08:59 Furosemide 100 mg/ Sodium Chloride 100 ml @ 0 mls/hr PROTOCOL IV Last administered on 07/30/24at 12:51; Start 07/28/24 at 03:00; Stop 08/27/24 at 02:59 Bacitracin Right and left lower leg DAILY TP Last administered on 07/30/24at 10:01; Start 07/29/24 at 09:00; Stop 08/28/24 at 08:59 Thiamine HCl 300 mg DAILY08 IVP Last administered on 07/30/24at 10:01; Start 07/30/24 at 08:00; Stop 08/01/24 at 08:01 LANI GRACIA MD Jul 30, 2024 16:08
[2024-07-31] VITALS (8 sets, daily range): BP systolic 105–124; BP diastolic 65–76; PULSE 82–105; RESP 18–20; TEMP 98–98.7; O2SAT 96–98
[2024-07-31 03:48] LABS: BASOPHILS # (AUTO) 0.02 K/uL (0.00-0.20); BASOPHILS % (AUTO) 0.3 % (0.0-5.0); EOSINOPHILS % (AUTO) 1.5 % (0.0-8.0); HEMATOCRIT 45.7 % (42-54); IMMATURE GRANULOCYTE ABSOLUTE 0.03 K/uL (0-1); LYMPHOCYTES # (AUTO) 1.9 K/uL (1.0-4.8); LYMPHOCYTES % (AUTO) 27.7 % (21.0-51.0); MEAN CORPUSCULAR HEMOGLOBIN 29.7 pg (27.0-33.0); MEAN CORPUSCULAR HGB CONC 30.9 g/dL (32.0-36.0); MEAN CORPUSCULAR VOLUME 96.4 fL (79-99); MONOCYTES # (AUTO) 0.7 K/uL (0.1-1.0); MONOCYTES % (AUTO) 10.5 % (3.0-13.0); NEUTROPHILS # (AUTO) 4.1 K/uL (1.8-7.7); NEUTROPHILS % (AUTO) 59.6 % (40.0-77.0); PLATELET COUNT (AUTO) 141 K/uL (130-400); RED BLOOD CELL COUNT(AUTO) 4.74 MIL/uL (4.50-6.20); RED CELL DISTRIBUTION WIDTH 14.4 % (11.0-15.5); WHITE BLOOD COUNT (AUTO) 6.8 K/uL (4.8-10.8)
[2024-07-31 04:48] LABS: CREATININE 2.3 mg/dL (0.5-1.3); MAGNESIUM 2.2 mg/dL (1.80-2.40); POTASSIUM 3.8 mmol/L (3.5-5.1)
--- NOTE | 2024-07-31 09:38 | HMCIMG ---
CHEST 1VW HISTORY: CHF COMPARISON: 07/26/2024 FINDINGS: A frontal projection of the chest was obtained. Mild bilateral pulmonary infiltrates are seen may be related to mild pulmonary vascular congestion with possible superimposed pneumonitis. The heart is enlarged. Degenerative changes are seen. No evidence of aortic calcification is seen. IMPRESSION: 1. Mild bilateral pulmonary infiltrates are seen may be related to mild pulmonary vascular congestion with possible superimposed pneumonitis.
--- NOTE | 2024-07-31 14:29 | PN ---
FOLLOWUP PROGRESS NOTE SUBJECTIVE: A 69-year-old male, initially presented with cardiomyopathy. The patient was started on milrinone as well as the IV Lasix. Renal function continues to slowly improve and he is being seen as a followup visit for all of the above. The patient is being seen by Cardiology. REVIEW OF SYSTEMS: CONSTITUTIONAL: He is feeling improved. HEENT: No change in vision. No change in hearing. CARDIOVASCULAR: There is no current chest pain or palpitations. PULMONARY: His shortness of breath has improved. GASTROINTESTINAL: The patient is tolerating a diet. PHYSICAL EXAMINATION: VITAL SIGNS: Blood pressure is 105/69, pulse in the 100s. He is afebrile. GENERAL: He is a chronically ill male, lying in bed on the medical floor. HEENT: Head is atraumatic. Pupils are equal, roving to light. Oropharynx is without exudate. Nares are clear. NECK: There is no JVP. There is no thyromegaly. No masses. CARDIOVASCULAR: Regular. There is no S3 or S4 gallop. LUNGS: Coarse with equal thoracic movement. ABDOMEN: Soft, nondistended, nontender. EXTREMITIES: The edema is improved. LABORATORY DATA: BUN 53, creatinine 2.3, sodium 138. Hemoglobin 14, hematocrit 45. IMPRESSION: * Acute on chronic renal failure. * Severe cardiomyopathy. * Hypertension. * Volume overload. PLAN: The patient's creatinine continues to slowly improve. The patient remains on amiodarone as well as diuretics. The patient is being seen by Cardiology. The patient eventually will require heart catheterization. We will continue to follow closely. All labs can be repeated in the morning. TID: [id number] RECEIPT: [id number]
--- NOTE | 2024-07-31 15:33 | NUR ---
[facility] Follow-up: Patient re-assessed by wound healing team. See wound assessment. Assessment and recommendations provided to primary nurse. Education provided. Addendum: 08/01/24 at 1232 by GAGE DOBBINS RN RN/ Amended: Links added.
--- NOTE | 2024-07-31 16:20 | PN ---
[facility] PROGRESS NOTE Date of Service: July 31, 2024 Time of Service: 16:18 SUBJECTIVE: [69 old male admitted due to shortness of breaths, patient was at kidney failure on admission suspected due to acute tubular necrosis. Patient also was noted with cardiomyopathy, EF is less than 20%, patient is currently on oxygen supplementation. Today he continues with tachycardia, BB increased yesterday, now on Metoprolol XL 100 mg PO BID. He is still needs oxygen supplementation, on and off on 2L via [place]. Continue with strict I&O. 07/31/24 patient was seen and examined. Case discussed with RN. He has presented with ischemic cardiomyopathy requiring aggressive diuresis. He was on diuretics are being carefully managed by Nephrology and Cardiology monitoring his renal function. Clinically he says he was getting better REVIEW OF SYSTEMS CONSTITUTIONAL: Denies fevers, chills, or night sweats. Denied any changes in weight NEUROLOGICAL: Denies headache, amaurosis fugax, motor weakness, sensory deficit, vertigo/spinning sensation, gait abnormalities, or tremors. ENT: No hearing loss, otalgia, otorrhea, rhinitis, rhinorrhea, hoarseness, or sore throat. CARDIOVASCULAR: Denies any exertional angina, dyspnea on exertion, orthopnea, paroxysmal nocturnal dyspnea, palpitations, life-threatening arrhythmias, claudication. PULMONARY: Positive for shortness of breath, cough. Denied any sputum producti on GASTROINTESTINAL: Denies any type of dysphagia to either liquids or solids. Denies nausea, vomiting, pyrosis, early satiety, abdominal pain, diarrhea, constipation, or changes in stool consistency or caliber. Denies coffee-ground emesis, hematemesis, hematochezia, or melanotic stools. GENITOURINARY: Positive for decreased urination. Denied any hematuria, dysuria ENDOCRINOLOGIC: Denies polyuria, polydipsia, polyphagia or heat/cold int olerances. HEMATOLOGIC: Denies thrombophilia/previous clots, or coagulopathy/bleeding disorders. ONCOLOGIC: Denies personal history of malignancy. DERMATOLOGIC: Denies rashes or pruritus. PSYCHIATRIC: Denies any suicidal or homicidal ideation. Denies hallucinations. Musculoskeletal: Positive for swelling in the lower extremity PHYSICAL EXAM GENERAL APPEARANCE: The patient is awake, alert, and oriented, in no acute cardiopulmonary distress. NEUROLOGICAL: Cranial nerves II-XII grossly intact. Motor is 5/5 in bilateral upper and lower extremities proximal to distal. No sensory deficits. HEENT: Face is symmetric. Pupils are equal and reactive. Extraocular movements are intact. NECK: Supple. No JVD. No thyromegaly. No submental, submandibular, pre- /postauricular, occipital or supraclavicular lymphadenopathy. CHEST: Normal chest expansion. No Telemetry. LUNGS: Positive for crackles in the right side CARDIOVASCULAR: Regular. S1 and S2 normal. No appreciable rubs, murmurs or gallops. ABDOMEN: Abdomen is distended. He has soft tissue edema in the abdominal wall. Bowel sounds are active. : Deferred. No Garcia. EXTREMITIES:3+ pitting edema in the lower extremity bilaterally he also has venous stasis changes.. No clubbing. Good capillary refill. SKIN: No skin breakdown. Vital Signs (last 8hr) Date Time Temp Pulse Resp B/P (MAP) Pulse Ox O2 Delivery O2 Flow Rate FiO2 07/31/24 12:00 98.1 99 19 108/69 98 Nasal Cannula 2.0 07/31/24 09:49 89 18 N/Cannula Low lpm 2.0 28 LABS: Laboratory: Test 07/31/24 03:21 07/30/24 16:50 07/30/24 03:26 Range/Units White Blood Count 6.8 4.8-10.8 K/uL Red Blood Count 4.74 4.50-6.20 MIL/uL Hemoglobin 14.1 14.0-18.0 g/dL Hematocrit 45.7 42-54 % Mean Corpuscular Volume 96.4 79-99 fL Mean Corpuscular Hemoglobin 29.7 27.0-33.0 pg Mean Corpuscular Hemoglobin Concent 30.9 L 32.0-36.0 g/dL Red Cell Distribution Width 14.4 11.0-15.5 % Platelet Count 141 130-400 K/uL Mean Platelet Volume 10.1 7.5-10.5 fL Immature Granulocyte % (Auto) 0.4 0-1 % Neutrophils (%) (Auto) 59.6 40.0-77.0 % Lymphocytes (%) (Auto) 27.7 21.0-51.0 % Monocytes (%) (Auto) 10.5 3.0-13.0 % Eosinophils (%) (Auto) 1.5 0.0-8.0 % Basophils (%) (Auto) 0.3 0.0-5.0 % Neutrophils # (Auto) 4.1 1.8-7.7 K/uL Lymphocytes # (Auto) 1.9 1.0-4.8 K/uL Monocytes # (Auto) 0.7 0.1-1.0 K/uL Eosinophils # (Auto) 0.10 0.00-0.70 K/uL Basophils # (Auto) 0.02 0.00-0.20 K/uL Absolute Immature Granulocyte (auto 0.03 0-1 K/uL Nucleated Red Blood Cells 0.0 0.0-0.19 % Red Blood Cell Morphology See comments Sodium Level 138 136-145 mmol/L Potassium Level 3.8 3.5-5.1 mmol/L Chloride Level 99 L 101-111 mmol/L Carbon Dioxide Level 34 H 21-32 mmol/L Blood Urea Nitrogen 53 H 7-18 mg/dL Creatinine 2.3 H 0.5-1.3 mg/dL Glomerular Filtration Rate Calc 30 >90 mL/min Random Glucose 122 H 70-105 mg/dL Total Calcium 8.3 L 8.5-10.1 mg/dL Magnesium Level 2.20 1.80-2.40 mg/dL B-Type Natriuretic Peptide 800 H 0-100 pg/mL Activated Partial Thromboplast Time 54.3 H 26.3-35.5 SEC Total Bilirubin 0.8 0.2-1.0 mg/dL Aspartate Amino Transf (AST/SGOT) 29 10-37 U/L Alanine Aminotransferase (ALT/SGPT) 24 12-78 U/L Alkaline Phosphatase 76 50-136 U/L Total Protein 6.1 6.0-8.3 g/dL Albumin 3.4 L 3.5-5.0 g/dL Current Medications Medications (Trade) Dose Ordered Sig/Melinda Route PRN Reason Start Time Stop Time Status Last Admin Dose Admin Acetaminophen (TYLenol 500MG TAB) 500 mg Q6H PRN PO MILD PAIN (1-3) 07/26/24 18:00 08/25/24 17:59 07/30/24 10:06 500 MG Bacitracin (Bacitracin 28.4gm) Right and left lower leg DAILY TP 07/29/24 09:00 08/28/24 08:59 07/31/24 09:17 1 GM Bumetanide (Bumex 1mg Vial) 1 mg Q12H IVP 07/27/24 09:00 07/28/24 02:44 DC 07/27/24 20:19 1 MG Folic Acid (FOLic ACID 1 MG TABLET) 1 mg DAILY PO 07/27/24 09:00 08/26/24 08:59 07/30/24 10:00 1 MG Furosemide (LASix 40MG VIAL) 40 mg Q12H IV 07/26/24 23:00 07/27/24 06:31 DC 07/26/24 23:09 40 MG Furosemide 100 mg/ Sodium Chloride 100 ml @ 0 mls/hr PROTOCOL IV 07/28/24 03:00 08/27/24 02:59 07/31/24 15:01 10 MLS/HR Heparin Sodium (Porcine) (HEParin 5,000 UNIT VIAL) 5,000 unit Q12H SQ 07/26/24 21:00 07/27/24 00:12 DC 07/26/24 21:07 5,000 UNIT Heparin Sodium/ Dextrose 250 ml @ 0 mls/hr Q6H IV 07/27/24 01:00 08/26/24 00:59 07/30/24 19:36 13.65 MLS/HR Magnesium Sulfate 50 ml @ 0 mls/hr PROTOCOL PRN IV hypomagnesemia 07/26/24 18:00 08/25/24 17:59 Metoprolol Succinate (TopROL XL) 50 mg BID PO 07/27/24 10:30 07/27/24 22:52 DC 07/27/24 20:19 50 MG Metoprolol Succinate (TopROL XL) 100 mg BID PO 07/28/24 09:00 08/27/24 08:59 07/30/24 20:23 100 MG Metoprolol Tartrate (loprESSOR) 25 mg BID PO 07/26/24 21:00 07/27/24 10:29 DC 07/27/24 08:53 25 MG Milrinone Lactate/ Dextrose 100 ml @ 0 mls/hr PROTOCOL IV 07/27/24 18:00 07/27/24 18:05 DC Milrinone Lactate/ Dextrose 100 ml @ 0 mls/hr PROTOCOL IV 07/27/24 18:30 08/26/24 18:29 07/30/24 06:23 2.58 MLS/HR Pantoprazole Sodium (PROTonix 40MG INJ) 40 mg DAILY IVP 07/28/24 09:00 08/27/24 08:59 07/30/24 10:00 40 MG Potassium Chloride 100 ml @ 100 mls/hr AD PRN IV POTASSIUM PROTOCOL 07/26/24 18:00 08/25/24 17:59 Potassium Chloride (K-Dur/Klor-Con 20meq) 20 meq AD PRN PO POTASSIUM PROTOCOL 07/26/24 18:00 08/25/24 17:59 Potassium Chloride (KCl 10% Elixir 20meq/15ml) 20 meq AD PRN PO POTASSIUM PROTOCOL 07/26/24 18:00 08/25/24 17:59 Thiamine HCl (Vitamin B-1) 100 mg DAILY PO 07/27/24 09:00 08/26/24 08:59 Hold 07/29/24 08:33 100 MG Thiamine HCl (Vitamin B-1) 300 mg DAILY08 IVP 07/30/24 08:00 08/01/24 08:01 07/30/24 10:01 300 MG DIAGNOSTICS / RADIOLOGY: [ ] ASSESSMENT: Acute CHF exacerbation POA Acute hypoxic respiratory failure secondary to CHF exacerbation New onset paroxysmal atrial fibrillation with RVR Generalized anasarca Acute kidney injury, 2/2 ATN, POA Lower extremity edema History of alcohol use Mild coagulopathy Mild leukocytosis differential infectious versus reactive PLAN: - patient to be admitted to [facility] -in reference to CHF exacerbation; -CONTINUE WITH MILRINONE GTT CONTINUE WITH OXYGEN SUPPLEMENTATION TO KEEP O2 SAT GREATER THAN 92% PATIENT WILL BE ON STRICT I&O AND DAILY WEIGHTS PATIENT WILL BE ON HEPARIN DRIP PER PROTOCOL WE WILL CONTINUE TO MONITOR KIDNEY FUNCTION APPRECIATE REC' S FROM NEPHRO AND PULMO, WE WILL FOLLOW THEIR RECOMMENDATIONS CONTINUE WITH GI AND DVT PROPHYLAXIS REPEAT LABS TOMORROW CASE WAS SEEN AND EXAMINED WITH DR. ROTHMAN, ABOVE PLAN WAS FORMULATED YAZMIN ROTHMAN MD July 31, 2024 16:20
--- NOTE | 2024-07-31 17:31 | PN ---
[facility] PROGRESS NOTE Date Patient Seen: July 31, 2024 Time of Visit: 17:30 Supervising Physician: Dr. Garth Stratton Consulting Physician: Hospitalist Outpatient Specialists: [ ] Inpatient Consults: Dr. Mitchell (cardio) PROBLEM LIST: Acute hypoxic respiratory failure, POA Congestive heart failure, chest x-ray showed bilateral pulmonary congestion, with BNP above 900 POA Acute kidney injury, POA Leukocytosis, POA Atrial fibrillation with RVR, POA Morbid obesity, BMI of 38.7 INTERVAL HISTORY: Patient evaluated at bedside, he is currently on 3 L nasal cannula, patient has been transitioned to a furosemide drip along with Milrinone per Cardiology recommendations, patient's BNP this morning is 866, creatinine is 3.2. Patient negative for COVID and flu. Cardiology continuing with the aggressive managemen t of his diuresis for biventricular heart failure. Pulmonary Services will continue to follow the patient while he remains in supplemental O2. 07/29/2024: At the time of my evaluation, the patient was lying in bed. Staff nurse reports no acute events overnight. On the monitor, the patient remains on nasal cannula. She is mildly tachycardic and normotensive. Patient had a uri nary output of approximately 1 L over the past 24 hours. Laboratory data was notable for a sodium of 134, chloride of 98, BUN of 59, creatinine of 2.9 and a GFR of 23. BNP of 633. Remaining laboratory data were not of concern. Blood cultures x2 are negative. The patient remains on diuretic therapy with furosemide, Milrinone and is on a heparin drip. No new complaint. 07/30/2024: At the time of my evaluation, the patient was lying in bed. He reports feeling much better today. On the monitor, the patient is on room air and is hemodynamically stable. Laboratory data today is notable for improving renal parameters with a BUN of 59, creatinine of 2.8 and a GFR of 24. The patient had a urinary output in the last 24 hours of 1999 with a net balance of -485. No new imaging for review. The patient remains on a furosemide, Milrinone and heparin drip. No other complaint. 07/31/2024: At the time of my evaluation, the patient is lying in bed. Per the staff nurse the patient is started with hematuric changes to his urine. On monitor, the patient remains on a nasal cannula and is otherwise hemodynamically stable. Laboratory data today is notable for a chloride of 99, CO2 of 34, BUN of 53, creatinine of 2.3, GFR of 30 and a BNP of 800. Microbiology data showing blood cultures x2 with no growth. Chest x-ray today showing pulmonary vascular congestion bilaterally with suspicion for obscured pneumonic infiltrates. Currently, the patient continues on furosemide, Milrinone and heparin drip. Otherwise, no other complaint. REVIEW OF SYSTEMS: 12 point ROS reviewed with patient. Pertinent positives mentioned above. Otherwise negative. PHYSICAL EXAM: GENERAL: alert, weak, awake oriented x 3 HEENT: EOMI, Sclera non icteric, moist mucosa NECK: Supple, no JVD, trachea midline LUNGS: Coarse bilateral lung sounds HEART: Regular rate and rhythm. Normal S1 and S2, without murmurs ABD: Large abdomen EXT: 4+ pitting edema NEURO: Alert and oriented to person, follows commands Vital Signs (last 8hr) Date Time Temp Pulse Resp B/P (MAP) Pulse Ox O2 Delivery O2 Flow Rate FiO2 07/31/24 12:00 98.1 99 19 108/69 98 Nasal Cannula 2.0 07/31/24 09:49 89 18 N/Cannula Low lpm 2.0 28 LABS: Hematology Labs: Test 07/31/24 03:21 Range/Units White Blood Count 6.8 4.8-10.8 K/uL Red Blood Count 4.74 4.50-6.20 MIL/uL Hemoglobin 14.1 14.0-18.0 g/dL Hematocrit 45.7 42-54 % Mean Corpuscular Volume 96.4 79-99 fL Mean Corpuscular Hemoglobin 29.7 27.0-33.0 pg Mean Corpuscular Hemoglobin Concent 30.9 L 32.0-36.0 g/dL Red Cell Distribution Width 14.4 11.0-15.5 % Platelet Count 141 130-400 K/uL Mean Platelet Volume 10.1 7.5-10.5 fL Immature Granulocyte % (Auto) 0.4 0-1 % Neutrophils (%) (Auto) 59.6 40.0-77.0 % Lymphocytes (%) (Auto) 27.7 21.0-51.0 % Monocytes (%) (Auto) 10.5 3.0-13.0 % Eosinophils (%) (Auto) 1.5 0.0-8.0 % Basophils (%) (Auto) 0.3 0.0-5.0 % Neutrophils # (Auto) 4.1 1.8-7.7 K/uL Lymphocytes # (Auto) 1.9 1.0-4.8 K/uL Monocytes # (Auto) 0.7 0.1-1.0 K/uL Eosinophils # (Auto) 0.10 0.00-0.70 K/uL Basophils # (Auto) 0.02 0.00-0.20 K/uL Absolute Immature Granulocyte (auto 0.03 0-1 K/uL Nucleated Red Blood Cells 0.0 0.0-0.19 % Red Blood Cell Morphology See comments Chemistry Labs: Test 07/31/24 03:21 07/30/24 03:26 Range/Units Sodium Level 138 136-145 mmol/L Potassium Level 3.8 3.5-5.1 mmol/L Chloride Level 99 L 101-111 mmol/L Carbon Dioxide Level 34 H 21-32 mmol/L Blood Urea Nitrogen 53 H 7-18 mg/dL Creatinine 2.3 H 0.5-1.3 mg/dL Glomerular Filtration Rate Calc 30 >90 mL/min Random Glucose 122 H 70-105 mg/dL Total Calcium 8.3 L 8.5-10.1 mg/dL Magnesium Level 2.20 1.80-2.40 mg/dL B-Type Natriuretic Peptide 800 H 0-100 pg/mL Total Bilirubin 0.8 0.2-1.0 mg/dL Aspartate Amino Transf (AST/SGOT) 29 10-37 U/L Alanine Aminotransferase (ALT/SGPT) 24 12-78 U/L Alkaline Phosphatase 76 50-136 U/L Total Protein 6.1 6.0-8.3 g/dL Albumin 3.4 L 3.5-5.0 g/dL Coagulation Labs: Test 07/31/24 16:54 Range/Units Activated Partial Thromboplast Time 56.1 H 26.3-35.5 SEC DIAGNOSTICS / RADIOLOGY RESULTS: [ ] PLAN 07/29/2024: For now, going to continue current management for the patient. We will continue diuresing the patient on the furosemide on Milrinone, we will hip close eye on the renal function. The patient is to continue to limit his fluid intake and strict I and O. We are going to follow the recommendation of the Nephrology and Cardiology Specialists. We will repeat surveillance labs in the morning. We will monitor the patient's progress and response to management. We will continue to provide general supportive care, GI and DVT prophylaxis. Further orders per attending MD and hospital course. 07/30/2024: For now, going to continue current management as guided by the Cardiology team. The patient will remain on current management and we will adjust as necessary. We will continue to monitor strict I and O. We will monitor the patient's progress and response to management. We will continue to provide general supportive care, GI and DVT prophylaxis. Further orders per attending MD and hospital course. 07/31/2024: For now, we are going to continue current management for the patient. We are going to continue diuresis as ordered and we will monitor the recommendation of the Cardiology team. Going to monitor the hematuria and possibly consult the urologist considering that the patient is on a heparin drip. We will monitor the patient's progress and response to management. We will continue to provide general supportive care, GI and DVT prophylaxis. Further orders per attending MD and hospital course. NEURO: Minimize central acting medications as possible. Maintain fall precautions, adequate lighting during the day PULMONARY: Supplemental 02 as needed. Maintain aspiration precautions at all times CARDIOVASCULAR: Follow hemodynamics. Vital signs per facility protocol GI & NUTRITION: Continue with nutritional support. Continue stool softeners and laxatives as needed. KIDNEYS & ELECTROLYTES: Strict monitoring of intake, output and overall fluid balance. Avoid nephrotoxic medications to the extent possible. Medications to be dosed according to renal function. Monitor electrolytes and replace as needed ENDOCRINE: Maintain blood glucose between 100-180 at all times. Hypoglycemia protocol in place INFECTIOUS DISEASE: Trend temperature, WBC and procalcitonin level Follow cultures, deescalate antibiotics as soon as possible. Panculture if new onset fever ONCOLOGY/HEMATOLOGY/COAGULATION: Monitor for s/s of bleeding Monitor hemoglobin, coagulation studies as needed SKIN: Pressure ulcer prevention per facility protocol Specialty mattress ORTHO/REHAB: Continue PT/OT Prophylaxis: Continue GI and DVT prophylaxis Code Status: Full Resuscitation Disposition: TBD Other: The patient was seen and case was discussed with supervising MD. Plan was discussed and agreed upon. TNOG CACERES NP July 31, 2024 17:31
--- NOTE | 2024-07-31 18:00 | NUR ---
STOP MILRINONE TONIGHT, MONITOR OUTPUT OVERNIGHT. DEPENDING ON THE OUTPUT, THE MILRINONE MAY BE RESTARTED. NOTIFY DR. GRACIA. ON OVERNIGHT OUTPUT.
--- NOTE | 2024-07-31 18:05 | PN ---
CARDIOLOGY Reason for consult: CHF HPI/story at presentation: This is a pleasant 69-year-old male with past medical history as per present with complaints of shortness of breath with worsening edema and abdominal bloating and distention. He was diagnosed CHF exacerbation, cardiology scheduled for evaluation management. Patient was also found to be atrial fibrillation with rapid ventricular sponsor presentation to the hospital. Diuresis was initiated. Subjective: 07/26/2024 shortness of breath 07/29/2024 no complaints 07/30/2024 no complaints 07/31/2024 no complaints Past medical history: See below Allergies, Meds See chart Review of systems Review of Systems Constitutional: Negative for chills and fever. HENT: Negative for ear discharge and ear pain. Eyes: Negative for photophobia and discharge. Respiratory: Negative for cough, sputum production and stridor. Cardiovascular: Negative for chest pain and palpitations. Gastrointestinal: Negative for diarrhea and vomiting. Genitourinary: Negative for frequency. Musculoskeletal: Negative for myalgias. Skin: Negative for rash. Neurological: Negative for focal weakness and seizures. Endo/Heme/Allergies: Negative for polydipsia. Psychiatric/Behavioral: Negative for hallucinations. Vitals see chart PHYSICAL EXAMINATION GENERAL: The patient is alert and oriented*3 HEENT: Nonicteric sclerae, non traumatic HEART: Regular rate and rhythm with no murmurs LUNGS: mild crackles 07/26/2024 ABDOMEN: No acute issues, non tender GENITAL, RECTAL: deferred SKIN: No rash NEUROLOGIC: NFND EXTREMITIES: bilareral edema 07/26/2024 ASSESSMENT ATRIAL FIBRILLATION Presentation Associated RVR at presentation CONGESTIVE HEART FAILURE With abdominal distention lower extremity manage at presentation ACUTE KIDNEY INJURY At presentation Condition nephropathy versus prerenal OBESITY CORE MEASURES OTHER MEDICAL PROBLEMS Reviewed PLAN 07/26/2024 agree with rate control for atrial fibrillation, will likely benefit from further anticoagulation as well. Possible liver etiology of elevated INR. Follow-up with renal function panel including albumin ordered. Agree with diuresis for now. Echocardiogram has been ordered and is pending as well. On IV twice daily of Lasix and metoprolol at this time. Further recommendations after echo. Seen and examined 07/26/2024 around 1900 07/27/2024 Shortness of breath is stable. Labs reviewed. Renal function is still elevated between 2.6 and 3. On heparin for anticoagulation. Echocardiogram with EF less than 20%, arterial duplex was normal. Ultrasound of the lower extremities and venous duplex were within normal limits. Renal ultrasound was negative, bladder scan with less than 100 cc. Difficult situation in the setting of significant RV failure associated with edema and ascites in the setting of severe cardiomyopathy and A-fib RVR. Suspected nonischemic in setting of A-fib although, CAD has not been ruled out yet. Unable to proceed with catheterization given acute kidney injury. milrinone was started to better help with renal perfusion. Caution in the setting of underlying renal dysfunction and therefore starting a low dose first. No dobutamine as patient is on beta eugene for rate control . May transfer to the heart failure center if renal function continues to worsen or if rate control is a challenge. Critically ill, prognosis is guarded. Spoke with multiple family members during the course of the day seen and examined multiple times, 07/27/2024. 07/28/2024 Overnight, patient was started on milrinone to help with urine output but there is no significant response to bed and this was increased from 0.125- 0.25. However, even with elevated doses, no significant output was present after a few hours. Given underlying renal failure, milrinone was not increased any further. Also, patient was having issues with tachycardia with increased dose of milrinone. Metoprolol was increased to help with rate control. Dobutamine is not being considered because of metoprolol use. Diuresis was ineffective and therefore, patient was started on a Lasix drip at 10 to try to help with diuresis. This morning, urine output has improved about 200 cc. Low- dose milrinone has been continued, urine is dark, possibly ATN. Will watch for worsening renal function although, this is likely in the current situation. Will need to ensure there is quite adequate urine output. Discussed transfer to advanced heart failure management programs and at this time, plan is to wait. Seen and examined 07/28/2024 at around 1130 07/29/2024 Renal function somewhat better. Output has improved, continue current regimen. Breathing better rates are acceptable. May need to consider increasing beta-eugene. On 100 twice daily metoprolol succinate at this time. Seen and examined 07/29/2024 at around 1600 07/30/2024 Clinically, continues to improve, no active cardiac complaints at this time. Shortness of breath is better, abdominal bloating has improved. Induration edema is persistent but better as well. Continue current medical therapy. Will likely stop milrinone tomorrow to see how he does just with diuresis. Renal function continues to improve. Seen and examined 07/30/2024 at around 1600. 07/31/2024 stop milrinone and reevaluate. Good urine output. Remains on IV Lasix and heparin at this time. Appreciate nephrology, primary team. Clinically, doing well, ambulating encouraged.rates ok Seen and examined 07/31/2024 at around 1800. ATTESTATION I was involved substantially in the care of this patient Number and complexity of problems addressed: 1 acute illness that is a threat to life or bodily function Amount and or complexity of data Review of prior external note(s) from each unique source: 2+ Ordering of each unique test : 0 Review of the result(s) of each unique test: 2+ Assessment requiring an independent historian(s): No Independent interpretation of test performed by another MD/QHCP/appropriate source (not separately reported) : No Discussion of management or test interpretation with external MD/QHCP/appropriate source (not separately reported) : IM Risk status (cardiac, billing related): high Vitals/Labs Vital Signs Date Time Temp Pulse Resp B/P (MAP) Pulse Ox O2 Delivery O2 Flow Rate FiO2 07/31/24 12:00 98.1 99 19 108/69 98 Nasal Cannula 2.0 07/31/24 09:49 28 Laboratory Tests 07/31/24 03:21 Medications Current Medications Furosemide 40 mg ONCE ONCE IV Last administered on 07/26/24at 15:44; Start 07/26/24 at 15:30; Stop 07/26/24 at 15:31; Status DC Diltiazem HCl 20 mg ONCE ONCE IVP Last administered on 07/26/24at 15:44; Start 07/26/24 at 16:00; Stop 07/26/24 at 16:01; Status DC Diltiazem HCl 30 mg ONCE ONCE PO Last administered on 07/26/24at 16:15; Start 07/26/24 at 16:30; Stop 07/26/24 at 16:31; Status DC Acetaminophen 500 mg Q6H PRN PO Last administered on 07/30/24at 10:06; Start 07/26/24 at 18:00; Stop 08/25/24 at 17:59 Thiamine HCl 100 mg DAILY PO Last administered on 07/29/24at 08:33; Start 07/27/24 at 09:00; Stop 08/26/24 at 08:59; Status Hold Folic Acid 1 mg DAILY PO Last administered on 07/30/24at 10:00; Start 07/27/24 at 09:00; Stop 08/26/24 at 08:59 Metoprolol Tartrate 25 mg BID PO Last administered on 07/27/24at 08:53; Start 07/26/24 at 21:00; Stop 07/27/24 at 10:29; Status DC Potassium Chloride 100 ml @ 100 mls/hr AD PRN IV; Start 07/26/24 at 18:00; Stop 08/25/24 at 17:59 Potassium Chloride 20 meq AD PRN PO; Start 07/26/24 at 18:00; Stop 08/25/24 at 17:59 Potassium Chloride 20 meq AD PRN PO; Start 07/26/24 at 18:00; Stop 08/25/24 at 17:59 Magnesium Sulfate 50 ml @ 0 mls/hr PROTOCOL PRN IV; Start 07/26/24 at 18:00; Stop 08/25/24 at 17:59 Furosemide 40 mg Q12H IV Last administered on 07/26/24at 23:09; Start 07/26/24 at 23:00; Stop 07/27/24 at 06:31; Status DC Heparin Sodium (Porcine) 5,000 unit Q12H SQ Last administered on 07/26/24at 21:07; Start 07/26/24 at 21:00; Stop 07/27/24 at 00:12; Status DC Heparin Sodium/ Dextrose 250 ml @ 0 mls/hr Q6H IV Last administered on 07/30/24at 19:36; Start 07/27/24 at 01:00; Stop 08/26/24 at 00:59 Bumetanide 1 mg Q12H IVP Last administered on 07/27/24at 20:19; Start 07/27/24 at 09:00; Stop 07/28/24 at 02:44; Status DC Pantoprazole Sodium 40 mg DAILY IVP Last administered on 07/30/24at 10:00; Start 07/28/24 at 09:00; Stop 08/27/24 at 08:59 Metoprolol Succinate 50 mg BID PO Last administered on 07/27/24at 20:19; Start 07/27/24 at 10:30; Stop 07/27/24 at 22:52; Status DC Milrinone Lactate/ Dextrose 100 ml @ 0 mls/hr PROTOCOL IV; Start 07/27/24 at 18:00; Stop 07/27/24 at 18:05; Status DC Milrinone Lactate/ Dextrose 100 ml @ 0 mls/hr PROTOCOL IV Last administered on 07/30/24at 06:23; Start 07/27/24 at 18:30; Stop 08/26/24 at 18:29 Metoprolol Succinate 50 mg ONCE ONCE PO Last administered on 07/27/24at 23:43; Start 07/27/24 at 23:00; Stop 07/27/24 at 23:01; Status DC Metoprolol Succinate 100 mg BID PO Last administered on 07/30/24at 20:23; Start 07/28/24 at 09:00; Stop 08/27/24 at 08:59 Furosemide 100 mg/ Sodium Chloride 100 ml @ 0 mls/hr PROTOCOL IV Last administered on 07/31/24at 15:01; Start 07/28/24 at 03:00; Stop 08/27/24 at 02:59 Bacitracin Right and left lower leg DAILY TP Last administered on 07/31/24at 09:17; Start 07/29/24 at 09:00; Stop 08/28/24 at 08:59 Thiamine HCl 300 mg DAILY08 IVP Last administered on 07/30/24at 10:01; Start 07/30/24 at 08:00; Stop 08/01/24 at 08:01 Wound Care/ Dressing Products 1 gm BID TP; Start 07/31/24 at 21:00; Stop 08/30/24 at 20:59 LANI GRACIA MD July 31, 2024 18:05
[2024-07-31] MEDS: BALSAM PERU/CASTOR OIL 60 GM TUBE TP SCH (22:25)
[2024-08-01] VITALS (11 sets, daily range): BP systolic 101–132; BP diastolic 61–79; PULSE 80–105; RESP 17–20; TEMP 97.5–98; O2SAT 96–98
[2024-08-01] MEDS: BALSAM PERU/CASTOR OIL 60 GM TUBE TP SCH (08:31)
[2024-08-01 09:19] LABS: HEMATOCRIT 45.8 % (42-54); MEAN CORPUSCULAR HEMOGLOBIN 29.6 pg (27.0-33.0); MEAN CORPUSCULAR VOLUME 95.6 fL (79-99); RED BLOOD CELL COUNT(AUTO) 4.79 MIL/uL (4.50-6.20); RED CELL DISTRIBUTION WIDTH 14.6 % (11.0-15.5); WHITE BLOOD COUNT (AUTO) 6.7 K/uL (4.8-10.8)
[2024-08-01 09:31] LABS: PHOSPHORUS 4.6 mg/dL (2.5-4.9); POTASSIUM 4.1 mmol/L (3.5-5.1)
--- NOTE | 2024-08-01 09:37 | PN ---
FOLLOWUP PROGRESS NOTE SUBJECTIVE: A 69-year-old male who has had a prolonged hospital course. The patient is admitted, found to have congestive heart failure. Workup is consistent with severe cardiomyopathy. The patient remains on milrinone as well as Lasix. The patient's creatinine continues to slowly improve. The patient is being seen by Cardiology and the patient is being seen as a followup visit for all of the above. REVIEW OF SYSTEMS: GENERAL: He is feeling improved. HEENT: No change in vision. No change in hearing. CARDIOVASCULAR: There is no current chest pain or palpitations. PULMONARY: Shortness of breath has improved. GASTROINTESTINAL: He is tolerating a diet. MUSCULOSKELETAL: Complaints of weakness. PHYSICAL EXAMINATION: VITAL SIGNS: Blood pressure is 106/79, pulse in the 100s. He is afebrile. GENERAL: He is a chronically ill, obese male, lying in bed on the medical floor. HEENT: Head is atraumatic. Pupils are equal, roving to light. Oropharynx is without exudate. Nares clear. NECK: There is no JVP. There is no thyromegaly. No mass. CARDIOVASCULAR: Regular. There is no S3 or S4 gallop. LUNGS: Coarse with equal thoracic movement. ABDOMEN: Soft, nondistended, nontender. EXTREMITIES: Reveal no clubbing, no cyanosis. NEUROLOGICAL: He is awake. He is alert. LABORATORY DATA: BUN 53, creatinine is 2.3. Hemoglobin 14, hematocrit 45. IMPRESSION: * Acute on chronic renal failure. * Cardiomyopathy. * Volume overload. * Hypertension. PLAN: The patient's creatinine continues to slowly improve. The patient remains on the milrinone as well as the Lasix. The patient's cardiac workup is ongoing. The patient eventually will need to have a heart cath. We will continue to follow closely and make further recommendations accordingly. TID: [id number] RECEIPT: [id number]
--- NOTE | 2024-08-01 13:20 | NUR ---
[facility] Follow-up: Patient re-assessed by wound healing team. Patient ambulating with PT, per primary nurse no issues with BLE wounds. Addendum: 08/01/24 at 1321 by GAGE DOBBINS RN RN/ Amended: Links added.
--- NOTE | 2024-08-01 15:34 | PN ---
[facility] PROGRESS NOTE Date of Service: August 01, 2024 Time of Service: 15:33 SUBJECTIVE: [69 old male admitted due to shortness of breaths, patient was at kidney failure on admission suspected due to acute tubular necrosis. Patient also was noted with cardiomyopathy, EF is less than 20%, patient is currently on oxygen supplementation. Today he continues with tachycardia, BB increased yesterday, now on Metoprolol XL 100 mg PO BID. He is still needs oxygen supplementation, on and off on 2L via [place]. Continue with strict I&O. 07/31/24 patient was seen and examined. Case discussed with RN. He has presented with ischemic cardiomyopathy requiring aggressive diuresis. He was on diuretics are being carefully managed by Nephrology and Cardiology monitoring his renal function. Clinically he says he was getting better 08/01/24 patient was seen and examined. Case discussed with the RN. He was co ntinuing with the aggressive diuresis and electrolytes and labs are being monitored. He was having bloody discharge from the end of the penis as if there was some trauma. We will continue to monitor H and H and if this is a consistent problem urology may need to evaluate him REVIEW OF SYSTEMS CONSTITUTIONAL: Denies fevers, chills, or night sweats. Denied any changes in weight NEUROLOGICAL: Denies headache, amaurosis fugax, motor weakness, sensory deficit, vertigo/spinning sensation, gait abnormalities, or tremors. ENT: No hearing loss, otalgia, otorrhea, rhinitis, rhinorrhea, hoarseness, or sore throat. CARDIOVASCULAR: Denies any exertional angina, dyspnea on exertion, orthopnea, paroxysmal nocturnal dyspnea, palpitations, life-threatening arrhythmias, claudication. PULMONARY: Positive for shortness of breath, cough. Denied any sputum production GASTROINTESTINAL: Denies any type of dysphagia to either liquids or solids. Denies nausea, vomiting, pyrosis, early satiety, abdominal pain, diarrhea, constipation, or changes in stool consistency or caliber. Denies coffee-ground emesis, hematemesis, hematochezia, or melanotic stools. GENITOURINARY: Positive for decreased urination. Denied any hematuria, dysuria ENDOCRINOLOGIC: Denies polyuria, polydipsia, polyphagia or heat/cold intolerances. HEMATOLOGIC: Denies thrombophilia/previous clots, or coagulopathy/bleeding disorders. ONCOLOGIC: Denies personal history of malignancy. DERMATOLOGIC: Denies rashes or pruritus. PSYCHIATRIC: Denies any suicidal or homicidal ideation. Denies hallucinations. Musculoskeletal: Positive for swelling in the lower extremity PHYSICAL EXAM GENERAL APPEARANCE: The patient is awake, alert, and oriented, in no acute cardiopulmonary distress. NEUROLOGICAL: Cranial nerves II-XII grossly intact. Motor is 5/5 in bilateral upper and lower extremities proximal to distal. No sensory deficits. HEENT: Face is symmetric. Pupils are equal and reactive. Extraocular movements are intact. NECK: Supple. No JVD. No thyromegaly. No submental, submandibular, pre-/postauricular, occipital or supraclavicular lymphadenopathy. CHEST: Normal chest expansion. No Telemetry. LUNGS: Positive for crackles in the right side CARDIOVASCULAR: Regular. S1 and S2 normal. No appreciable rubs, murmurs or gallops. ABDOMEN: Abdomen is distended. He has soft tissue edema in the abdominal wall. Bowel sounds are active. : Deferred. No Garcia. EXTREMITIES:3+ pitting edema in the lower extremity bilaterally he also has venous stasis changes.. No clubbing. Good capillary refill. SKIN: No skin breakdown. Vital Signs (last 8hr) Date Time Temp Pulse Resp B/P (MAP) Pulse Ox O2 Delivery O2 Flow Rate FiO2 08/01/24 11:00 97.5 98 18 109/75 99 Nasal Cannula 2.0 08/01/24 08:00 98 Nasal Cannula* 2 28 LABS: Laboratory: Test 08/01/24 09:00 07/31/24 16:54 07/31/24 03:21 Range/Units White Blood Count 6.7 4.8-10.8 K/uL Red Blood Count 4.79 4.50-6.20 MIL/uL Hemoglobin 14.2 14.0-18.0 g/dL Hematocrit 45.8 42-54 % Mean Corpuscular Volume 95.6 79-99 fL Mean Corpuscular Hemoglobin 29.6 27.0-33.0 pg Mean Corpuscular Hemoglobin Concent 31.0 L 32.0-36.0 g/dL Red Cell Distribution Width 14.6 11.0-15.5 % Platelet Count 110 L 130-400 K/uL Mean Platelet Volume 9.8 7.5-10.5 fL Nucleated Red Blood Cells 0.0 0.0-0.19 % Sodium Level 140 136-145 mmol/L Potassium Level 4.1 3.5-5.1 mmol/L Chloride Level 100 L 101-111 mmol/L Carbon Dioxide Level 37 H 21-32 mmol/L Blood Urea Nitrogen 48 H 7-18 mg/dL Creatinine 2.0 H 0.5-1.3 mg/dL Glomerular Filtration Rate Calc 35 >90 mL/min Random Glucose 172 H 70-105 mg/dL Total Calcium 8.5 8.5-10.1 mg/dL Phosphorus Level 4.6 2.5-4.9 mg/dL Magnesium Level 2.00 1.80-2.40 mg/dL Activated Partial Thromboplast Time 56.1 H 26.3-35.5 SEC Immature Granulocyte % (Auto) 0.4 0-1 % Neutrophils (%) (Auto) 59.6 40.0-77.0 % Lymphocytes (%) (Auto) 27.7 21.0-51.0 % Monocytes (%) (Auto) 10.5 3.0-13.0 % Eosinophils (%) (Auto) 1.5 0.0-8.0 % Basophils (%) (Auto) 0.3 0.0-5.0 % Neutrophils # (Auto) 4.1 1.8-7.7 K/uL Lymphocytes # (Auto) 1.9 1.0-4.8 K/uL Monocytes # (Auto) 0.7 0.1-1.0 K/uL Eosinophils # (Auto) 0.10 0.00-0.70 K/uL Basophils # (Auto) 0.02 0.00-0.20 K/uL Absolute Immature Granulocyte (auto 0.03 0-1 K/uL Red Blood Cell Morphology See comments B-Type Natriuretic Peptide 800 H 0-100 pg/mL Current Medications Medications (Trade) Dose Ordered Sig/Melinda Route PRN Reason Start Time Stop Time Status Last Admin Dose Admin Acetaminophen (TYLenol 500MG TAB) 500 mg Q6H PRN PO MILD PAIN (1-3) 07/26/24 18:00 08/25/24 17:59 07/30/24 10:06 500 MG Bacitracin (Bacitracin 28.4gm) Right and left lower leg DAILY TP 07/29/24 09:00 08/28/24 08:59 08/01/24 08:32 1 GM Bumetanide (Bumex 1mg Vial) 1 mg Q12H IVP 07/27/24 09:00 07/28/24 02:44 DC 07/27/24 20:19 1 MG Folic Acid (FOLic ACID 1 MG TABLET) 1 mg DAILY PO 07/27/24 09:00 08/26/24 08:59 08/01/24 08:30 1 MG Furosemide (LASix 40MG VIAL) 40 mg Q12H IV 07/26/24 23:00 07/27/24 06:31 DC 07/26/24 23:09 40 MG Furosemide 100 mg/ Sodium Chloride 100 ml @ 0 mls/hr PROTOCOL IV 07/28/24 03:00 08/27/24 02:59 08/01/24 12:02 10 MLS/HR Heparin Sodium (Porcine) (HEParin 5,000 UNIT VIAL) 5,000 unit Q12H SQ 07/26/24 21:00 07/27/24 00:12 DC 07/26/24 21:07 5,000 UNIT Heparin Sodium/ Dextrose 250 ml @ 0 mls/hr Q6H IV 07/27/24 01:00 08/26/24 00:59 08/01/24 11:23 13.65 MLS/HR Magnesium Sulfate 50 ml @ 0 mls/hr PROTOCOL PRN IV hypomagnesemia 07/26/24 18:00 08/25/24 17:59 Metoprolol Succinate (TopROL XL) 50 mg BID PO 07/27/24 10:30 07/27/24 22:52 DC 07/27/24 20:19 50 MG Metoprolol Succinate (TopROL XL) 100 mg BID PO 07/28/24 09:00 08/27/24 08:59 07/31/24 22:11 100 MG Metoprolol Tartrate (loprESSOR) 25 mg BID PO 07/26/24 21:00 07/27/24 10:29 DC 07/27/24 08:53 25 MG Milrinone Lactate/ Dextrose 100 ml @ 0 mls/hr PROTOCOL IV 07/27/24 18:00 07/27/24 18:05 DC Milrinone Lactate/ Dextrose 100 ml @ 0 mls/hr PROTOCOL IV 07/27/24 18:30 08/26/24 18:29 07/30/24 06:23 2.58 MLS/HR Pantoprazole Sodium (PROTonix 40MG INJ) 40 mg DAILY IVP 07/28/24 09:00 08/27/24 08:59 08/01/24 08:27 40 MG Potassium Chloride 100 ml @ 100 mls/hr AD PRN IV POTASSIUM PROTOCOL 07/26/24 18:00 08/25/24 17:59 Potassium Chloride (K-Dur/Klor-Con 20meq) 20 meq AD PRN PO POTASSIUM PROTOCOL 07/26/24 18:00 08/25/24 17:59 Potassium Chloride (KCl 10% Elixir 20meq/15ml) 20 meq AD PRN PO POTASSIUM PROTOCOL 07/26/24 18:00 08/25/24 17:59 Thiamine HCl (Vitamin B-1) 100 mg DAILY PO 07/27/24 09:00 08/01/24 08:49 DC 07/29/24 08:33 100 MG Thiamine HCl (Vitamin B-1) 300 mg DAILY08 IVP 07/30/24 08:00 08/01/24 08:01 DC 08/01/24 08:27 300 MG Wound Care/ Dressing Products (Venelex Ointment) 1 gm BID TP 07/31/24 21:00 08/01/24 08:19 DC 07/31/24 22:25 1 GM Wound Care/ Dressing Products (Venelex Ointment) apply to buttocks BID TP 08/01/24 09:00 08/30/24 20:59 08/01/24 08:31 1 GM DIAGNOSTICS / RADIOLOGY: [ ] ASSESSMENT: Acute CHF exacerbation POA Acute hypoxic respiratory failure secondary to CHF exacerbation New onset paroxysmal atrial fibrillation with RVR Generalized anasarca Acute kidney injury, 2/2 ATN, POA Lower extremity edema History of alcohol use Mild coagulopathy Mild leukocytosis differential infectious versus reactive PLAN: - patient to be admitted to [facility] -in reference to CHF exacerbation; -CONTINUE WITH MILRINONE GTT CONTINUE WITH OXYGEN SUPPLEMENTATION TO KEEP O2 SAT GREATER THAN 92% PATIENT WILL BE ON STRICT I&O AND DAILY WEIGHTS PATIENT WILL BE ON HEPARIN DRIP PER PROTOCOL WE WILL CONTINUE TO MONITOR KIDNEY FUNCTION APPRECIATE REC' S FROM NEPHRO AND PULMO, WE WILL FOLLOW THEIR RECOMMENDATIONS CONTINUE WITH GI AND DVT PROPHYLAXIS REPEAT LABS TOMORROW CASE WAS SEEN AND EXAMINED WITH DR. ROTHMAN, ABOVE PLAN WAS FORMULATED YAZMIN ROTHMAN MD August 01, 2024 15:34
--- NOTE | 2024-08-01 17:08 | PN ---
CARDIOLOGY Reason for consult: CHF HPI/story at presentation: This is a pleasant 69-year-old male with past medical history as per present with complaints of shortness of breath with worsening edema and abdominal bloating and distention. He was diagnosed CHF exacerbation, cardiology scheduled for evaluation management. Patient was also found to be atrial fibrillation with rapid ventricular sponsor presentation to the hospital. Diuresis was initiated. Subjective: 07/26/2024 shortness of breath 07/29/2024 no complaints 07/30/2024 no complaints 07/31/2024 no complaints Past medical history: See below Allergies, Meds See chart Review of systems Review of Systems Constitutional: Negative for chills and fever. HENT: Negative for ear discharge and ear pain. Eyes: Negative for photophobia and discharge. Respiratory: Negative for cough, sputum production and stridor. Cardiovascular: Negative for chest pain and palpitations. Gastrointestinal: Negative for diarrhea and vomiting. Genitourinary: Negative for frequency. Musculoskeletal: Negative for myalgias. Skin: Negative for rash. Neurological: Negative for focal weakness and seizures. Endo/Heme/Allergies: Negative for polydipsia. Psychiatric/Behavioral: Negative for hallucinations. Vitals see chart PHYSICAL EXAMINATION GENERAL: The patient is alert and oriented*3 HEENT: Nonicteric sclerae, non traumatic HEART: Regular rate and rhythm with no murmurs LUNGS: mild crackles 07/26/2024 ABDOMEN: No acute issues, non tender GENITAL, RECTAL: deferred SKIN: No rash NEUROLOGIC: NFND EXTREMITIES: bilareral edema 07/26/2024 ASSESSMENT ATRIAL FIBRILLATION Presentation Associated RVR at presentation CONGESTIVE HEART FAILURE With abdominal distention lower extremity manage at presentation ACUTE KIDNEY INJURY At presentation Condition nephropathy versus prerenal OBESITY CORE MEASURES OTHER MEDICAL PROBLEMS Reviewed PLAN 07/26/2024 agree with rate control for atrial fibrillation, will likely benefit from further anticoagulation as well. Possible liver etiology of elevated INR. Follow-up with renal function panel including albumin ordered. Agree with diuresis for now. Echocardiogram has been ordered and is pending as well. On IV twice daily of Lasix and metoprolol at this time. Further recommendations after echo. Seen and examined 07/26/2024 around 1900 07/27/2024 Shortness of breath is stable. Labs reviewed. Renal function is still elevated between 2.6 and 3. On heparin for anticoagulation. Echocardiogram with EF less than 20%, arterial duplex was normal. Ultrasound of the lower extremities and venous duplex were within normal limits. Renal ultrasound was negative, bladder scan with less than 100 cc. Difficult situation in the setting of significant RV failure associated with edema and ascites in the setting of severe cardiomyopathy and A-fib RVR. Suspected nonischemic in setting of A-fib although, CAD has not been ruled out yet. Unable to proceed with catheterization given acute kidney injury. milrinone was started to better help with renal perfusion. Caution in the setting of underlying renal dysfunction and therefore starting a low dose first. No dobutamine as patient is on beta eugene for rate control . May transfer to the heart failure center if renal function continues to worsen or if rate control is a challenge. Critically ill, prognosis is guarded. Spoke with multiple family members during the course of the day seen and examined multiple times, 07/27/2024. 07/28/2024 Overnight, patient was started on milrinone to help with urine output but there is no significant response to bed and this was increased from 0.125- 0.25. However, even with elevated doses, no significant output was present after a few hours. Given underlying renal failure, milrinone was not increased any further. Also, patient was having issues with tachycardia with increased dose of milrinone. Metoprolol was increased to help with rate control. Dobutamine is not being considered because of metoprolol use. Diuresis was ineffective and therefore, patient was started on a Lasix drip at 10 to try to help with diuresis. This morning, urine output has improved about 200 cc. Low- dose milrinone has been continued, urine is dark, possibly ATN. Will watch for worsening renal function although, this is likely in the current situation. Will need to ensure there is quite adequate urine output. Discussed transfer to advanced heart failure management programs and at this time, plan is to wait. Seen and examined 07/28/2024 at around 1130 07/29/2024 Renal function somewhat better. Output has improved, continue current regimen. Breathing better rates are acceptable. May need to consider increasing beta-eugene. On 100 twice daily metoprolol succinate at this time. Seen and examined 07/29/2024 at around 1600 07/30/2024 Clinically, continues to improve, no active cardiac complaints at this time. Shortness of breath is better, abdominal bloating has improved. Induration edema is persistent but better as well. Continue current medical therapy. Will likely stop milrinone tomorrow to see how he does just with diuresis. Renal function continues to improve. Seen and examined 07/30/2024 at around 1600. 07/31/2024 stop milrinone and reevaluate. Good urine output. Remains on IV Lasix and heparin at this time. Appreciate nephrology, primary team. Clinically, doing well, ambulating encouraged.rates ok Seen and examined 07/31/2024 at around 1800. 08/01/2024 Creatinine continues to improve, currently at 2. Has done well without the milrinone, will continue to hold. Remains on Lasix stent and on heparin. Plans are made for eventual cardiac catheterization next week. Rates are good. Has some hematuria and this will need to be looked into. Defer to primary. Seen and examined 08/01/2024 at around 1800. ATTESTATION I was involved substantially in the care of this patient Number and complexity of problems addressed: 1 acute illness that is a threat to life or bodily function Amount and or complexity of data Review of prior external note(s) from each unique source: 2+ Ordering of each unique test : 0 Review of the result(s) of each unique test: 2+ Assessment requiring an independent historian(s): No Independent interpretation of test performed by another MD/QHCP/appropriate source (not separately reported) : No Discussion of management or test interpretation with external MD/QHCP/appropriate source (not separately reported) : IM Risk status (cardiac, billing related): high Vitals/Labs Vital Signs Date Time Temp Pulse Resp B/P (MAP) Pulse Ox O2 Delivery O2 Flow Rate FiO2 08/01/24 11:00 97.5 98 18 109/75 99 Nasal Cannula 2.0 08/01/24 08:00 28 Laboratory Tests 08/01/24 09:00 Medications Current Medications Furosemide 40 mg ONCE ONCE IV Last administered on 07/26/24at 15:44; Start 07/26/24 at 15:30; Stop 07/26/24 at 15:31; Status DC Diltiazem HCl 20 mg ONCE ONCE IVP Last administered on 07/26/24at 15:44; Start 07/26/24 at 16:00; Stop 07/26/24 at 16:01; Status DC Diltiazem HCl 30 mg ONCE ONCE PO Last administered on 07/26/24at 16:15; Start 07/26/24 at 16:30; Stop 07/26/24 at 16:31; Status DC Acetaminophen 500 mg Q6H PRN PO Last administered on 07/30/24at 10:06; Start 07/26/24 at 18:00; Stop 08/25/24 at 17:59 Thiamine HCl 100 mg DAILY PO Last administered on 07/29/24at 08:33; Start 07/27/24 at 09:00; Stop 08/01/24 at 08:49; Status DC Folic Acid 1 mg DAILY PO Last administered on 08/01/24at 08:30; Start 07/27/24 at 09:00; Stop 08/26/24 at 08:59 Metoprolol Tartrate 25 mg BID PO Last administered on 07/27/24at 08:53; Start 07/26/24 at 21:00; Stop 07/27/24 at 10:29; Status DC Potassium Chloride 100 ml @ 100 mls/hr AD PRN IV; Start 07/26/24 at 18:00; Stop 08/25/24 at 17:59 Potassium Chloride 20 meq AD PRN PO; Start 07/26/24 at 18:00; Stop 08/25/24 at 17:59 Potassium Chloride 20 meq AD PRN PO; Start 07/26/24 at 18:00; Stop 08/25/24 at 17:59 Magnesium Sulfate 50 ml @ 0 mls/hr PROTOCOL PRN IV; Start 07/26/24 at 18:00; Stop 08/25/24 at 17:59 Furosemide 40 mg Q12H IV Last administered on 07/26/24at 23:09; Start 07/26/24 at 23:00; Stop 07/27/24 at 06:31; Status DC Heparin Sodium (Porcine) 5,000 unit Q12H SQ Last administered on 07/26/24at 21:07; Start 07/26/24 at 21:00; Stop 07/27/24 at 00:12; Status DC Heparin Sodium/ Dextrose 250 ml @ 0 mls/hr Q6H IV Last administered on 08/01/24at 11:23; Start 07/27/24 at 01:00; Stop 08/26/24 at 00:59 Bumetanide 1 mg Q12H IVP Last administered on 07/27/24at 20:19; Start 07/27/24 at 09:00; Stop 07/28/24 at 02:44; Status DC Pantoprazole Sodium 40 mg DAILY IVP Last administered on 08/01/24at 08:27; Start 07/28/24 at 09:00; Stop 08/27/24 at 08:59 Metoprolol Succinate 50 mg BID PO Last administered on 07/27/24at 20:19; Start 07/27/24 at 10:30; Stop 07/27/24 at 22:52; Status DC Milrinone Lactate/ Dextrose 100 ml @ 0 mls/hr PROTOCOL IV; Start 07/27/24 at 18:00; Stop 07/27/24 at 18:05; Status DC Milrinone Lactate/ Dextrose 100 ml @ 0 mls/hr PROTOCOL IV Last administered on 07/30/24at 06:23; Start 07/27/24 at 18:30; Stop 08/26/24 at 18:29 Metoprolol Succinate 50 mg ONCE ONCE PO Last administered on 07/27/24at 23:43; Start 07/27/24 at 23:00; Stop 07/27/24 at 23:01; Status DC Metoprolol Succinate 100 mg BID PO Last administered on 07/31/24at 22:11; Start 07/28/24 at 09:00; Stop 08/27/24 at 08:59 Furosemide 100 mg/ Sodium Chloride 100 ml @ 0 mls/hr PROTOCOL IV Last administered on 08/01/24at 12:02; Start 07/28/24 at 03:00; Stop 08/27/24 at 02:59 Bacitracin Right and left lower leg DAILY TP Last administered on 08/01/24at 08:32; Start 07/29/24 at 09:00; Stop 08/28/24 at 08:59 Thiamine HCl 300 mg DAILY08 IVP Last administered on 08/01/24at 08:27; Start 07/30/24 at 08:00; Stop 08/01/24 at 08:01; Status DC Wound Care/ Dressing Products 1 gm BID TP Last administered on 07/31/24at 22:25; Start 07/31/24 at 21:00; Stop 08/01/24 at 08:19; Status DC Wound Care/ Dressing Products apply to buttocks BID TP Last administered on 08/01/24at 08:31; Start 08/01/24 at 09:00; Stop 08/30/24 at 20:59 LANI GRACIA MD August 01, 2024 17:08
--- NOTE | 2024-08-01 21:03 | PN ---
[facility] PROGRESS NOTE Date Patient Seen: August 01, 2024 Time of Visit: 21:01 Supervising Physician: Dr. Oreilly Consulting Physician: Hospitalist Outpatient Specialists: [ ] Inpatient Consults: Dr. Mitchell (cardio) PROBLEM LIST: Acute hypoxic respiratory failure, POA Congestive heart failure, chest x-ray showed bilateral pulmonary congestion, with BNP above 900 POA Acute kidney injury, POA Leukocytosis, POA Atrial fibrillation with RVR, POA Morbid obesity, BMI of 38.7 INTERVAL HISTORY: Patient evaluated at bedside, he is currently on 3 L nasal cannula, patient has been transitioned to a furosemide drip along with Milrinone per Cardiology recommendations, patient's BNP this morning is 866, creatinine is 3.2. Patient negative for COVID and flu. Cardiology continuing with the aggressive management of his diuresis for biventricular heart failure. Pulmonary Services will continue to follow the patient while he remains in supplemental O2. 07/29/2024: At the time of my evaluation, the patient was lying in bed. Staff nurse reports no acute events overnight. On the monitor, the patient remains on nasal cannula. She is mildly tachycardic and normotensive. Patient had a urinary output of approximately 1 L over the past 24 hours. Laboratory data was notable for a sodium of 134, chloride of 98, BUN of 59, creatinine of 2.9 and a GFR of 23. BNP of 633. Remaining laboratory data were not of concern. Blood cultures x2 are negative. The patient remains on diuretic therapy with furosemide, Milrinone and is on a heparin drip. No new complaint. 07/30/2024: At the time of my evaluation, the patient was lying in bed. He reports feeling much better today. On the monitor, the patient is on room air and is hemodynamically stable. Laboratory data today is notable for improving renal parameters with a BUN of 59, creatinine of 2.8 and a GFR of 24. The patient had a urinary output in the last 24 hours of 1999 with a net balance of -485. No new imaging for review. The patient remains on a furosemide, Milrinone and heparin drip. No other complaint. 07/31/2024: At the time of my evaluation, the patient is lying in bed. Per the staff nurse the patient is started with hematuric changes to his urine. On monitor, the patient remains on a nasal cannula and is otherwise hemodynamically stable. Laboratory data today is notable for a chloride of 99, CO2 of 34, BUN of 53, creatinine of 2.3, GFR of 30 and a BNP of 800. Microbiology data showing blood cultures x2 with no growth. Chest x-ray today showing pulmonary vascular congestion bilaterally with suspicion for obscured pneumonic infiltrates. Currently, the patient continues on furosemide, Milrinone and heparin drip. Otherwise, no other complaint. 08/01/2024: At the time of evaluation, the patient was sitting up to the bedside chair. The family members we will bedside visiting with the patient. The patient reports persistent hematuria. He remains on nasal cannula and on the monitor he is hemodynamically stable. Laboratory data obtained today was notable for improving renal parameters with a BUN of 40 creatinine of 2.0 and a GFR of 35. Blood cultures x2 final results showing no growth. No new imaging for review today. The patient was taken off the Milrinone drip and is currently only on furosemide drip. No other complaint. REVIEW OF SYSTEMS: 12 point ROS reviewed with patient. Pertinent positives mentioned above. Otherwise negative. PHYSICAL EXAM: GENERAL: alert, weak, awake oriented x 3 HEENT: EOMI, Sclera non icteric, moist mucosa NECK: Supple, no JVD, trachea midline LUNGS: Coarse bilateral lung sounds HEART: Regular rate and rhythm. Normal S1 and S2, without murmurs ABD: Large abdomen EXT: 4+ pitting edema NEURO: Alert and oriented to person, follows commands Vital Signs (last 8hr) Date Time Temp Pulse Resp B/P (MAP) Pulse Ox O2 Delivery O2 Flow Rate FiO2 08/01/24 20:06 97.7 105 20 110/71 97 Nasal Cannula 2.0 08/01/24 20:00 97 Nasal Cannula* 2 28 08/01/24 19:26 88 18 N/Cannula Low lpm 2.0 28 08/01/24 15:30 97.7 97 18 110/61 98 Nasal Cannula 2.0 LABS: Hematology Labs: Test 08/01/24 17:10 08/01/24 09:00 07/31/24 03:21 Range/Units Hemoglobin 15.1 14.0-18.0 g/dL Hematocrit 48.0 42-54 % White Blood Count 6.7 4.8-10.8 K/uL Red Blood Count 4.79 4.50-6.20 MIL/uL Mean Corpuscular Volume 95.6 79-99 fL Mean Corpuscular Hemoglobin 29.6 27.0-33.0 pg Mean Corpuscular Hemoglobin Concent 31.0 L 32.0-36.0 g/dL Red Cell Distribution Width 14.6 11.0-15.5 % Platelet Count 110 L 130-400 K/uL Mean Platelet Volume 9.8 7.5-10.5 fL Nucleated Red Blood Cells 0.0 0.0-0.19 % Immature Granulocyte % (Auto) 0.4 0-1 % Neutrophils (%) (Auto) 59.6 40.0-77.0 % Lymphocytes (%) (Auto) 27.7 21.0-51.0 % Monocytes (%) (Auto) 10.5 3.0-13.0 % Eosinophils (%) (Auto) 1.5 0.0-8.0 % Basophils (%) (Auto) 0.3 0.0-5.0 % Neutrophils # (Auto) 4.1 1.8-7.7 K/uL Lymphocytes # (Auto) 1.9 1.0-4.8 K/uL Monocytes # (Auto) 0.7 0.1-1.0 K/uL Eosinophils # (Auto) 0.10 0.00-0.70 K/uL Basophils # (Auto) 0.02 0.00-0.20 K/uL Absolute Immature Granulocyte (auto 0.03 0-1 K/uL Red Blood Cell Morphology See comments Chemistry Labs: Test 08/01/24 09:00 07/31/24 03:21 Range/Units Sodium Level 140 136-145 mmol/L Potassium Level 4.1 3.5-5.1 mmol/L Chloride Level 100 L 101-111 mmol/L Carbon Dioxide Level 37 H 21-32 mmol/L Blood Urea Nitrogen 48 H 7-18 mg/dL Creatinine 2.0 H 0.5-1.3 mg/dL Glomerular Filtration Rate Calc 35 >90 mL/min Random Glucose 172 H 70-105 mg/dL Total Calcium 8.5 8.5-10.1 mg/dL Phosphorus Level 4.6 2.5-4.9 mg/dL Magnesium Level 2.00 1.80-2.40 mg/dL B-Type Natriuretic Peptide 800 H 0-100 pg/mL Coagulation Labs: Test 08/01/24 17:10 Range/Units Activated Partial Thromboplast Time 75.8 H 26.3-35.5 SEC DIAGNOSTICS / RADIOLOGY RESULTS: [ ] PLAN 07/29/2024: For now, going to continue current management for the patient. We will continue diuresing the patient on the furosemide on Milrinone, we will hip close eye on the renal function. The patient is to continue to limit his fluid intake and strict I and O. We are going to follow the recommendation of the Nephrology and Cardiology Specialists. We will repeat surveillance labs in the morning. We will monitor the patient's progress and response to management. We will continue to provide general supportive care, GI and DVT prophylaxis. Further orders per attending MD and hospital course. 07/30/2024: For now, going to continue current management as guided by the Cardiology team. The patient will remain on current management and we will adjust as necessary. We will continue to monitor strict I and O. We will monitor the patient's progress and response to management. We will continue to provide general supportive care, GI and DVT prophylaxis. Further orders per attending MD and hospital course. 07/31/2024: For now, we are going to continue current management for the patient. We are going to continue diuresis as ordered and we will monitor the recommendation of the Cardiology team. Going to monitor the hematuria and p ossibly consult the urologist considering that the patient is on a heparin drip. We will monitor the patient's progress and response to management. We will continue to provide general supportive care, GI and DVT prophylaxis. Further orders per attending MD and hospital course. 08/01/2024: For now, going to continue current management for the patient. I am going to request a repeat UA CS and we will also perform STD testing. We will continue diuresis with furosemide monitor the renal parameters and urinary output. We will repeat surveillance labs in the morning. We will monitor the patient's progress and response to management continue to provide general supportive care, GI and DVT prophylaxis. Further orders per attending MD and hospital course. NEURO: Minimize central acting medications as possible. Maintain fall precautions, adequate lighting during the day PULMONARY: Supplemental 02 as needed. Maintain aspiration precautions at all times CARDIOVASCULAR: Follow hemodynamics. Vital signs per facility protocol GI & NUTRITION: Continue with nutritional support. Continue stool softeners and laxatives as needed. KIDNEYS & ELECTROLYTES: Strict monitoring of intake, output and overall fluid balance. Avoid nephrotoxic medications to the extent possible. Medications to be dosed according to renal function. Monitor electrolytes and replace as needed ENDOCRINE: Maintain blood glucose between 100-180 at all times. Hypoglycemia protocol in place INFECTIOUS DISEASE: Trend temperature, WBC and procalcitonin level Follow cultures, deescalate antibiotics as soon as possible. Panculture if new onset fever ONCOLOGY/HEMATOLOGY/COAGULATION: Monitor for s/s of bleeding Monitor hemoglobin, coagulation studies as needed SKIN: Pressure ulcer prevention per facility protocol Specialty mattress ORTHO/REHAB: Continue PT/OT Prophylaxis: Continue GI and DVT prophylaxis Code Status: Full Resuscitation Disposition: TBD Other: The patient was seen and case was discussed with supervising MD. Plan was discussed and agreed upon. Total critical care time 40 minutes TONG CACERES NP August 01, 2024 21:03 ELIZABETH MENDEZ MD August 02, 2024 09:44
[2024-08-02] VITALS (10 sets, daily range): BP systolic 103–136; BP diastolic 62–81; PULSE 84–100; RESP 18–21; TEMP 97.5–98.6; O2SAT 96–99
[2024-08-02 00:33] LABS: HEMATOCRIT 44.9 % (42-54)
[2024-08-02 05:33] LABS: BASOPHILS # (AUTO) 0.02 K/uL (0.00-0.20); BASOPHILS % (AUTO) 0.3 % (0.0-5.0); EOSINOPHILS # (AUTO) 0.08 K/uL (0.00-0.70); EOSINOPHILS % (AUTO) 1.2 % (0.0-8.0); HEMATOCRIT 45.8 % (42-54); IMMATURE GRANULOCYTE ABSOLUTE 0.02 K/uL (0-1); LYMPHOCYTES # (AUTO) 1.8 K/uL (1.0-4.8); LYMPHOCYTES % (AUTO) 26.5 % (21.0-51.0); MEAN CORPUSCULAR VOLUME 96.8 fL (79-99); MONOCYTES # (AUTO) 0.7 K/uL (0.1-1.0); NEUTROPHILS # (AUTO) 4.1 K/uL (1.8-7.7); NEUTROPHILS % (AUTO) 61.7 % (40.0-77.0); PLATELET COUNT (AUTO) 118 K/uL (130-400); RED BLOOD CELL COUNT(AUTO) 4.73 MIL/uL (4.50-6.20); RED CELL DISTRIBUTION WIDTH 14.3 % (11.0-15.5); WHITE BLOOD COUNT (AUTO) 6.7 K/uL (4.8-10.8)
[2024-08-02 05:44] LABS: CREATININE 1.5 mg/dL (0.5-1.3); POTASSIUM 3.4 mmol/L (3.5-5.1)
[2024-08-02] MEDS: PoTASSium chloRIDE 20MEQ ER 20 MEQ ERTAB PO PRN (06:06)
--- NOTE | 2024-08-02 10:09 | PN ---
NEPHROLOGY PROGRESS NOTE Date/Time Patient Seen: August 02, 2024 SUBJECTIVE: This is a 69-year-old male with no significant past medical history He has had a prolonged hospital course. The patient is admitted, found to have congestive heart failure. Workup is consistent with severe cardiomyopathy. The patient remains on Lasix and heparin drip. Milrinone drip has been discontinued The patient's creatinine continues to slowly improve. Urine output was noted The patient is being seen by Cardiology He was seen in telemetry, in no acute distress Family at the bedside Condition remains guarded REVIEW OF SYSTEMS: GENERAL: Negative for any nausea, vomiting, fevers, chills, or weight loss. NEUROLOGIC: Negative for any blurry vision, blind spots, double vision, facial asymmetry, dysphagia, dysarthria, hemiparesis, hemisensory deficits, vertigo, ataxia. HEENT: Negative for any head trauma, neck trauma, neck stiffness, photophobia, phonophobia, sinusitis, rhinitis. CARDIAC: Negative for any chest pain, dyspnea on exertion, paroxysmal nocturnal dyspnea, peripheral edema. PULMONARY: Negative for any shortness of breath, wheezing, COPD, or TB exposure. GASTROINTESTINAL: Negative for any abdominal pain, nausea, vomiting, bright red blood per rectum, melena. GENITOURINARY: Negative for any dysuria, hematuria, incontinence. INTEGUMENTARY: Negative for any rashes, cuts, insect bites. RHEUMATOLOGIC: Negative for any joint pains, photosensitive rashes, history of vasculitis or kidney problems. HEMATOLOGIC: Negative for any abnormal bruising, frequent infections or bleeding. Vital Signs (last 8hr) Date Time Temp Pulse Resp B/P (MAP) Pulse Ox O2 Delivery O2 Flow Rate FiO2 08/02/24 07:34 97.7 97 18 113/76 97 Nasal Cannula 2.0 08/02/24 06:39 18 N/Cannula Low lpm 2.0 28 08/02/24 04:07 97.9 98 21 136/62 99 Nasal Cannula 2.0 PHYSICAL EXAM: GENERAL: Alert and oriented x 3. No acute distress. Well-nourished. EYES: EOMI. Anicteric. HENT: Moist mucous membranes. No scleral icterus. No cervical lymphadenopathy. LUNGS: Clear to auscultation bilaterally. No accessory muscle use. CARDIOVASCULAR: Regular rate and rhythm. No murmur. No JVD. ABDOMEN: Soft, non-tender and non-distended. No palpable masses. EXTREMITIES: No edema. Non-tender.?SKIN: No rashes or lesions. Warm. NEUROLOGIC: No focal neurological deficits. CN II-XII grossly intact, but not individually tested. PSYCHIATRIC: Cooperative. Appropriate mood and affect. Current Medications Medications (Trade) Dose Ordered Sig/Melinda Route PRN Reason Start Time Stop Time Status Last Admin Dose Admin Acetaminophen (TYLenol 500MG TAB) 500 mg Q6H PRN PO MILD PAIN (1-3) 07/26/24 18:00 08/25/24 17:59 07/30/24 10:06 500 MG Bacitracin (Bacitracin 28.4gm) Right and left lower leg DAILY TP 07/29/24 09:00 08/28/24 08:59 08/01/24 08:32 1 GM Bumetanide (Bumex 1mg Vial) 1 mg Q12H IVP 07/27/24 09:00 07/28/24 02:44 DC 07/27/24 20:19 1 MG Folic Acid (FOLic ACID 1 MG TABLET) 1 mg DAILY PO 07/27/24 09:00 08/26/24 08:59 08/01/24 08:30 1 MG Furosemide (LASix 40MG VIAL) 40 mg Q12H IV 07/26/24 23:00 07/27/24 06:31 DC 07/26/24 23:09 40 MG Furosemide 100 mg/ Sodium Chloride 100 ml @ 0 mls/hr PROTOCOL IV 07/28/24 03:00 08/27/24 02:59 08/02/24 00:38 10 MLS/HR Heparin Sodium (Porcine) (HEParin 5,000 UNIT VIAL) 5,000 unit Q12H SQ 07/26/24 21:00 07/27/24 00:12 DC 07/26/24 21:07 5,000 UNIT Heparin Sodium/ Dextrose 250 ml @ 0 mls/hr Q6H IV 07/27/24 01:00 08/26/24 00:59 08/01/24 11:23 13.65 MLS/HR Magnesium Sulfate 50 ml @ 0 mls/hr PROTOCOL PRN IV hypomagnesemia 07/26/24 18:00 08/25/24 17:59 Metoprolol Succinate (TopROL XL) 50 mg BID PO 07/27/24 10:30 07/27/24 22:52 DC 07/27/24 20:19 50 MG Metoprolol Succinate (TopROL XL) 100 mg BID PO 07/28/24 09:00 08/27/24 08:59 08/01/24 19:51 100 MG Metoprolol Tartrate (loprESSOR) 25 mg BID PO 07/26/24 21:00 07/27/24 10:29 DC 07/27/24 08:53 25 MG Milrinone Lactate/ Dextrose 100 ml @ 0 mls/hr PROTOCOL IV 07/27/24 18:00 07/27/24 18:05 DC Milrinone Lactate/ Dextrose 100 ml @ 0 mls/hr PROTOCOL IV 07/27/24 18:30 08/26/24 18:29 07/30/24 06:23 2.58 MLS/HR Pantoprazole Sodium (PROTonix 40MG INJ) 40 mg DAILY IVP 07/28/24 09:00 08/27/24 08:59 08/01/24 08:27 40 MG Potassium Chloride 100 ml @ 100 mls/hr AD PRN IV POTASSIUM PROTOCOL 07/26/24 18:00 08/25/24 17:59 Potassium Chloride (K-Dur/Klor-Con 20meq) 20 meq AD PRN PO POTASSIUM PROTOCOL 07/26/24 18:00 08/25/24 17:59 08/02/24 06:06 20 MEQ Potassium Chloride (KCl 10% Elixir 20meq/15ml) 20 meq AD PRN PO POTASSIUM PROTOCOL 07/26/24 18:00 08/25/24 17:59 Thiamine HCl (Vitamin B-1) 100 mg DAILY PO 07/27/24 09:00 08/01/24 08:49 DC 07/29/24 08:33 100 MG Thiamine HCl (Vitamin B-1) 300 mg DAILY08 IVP 07/30/24 08:00 08/01/24 08:01 DC 08/01/24 08:27 300 MG Wound Care/ Dressing Products (Venelex Ointment) 1 gm BID TP 07/31/24 21:00 08/01/24 08:19 DC 07/31/24 22:25 1 GM Wound Care/ Dressing Products (Venelex Ointment) apply to buttocks BID TP 08/01/24 09:00 08/30/24 20:59 08/01/24 19:57 1 GM LABORATORY: [ ] Hematology Labs: Test 08/02/24 05:05 Range/Units White Blood Count 6.7 4.8-10.8 K/uL Red Blood Count 4.73 4.50-6.20 MIL/uL Hemoglobin 14.2 14.0-18.0 g/dL Hematocrit 45.8 42-54 % Mean Corpuscular Volume 96.8 79-99 fL Mean Corpuscular Hemoglobin 30.0 27.0-33.0 pg Mean Corpuscular Hemoglobin Concent 31.0 L 32.0-36.0 g/dL Red Cell Distribution Width 14.3 11.0-15.5 % Platelet Count 118 L 130-400 K/uL Mean Platelet Volume 9.6 7.5-10.5 fL Immature Granulocyte % (Auto) 0.3 0-1 % Neutrophils (%) (Auto) 61.7 40.0-77.0 % Lymphocytes (%) (Auto) 26.5 21.0-51.0 % Monocytes (%) (Auto) 10.0 3.0-13.0 % Eosinophils (%) (Auto) 1.2 0.0-8.0 % Basophils (%) (Auto) 0.3 0.0-5.0 % Neutrophils # (Auto) 4.1 1.8-7.7 K/uL Lymphocytes # (Auto) 1.8 1.0-4.8 K/uL Monocytes # (Auto) 0.7 0.1-1.0 K/uL Eosinophils # (Auto) 0.08 0.00-0.70 K/uL Basophils # (Auto) 0.02 0.00-0.20 K/uL Absolute Immature Granulocyte (auto 0.02 0-1 K/uL Nucleated Red Blood Cells 0.0 0.0-0.19 % Chemistry Labs: Test 08/02/24 05:05 08/01/24 09:00 Range/Units Sodium Level 139 136-145 mmol/L Potassium Level 3.4 L 3.5-5.1 mmol/L Chloride Level 100 L 101-111 mmol/L Carbon Dioxide Level 35 H 21-32 mmol/L Blood Urea Nitrogen 43 H 7-18 mg/dL Creatinine 1.5 H 0.5-1.3 mg/dL Glomerular Filtration Rate Calc 50 >90 mL/min Random Glucose 141 H 70-105 mg/dL Total Calcium 8.5 8.5-10.1 mg/dL Phosphorus Level 4.0 2.5-4.9 mg/dL Magnesium Level 2.00 1.80-2.40 mg/dL Coagulation Labs: Test 08/02/24 05:05 Range/Units Activated Partial Thromboplast Time 52.1 H 26.3-35.5 SEC DIAGNOSTICS / RADIOLOGY: REASON: CHF exacerbation ORDERING PHYSICIAN: TONG CACERES NP PROCEDURE: CXR1VW - CHEST 1VW CHEST 1VW HISTORY: CHF COMPARISON: 07/26/2024 FINDINGS: A frontal projection of the chest was obtained. Mild bilateral pulmonary infiltrates are seen may be related to mild pulmonary vascular congestion with possible superimposed pneumonitis. The heart is enlarged. Degenerative changes are seen. No evidence of aortic calcification is seen. IMPRESSION: 1. Mild bilateral pulmonary infiltrates are seen may be related to mild pulmonary vascular congestion with possible superimposed pneumonitis. DICTATED BY: ELIU ROMANO MD DATE: 07/31/2435 REASON: chf exacerbation, new onset a fib dr mcintyre to read ORDERING PHYSICIAN: LANI GRACIA MD PROCEDURE: ECHO CMP - ECHO 2-D COMPLETE APPROVED REPORT EXAM: Two-dimensional and M-mode echocardiogram with Doppler and color Doppler. INDICATION ICD: Congestive heart failure, new onset of atrial fibrillation 2D Dimensions RVDd 5.5 cm LVEF(%) 17.1 (>50%) LVED Vol(simp.) 151.0 mL IVSd 1.1 (0.7-1.1cm) FS(%) 8 % LVES Vol(simp.) 124.0 mL LVDd 6.1 (3.8-5.6cm) LA (2D) 6.0 (1.6-4.0cm) LVEF(%, simp.) 18 % PWd 1.2 (0.7-1.1cm) Ao Root(2D) 3.8 (2.0-3.7cm) LA ESV INDEX (BP) 46.39 mL/m2 IVSs 1.3 cm LVOT diam 2.6 (1.8-2.4cm) LVDs 5.6 (2.5-4.0cm) PWs 1.3 cm M-Mode Dimensions EPSS 1.8 cm LA (MM) 6.1 (1.6-4.0cm) Ao Root(MM) 4.3 (2.0-3.7cm) Aortic Valve AoV Vmax 1.0 m/s Ao Peak GR 3.9 mmHg LVOT Vmax 0.5 m/s AoV VTI 0.1 m Ao Mean GR 2.6 mmHg LVOT VTI 0.07 m GABRIELLA (VMAX) 2.41 cm2 GABRIELLA (VTI) 2.4 cm2 Mitral Valve MV E Vmax 85.1 cm/s DECEL Time 169 ms P 1/2 T 33 ms MVA (PHT) 6.7 cm2 TDI E/E' Medial 43.9 E/E' Lateral 16.0 Medial E' Peak V 1.94 cm/s Lateral E' Peak V 5.32 cm/s Tricuspid Valve TR Vmax 3.1 m/s RAP (EST) 8 mmHg RVSP 48.1 mmHg TR Peak GR 40.1 mmHg Left Ventricle The left ventricle is dilated. Severe hypokinesis There is normal left ventricular wall thickness. Severely reduced left ventricular function <20%. The LV diastolic function was unable to be assessed due to atrial arrhythmia. Right Ventricle The right ventricle is severely dilated. Right ventricular systolic function is severely reduced. Atria The left atrium is moderately dilated. The right atrium is severely dilated. Aortic Valve Aortic valve is trileaflet and opens well. No aortic regurgitation is present. There is no aortic valvular stenosis. Mitral Valve The mitral valve is normal in structure. There is mild mitral valve regurgitation noted. There is no mitral valve stenosis. Tricuspid Valve The tricuspid valve is normal in structure. There is mild to moderate tricuspid valve regurgitation noted. May be underestimated due to low flow pressure gra dient. Pulmonic Valve The pulmonary valve is normal in structure. There is no pulmonic valvular regurgitation. Great Vessels The aortic root is normal in size. IVC is not well visualized. Pericardium There is no pericardial effusion. Other Information Quality : Adequate Conclusion Severely reduced left ventricular function <20%. The LV diastolic function was unable to be assessed due to atrial arrhythmia. There is normal left ventricular wall thickness. The left ventricle is dilated. Severe hypokinesis The right ventricle is severely dilated. Right ventricular systolic function is severely reduced. The left atrium is moderately dilated. The right atrium is severely dilated. There is mild mitral valve regurgitation noted. There is mild to moderate tricuspid valve regurgitation noted. May be underestimated due to low flow pressure gradient. There is no pericardial effusion. DICTATED BY: LANI GRACIA MD DATE: 07/27/24 0952 REASON: renal failure ORDERING PHYSICIAN: JORGE NAVA MD PROCEDURE: RENAL - US RENAL SONOGRAM US RENAL SONOGRAM HISTORY: renal failure TECHNIQUE: US RENAL SONOGRAM. FINDINGS: RIGHT KIDNEY: The right kidney measures 10.3cm. No hydronephrosis or renal calculus seen. LEFT KIDNEY: The left kidney measures 9.3cm. There is no hydronephrosis. There is an approximate pole cyst measuring 5.5 cm. The visualized urinary bladder is within normal limits. IMPRESSION: No hydronephrosis is seen. DICTATED BY: EDUARDA MANUEL MD DATE: 07/27/24 1843 ASSESSMENT: Acute kidney injury Acute CHF exacerbation Acute hypoxic respiratory failure secondary to CHF exacerbation New onset paroxysmal atrial fibrillation with RVR Generalized anasarca Lower extremity edema History of alcohol use Mild coagulopathy Mild leukocytosis differential infectious versus reactive PLAN: Labs, diagnostic, radiologic exams reviewed and interpreted by myself and supervising physician. We have reviewed external records in detail Heparin and Lasix drip as per Cardiology Require close monitoring of renal function and electrolytes Order CBC, CMP,and electrolytes in am Renal diabetic diet BiPAP as necessary, for respiratory distress Monitor blood pressure adjust medication doses as needed Avoid hypotensive episodes May use Dilaudid 0.5 mg IV every 6 hours as needed for severe pain Monitor blood sugars Strict intake, output, and daily weight should be monitored Please renally adjust medications Avoid nephrotoxic and nonsteroidal drugs Avoid contrast if possible Will continue to monitor renal function, anemia, electrolytes Treatment plan discussed with patient Questions were answered We have discussed with the other team physicians in detail about the care plan We will continue to monitor the patient closely ATTESTATION BY PHYSICIAN I have seen and examined the patient. I reviewed the documentation, medical decision making, and treatment plan as noted by the mid-level provider above. I agree with the findings and plan of care. MARIVEL TOWNSEND MD, [facility] August 02, 2024 10:09
[2024-08-02 11:23] LABS: APPEARANCE,URINE TURBID (CLEAR); BILIRUBIN,URINE NEGATIVE (NEGATIVE); COLOR,URINE RED (YELLOW); GLUCOSE, URINE (UA) NEGATIVE (NEGATIVE); KETONES,URINE NEGATIVE (NEGATIVE); LEUKOCYTE ESTERASE ,URINE 25 Leu/uL (NEGATIVE); NITRATE,URINE NEGATIVE (NEGATIVE); OCCULT BLOOD,URINE LARGE (NEGATIVE); PH,URINE 5.5 (5.0-8.0); PROTEIN,URINE 100 mg/dL (NEGATIVE); UROBILINOGEN,URINE 0.2 mg/dL (0.2-1.0)
[2024-08-02 11:26] LABS: RBC,URINE TNTC /HPF (0-1)
[2024-08-02 11:27] LABS: BACTERIA,URINE None Seen /HPF (None Seen)
[2024-08-02 11:28] LABS: SQUAMOUS EPITHELIAL CELL,UR None Seen /HPF (0-2)
[2024-08-02 12:08] LABS: HEMATOCRIT 44.4 % (42-54)
--- NOTE | 2024-08-02 14:47 | NUR ---
DR. WILLARD ROUNDED. PER MD IF HEMATURIA CORRECTED AND CREATININE LEVEL IMPROVING PLAN FOR [facility] ON SUNDAY OR SUNDAY.
--- NOTE | 2024-08-02 17:09 | PN ---
[facility] PROGRESS NOTE Date of Service: August 02, 2024 Time of Service: 17:08 SUBJECTIVE: [69 old male admitted due to shortness of breaths, patient was at kidney failure on admission suspected due to acute tubular necrosis. Patient also was noted with cardiomyopathy, EF is less than 20%, patient is currently on oxygen supplementation. Today he continues with tachycardia, BB increased yesterday, now on Metoprolol XL 100 mg PO BID. He is still needs oxygen supplementation, on and off on 2L via [place]. Continue with strict I&O. 07/31/24 patient was seen and examined. Case discussed with RN. He has presented with ischemic cardiomyopathy requiring aggressive diuresis. He was on diuretics are being carefully managed by Nephrology and Cardiology monitoring his renal function. Clinically he says he was getting better 08/01/24 patient was seen and examined. Case discussed with the RN. He was co ntinuing with the aggressive diuresis and electrolytes and labs are being monitored. He was having bloody discharge from the end of the penis as if there was some trauma. We will continue to monitor H and H and if this is a consistent problem urology may need to evaluate him 08/02/24 patient was seen and examined. Case discussed with the RN and by the bedside. He is doing better today. Heparin drip has been turned off and the bloody discharge from the end of the pannus is improving. Continue to mo nitor that. Hemoglobin is stable. Cardiac catheterization has been planned for Sunday or Sunday REVIEW OF SYSTEMS CONSTITUTIONAL: Denies fevers, chills, or night sweats. Denied any changes in weight NEUROLOGICAL: Denies headache, amaurosis fugax, motor weakness, sensory deficit, vertigo/spinning sensation, gait abnormalities, or tremors. ENT: No hearing loss, otalgia, otorrhea, rhinitis, rhinorrhea, hoarseness, or sore throat. CARDIOVASCULAR: Denies any exertional angina, dyspnea on exertion, orthopnea, paroxysmal nocturnal dyspnea, palpitations, life-threatening arrhythmias, claudication. PULMONARY: Positive for shortness of breath, cough. Denied any sputum production GASTROINTESTINAL: Denies any type of dysphagia to either liquids or solids. Denies nausea, vomiting, pyrosis, early satiety, abdominal pain, diarrhea, constipation, or changes in stool consistency or caliber. Denies coffee-ground emesis, hematemesis, hematochezia, or melanotic stools. GENITOURINARY: Positive for decreased urination. Denied any hematuria, dysuria ENDOCRINOLOGIC: Denies polyuria, polydipsia, polyphagia or heat/cold intolerances. HEMATOLOGIC: Denies thrombophilia/previous clots, or coagulopathy/bleeding disorders. ONCOLOGIC: Denies personal history of malignancy. DERMATOLOGIC: Denies rashes or pruritus. PSYCHIATRIC: Denies any suicidal or homicidal ideation. Denies hallucinations. Musculoskeletal: Positive for swelling in the lower extremity PHYSICAL EXAM GENERAL APPEARANCE: The patient is awake, alert, and oriented, in no acute cardiopulmonary distress. NEUROLOGICAL: Cranial nerves II-XII grossly intact. Motor is 5/5 in bilateral upper and lower extremities proximal to distal. No sensory deficits. HEENT: Face is symmetric. Pupils are equal and reactive. Extraocular movements are intact. NECK: Supple. No JVD. No thyromegaly. No submental, submandibular, pre- /postauricular, occipital or supraclavicular lymphadenopathy. CHEST: Normal chest expansion. No Telemetry. LUNGS: Positive for crackles in the right side CARDIOVASCULAR: Regular. S1 and S2 normal. No appreciable rubs, murmurs or gallops. ABDOMEN: Abdomen is distended. He has soft tissue edema in the abdominal wall. Bowel sounds are active. : Deferred. No Garcia. EXTREMITIES:3+ pitting edema in the lower extremity bilaterally he also has venous stasis changes.. No clubbing. Good capillary refill. SKIN: No skin breakdown. Vital Signs (last 8hr) Date Time Temp Pulse Resp B/P (MAP) Pulse Ox O2 Delivery O2 Flow Rate FiO2 08/02/24 16:51 97.9 98 20 115/81 99 Nasal Cannula 2.0 08/02/24 11:24 97.5 100 20 103/71 98 Nasal Cannula 2.0 LABS: Laboratory: Test 08/02/24 12:03 08/02/24 09:17 08/02/24 05:05 08/01/24 09:00 Range/Units Hemoglobin 13.8 L 14.0-18.0 g/dL Hematocrit 44.4 42-54 % Urine Color RED YELLOW Urine Appearance TURBID CLEAR Urine pH 5.5 5.0-8.0 Urine Specific [place] 1.017 1.001-1.031 Urine Protein 100 H NEGATIVE mg/dL Urine Glucose (UA) NEGATIVE NEGATIVE mg/dL Urine Ketones NEGATIVE NEGATIVE mg/dL Urine Occult Blood LARGE H NEGATIVE Urine Nitrate NEGATIVE NEGATIVE Urine Bilirubin NEGATIVE NEGATIVE mg/dL Urine Urobilinogen 0.2 0.2-1.0 mg/dL Urine Leukocyte Esterase 25 H NEGATIVE Max/uL Urine RBC TNTC H 0-1 /HPF Urine WBC 2-5 H 0-1 /HPF Urine Squamous Epithelial Cells None Seen 0-2 /HPF Urine Bacteria None Seen None Seen /HPF White Blood Count 6.7 4.8-10.8 K/uL Red Blood Count 4.73 4.50-6.20 MIL/uL Mean Corpuscular Volume 96.8 79-99 fL Mean Corpuscular Hemoglobin 30.0 27.0-33.0 pg Mean Corpuscular Hemoglobin Concent 31.0 L 32.0-36.0 g/dL Red Cell Distribution Width 14.3 11.0-15.5 % Platelet Count 118 L 130-400 K/uL Mean Platelet Volume 9.6 7.5-10.5 fL Immature Granulocyte % (Auto) 0.3 0-1 % Neutrophils (%) (Auto) 61.7 40.0-77.0 % Lymphocytes (%) (Auto) 26.5 21.0-51.0 % Monocytes (%) (Auto) 10.0 3.0-13.0 % Eosinophils (%) (Auto) 1.2 0.0-8.0 % Basophils (%) (Auto) 0.3 0.0-5.0 % Neutrophils # (Auto) 4.1 1.8-7.7 K/uL Lymphocytes # (Auto) 1.8 1.0-4.8 K/uL Monocytes # (Auto) 0.7 0.1-1.0 K/uL Eosinophils # (Auto) 0.08 0.00-0.70 K/uL Basophils # (Auto) 0.02 0.00-0.20 K/uL Absolute Immature Granulocyte (auto 0.02 0-1 K/uL Nucleated Red Blood Cells 0.0 0.0-0.19 % Activated Partial Thromboplast Time 52.1 H 26.3-35.5 SEC Sodium Level 139 136-145 mmol/L Potassium Level 3.4 L 3.5-5.1 mmol/L Chloride Level 100 L 101-111 mmol/L Carbon Dioxide Level 35 H 21-32 mmol/L Blood Urea Nitrogen 43 H 7-18 mg/dL Creatinine 1.5 H 0.5-1.3 mg/dL Glomerular Filtration Rate Calc 50 >90 mL/min Random Glucose 141 H 70-105 mg/dL Total Calcium 8.5 8.5-10.1 mg/dL Phosphorus Level 4.0 2.5-4.9 mg/dL Magnesium Level 2.00 1.80-2.40 mg/dL Current Medications Medications (Trade) Dose Ordered Sig/Melinda Route PRN Reason Start Time Stop Time Status Last Admin Dose Admin Acetaminophen (TYLenol 500MG TAB) 500 mg Q6H PRN PO MILD PAIN (1-3) 07/26/24 18:00 08/25/24 17:59 07/30/24 10:06 500 MG Bacitracin (Bacitracin 28.4gm) Right and left lower leg DAILY TP 07/29/24 09:00 08/28/24 08:59 08/02/24 10:22 1 GM Bumetanide (Bumex 1mg Vial) 1 mg Q12H IVP 07/27/24 09:00 07/28/24 02:44 DC 07/27/24 20:19 1 MG Folic Acid (FOLic ACID 1 MG TABLET) 1 mg DAILY PO 07/27/24 09:00 08/26/24 08:59 08/02/24 10:22 1 MG Furosemide (LASix 40MG VIAL) 40 mg Q12H IV 07/26/24 23:00 07/27/24 06:31 DC 07/26/24 23:09 40 MG Furosemide (LASix 40MG VIAL) 40 mg TID IV 08/02/24 21:00 09/01/24 20:59 Furosemide 100 mg/ Sodium Chloride 100 ml @ 0 mls/hr PROTOCOL IV 07/28/24 03:00 08/02/24 14:47 DC 08/02/24 12:27 10 MLS/HR Heparin Sodium (Porcine) (HEParin 5,000 UNIT VIAL) 5,000 unit Q12H SQ 07/26/24 21:00 07/27/24 00:12 DC 07/26/24 21:07 5,000 UNIT Heparin Sodium/ Dextrose 250 ml @ 0 mls/hr Q6H IV 07/27/24 01:00 08/02/24 14:47 DC 08/02/24 10:25 10.43 MLS/HR Magnesium Sulfate 50 ml @ 0 mls/hr PROTOCOL PRN IV hypomagnesemia 07/26/24 18:00 08/25/24 17:59 Metoprolol Succinate (TopROL XL) 50 mg BID PO 07/27/24 10:30 07/27/24 22:52 DC 07/27/24 20:19 50 MG Metoprolol Succinate (TopROL XL) 100 mg BID PO 07/28/24 09:00 08/27/24 08:59 08/02/24 10:22 100 MG Metoprolol Tartrate (loprESSOR) 25 mg BID PO 07/26/24 21:00 07/27/24 10:29 DC 07/27/24 08:53 25 MG Milrinone Lactate/ Dextrose 100 ml @ 0 mls/hr PROTOCOL IV 07/27/24 18:00 07/27/24 18:05 DC Milrinone Lactate/ Dextrose 100 ml @ 0 mls/hr PROTOCOL IV 07/27/24 18:30 08/26/24 18:29 07/30/24 06:23 2.58 MLS/HR Pantoprazole Sodium (PROTonix 40MG INJ) 40 mg DAILY IVP 07/28/24 09:00 08/27/24 08:59 08/02/24 10:22 40 MG Potassium Chloride 100 ml @ 100 mls/hr AD PRN IV POTASSIUM PROTOCOL 07/26/24 18:00 08/25/24 17:59 Potassium Chloride (K-Dur/Klor-Con 20meq) 20 meq AD PRN PO POTASSIUM PROTOCOL 07/26/24 18:00 08/25/24 17:59 08/02/24 10:22 20 MEQ Potassium Chloride (KCl 10% Elixir 20meq/15ml) 20 meq AD PRN PO POTASSIUM PROTOCOL 07/26/24 18:00 08/25/24 17:59 Thiamine HCl (Vitamin B-1) 100 mg DAILY PO 07/27/24 09:00 08/01/24 08:49 DC 07/29/24 08:33 100 MG Thiamine HCl (Vitamin B-1) 300 mg DAILY08 IVP 07/30/24 08:00 08/01/24 08:01 DC 08/01/24 08:27 300 MG Wound Care/ Dressing Products (Venelex Ointment) 1 gm BID TP 07/31/24 21:00 08/01/24 08:19 DC 07/31/24 22:25 1 GM Wound Care/ Dressing Products (Venelex Ointment) apply to buttocks BID TP 08/01/24 09:00 08/30/24 20:59 08/02/24 10:23 1 GM DIAGNOSTICS / RADIOLOGY: [ ] ASSESSMENT: Acute CHF exacerbation POA Acute hypoxic respiratory failure secondary to CHF exacerbation New onset paroxysmal atrial fibrillation with RVR Generalized anasarca Acute kidney injury, 2/2 ATN, POA Lower extremity edema History of alcohol use Mild coagulopathy Mild leukocytosis differential infectious versus reactive PLAN: - patient to be admitted to [facility] -in reference to CHF exacerbation; -CONTINUE WITH MILRINONE GTT CONTINUE WITH OXYGEN SUPPLEMENTATION TO KEEP O2 SAT GREATER THAN 92% PATIENT WILL BE ON STRICT I&O AND DAILY WEIGHTS PATIENT WILL BE ON HEPARIN DRIP PER PROTOCOL WE WILL CONTINUE TO MONITOR KIDNEY FUNCTION APPRECIATE REC' S FROM NEPHRO AND PULMO, WE WILL FOLLOW THEIR RECOMMENDATIONS CONTINUE WITH GI AND DVT PROPHYLAXIS REPEAT LABS TOMORROW CASE WAS SEEN AND EXAMINED WITH DR. ROTHMAN, ABOVE PLAN WAS FORMULATED YAZMIN ROTHMAN MD August 02, 2024 17:08
[2024-08-02 18:49] LABS: HEMATOCRIT 44.4 % (42-54)
--- NOTE | 2024-08-02 19:45 | NUR ---
as per lab, urine collected needs to be recollected because the sample sent earlier was bloody.
[2024-08-02] MEDS: furoSEMIDE 40MG VIAL IV SCH (21:05)
--- NOTE | 2024-08-02 21:44 | PN ---
[facility] PROGRESS NOTE Date Patient Seen: August 02, 2024 Time of Visit: 21:41 Supervising Physician: Dr. Oreilly Consulting Physician: Hospitalist Outpatient Specialists: [ ] Inpatient Consults: Dr. Mitchell (cardio) PROBLEM LIST: Acute hypoxic respiratory failure, POA Congestive heart failure, chest x-ray showed bilateral pulmonary congestion, with BNP above 900 POA Acute kidney injury, POA improving Leukocytosis, POA resolved Atrial fibrillation with RVR, POA Hematuria Morbid obesity, BMI of 38.7 INTERVAL HISTORY: Patient evaluated at bedside, he is currently on 3 L nasal cannula, patient has been transitioned to a furosemide drip along with Milrinone per Cardiology recommendations, patient's BNP this morning is 866, creatinine is 3.2. Patient negative for COVID and flu. Cardiology continuing with the aggressive management of his diuresis for biventricular heart failure. Pulmonary Services will continue to follow the patient while he remains in supplemental O2. 07/29/2024: At the time of my evaluation, the patient was lying in bed. Staff nurse reports no acute events overnight. On the monitor, the patient remains on nasal cannula. She is mildly tachycardic and normotensive. Patient had a urinary output of approximately 1 L over the past 24 hours. Laboratory data was notable for a sodium of 134, chloride of 98, BUN of 59, creatinine of 2.9 and a GFR of 23. BNP of 633. Remaining laboratory data were not of concern. Blood cultures x2 are negative. The patient remains on diuretic therapy with furosemide, Milrinone and is on a heparin drip. No new complaint. 07/30/2024: At the time of my evaluation, the patient was lying in bed. He reports feeling much better today. On the monitor, the patient is on room air and is hemodynamically stable. Laboratory data today is notable for improving renal parameters with a BUN of 59, creatinine of 2.8 and a GFR of 24. The patient had a urinary output in the last 24 hours of 1999 with a net balance of -485. No new imaging for review. The patient remains on a furosemide, Milrinone and heparin drip. No other complaint. 07/31/2024: At the time of my evaluation, the patient is lying in bed. Per the staff nurse the patient is started with hematuric changes to his urine. On monitor, the patient remains on a nasal cannula and is otherwise hemodynamically stable. Laboratory data today is notable for a chloride of 99, CO2 of 34, BUN of 53, creatinine of 2.3, GFR of 30 and a BNP of 800. Microbiology data showing blood cultures x2 with no growth. Chest x-ray today showing pulmonary vascular congestion bilaterally with suspicion for obscured pneumonic infiltrates. Currently, the patient continues on furosemide, Milrinone and heparin drip. Otherwise, no other complaint. 08/01/2024: At the time of evaluation, the patient was sitting up to the bedside chair. The family members we will bedside visiting with the patient. The patient reports persistent hematuria. He remains on nasal cannula and on the monitor he is hemodynamically stable. Laboratory data obtained today was notable for improving renal parameters with a BUN of 40 creatinine of 2.0 and a GFR of 35. Blood cultures x2 final results showing no growth. No new imaging for review today. The patient was taken off the Milrinone drip and is currently only on furosemide drip. No other complaint. 08/02/2024: At the time of my evaluation, the patient him up to the bedside chair and was visiting with his family members. He is on room air vital signs are hemodynamically stable laboratory data obtained notable for an potassium of 3.4 and improved renal parameters today BUN 43, creatinine of 1.5 and a GFR of 50. Blood cultures x2 are negative. No new imaging of the chest tube the patient continues with hematuria. He continued on heparin drip, furosemide, metoprolol, Milrinone and furosemide. No other complaint. REVIEW OF SYSTEMS: 12 point ROS reviewed with patient. Pertinent positives mentioned above. Othe rwise negative. PHYSICAL EXAM: GENERAL: alert, weak, awake oriented x 3 HEENT: EOMI, Sclera non icteric, moist mucosa NECK: Supple, no JVD, trachea midline LUNGS: Coarse bilateral lung sounds HEART: Regular rate and rhythm. Normal S1 and S2, without murmurs ABD: Large abdomen EXT: 4+ pitting edema NEURO: Alert and oriented to person, follows commands Vital Signs (last 8hr) Date Time Temp Pulse Resp B/P (MAP) Pulse Ox O2 Delivery O2 Flow Rate FiO2 08/02/24 19:36 98.4 97 18 113/69 98 Room Air 08/02/24 19:01 98 18 N/Cannula Low lpm 2.0 28 08/02/24 16:51 97.9 98 20 115/81 99 Nasal Cannula 2.0 LABS: Hematology Labs: Test 08/02/24 18:39 08/02/24 05:05 Range/Units Hemoglobin 13.9 L 14.0-18.0 g/dL Hematocrit 44.4 42-54 % White Blood Count 6.7 4.8-10.8 K/uL Red Blood Count 4.73 4.50-6.20 MIL/uL Mean Corpuscular Volume 96.8 79-99 fL Mean Corpuscular Hemoglobin 30.0 27.0-33.0 pg Mean Corpuscular Hemoglobin Concent 31.0 L 32.0-36.0 g/dL Red Cell Distribution Width 14.3 11.0-15.5 % Platelet Count 118 L 130-400 K/uL Mean Platelet Volume 9.6 7.5-10.5 fL Immature Granulocyte % (Auto) 0.3 0-1 % Neutrophils (%) (Auto) 61.7 40.0-77.0 % Lymphocytes (%) (Auto) 26.5 21.0-51.0 % Monocytes (%) (Auto) 10.0 3.0-13.0 % Eosinophils (%) (Auto) 1.2 0.0-8.0 % Basophils (%) (Auto) 0.3 0.0-5.0 % Neutrophils # (Auto) 4.1 1.8-7.7 K/uL Lymphocytes # (Auto) 1.8 1.0-4.8 K/uL Monocytes # (Auto) 0.7 0.1-1.0 K/uL Eosinophils # (Auto) 0.08 0.00-0.70 K/uL Basophils # (Auto) 0.02 0.00-0.20 K/uL Absolute Immature Granulocyte (auto 0.02 0-1 K/uL Nucleated Red Blood Cells 0.0 0.0-0.19 % Chemistry Labs: Test 08/02/24 05:05 08/01/24 09:00 Range/Units Sodium Level 139 136-145 mmol/L Potassium Level 3.4 L 3.5-5.1 mmol/L Chloride Level 100 L 101-111 mmol/L Carbon Dioxide Level 35 H 21-32 mmol/L Blood Urea Nitrogen 43 H 7-18 mg/dL Creatinine 1.5 H 0.5-1.3 mg/dL Glomerular Filtration Rate Calc 50 >90 mL/min Random Glucose 141 H 70-105 mg/dL Total Calcium 8.5 8.5-10.1 mg/dL Phosphorus Level 4.0 2.5-4.9 mg/dL Magnesium Level 2.00 1.80-2.40 mg/dL Coagulation Labs: Test 08/02/24 05:05 Range/Units Activated Partial Thromboplast Time 52.1 H 26.3-35.5 SEC DIAGNOSTICS / RADIOLOGY RESULTS: [ ] PLAN 07/29/2024: For now, going to continue current management for the patient. We will continue diuresing the patient on the furosemide on Milrinone, we will hip close eye on the renal function. The patient is to continue to limit his fluid intake and strict I and O. We are going to follow the recommendation of the Nephrology and Cardiology Specialists. We will repeat surveillance labs in the morning. We will monitor the patient's progress and response to management. We will continue to provide general supportive care, GI and DVT prophylaxis. Further orders per attending MD and hospital course. 07/30/2024: For now, going to continue current management as guided by the Cardiology team. The patient will remain on current management and we will adjust as necessary. We will continue to monitor strict I and O. We will monitor the patient's progress and response to management. We will continue to provide general supportive care, GI and DVT prophylaxis. Further orders per attending MD and hospital course. 07/31/2024: For now, we are going to continue current management for the patient. We are going to continue diuresis as ordered and we will monitor the recommendation of the Cardiology team. Going to monitor the hematuria and possibly consult the urologist considering that the patient is on a heparin drip. We will monitor the patient's progress and response to management. We will continue to provide general supportive care, GI and DVT prophylaxis. Further orders per attending MD and hospital course. 08/01/2024: For now, going to continue current management for the patient. I am going to request a repeat UA CS and we will also perform STD testing. We will continue diuresis with furosemide monitor the renal parameters and urinary output. We will repeat surveillance labs in the morning. We will monitor the patient's progress and response to management continue to provide general supportive care, GI and DVT prophylaxis. Further orders per attending MD and hospital course. 08/02/2024: For now, going to continue current management for the patient. Because of the hematuria, cardiology okayed the discontinuation of the heparin drip and to continue monitoring the patient. He will continue on a Milrinone drip and Lasix was changed to IV t.i.d.. The possible plan is for possible cardiac intervention in the upcoming week. I discussed the findings and plan for further management with the patient. We will monitor the patient's progress and response to management. We will continue to provide general supportive care, GI and DVT prophylaxis. Further orders per attending MD and hospital course. NEURO: Minimize central acting medications as possible. Maintain fall precautions, adequate lighting during the day PULMONARY: Supplemental 02 as needed. Maintain aspiration precautions at all times CARDIOVASCULAR: Follow hemodynamics. Vital signs per facility protocol GI & NUTRITION: Continue with nutritional support. Continue stool softeners and laxatives as needed. KIDNEYS & ELECTROLYTES: Strict monitoring of intake, output and overall fluid balance. Avoid nephrotoxic medications to the extent possible. Medications to be dosed according to renal function. Monitor electrolytes and replace as needed ENDOCRINE: Maintain blood glucose between 100-180 at all times. Hypoglycemia protocol in place INFECTIOUS DISEASE: Trend temperature, WBC and procalcitonin level Follow cultures, deescalate antibiotics as soon as possible. Panculture if new onset fever ONCOLOGY/HEMATOLOGY/COAGULATION: Monitor for s/s of bleeding Monitor hemoglobin, coagulation studies as needed SKIN: Pressure ulcer prevention per facility protocol Specialty mattress ORTHO/REHAB: Continue PT/OT Prophylaxis: Continue GI and DVT prophylaxis Code Status: Full Resuscitation Disposition: TBD Other: The patient was seen and case was discussed with supervising MD. Plan was discussed and agreed upon. I personally spent 45 minutes of critical care time in treatment of this patient. This includes patient management, time at bedside, time reviewing tests, labs, appropriate images and studies, documentation, and patient care coordination. This time excludes separately billable procedures. TONG [employer]ES [employer] August 02, 2024 21:44
[2024-08-03] VITALS (9 sets, daily range): BP systolic 102–117; BP diastolic 69–79; PULSE 78–98; RESP 18–20; TEMP 97.5–98.1; O2SAT 97–99
[2024-08-03 04:58] LABS: BASOPHILS # (AUTO) 0.01 K/uL (0.00-0.20); BASOPHILS % (AUTO) 0.1 % (0.0-5.0); EOSINOPHILS # (AUTO) 0.09 K/uL (0.00-0.70); EOSINOPHILS % (AUTO) 1.1 % (0.0-8.0); HEMATOCRIT 44.5 % (42-54); IMMATURE GRANULOCYTE ABSOLUTE 0.02 K/uL (0-1); LYMPHOCYTES # (AUTO) 2.2 K/uL (1.0-4.8); LYMPHOCYTES % (AUTO) 27.6 % (21.0-51.0); MEAN CORPUSCULAR HEMOGLOBIN 30.5 pg (27.0-33.0); MEAN CORPUSCULAR HGB CONC 31.5 g/dL (32.0-36.0); MEAN CORPUSCULAR VOLUME 96.9 fL (79-99); MONOCYTES # (AUTO) 0.9 K/uL (0.1-1.0); MONOCYTES % (AUTO) 11.2 % (3.0-13.0); NEUTROPHILS # (AUTO) 4.8 K/uL (1.8-7.7); NEUTROPHILS % (AUTO) 59.7 % (40.0-77.0); PLATELET COUNT (AUTO) 120 K/uL (130-400); RED BLOOD CELL COUNT(AUTO) 4.59 MIL/uL (4.50-6.20); RED CELL DISTRIBUTION WIDTH 14.5 % (11.0-15.5)
[2024-08-03 05:11] LABS: ALBUMIN 3.1 g/dL (3.5-5.0); BILIRUBIN,TOTAL 0.7 mg/dL (0.2-1.0); CREATININE 1.5 mg/dL (0.5-1.3); POTASSIUM 4.4 mmol/L (3.5-5.1); TOTAL PROTEIN, SERUM 6.1 g/dL (6.0-8.3)
--- NOTE | 2024-08-03 05:57 | PN ---
date of service : 08/02/2024 CARDIOLOGY Reason for consult: CHF HPI/story at presentation: This is a pleasant 69-year-old male with past medical history as per present with complaints of shortness of breath with worsening edema and abdominal bloating and distention. He was diagnosed CHF exacerbation, cardiology scheduled for evaluation management. Patient was also found to be atrial fibrillation with rapid ventricular sponsor presentation to the hospital. Diuresis was initiated. Subjective: 07/26/2024 shortness of breath 07/29/2024 no complaints 07/30/2024 no complaints 07/31/2024 no complaints Past medical history: See below Allergies, Meds See chart Review of systems Review of Systems Constitutional: Negative for chills and fever. HENT: Negative for ear discharge and ear pain. Eyes: Negative for photophobia and discharge. Respiratory: Negative for cough, sputum production and stridor. Cardiovascular: Negative for chest pain and palpitations. Gastrointestinal: Negative for diarrhea and vomiting. Genitourinary: Negative for frequency. Musculoskeletal: Negative for myalgias. Skin: Negative for rash. Neurological: Negative for focal weakness and seizures. Endo/Heme/Allergies: Negative for polydipsia. Psychiatric/Behavioral: Negative for hallucinations. Vitals see chart PHYSICAL EXAMINATION GENERAL: The patient is alert and oriented*3 HEENT: Nonicteric sclerae, non traumatic HEART: Regular rate and rhythm with no murmurs LUNGS: mild crackles 07/26/2024 ABDOMEN: No acute issues, non tender GENITAL, RECTAL: deferred SKIN: No rash NEUROLOGIC: NFND EXTREMITIES: bilareral edema 07/26/2024 ASSESSMENT ATRIAL FIBRILLATION Presentation Associated RVR at presentation CONGESTIVE HEART FAILURE With abdominal distention lower extremity manage at presentation ACUTE KIDNEY INJURY At presentation Condition nephropathy versus prerenal OBESITY CORE MEASURES OTHER MEDICAL PROBLEMS Reviewed PLAN 07/26/2024 agree with rate control for atrial fibrillation, will likely benefit from further anticoagulation as well. Possible liver etiology of elevated INR. Follow-up with renal function panel including albumin ordered. Agree with diuresis for now. Echocardiogram has been ordered and is pending as well. On IV twice daily of Lasix and metoprolol at this time. Further recommendations after echo. Seen and examined 07/26/2024 around 1900 07/27/2024 Shortness of breath is stable. Labs reviewed. Renal function is still elevated between 2.6 and 3. On heparin for anticoagulation. Echocardiogram with EF less than 20%, arterial duplex was normal. Ultrasound of the lower extremities and venous duplex were within normal limits. Renal ultrasound was negative, bladder scan with less than 100 cc. Difficult situation in the setting of significant RV failure associated with edema and ascites in the setting of severe cardiomyopathy and A-fib RVR. Suspected nonischemic in setting of A-fib although, CAD has not been ruled out yet. Unable to proceed with catheterization given acute kidney injury. milrinone was started to better help with renal perfusion. Caution in the setting of underlying renal dysfunction and therefore starting a low dose first. No dobutamine as patient is on beta eugene for rate control . May transfer to the heart failure center if renal function continues to worsen or if rate control is a challenge. Critically ill, prognosis is guarded. Spoke with multiple family members during the course of the day seen and examined multiple times, 07/27/2024. 07/28/2024 Overnight, patient was started on milrinone to help with urine output but there is no significant response to bed and this was increased from 0.125- 0.25. However, even with elevated doses, no significant output was present after a few hours. Given underlying renal failure, milrinone was not increased any further. Also, patient was having issues with tachycardia with increased dose of milrinone. Metoprolol was increased to help with rate control. Dobutamine is not being considered because of metoprolol use. Diuresis was ineffective and therefore, patient was started on a Lasix drip at 10 to try to help with diuresis. This morning, urine output has improved about 200 cc. Low- dose milrinone has been continued, urine is dark, possibly ATN. Will watch for worsening renal function although, this is likely in the current situation. Will need to ensure there is quite adequate urine output. Discussed transfer to advanced heart failure management programs and at this time, plan is to wait. Seen and examined 07/28/2024 at around 1130 07/29/2024 Renal function somewhat better. Output has improved, continue current regimen. Breathing better rates are acceptable. May need to consider increasing beta-eugene. On 100 twice daily metoprolol succinate at this time. Seen and examined 07/29/2024 at around 1600 07/30/2024 Clinically, continues to improve, no active cardiac complaints at this time. Shortness of breath is better, abdominal bloating has improved. Induration edema is persistent but better as well. Continue current medical therapy. Will likely stop milrinone tomorrow to see how he does just with diuresis. Renal function continues to improve. Seen and examined 07/30/2024 at around 1600. 07/31/2024 stop milrinone and reevaluate. Good urine output. Remains on IV Lasix and heparin at this time. Appreciate nephrology, primary team. Clinically, doing well, ambulating encouraged.rates ok Seen and examined 07/31/2024 at around 1800. 08/01/2024 Creatinine continues to improve, currently at 2. Has done well without the milrinone, will continue to hold. Remains on Lasix stent and on heparin. Plans are made for eventual cardiac catheterization next week. Rates are good. Has some hematuria and this will need to be looked into. Defer to primary. Seen and examined 08/01/2024 at around 1800. ATTESTATION I was involved substantially in the care of this patient Number and complexity of problems addressed: 1 acute illness that is a threat to life or bodily function Amount and or complexity of data Review of prior external note(s) from each unique source: 2+ Ordering of each unique test : 0 Review of the result(s) of each unique test: 2+ Assessment requiring an independent historian(s): No Independent interpretation of test performed by another MD/QHCP/appropriate source (not separately reported) : No Discussion of management or test interpretation with external MD/QHCP/appropriate source (not separately reported) : IM Risk status (cardiac, billing related): high Vitals/Labs Vital Signs Date Time Temp Pulse Resp B/P (MAP) Pulse Ox O2 Delivery O2 Flow Rate FiO2 08/03/24 04:11 97.9 93 18 117/69 95 Room Air 08/02/24 20:00 2 28 Laboratory Tests 08/02/24 12:03 08/02/24 18:39 08/03/24 04:36 Medications Current Medications Furosemide 40 mg ONCE ONCE IV Last administered on 07/26/24at 15:44; Start 07/26/24 at 15:30; Stop 07/26/24 at 15:31; Status DC Diltiazem HCl 20 mg ONCE ONCE IVP Last administered on 07/26/24at 15:44; Start 07/26/24 at 16:00; Stop 07/26/24 at 16:01; Status DC Diltiazem HCl 30 mg ONCE ONCE PO Last administered on 07/26/24at 16:15; Start 07/26/24 at 16:30; Stop 07/26/24 at 16:31; Status DC Acetaminophen 500 mg Q6H PRN PO Last administered on 07/30/24at 10:06; Start 07/26/24 at 18:00; Stop 08/25/24 at 17:59 Thiamine HCl 100 mg DAILY PO Last administered on 07/29/24at 08:33; Start 07/27/24 at 09:00; Stop 08/01/24 at 08:49; Status DC Folic Acid 1 mg DAILY PO Last administered on 08/02/24at 10:22; Start 07/27/24 at 09:00; Stop 08/26/24 at 08:59 Metoprolol Tartrate 25 mg BID PO Last administered on 07/27/24at 08:53; Start 07/26/24 at 21:00; Stop 07/27/24 at 10:29; Status DC Potassium Chloride 100 ml @ 100 mls/hr AD PRN IV; Start 07/26/24 at 18:00; Stop 08/25/24 at 17:59 Potassium Chloride 20 meq AD PRN PO; Start 07/26/24 at 18:00; Stop 08/25/24 at 17:59 Potassium Chloride 20 meq AD PRN PO Last administered on 08/02/24at 21:18; Start 07/26/24 at 18:00; Stop 08/25/24 at 17:59 Magnesium Sulfate 50 ml @ 0 mls/hr PROTOCOL PRN IV; Start 07/26/24 at 18:00; Stop 08/25/24 at 17:59 Furosemide 40 mg Q12H IV Last administered on 07/26/24at 23:09; Start 07/26/24 at 23:00; Stop 07/27/24 at 06:31; Status DC Heparin Sodium (Porcine) 5,000 unit Q12H SQ Last administered on 07/26/24at 21:07; Start 07/26/24 at 21:00; Stop 07/27/24 at 00:12; Status DC Heparin Sodium/ Dextrose 250 ml @ 0 mls/hr Q6H IV Last administered on 08/02/24at 10:25; Start 07/27/24 at 01:00; Stop 08/02/24 at 14:47; Status DC Bumetanide 1 mg Q12H IVP Last administered on 07/27/24at 20:19; Start 07/27/24 at 09:00; Stop 07/28/24 at 02:44; Status DC Pantoprazole Sodium 40 mg DAILY IVP Last administered on 08/02/24 10:22; Start 07/28/24 at 09:00; Stop 08/27/24 at 08:59 Metoprolol Succinate 50 mg BID PO Last administered on 07/27/24at 20:19; Start 07/27/24 at 10:30; Stop 07/27/24 at 22:52; Status DC Milrinone Lactate/ Dextrose 100 ml @ 0 mls/hr PROTOCOL IV; Start 07/27/24 at 18:00; Stop 07/27/24 at 18:05; Status DC Milrinone Lactate/ Dextrose 100 ml @ 0 mls/hr PROTOCOL IV Last administered on 07/30/24at 06:23; Start 07/27/24 at 18:30; Stop 08/26/24 at 18:29 Metoprolol Succinate 50 mg ONCE ONCE PO Last administered on 07/27/24at 23:43; Start 07/27/24 at 23:00; Stop 07/27/24 at 23:01; Status DC Metoprolol Succinate 100 mg BID PO Last administered on 08/02/24at 21:04; Start 07/28/24 at 09:00; Stop 08/27/24 at 08:59 Furosemide 100 mg/ Sodium Chloride 100 ml @ 0 mls/hr PROTOCOL IV Last administered on 08/02/24at 12:27; Start 07/28/24 at 03:00; Stop 08/02/24 at 14:47; Status DC Bacitracin Right and left lower leg DAILY TP Last administered on 08/02/24 10:22; Start 07/29/24 at 09:00; Stop 08/28/24 at 08:59 Thiamine HCl 300 mg DAILY08 IVP Last administered on 08/01/24at 08:27; Start 07/30/24 at 08:00; Stop 08/01/24 at 08:01; Status DC Wound Care/ Dressing Products 1 gm BID TP Last administered on 5/1/25at 22:25; Start 07/31/24 at 21:00; Stop 08/01/24 at 08:19; Status DC Wound Care/ Dressing Products apply to buttocks BID TP Last administered on 08/02/24at 21:18; Start 08/01/24 at 09:00; Stop 08/30/24 at 20:59 Furosemide 40 mg TID IV Last administered on 08/02/24at 21:05; Start 08/02/24 at 21:00; Stop 09/01/24 at 20:59 LANI GRACIA MD August 03, 2024 05:57
--- NOTE | 2024-08-03 06:44 | NUR ---
DR QUARLES ROUNDED AND SAW PATIENT. AT BEDSIDE.
--- NOTE | 2024-08-03 07:45 | CONS ---
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 He presented to the hospital on 07/26/2024 with shortness of breath and lower extremity edema. He stated he had not been to see a doctor in more than 40 years. He was not taking any medication at home. He was diagnosed on this admission with atrial fibrillation, rapid ventricular response, a hemoglobin A1c of 6.9, consistent with diabetes, found to have congestive heart failure, acute hypoxic respiratory failure secondary to congestive heart failure, generalized anasarca, acute kidney injury that has been improving, lower extremity edema, history of alcohol abuse, mild coagulopathy, and leukocytosis. He is being followed for congestive heart failure by the Cardiology Service. He has complaints of shortness of breath and edema, abdominal bloating and distention. His renal function continues to improve on admission. Plan is for a cardiac catheterization by the Cardiology Service. I was asked to see the patient regarding onychomycosis, onychogryphosis to the nails of his feet. PAST MEDICAL HISTORY: Alcohol abuse, atrial fibrillation, rapid ventricular response, shortness of breath, anasarca, and diabetes with an A1c of 6.9. PAST SURGICAL HISTORY: Unremarkable. ALLERGIES: None known. MEDICATIONS: Currently include furosemide, metoprolol, Protonix, milrinone, folic acid, magnesium, potassium, and acetaminophen. REVIEW OF SYSTEMS: CONSTITUTIONAL: No chills, no fevers, no night sweats, no nausea, vomiting, no diarrhea. HEENT: No problems with eyes, ears, nose, or throat. CARDIOVASCULAR: Been evaluated for atrial fibrillation, rapid ventricular response. Cardiac catheterization planned this week. GENITOURINARY: Elevated renal function, improving this admission GASTROINTESTINAL: No dysphagia. ENDOCRINE: Diabetes. A1c 6.9. PSYCHIATRIC: Denied any depression. MUSCULOSKELETAL: Bunions and hammertoe deformities. INTEGUMENT: Onychomycosis, onychogryphosis to his nails. PHYSICAL EXAMINATION: His examination today shows he has nonpalpable pedal pulses, pitting edema to his feet bilaterally. Reflexes diminished, muscle strength decreased. Decreased pedal and ankle joint range of motion. Decreased protective sensation to his feet bilaterally. Elongated thick and brittle gryphotic toenails x 10, with subungual debris, mild interdigital maceration with diffuse dry plantar pedal scaly skin. LABORATORY DATA: Labs show white count 8.0, H and H 14 and 44, platelets 170. Potassium 4.4, BUN and creatinine 39 and 1.5. Hemoglobin A1c 6.9 on 07/26/2024, 7.0 on 07/27/2024. ASSESSMENT: Diabetes, hemoglobin A1c is 7.0. The patient with a history of alcohol abuse. The patient with a history of congestive heart failure, pending evaluation by the band saw operator for cardiac catheterization. History of atrial fibrillation, rapid ventricular response, history of congestive heart failure, history of hypoxic respiratory failure secondary to congestive heart failure exacerbation, anasarca, lower extremity edema, mild coagulopathy, leukocytosis, renal insufficiency, onychomycosis, and onychogryphosis. PLAN: I debrided the patient's toenails today extensively, reducing the length and girth to pink healthy tissue and removed subungual debris x 10 with a nail clipper and a dermal curette without incidence. I will write the patient for Lotrimin solution topically for his nails. We will follow the patient closely while in-house and then as an outpatient. TID: [id number] RECEIPT: [id number]
[2024-08-03] MEDS: CLOTRIMAZOLE/BETAMETHASONE DIP 45 GM CREAM.GM. TP SCH (09:25)
--- NOTE | 2024-08-03 10:11 | PN ---
NEPHROLOGY PROGRESS NOTE Date/Time Patient Seen: August 03, 2024 SUBJECTIVE: This is a 69-year-old male with no significant past medical history He has had a prolonged hospital course. The patient is admitted, found to have congestive heart failure. Workup is consistent with severe cardiomyopathy. He has been transitioned to IV Lasix 40 mg t.i.d. Milrinone drip has been discontinued The patient's creatinine continues to slowly improve. Urine output was noted The patient is being seen by Cardiology He was seen in telemetry, in no acute distress Family at the bedside Condition remains guarded REVIEW OF SYSTEMS: GENERAL: Negative for any nausea, vomiting, fevers, chills, or weight loss. NEUROLOGIC: Negative for any blurry vision, blind spots, double vision, facial asymmetry, dysphagia, dysarthria, hemiparesis, hemisensory deficits, vertigo, ataxia. HEENT: Negative for any head trauma, neck trauma, neck stiffness, photophobia, phonophobia, sinusitis, rhinitis. CARDIAC: Negative for any chest pain, dyspnea on exertion, paroxysmal nocturnal dyspnea, peripheral edema. PULMONARY: Negative for any shortness of breath, wheezing, COPD, or TB exposure. GASTROINTESTINAL: Negative for any abdominal pain, nausea, vomiting, bright red blood per rectum, melena. GENITOURINARY: Negative for any dysuria, hematuria, incontinence. INTEGUMENTARY: Negative for any rashes, cuts, insect bites. RHEUMATOLOGIC: Negative for any joint pains, photosensitive rashes, history of vasculitis or kidney problems. HEMATOLOGIC: Negative for any abnormal bruising, frequent infections or bleeding. Vital Signs (last 8hr) Date Time Temp Pulse Resp B/P (MAP) Pulse Ox O2 Delivery O2 Flow Rate FiO2 08/02/24 07:34 97.7 97 18 113/76 97 Nasal Cannula 2.0 08/02/24 06:39 18 N/Cannula Low lpm 2.0 28 08/02/24 04:07 97.9 98 21 136/62 99 Nasal Cannula 2.0 PHYSICAL EXAM: GENERAL: Alert and oriented x 3. No acute distress. Well-nourished. EYES: EOMI. Anicteric. HENT: Moist mucous membranes. No scleral icterus. No cervical lymphadenopathy. LUNGS: Clear to auscultation bilaterally. No accessory muscle use. CARDIOVASCULAR: Regular rate and rhythm. No murmur. No JVD. ABDOMEN: Soft, non-tender and non-distended. No palpable masses. EXTREMITIES: No edema. Non-tender.?SKIN: No rashes or lesions. Warm. NEUROLOGIC: No focal neurological deficits. CN II-XII grossly intact, but not individually tested. PSYCHIATRIC: Cooperative. Appropriate mood and affect. Current Medications Medications (Trade) Dose Ordered Sig/Melinda Route PRN Reason Start Time Stop Time Status Last Admin Dose Admin Acetaminophen (TYLenol 500MG TAB) 500 mg Q6H PRN PO MILD PAIN (1-3) 07/26/24 18:00 08/25/24 17:59 07/30/24 10:06 500 MG Bacitracin (Bacitracin 28.4gm) Right and left lower leg DAILY TP 07/29/24 09:00 08/28/24 08:59 08/01/24 08:32 1 GM Bumetanide (Bumex 1mg Vial) 1 mg Q12H IVP 07/27/24 09:00 07/28/24 02:44 DC 07/27/24 20:19 1 MG Folic Acid (FOLic ACID 1 MG TABLET) 1 mg DAILY PO 07/27/24 09:00 08/26/24 08:59 08/01/24 08:30 1 MG Furosemide (LASix 40MG VIAL) 40 mg Q12H IV 07/26/24 23:00 07/27/24 06:31 DC 07/26/24 23:09 40 MG Furosemide 100 mg/ Sodium Chloride 100 ml @ 0 mls/hr PROTOCOL IV 07/28/24 03:00 08/27/24 02:59 08/02/24 00:38 10 MLS/HR Heparin Sodium (Porcine) (HEParin 5,000 UNIT VIAL) 5,000 unit Q12H SQ 07/26/24 21:00 07/27/24 00:12 DC 07/26/24 21:07 5,000 UNIT Heparin Sodium/ Dextrose 250 ml @ 0 mls/hr Q6H IV 07/27/24 01:00 08/26/24 00:59 08/01/24 11:23 13.65 MLS/HR Magnesium Sulfate 50 ml @ 0 mls/hr PROTOCOL PRN IV hypomagnesemia 07/26/24 18:00 08/25/24 17:59 Metoprolol Succinate (TopROL XL) 50 mg BID PO 07/27/24 10:30 07/27/24 22:52 DC 07/27/24 20:19 50 MG Metoprolol Succinate (TopROL XL) 100 mg BID PO 07/28/24 09:00 08/27/24 08:59 08/01/24 19:51 100 MG Metoprolol Tartrate (loprESSOR) 25 mg BID PO 07/26/24 21:00 07/27/24 10:29 DC 07/27/24 08:53 25 MG Milrinone Lactate/ Dextrose 100 ml @ 0 mls/hr PROTOCOL IV 07/27/24 18:00 07/27/24 18:05 DC Milrinone Lactate/ Dextrose 100 ml @ 0 mls/hr PROTOCOL IV 07/27/24 18:30 08/26/24 18:29 07/30/24 06:23 2.58 MLS/HR Pantoprazole Sodium (PROTonix 40MG INJ) 40 mg DAILY IVP 07/28/24 09:00 08/27/24 08:59 08/01/24 08:27 40 MG Potassium Chloride 100 ml @ 100 mls/hr AD PRN IV POTASSIUM PROTOCOL 07/26/24 18:00 08/25/24 17:59 Potassium Chloride (K-Dur/Klor-Con 20meq) 20 meq AD PRN PO POTASSIUM PROTOCOL 07/26/24 18:00 08/25/24 17:59 08/02/24 06:06 20 MEQ Potassium Chloride (KCl 10% Elixir 20meq/15ml) 20 meq AD PRN PO POTASSIUM PROTOCOL 07/26/24 18:00 08/25/24 17:59 Thiamine HCl (Vitamin B-1) 100 mg DAILY PO 07/27/24 09:00 08/01/24 08:49 DC 07/29/24 08:33 100 MG Thiamine HCl (Vitamin B-1) 300 mg DAILY08 IVP 07/30/24 08:00 08/01/24 08:01 DC 08/01/24 08:27 300 MG Wound Care/ Dressing Products (Venelex Ointment) 1 gm BID TP 07/31/24 21:00 08/01/24 08:19 DC 07/31/24 22:25 1 GM Wound Care/ Dressing Products (Venelex Ointment) apply to buttocks BID TP 08/01/24 09:00 08/30/24 20:59 08/01/24 19:57 1 GM LABORATORY: [ ] Hematology Labs: Test 08/03/24 04:36 Range/Units White Blood Count 8.0 4.8-10.8 K/uL Red Blood Count 4.59 4.50-6.20 MIL/uL Hemoglobin 14.0 14.0-18.0 g/dL Hematocrit 44.5 42-54 % Mean Corpuscular Volume 96.9 79-99 fL Mean Corpuscular Hemoglobin 30.5 27.0-33.0 pg Mean Corpuscular Hemoglobin Concent 31.5 L 32.0-36.0 g/dL Red Cell Distribution Width 14.5 11.0-15.5 % Platelet Count 120 L 130-400 K/uL Mean Platelet Volume 10.0 7.5-10.5 fL Immature Granulocyte % (Auto) 0.3 0-1 % Neutrophils (%) (Auto) 59.7 40.0-77.0 % Lymphocytes (%) (Auto) 27.6 21.0-51.0 % Monocytes (%) (Auto) 11.2 3.0-13.0 % Eosinophils (%) (Auto) 1.1 0.0-8.0 % Basophils (%) (Auto) 0.1 0.0-5.0 % Neutrophils # (Auto) 4.8 1.8-7.7 K/uL Lymphocytes # (Auto) 2.2 1.0-4.8 K/uL Monocytes # (Auto) 0.9 0.1-1.0 K/uL Eosinophils # (Auto) 0.09 0.00-0.70 K/uL Basophils # (Auto) 0.01 0.00-0.20 K/uL Absolute Immature Granulocyte (auto 0.02 0-1 K/uL Nucleated Red Blood Cells 0.0 0.0-0.19 % Chemistry Labs: Test 08/03/24 04:36 08/02/24 05:05 Range/Units Sodium Level 140 136-145 mmol/L Potassium Level 4.4 3.5-5.1 mmol/L Chloride Level 102 101-111 mmol/L Carbon Dioxide Level 38 H 21-32 mmol/L Blood Urea Nitrogen 39 H 7-18 mg/dL Creatinine 1.5 H 0.5-1.3 mg/dL Glomerular Filtration Rate Calc 50 >90 mL/min Random Glucose 127 H 70-105 mg/dL Total Calcium 8.5 8.5-10.1 mg/dL Magnesium Level 2.00 1.80-2.40 mg/dL Total Bilirubin 0.7 0.2-1.0 mg/dL Aspartate Amino Transf (AST/SGOT) 20 10-37 U/L Alanine Aminotransferase (ALT/SGPT) 17 12-78 U/L Alkaline Phosphatase 71 50-136 U/L Total Protein 6.1 6.0-8.3 g/dL Albumin 3.1 L 3.5-5.0 g/dL Phosphorus Level 4.0 2.5-4.9 mg/dL Coagulation Labs: Test 08/03/24 04:36 Range/Units Activated Partial Thromboplast Time 26.1 #L 26.3-35.5 SEC DIAGNOSTICS / RADIOLOGY: REASON: CHF exacerbation ORDERING PHYSICIAN: TONG CACERES NP PROCEDURE: CXR1VW - CHEST 1VW CHEST 1VW HISTORY: CHF COMPARISON: 07/26/2024 FINDINGS: A frontal projection of the chest was obtained. Mild bilateral pulmonary infiltrates are seen may be related to mild pulmonary vascular congestion with possible superimposed pneumonitis. The heart is enlarged. Degenerative changes are seen. No evidence of aortic calcification is seen. IMPRESSION: 1. Mild bilateral pulmonary infiltrates are seen may be related to mild pulmonary vascular congestion with possible superimposed pneumonitis. DICTATED BY: ELIU ROMANO MD DATE: 07/31/24 0935 REASON: chf exacerbation, new onset a fib dr mcintyre to read ORDERING PHYSICIAN: LANI GRACIA MD PROCEDURE: ECHO CMP - ECHO 2-D COMPLETE APPROVED REPORT EXAM: Two-dimensional and M-mode echocardiogram with Doppler and color Doppler. INDICATION ICD: Congestive heart failure, new onset of atrial fibrillation 2D Dimensions RVDd 5.5 cm LVEF(%) 17.1 (>50%) LVED Vol(simp.) 151.0 mL IVSd 1.1 (0.7-1.1cm) FS(%) 8 % LVES Vol(simp.) 124.0 mL LVDd 6.1 (3.8-5.6cm) LA (2D) 6.0 (1.6-4.0cm) LVEF(%, simp.) 18 % PWd 1.2 (0.7-1.1cm) Ao Root(2D) 3.8 (2.0-3.7cm) LA ESV INDEX (BP) 46.39 mL/m2 IVSs 1.3 cm LVOT diam 2.6 (1.8-2.4cm) LVDs 5.6 (2.5-4.0cm) PWs 1.3 cm M-Mode Dimensions EPSS 1.8 cm LA (MM) 6.1 (1.6-4.0cm) Ao Root(MM) 4.3 (2.0-3.7cm) Aortic Valve AoV Vmax 1.0 m/s Ao Peak GR 3.9 mmHg LVOT Vmax 0.5 m/s AoV VTI 0.1 m Ao Mean GR 2.6 mmHg LVOT VTI 0.07 m GABRIELLA (VMAX) 2.41 cm2 GABRIELLA (VTI) 2.4 cm2 Mitral Valve MV E Vmax 85.1 cm/s DECEL Time 169 ms P 1/2 T 33 ms MVA (PHT) 6.7 cm2 TDI E/E' Medial 43.9 E/E' Lateral 16.0 Medial E' Peak V 1.94 cm/s Lateral E' Peak V 5.32 cm/s Tricuspid Valve TR Vmax 3.1 m/s RAP (EST) 8 mmHg RVSP 48.1 mmHg TR Peak GR 40.1 mmHg Left Ventricle The left ventricle is dilated. Severe hypokinesis There is normal left ventricular wall thickness. Severely reduced left ventricular function <20%. The LV diastolic function was unable to be assessed due to atrial arrhythmia. Right Ventricle The right ventricle is severely dilated. Right ventricular systolic function is severely reduced. Atria The left atrium is moderately dilated. The right atrium is severely dilated. Aortic Valve Aortic valve is trileaflet and opens well. No aortic regurgitation is present. There is no aortic valvular stenosis. Mitral Valve The mitral valve is normal in structure. There is mild mitral valve regurgitation noted. There is no mitral valve stenosis. Tricuspid Valve The tricuspid valve is normal in structure. There is mild to moderate tricuspid valve regurgitation noted. May be underestimated due to low flow pressure gradient. Pulmonic Valve The pulmonary valve is normal in structure. There is no pulmonic valvular regurgitation. Great Vessels The aortic root is normal in size. IVC is not well visualized. Pericardium There is no pericardial effusion. Other Information Quality : Adequate Conclusion Severely reduced left ventricular function <20%. The LV diastolic function was unable to be assessed due to atrial arrhythmia. There is normal left ventricular wall thickness. The left ventricle is dilated. Severe hypokinesis The right ventricle is severely dilated. Right ventricular systolic function is severely reduced. The left atrium is moderately dilated. The right atrium is severely dilated. There is mild mitral valve regurgitation noted. There is mild to moderate tricuspid valve regurgitation noted. May be underestimated due to low flow pressure gradient. There is no pericardial effusion. DICTATED BY: LANI GRACIA MD DATE: 07/27/24 0952 REASON: renal failure ORDERING PHYSICIAN: JORGE NAVA MD PROCEDURE: RENAL - US RENAL SONOGRAM US RENAL SONOGRAM HISTORY: renal failure TECHNIQUE: US RENAL SONOGRAM. FINDINGS: RIGHT KIDNEY: The right kidney measures 10.3cm. No hydronephrosis or renal calculus seen. LEFT KIDNEY: The left kidney measures 9.3cm. There is no hydronephrosis. There is an approximate pole cyst measuring 5.5 cm. The visualized urinary bladder is within normal limits. IMPRESSION: No hydronephrosis is seen. DICTATED BY: EDUARDA MANUEL MD DATE: 07/27/24 0723 ASSESSMENT: Acute kidney injury Acute CHF exacerbation Acute hypoxic respiratory failure secondary to CHF exacerbation New onset paroxysmal atrial fibrillation with RVR Generalized anasarca Lower extremity edema History of alcohol use Mild coagulopathy Mild leukocytosis differential infectious versus reactive PLAN: Labs, diagnostic, radiologic exams reviewed and interpreted by myself and supervising physician. We have reviewed external records in detail Diuretics as per Cardiology Require close monitoring of renal function and electrolytes Order CBC, CMP,and electrolytes in am Renal diabetic diet BiPAP as necessary, for respiratory distress Monitor blood pressure adjust medication doses as needed Avoid hypotensive episodes May use Dilaudid 0.5 mg IV every 6 hours as needed for severe pain Monitor blood sugars Strict intake, output, and daily weight should be monitored Please renally adjust medications Avoid nephrotoxic and nonsteroidal drugs Avoid contrast if possible Will continue to monitor renal function, anemia, electrolytes Treatment plan discussed with patient Questions were answered We have discussed with the other team physicians in detail about the care plan We will continue to monitor the patient closely ATTESTATION BY PHYSICIAN I have seen and examined the patient. I reviewed the documentation, medical decision making, and treatment plan as noted by the mid-level provider above. I agree with the findings and plan of care. MARIVEL TOWNSEND MD, [facility] August 03, 2024 10:11
--- NOTE | 2024-08-03 14:34 | PN ---
[facility] PROGRESS NOTE Date of Service: August 03, 2024 Time of Service: 14:32 SUBJECTIVE: [69 old male admitted due to shortness of breaths, patient was at kidney failure on admission suspected due to acute tubular necrosis. Patient also was noted with cardiomyopathy, EF is less than 20%, patient is currently on oxygen supplementation. Today he continues with tachycardia, BB increased yesterday, now on Metoprolol XL 100 mg PO BID. He is still needs oxygen supplementation, on and off on 2L via [place]. Continue with strict I&O. 07/31/24 patient was seen and examined. Case discussed with RN. He has presented with ischemic cardiomyopathy requiring aggressive diuresis. He was on diuretics are being carefully managed by Nephrology and Cardiology monitoring his renal function. Clinically he says he was getting better 08/01/24 patient was seen and examined. Case discussed with the RN. He was co ntinuing with the aggressive diuresis and electrolytes and labs are being monitored. He was having bloody discharge from the end of the penis as if there was some trauma. We will continue to monitor H and H and if this is a consistent problem urology may need to evaluate him 08/02/24 patient was seen and examined. Case discussed with the RN and by the bedside. He is doing better today. Heparin drip has been turned off and the bloody discharge from the end of the pannus is improving. Continue to mo nitor that. Hemoglobin is stable. Cardiac catheterization has been planned for Sunday or Sunday08/03/24 patient was seen and examined. Case discussed with the RN and . He was more alert sitting up in the chair. He also worked with PT and walked a little bit. Hematuria seems to be improving with light her collar we will continue to monitor that. Hemoglobin continues to be stable cardiac catheterization is planned for Sunday or she was stay REVIEW OF SYSTEMS CONSTITUTIONAL: Denies fevers, chills, or night sweats. Denied any changes in weight NEUROLOGICAL: Denies headache, amaurosis fugax, motor weakness, sensory deficit, vertigo/spinning sensation, gait abnormalities, or tremors. ENT: No hearing loss, otalgia, otorrhea, rhinitis, rhinorrhea, hoarseness, or sore throat. CARDIOVASCULAR: Denies any exertional angina, dyspnea on exertion, orthopnea, paroxysmal nocturnal dyspnea, palpitations, life-threatening arrhythmias, claudication. PULMONARY: Positive for shortness of breath, cough. Denied any sputum production GASTROINTESTINAL: Denies any type of dysphagia to either liquids or solids. Denies nausea, vomiting, pyrosis, early satiety, abdominal pain, diarrhea, constipation, or changes in stool consistency or caliber. Denies coffee-ground emesis, hematemesis, hematochezia, or melanotic stools. GENITOURINARY: Positive for decreased urination. Denied any hematuria, dysuria ENDOCRINOLOGIC: Denies polyuria, polydipsia, polyphagia or heat/cold intolerances. HEMATOLOGIC: Denies thrombophilia/previous clots, or coagulopathy/bleeding disorders. ONCOLOGIC: Denies personal history of malignancy. DERMATOLOGIC: Denies rashes or pruritus. PSYCHIATRIC: Denies any suicidal or homicidal ideation. Denies hallucinations. Musculoskeletal: Positive for swelling in the lower extremity PHYSICAL EXAM GENERAL APPEARANCE: The patient is awake, alert, and oriented, in no acute cardiopulmonary distress. NEUROLOGICAL: Cranial nerves II-XII grossly intact. Motor is 5/5 in bilateral upper and lower extremities proximal to distal. No sensory deficits. HEENT: Face is symmetric. Pupils are equal and reactive. Extraocular movements are intact. NECK: Supple. No JVD. No thyromegaly. No submental, submandibular, pre- /postauricular, occipital or supraclavicular lymphadenopathy. CHEST: Normal chest expansion. No Telemetry. LUNGS: Positive for crackles in the right side CARDIOVASCULAR: Regular. S1 and S2 normal. No appreciable rubs, murmurs or gallops. ABDOMEN: Abdomen is distended. He has soft tissue edema in the abdominal wall. Bowel sounds are active. : Deferred. No Garcia. EXTREMITIES:3+ pitting edema in the lower extremity bilaterally he also has venous stasis changes.. No clubbing. Good capillary refill. SKIN: No skin breakdown. Vital Signs (last 8hr) Date Time Temp Pulse Resp B/P (MAP) Pulse Ox O2 Delivery O2 Flow Rate FiO2 08/03/24 12:00 97.5 98 20 102/74 100 Nasal Cannula 2.0 08/03/24 08:00 97.5 92 20 108/76 99 Nasal Cannula 2.0 08/03/24 07:24 78 18 N/Cannula Low lpm 2.0 28 LABS: Laboratory: Test 08/03/24 04:36 08/02/24 09:17 08/02/24 05:05 Range/Units White Blood Count 8.0 4.8-10.8 K/uL Red Blood Count 4.59 4.50-6.20 MIL/uL Hemoglobin 14.0 14.0-18.0 g/dL Hematocrit 44.5 42-54 % Mean Corpuscular Volume 96.9 79-99 fL Mean Corpuscular Hemoglobin 30.5 27.0-33.0 pg Mean Corpuscular Hemoglobin Concent 31.5 L 32.0-36.0 g/dL Red Cell Distribution Width 14.5 11.0-15.5 % Platelet Count 120 L 130-400 K/uL Mean Platelet Volume 10.0 7.5-10.5 fL Immature Granulocyte % (Auto) 0.3 0-1 % Neutrophils (%) (Auto) 59.7 40.0-77.0 % Lymphocytes (%) (Auto) 27.6 21.0-51.0 % Monocytes (%) (Auto) 11.2 3.0-13.0 % Eosinophils (%) (Auto) 1.1 0.0-8.0 % Basophils (%) (Auto) 0.1 0.0-5.0 % Neutrophils # (Auto) 4.8 1.8-7.7 K/uL Lymphocytes # (Auto) 2.2 1.0-4.8 K/uL Monocytes # (Auto) 0.9 0.1-1.0 K/uL Eosinophils # (Auto) 0.09 0.00-0.70 K/uL Basophils # (Auto) 0.01 0.00-0.20 K/uL Absolute Immature Granulocyte (auto 0.02 0-1 K/uL Nucleated Red Blood Cells 0.0 0.0-0.19 % Activated Partial Thromboplast Time 26.1 #L 26.3-35.5 SEC Sodium Level 140 136-145 mmol/L Potassium Level 4.4 3.5-5.1 mmol/L Chloride Level 102 101-111 mmol/L Carbon Dioxide Level 38 H 21-32 mmol/L Blood Urea Nitrogen 39 H 7-18 mg/dL Creatinine 1.5 H 0.5-1.3 mg/dL Glomerular Filtration Rate Calc 50 >90 mL/min Random Glucose 127 H 70-105 mg/dL Total Calcium 8.5 8.5-10.1 mg/dL Magnesium Level 2.00 1.80-2.40 mg/dL Total Bilirubin 0.7 0.2-1.0 mg/dL Aspartate Amino Transf (AST/SGOT) 20 10-37 U/L Alanine Aminotransferase (ALT/SGPT) 17 12-78 U/L Alkaline Phosphatase 71 50-136 U/L Total Protein 6.1 6.0-8.3 g/dL Albumin 3.1 L 3.5-5.0 g/dL Urine Color RED YELLOW Urine Appearance TURBID CLEAR Urine pH 5.5 5.0-8.0 Urine Specific [place] 1.017 1.001-1.031 Urine Protein 100 H NEGATIVE mg/dL Urine Glucose (UA) NEGATIVE NEGATIVE mg/dL Urine Ketones NEGATIVE NEGATIVE mg/dL Urine Occult Blood LARGE H NEGATIVE Urine Nitrate NEGATIVE NEGATIVE Urine Bilirubin NEGATIVE NEGATIVE mg/dL Urine Urobilinogen 0.2 0.2-1.0 mg/dL Urine Leukocyte Esterase 25 H NEGATIVE Max/uL Urine RBC TNTC H 0-1 /HPF Urine WBC 2-5 H 0-1 /HPF Urine Squamous Epithelial Cells None Seen 0-2 /HPF Urine Bacteria None Seen None Seen /HPF Phosphorus Level 4.0 2.5-4.9 mg/dL Current Medications Medications (Trade) Dose Ordered Sig/Melinda Route PRN Reason Start Time Stop Time Status Last Admin Dose Admin Acetaminophen (TYLenol 500MG TAB) 500 mg Q6H PRN PO MILD PAIN (1-3) 07/26/24 18:00 08/25/24 17:59 07/30/24 10:06 500 MG Bacitracin (Bacitracin 28.4gm) Right and left lower leg DAILY TP 07/29/24 09:00 08/28/24 08:59 08/03/24 09:25 1 GM Bumetanide (Bumex 1mg Vial) 1 mg Q12H IVP 07/27/24 09:00 07/28/24 02:44 DC 07/27/24 20:19 1 MG Clotrimazole (Lotrisone Cream) 1 APPL TP DAILY DAILY TP 08/03/24 09:00 09/02/24 08:59 08/03/24 09:25 1 GM Folic Acid (FOLic ACID 1 MG TABLET) 1 mg DAILY PO 07/27/24 09:00 08/26/24 08:59 08/03/24 09:24 1 MG Furosemide (LASix 40MG VIAL) 40 mg Q12H IV 07/26/24 23:00 07/27/24 06:31 DC 07/26/24 23:09 40 MG Furosemide (LASix 40MG VIAL) 40 mg TID IV 08/02/24 21:00 09/01/24 20:59 08/03/24 13:17 40 MG Furosemide 100 mg/ Sodium Chloride 100 ml @ 0 mls/hr PROTOCOL IV 07/28/24 03:00 08/02/24 14:47 DC 08/02/24 12:27 10 MLS/HR Heparin Sodium (Porcine) (HEParin 5,000 UNIT VIAL) 5,000 unit Q12H SQ 07/26/24 21:00 07/27/24 00:12 DC 07/26/24 21:07 5,000 UNIT Heparin Sodium/ Dextrose 250 ml @ 0 mls/hr Q6H IV 07/27/24 01:00 08/02/24 14:47 DC 08/02/24 10:25 10.43 MLS/HR Magnesium Sulfate 50 ml @ 0 mls/hr PROTOCOL PRN IV hypomagnesemia 07/26/24 18:00 08/25/24 17:59 Metoprolol Succinate (TopROL XL) 50 mg BID PO 07/27/24 10:30 07/27/24 22:52 DC 07/27/24 20:19 50 MG Metoprolol Succinate (TopROL XL) 100 mg BID PO 07/28/24 09:00 08/27/24 08:59 08/03/24 09:24 100 MG Metoprolol Tartrate (loprESSOR) 25 mg BID PO 07/26/24 21:00 07/27/24 10:29 DC 07/27/24 08:53 25 MG Milrinone Lactate/ Dextrose 100 ml @ 0 mls/hr PROTOCOL IV 07/27/24 18:00 07/27/24 18:05 DC Milrinone Lactate/ Dextrose 100 ml @ 0 mls/hr PROTOCOL IV 07/27/24 18:30 08/26/24 18:29 07/30/24 06:23 2.58 MLS/HR Pantoprazole Sodium (PROTonix 40MG INJ) 40 mg DAILY IVP 07/28/24 09:00 08/27/24 08:59 08/03/24 09:24 40 MG Potassium Chloride 100 ml @ 100 mls/hr AD PRN IV POTASSIUM PROTOCOL 07/26/24 18:00 08/25/24 17:59 Potassium Chloride (K-Dur/Klor-Con 20meq) 20 meq AD PRN PO POTASSIUM PROTOCOL 07/26/24 18:00 08/25/24 17:59 08/02/24 21:18 20 MEQ Potassium Chloride (KCl 10% Elixir 20meq/15ml) 20 meq AD PRN PO POTASSIUM PROTOCOL 07/26/24 18:00 08/25/24 17:59 Thiamine HCl (Vitamin B-1) 100 mg DAILY PO 07/27/24 09:00 08/01/24 08:49 DC 07/29/24 08:33 100 MG Thiamine HCl (Vitamin B-1) 300 mg DAILY08 IVP 07/30/24 08:00 08/01/24 08:01 DC 08/01/24 08:27 300 MG Wound Care/ Dressing Products (Venelex Ointment) 1 gm BID TP 07/31/24 21:00 08/01/24 08:19 DC 07/31/24 22:25 1 GM Wound Care/ Dressing Products (Venelex Ointment) apply to buttocks BID TP 08/01/24 09:00 08/30/24 20:59 08/03/24 09:25 1 GM DIAGNOSTICS / RADIOLOGY: [ ] ASSESSMENT: Acute CHF exacerbation POA Acute hypoxic respiratory failure secondary to CHF exacerbation New onset paroxysmal atrial fibrillation with RVR Generalized anasarca Acute kidney injury, 2/2 ATN, POA Lower extremity edema History of alcohol use Mild coagulopathy Mild leukocytosis differential infectious versus reactive PLAN: - patient to be admitted to [facility] -in reference to CHF exacerbation; -CONTINUE WITH MILRINONE GTT CONTINUE WITH OXYGEN SUPPLEMENTATION TO KEEP O2 SAT GREATER THAN 92% PATIENT WILL BE ON STRICT I&O AND DAILY WEIGHTS PATIENT WILL BE ON HEPARIN DRIP PER PROTOCOL WE WILL CONTINUE TO MONITOR KIDNEY FUNCTION APPRECIATE REC' S FROM NEPHRO AND PULMO, WE WILL FOLLOW THEIR RECOMMENDATIONS CONTINUE WITH GI AND DVT PROPHYLAXIS REPEAT LABS TOMORROW CASE WAS SEEN AND EXAMINED WITH DR. ROTHMAN, ABOVE PLAN WAS FORMULATED YAZMIN ROTHMAN MD August 03, 2024 14:34
--- NOTE | 2024-08-03 14:59 | PN ---
CARDIOLOGY Reason for consult: CHF HPI/story at presentation: This is a pleasant 69-year-old male with past medical history as per present with complaints of shortness of breath with worsening edema and abdominal bloating and distention. He was diagnosed CHF exacerbation, cardiology scheduled for evaluation management. Patient was also found to be atrial fibrillation with rapid ventricular sponsor presentation to the hospital. Diuresis was initiated. Subjective: 07/26/2024 shortness of breath 07/29/2024 no complaints 07/30/2024 no complaints 07/31/2024 no complaints Past medical history: See below Allergies, Meds See chart Review of systems Review of Systems Constitutional: Negative for chills and fever. HENT: Negative for ear discharge and ear pain. Eyes: Negative for photophobia and discharge. Respiratory: Negative for cough, sputum production and stridor. Cardiovascular: Negative for chest pain and palpitations. Gastrointestinal: Negative for diarrhea and vomiting. Genitourinary: Negative for frequency. Musculoskeletal: Negative for myalgias. Skin: Negative for rash. Neurological: Negative for focal weakness and seizures. Endo/Heme/Allergies: Negative for polydipsia. Psychiatric/Behavioral: Negative for hallucinations. Vitals see chart PHYSICAL EXAMINATION GENERAL: The patient is alert and oriented*3 HEENT: Nonicteric sclerae, non traumatic HEART: Regular rate and rhythm with no murmurs LUNGS: mild crackles 07/26/2024 ABDOMEN: No acute issues, non tender GENITAL, RECTAL: deferred SKIN: No rash NEUROLOGIC: NFND EXTREMITIES: bilareral edema 07/26/2024 ASSESSMENT ATRIAL FIBRILLATION Presentation Associated RVR at presentation CONGESTIVE HEART FAILURE With abdominal distention lower extremity manage at presentation ACUTE KIDNEY INJURY At presentation Condition nephropathy versus prerenal OBESITY CORE MEASURES OTHER MEDICAL PROBLEMS Reviewed PLAN 07/26/2024 agree with rate control for atrial fibrillation, will likely benefit from further anticoagulation as well. Possible liver etiology of elevated INR. Follow-up with renal function panel including albumin ordered. Agree with diuresis for now. Echocardiogram has been ordered and is pending as well. On IV twice daily of Lasix and metoprolol at this time. Further recommendations after echo. Seen and examined 07/26/2024 around 1900 07/27/2024 Shortness of breath is stable. Labs reviewed. Renal function is still elevated between 2.6 and 3. On heparin for anticoagulation. Echocardiogram with EF less than 20%, arterial duplex was normal. Ultrasound of the lower extremities and venous duplex were within normal limits. Renal ultrasound was negative, bladder scan with less than 100 cc. Difficult situation in the setting of significant RV failure associated with edema and ascites in the setting of severe cardiomyopathy and A-fib RVR. Suspected nonischemic in setting of A-fib although, CAD has not been ruled out yet. Unable to proceed with catheterization given acute kidney injury. milrinone was started to better help with renal perfusion. Caution in the setting of underlying renal dysfunction and therefore starting a low dose first. No dobutamine as patient is on beta eugene for rate control . May transfer to the heart failure center if renal function continues to worsen or if rate control is a challenge. Critically ill, prognosis is guarded. Spoke with multiple family members during the course of the day seen and examined multiple times, 07/27/2024. 07/28/2024 Overnight, patient was started on milrinone to help with urine output but there is no significant response to bed and this was increased from 0.125- 0.25. However, even with elevated doses, no significant output was present after a few hours. Given underlying renal failure, milrinone was not increased any further. Also, patient was having issues with tachycardia with increased dose of milrinone. Metoprolol was increased to help with rate control. Dobutamine is not being considered because of metoprolol use. Diuresis was ineffective and therefore, patient was started on a Lasix drip at 10 to try to help with diuresis. This morning, urine output has improved about 200 cc. Low- dose milrinone has been continued, urine is dark, possibly ATN. Will watch for worsening renal function although, this is likely in the current situation. Will need to ensure there is quite adequate urine output. Discussed transfer to advanced heart failure management programs and at this time, plan is to wait. Seen and examined 07/28/2024 at around 1130 07/29/2024 Renal function somewhat better. Output has improved, continue current regimen. Breathing better rates are acceptable. May need to consider increasing beta-eugene. On 100 twice daily metoprolol succinate at this time. Seen and examined 07/29/2024 at around 1600 07/30/2024 Clinically, continues to improve, no active cardiac complaints at this time. Shortness of breath is better, abdominal bloating has improved. Induration edema is persistent but better as well. Continue current medical therapy. Will likely stop milrinone tomorrow to see how he does just with diuresis. Renal function continues to improve. Seen and examined 07/30/2024 at around 1600. 07/31/2024 stop milrinone and reevaluate. Good urine output. Remains on IV Lasix and heparin at this time. Appreciate nephrology, primary team. Clinically, doing well, ambulating encouraged.rates ok Seen and examined 07/31/2024 at around 1800. 08/01/2024 Creatinine continues to improve, currently at 2. Has done well without the milrinone, will continue to hold. Remains on Lasix stent and on heparin. Plans are made for eventual cardiac catheterization next week. Rates are good. Has some hematuria and this will need to be looked into. Defer to primary. Seen and examined 08/01/2024 at around 1800. 08/02/2024 urine color is better off heparin. however, patient remains at risk of thrombosis while off heparin. If hematuria resolves, would like to restart heparin. Plan for cardiac cath, likely on sunday after hematuria issues resolve. Seen and examined 08/03/2024 at around 1500 ATTESTATION I was involved substantially in the care of this patient Number and complexity of problems addressed: 1 acute illness that is a threat to life or bodily function Amount and or complexity of data Review of prior external note(s) from each unique source: 2+ Ordering of each unique test : 0 Review of the result(s) of each unique test: 2+ Assessment requiring an independent historian(s): No Independent interpretation of test performed by another MD/QHCP/appropriate source (not separately reported) : No Discussion of management or test interpretation with external MD/QHCP/appropriate source (not separately reported) : IM Risk status (cardiac, billing related): high Vitals/Labs Vital Signs Date Time Temp Pulse Resp B/P (MAP) Pulse Ox O2 Delivery O2 Flow Rate FiO2 08/03/24 12:00 97.5 98 20 102/74 100 Nasal Cannula 2.0 08/03/24 07:24 28 Laboratory Tests 08/02/24 18:39 08/03/24 04:36 Medications Current Medications Furosemide 40 mg ONCE ONCE IV Last administered on 07/26/24at 15:44; Start 07/26/24 at 15:30; Stop 07/26/24 at 15:31; Status DC Diltiazem HCl 20 mg ONCE ONCE IVP Last administered on 07/26/24at 15:44; Start 07/26/24 at 16:00; Stop 07/26/24 at 16:01; Status DC Diltiazem HCl 30 mg ONCE ONCE PO Last administered on 07/26/24at 16:15; Start 07/26/24 at 16:30; Stop 07/26/24 at 16:31; Status DC Acetaminophen 500 mg Q6H PRN PO Last administered on 07/30/24at 10:06; Start 07/26/24 at 18:00; Stop 08/25/24 at 17:59 Thiamine HCl 100 mg DAILY PO Last administered on 07/29/24at 08:33; Start 07/27/24 at 09:00; Stop 08/01/24 at 08:49; Status DC Folic Acid 1 mg DAILY PO Last administered on 08/03/24at 09:24; Start 07/27/24 at 09:00; Stop 08/26/24 at 08:59 Metoprolol Tartrate 25 mg BID PO Last administered on 07/27/24at 08:53; Start 07/26/24 at 21:00; Stop 07/27/24 at 10:29; Status DC Potassium Chloride 100 ml @ 100 mls/hr AD PRN IV; Start 07/26/24 at 18:00; Stop 08/25/24 at 17:59 Potassium Chloride 20 meq AD PRN PO; Start 07/26/24 at 18:00; Stop 08/25/24 at 17:59 Potassium Chloride 20 meq AD PRN PO Last administered on 08/02/24at 21:18; Start 07/26/24 at 18:00; Stop 08/25/24 at 17:59 Magnesium Sulfate 50 ml @ 0 mls/hr PROTOCOL PRN IV; Start 07/26/24 at 18:00; Stop 08/25/24 at 17:59 Furosemide 40 mg Q12H IV Last administered on 07/26/24at 23:09; Start 07/26/24 at 23:00; Stop 07/27/24 at 06:31; Status DC Heparin Sodium (Porcine) 5,000 unit Q12H SQ Last administered on 07/26/24at 21:07; Start 07/26/24 at 21:00; Stop 07/27/24 at 00:12; Status DC Heparin Sodium/ Dextrose 250 ml @ 0 mls/hr Q6H IV Last administered on 08/02/24at 10:25; Start 07/27/24 at 01:00; Stop 08/02/24 at 14:47; Status DC Bumetanide 1 mg Q12H IVP Last administered on 07/27/24at 20:19; Start 07/27/24 at 09:00; Stop 07/28/24 at 02:44; Status DC Pantoprazole Sodium 40 mg DAILY IVP Last administered on 08/03/24at 09:24; Start 07/28/24 at 09:00; Stop 08/27/24 at 08:59 Metoprolol Succinate 50 mg BID PO Last administered on 07/27/24at 20:19; Start 07/27/24 at 10:30; Stop 07/27/24 at 22:52; Status DC Milrinone Lactate/ Dextrose 100 ml @ 0 mls/hr PROTOCOL IV; Start 07/27/24 at 18:00; Stop 07/27/24 at 18:05; Status DC Milrinone Lactate/ Dextrose 100 ml @ 0 mls/hr PROTOCOL IV Last administered on 07/30/24at 06:23; Start 07/27/24 at 18:30; Stop 08/26/24 at 18:29 Metoprolol Succinate 50 mg ONCE ONCE PO Last administered on 07/27/24at 23:43; Start 07/27/24 at 23:00; Stop 07/27/24 at 23:01; Status DC Metoprolol Succinate 100 mg BID PO Last administered on 08/03/24at 09:24; Start 07/28/24 at 09:00; Stop 08/27/24 at 08:59 Furosemide 100 mg/ Sodium Chloride 100 ml @ 0 mls/hr PROTOCOL IV Last administered on 08/02/24at 12:27; Start 07/28/24 at 03:00; Stop 08/02/24 at 14:47; Status DC Bacitracin Right and left lower leg DAILY TP Last administered on 08/03/24at 09:25; Start 07/29/24 at 09:00; Stop 08/28/24 at 08:59 Thiamine HCl 300 mg DAILY08 IVP Last administered on 08/01/24at 08:27; Start 07/30/24 at 08:00; Stop 08/01/24 at 08:01; Status DC Wound Care/ Dressing Products 1 gm BID TP Last administered on 07/31/24at 22:25; Start 07/31/24 at 21:00; Stop 08/01/24 at 08:19; Status DC Wound Care/ Dressing Products apply to buttocks BID TP Last administered on 08/03/24at 09:25; Start 08/01/24 at 09:00; Stop 08/30/24 at 20:59 Furosemide 40 mg TID IV Last administered on 08/03/24at 13:17; Start 08/02/24 at 21:00; Stop 09/01/24 at 20:59 Clotrimazole 1 APPL TP DAILY DAILY TP Last administered on 08/03/24at 09:25; Start 08/03/24 at 09:00; Stop 09/02/24 at 08:59 LANI GRACIA MD August 03, 2024 14:59
--- NOTE | 2024-08-03 16:15 | PN ---
[facility] PROGRESS NOTE Date Patient Seen: August 03, 2024 Time of Visit: 16:14 Supervising Physician: Dr. Oreilly Consulting Physician: Hospitalist Outpatient Specialists: [ ] Inpatient Consults: Dr. Mitchell (cardio) PROBLEM LIST: Acute hypoxic respiratory failure, POA Congestive heart failure, chest x-ray showed bilateral pulmonary congestion, with BNP above 900 POA Acute kidney injury, POA improving Leukocytosis, POA resolved Atrial fibrillation with RVR, POA Hematuria Morbid obesity, BMI of 38.7 INTERVAL HISTORY: Patient evaluated at bedside, he is currently on 3 L nasal cannula, patient has been transitioned to a furosemide drip along with Milrinone per Cardiology recommendations, patient's BNP this morning is 866, creatinine is 3.2. Patient negative for COVID and flu. Cardiology continuing with the aggressive management of his diuresis for biventricular heart failure. Pulmonary Services will continue to follow the patient while he remains in supplemental O2. 07/29/2024: At the time of my evaluation, the patient was lying in bed. Staff nurse reports no acute events overnight. On the monitor, the patient remains on nasal cannula. She is mildly tachycardic and normotensive. Patient had a urinary output of approximately 1 L over the past 24 hours. Laboratory data was notable for a sodium of 134, chloride of 98, BUN of 59, creatinine of 2.9 and a GFR of 23. BNP of 633. Remaining laboratory data were not of concern. Blood cultures x2 are negative. The patient remains on diuretic therapy with furosemide, Milrinone and is on a heparin drip. No new complaint. 07/30/2024: At the time of my evaluation, the patient was lying in bed. He reports feeling much better today. On the monitor, the patient is on room air and is hemodynamically stable. Laboratory data today is notable for improving renal parameters with a BUN of 59, creatinine of 2.8 and a GFR of 24. The patient had a urinary output in the last 24 hours of 1999 with a net balance of -485. No new imaging for review. The patient remains on a furosemide, Milrinone and heparin drip. No other complaint. 07/31/2024: At the time of my evaluation, the patient is lying in bed. Per the staff nurse the patient is started with hematuric changes to his urine. On monitor, the patient remains on a nasal cannula and is otherwise hemodynamically stable. Laboratory data today is notable for a chloride of 99, CO2 of 34, BUN of 53, creatinine of 2.3, GFR of 30 and a BNP of 800. Microbiology data showing blood cultures x2 with no growth. Chest x-ray today showing pulmonary vascular congestion bilaterally with suspicion for obscured pneumonic infiltrates. Currently, the patient continues on furosemide, Milrinone and heparin drip. Otherwise, no other complaint. 08/01/2024: At the time of evaluation, the patient was sitting up to the bedside chair. The family members we will bedside visiting with the patient. The patient reports persistent hematuria. He remains on nasal cannula and on the monitor he is hemodynamically stable. Laboratory data obtained today was notable for improving renal parameters with a BUN of 40 creatinine of 2.0 and a GFR of 35. Blood cultures x2 final results showing no growth. No new imaging for review today. The patient was taken off the Milrinone drip and is currently only on furosemide drip. No other complaint. 08/02/2024: At the time of my evaluation, the patient him up to the bedside chair and was visiting with his family members. He is on room air vital signs are hemodynamically stable laboratory data obtained notable for an potassium of 3.4 and improved renal parameters today BUN 43, creatinine of 1.5 and a GFR of 50. Blood cultures x2 are negative. No new imaging of the chest tube the patient continues with hematuria. He continued on heparin drip, furosemide, metoprolol, Milrinone and furosemide. No other complaint. 08/03/2024: At the time of my evaluation, the patient sitting up to the bedside did chair and reports feeling much better today. The patient was taken off heparin drip as requested and hematuria significantly improved. The patient is currently on nasal cannula and is hemodynamically stable. Laboratory data was notable for improved renal parameters with a BUN of 39, creatinine of 1.5 and a GFR 50. There was no coagulopathy no new imaging for review today. The patient currently continues on a Milrinone drip and is on t.i.d. furosemide injections. No other complaint. REVIEW OF SYSTEMS: 12 point ROS reviewed with patient. Pertinent positives mentioned above. Otherwise negative. PHYSICAL EXAM: GENERAL: alert, weak, awake oriented x 3 HEENT: EOMI, Sclera non icteric, moist mucosa NECK: Supple, no JVD, trachea midline LUNGS: Coarse bilateral lung sounds HEART: Regular rate and rhythm. Normal S1 and S2, without murmurs ABD: Large abdomen EXT: 4+ pitting edema NEURO: Alert and oriented to person, follows commands Vital Signs (last 8hr) Date Time Temp Pulse Resp B/P (MAP) Pulse Ox O2 Delivery O2 Flow Rate FiO2 08/03/24 12:00 97.5 98 20 102/74 100 Nasal Cannula 2.0 LABS: Hematology Labs: Test 08/03/24 04:36 Range/Units White Blood Count 8.0 4.8-10.8 K/uL Red Blood Count 4.59 4.50-6.20 MIL/uL Hemoglobin 14.0 14.0-18.0 g/dL Hematocrit 44.5 42-54 % Mean Corpuscular Volume 96.9 79-99 fL Mean Corpuscular Hemoglobin 30.5 27.0-33.0 pg Mean Corpuscular Hemoglobin Concent 31.5 L 32.0-36.0 g/dL Red Cell Distribution Width 14.5 11.0-15.5 % Platelet Count 120 L 130-400 K/uL Mean Platelet Volume 10.0 7.5-10.5 fL Immature Granulocyte % (Auto) 0.3 0-1 % Neutrophils (%) (Auto) 59.7 40.0-77.0 % Lymphocytes (%) (Auto) 27.6 21.0-51.0 % Monocytes (%) (Auto) 11.2 3.0-13.0 % Eosinophils (%) (Auto) 1.1 0.0-8.0 % Basophils (%) (Auto) 0.1 0.0-5.0 % Neutrophils # (Auto) 4.8 1.8-7.7 K/uL Lymphocytes # (Auto) 2.2 1.0-4.8 K/uL Monocytes # (Auto) 0.9 0.1-1.0 K/uL Eosinophils # (Auto) 0.09 0.00-0.70 K/uL Basophils # (Auto) 0.01 0.00-0.20 K/uL Absolute Immature Granulocyte (auto 0.02 0-1 K/uL Nucleated Red Blood Cells 0.0 0.0-0.19 % Chemistry Labs: Test 08/03/24 04:36 08/02/24 05:05 Range/Units Sodium Level 140 136-145 mmol/L Potassium Level 4.4 3.5-5.1 mmol/L Chloride Level 102 101-111 mmol/L Carbon Dioxide Level 38 H 21-32 mmol/L Blood Urea Nitrogen 39 H 7-18 mg/dL Creatinine 1.5 H 0.5-1.3 mg/dL Glomerular Filtration Rate Calc 50 >90 mL/min Random Glucose 127 H 70-105 mg/dL Total Calcium 8.5 8.5-10.1 mg/dL Magnesium Level 2.00 1.80-2.40 mg/dL Total Bilirubin 0.7 0.2-1.0 mg/dL Aspartate Amino Transf (AST/SGOT) 20 10-37 U/L Alanine Aminotransferase (ALT/SGPT) 17 12-78 U/L Alkaline Phosphatase 71 50-136 U/L Total Protein 6.1 6.0-8.3 g/dL Albumin 3.1 L 3.5-5.0 g/dL Phosphorus Level 4.0 2.5-4.9 mg/dL Coagulation Labs: Test 08/03/24 04:36 Range/Units Activated Partial Thromboplast Time 26.1 #L 26.3-35.5 [facility] DI[facility]NOSTICS / RADIOLOGY RESULTS: [ ] PLAN 07/29/2024: For now, going to continue current management for the patient. We will continue diuresing the patient on the furosemide on Milrinone, we will hip close eye on the renal function. The patient is to continue to limit his fluid intake and strict I and O. We are going to follow the recommendation of the Nephrology and Cardiology Specialists. We will repeat surveillance labs in the morning. We will monitor the patient's progress and response to management. We will continue to provide general supportive care, GI and DVT prophylaxis. Further orders per attending MD and hospital course. 07/30/2024: For now, going to continue current management as guided by the Cardiology team. The patient will remain on current management and we will adjust as necessary. We will continue to monitor strict I and O. We will monitor the patient's progress and response to management. We will continue to provide general supportive care, GI and DVT prophylaxis. Further orders per attending MD and hospital course. 07/31/2024: For now, we are going to continue current management for the patient. We are going to continue diuresis as ordered and we will monitor the recommendation of the Cardiology team. Going to monitor the hematuria and possibly consult the urologist considering that the patient is on a heparin dr ip. We will monitor the patient's progress and response to management. We will continue to provide general supportive care, GI and DVT prophylaxis. Further orders per attending MD and hospital course. 08/01/2024: For now, going to continue current management for the patient. I am going to request a repeat UA CS and we will also perform STD testing. We will continue diuresis with furosemide monitor the renal parameters and urinary output. We will repeat surveillance labs in the morning. We will monitor the patient's progress and response to management continue to provide general supportive care, GI and DVT prophylaxis. Further orders per attending MD and hospital course. 08/02/2024: For now, going to continue current management for the patient. B ecause of the hematuria, cardiology okayed the discontinuation of the heparin drip and to continue monitoring the patient. He will continue on a Milrinone drip and Lasix was changed to IV t.i.d.. The possible plan is for possible cardiac intervention in the upcoming week. I discussed the findings and plan for further management with the patient. We will monitor the patient's progress and response to management. We will continue to provide general supportive care, GI and DVT prophylaxis. Further orders per attending MD and hospital course. 08/03/2024: For now, we are going to continue current management for the patient. He will continue on Milrinone drip and t.i.d. furosemide injections. We will follow the Cardiology plan for possible heart catheterization in the upcoming days. We will monitor for any recurrent hematuric events. Patient will continue on cardiac management per the Cardiology team. We will repeat surveillance labs in morning. We will follow the recommendation of the [facility] and we will intervene if necessary. We will continue to provide general supportive care, GI and DVT prophylaxis. Further orders per attending MD and hospital course. NEURO: Minimize central acting medications as possible. Maintain fall precautions, adequate lighting during the day PULMONARY: Supplemental 02 as needed. Maintain aspiration precautions at all times CARDIOVASCULAR: Follow hemodynamics. Vital signs per facility protocol GI & NUTRITION: Continue with nutritional support. Continue stool softeners and laxatives as needed. KIDNEYS & ELECTROLYTES: Strict monitoring of intake, output and overall fluid balance. Avoid nephrotoxic medications to the extent possible. Medications to be dosed according to renal function. Monitor electrolytes and replace as needed ENDOCRINE: Maintain blood glucose between 100-180 at all times. Hypoglycemia protocol in place INFECTIOUS DISEASE: Trend temperature, WBC and procalcitonin level Follow cultures, deescalate antibiotics as soon as possible. Panculture if new onset fever ONCOLOGY/HEMATOLOGY/COAGULATION: Monitor for s/s of bleeding Monitor hemoglobin, coagulation studies as needed SKIN: Pressure ulcer prevention per facility protocol Specialty mattress ORTHO/REHAB: Continue PT/OT Prophylaxis: Continue GI and DVT prophylaxis Code Status: Full Resuscitation Disposition: TBD Other: The patient was seen and case was discussed with supervising MD. Plan was discussed and agreed upon. I personally spent 40 minutes of critical care time in treatment of this patient. This includes patient management, time at bedside, time reviewing tests, labs, appropriate images and studies, documentation, and patient care coordination. This time excludes separately billable procedures. TONG CACERES PIPED [employer] MACHINE OPERATOR August 03, 2024 16:15
--- NOTE | 2024-08-03 18:04 | NUR ---
WOUND CARE DONE TO BOTH LOWER LEG AREAS. NO DRAINAGE NOTED. TOLERATED WELL. BOTH FEET CLEANSED WITH NS, TOENAILS SOILED WITH DIRT AND FOUL ODOR. APPLIED LOTRIMIN CREAM AND LEFT OPEN TO AIR. NOTED RIGHT FOOT COOL TO TOUCH, LEFT FOOT WARM TO TOUCH. WILL CONTINUE TO MONITOR.
--- NOTE | 2024-08-03 19:34 | NUR ---
URINE OUTPUT AND COLOR (CLEAR YELLOW) REPORTED TO DR. WILLARD REQUESTED. ORDERS: RE START HEPARIN DRIP, NO BOLUS. REPORTED OFF TO Garth ARENAS RN.
[2024-08-03] MEDS: HEParin 25,000 UNITS/250ML D5W 250 ML IV SCH (21:32)
[2024-08-04] VITALS (11 sets, daily range): BP systolic 94–115; BP diastolic 59–77; PULSE 83–104; RESP 16–20; TEMP 97.7–98; O2SAT 95–100
[2024-08-04 03:42] LABS: HEMATOCRIT 46.5 % (42-54); MEAN CORPUSCULAR HEMOGLOBIN 29.8 pg (27.0-33.0); MEAN CORPUSCULAR HGB CONC 30.5 g/dL (32.0-36.0); MEAN CORPUSCULAR VOLUME 97.7 fL (79-99); RED BLOOD CELL COUNT(AUTO) 4.76 MIL/uL (4.50-6.20); RED CELL DISTRIBUTION WIDTH 14.4 % (11.0-15.5); WHITE BLOOD COUNT (AUTO) 8.4 K/uL (4.8-10.8)
[2024-08-04 03:59] LABS: CREATININE 1.6 mg/dL (0.5-1.3)
--- NOTE | 2024-08-04 08:52 | HMCIMG ---
Exam Type: CHEST 1VW Clinical Information: CHF Comparison: None Findings: Pulmonary pattern is as before. No worrisome interval changes have taken place. Impression: Stable exam.
--- NOTE | 2024-08-04 13:21 | PN ---
NEPHROLOGY PROGRESS NOTE Date/Time Patient Seen: August 04, 2024 SUBJECTIVE: This is a 69-year-old male with no significant past medical history He has had a prolonged hospital course. The patient is admitted, found to have congestive heart failure. Workup is consistent with severe cardiomyopathy. He has been transitioned to IV Lasix 40 mg t.i.d. Milrinone drip has been discontinued The patient's creatinine continues to slowly improve. Urine output was noted The patient is being seen by Cardiology , pending left heart catheterization tomorrow Continues on heparin drip He was seen in telemetry, in no acute distress Family at the bedside Condition remains guarded REVIEW OF SYSTEMS: GENERAL: Negative for any nausea, vomiting, fevers, chills, or weight loss. NEUROLOGIC: Negative for any blurry vision, blind spots, double vision, facial asymmetry, dysphagia, dysarthria, hemiparesis, hemisensory deficits, vertigo, ataxia. HEENT: Negative for any head trauma, neck trauma, neck stiffness, photophobia, phonophobia, sinusitis, rhinitis. CARDIAC: Negative for any chest pain, dyspnea on exertion, paroxysmal nocturnal dyspnea, peripheral edema. PULMONARY: Negative for any shortness of breath, wheezing, COPD, or TB exposure. GASTROINTESTINAL: Negative for any abdominal pain, nausea, vomiting, bright red blood per rectum, melena. GENITOURINARY: Negative for any dysuria, hematuria, incontinence. INTEGUMENTARY: Negative for any rashes, cuts, insect bites. RHEUMATOLOGIC: Negative for any joint pains, photosensitive rashes, history of vasculitis or kidney problems. HEMATOLOGIC: Negative for any abnormal bruising, frequent infections or bleeding. Vital Signs (last 8hr) Date Time Temp Pulse Resp B/P (MAP) Pulse Ox O2 Delivery O2 Flow Rate FiO2 08/02/24 07:34 97.7 97 18 113/76 97 Nasal Cannula 2.0 08/02/24 06:39 18 N/Cannula Low lpm 2.0 28 08/02/24 04:07 97.9 98 21 136/62 99 Nasal Cannula 2.0 PHYSICAL EXAM: GENERAL: Alert and oriented x 3. No acute distress. Well-nourished. EYES: EOMI. Anicteric. HENT: Moist mucous membranes. No scleral icterus. No cervical lymphadenopathy. LUNGS: Clear to auscultation bilaterally. No accessory muscle use. CARDIOVASCULAR: Regular rate and rhythm. No murmur. No JVD. ABDOMEN: Soft, non-tender and non-distended. No palpable masses. EXTREMITIES: No edema. Non-tender.?SKIN: No rashes or lesions. Warm. NEUROLOGIC: No focal neurological deficits. CN II-XII grossly intact, but not individually tested. PSYCHIATRIC: Cooperative. Appropriate mood and affect. Current Medications Medications (Trade) Dose Ordered Sig/Melinda Route PRN Reason Start Time Stop Time Status Last Admin Dose Admin Acetaminophen (TYLenol 500MG TAB) 500 mg Q6H PRN PO MILD PAIN (1-3) 07/26/24 18:00 08/25/24 17:59 07/30/24 10:06 500 MG Bacitracin (Bacitracin 28.4gm) Right and left lower leg DAILY TP 07/29/24 09:00 08/28/24 08:59 08/01/24 08:32 1 GM Bumetanide (Bumex 1mg Vial) 1 mg Q12H IVP 07/27/24 09:00 07/28/24 02:44 DC 07/27/24 20:19 1 MG Folic Acid (FOLic ACID 1 MG TABLET) 1 mg DAILY PO 07/27/24 09:00 08/26/24 08:59 08/01/24 08:30 1 MG Furosemide (LASix 40MG VIAL) 40 mg Q12H IV 07/26/24 23:00 07/27/24 06:31 DC 07/26/24 23:09 40 MG Furosemide 100 mg/ Sodium Chloride 100 ml @ 0 mls/hr PROTOCOL IV 07/28/24 03:00 08/27/24 02:59 08/02/24 00:38 10 MLS/HR Heparin Sodium (Porcine) (HEParin 5,000 UNIT VIAL) 5,000 unit Q12H SQ 07/26/24 21:00 07/27/24 00:12 DC 07/26/24 21:07 5,000 UNIT Heparin Sodium/ Dextrose 250 ml @ 0 mls/hr Q6H IV 07/27/24 01:00 08/26/24 00:59 08/01/24 11:23 13.65 MLS/HR Magnesium Sulfate 50 ml @ 0 mls/hr PROTOCOL PRN IV hypomagnesemia 07/26/24 18:00 08/25/24 17:59 Metoprolol Succinate (TopROL XL) 50 mg BID PO 07/27/24 10:30 07/27/24 22:52 DC 07/27/24 20:19 50 MG Metoprolol Succinate (TopROL XL) 100 mg BID PO 07/28/24 09:00 08/27/24 08:59 08/01/24 19:51 100 MG Metoprolol Tartrate (loprESSOR) 25 mg BID PO 07/26/24 21:00 07/27/24 10:29 DC 07/27/24 08:53 25 MG Milrinone Lactate/ Dextrose 100 ml @ 0 mls/hr PROTOCOL IV 07/27/24 18:00 07/27/24 18:05 DC Milrinone Lactate/ Dextrose 100 ml @ 0 mls/hr PROTOCOL IV 07/27/24 18:30 08/26/24 18:29 07/30/24 06:23 2.58 MLS/HR Pantoprazole Sodium (PROTonix 40MG INJ) 40 mg DAILY IVP 07/28/24 09:00 08/27/24 08:59 08/01/24 08:27 40 MG Potassium Chloride 100 ml @ 100 mls/hr AD PRN IV POTASSIUM PROTOCOL 07/26/24 18:00 08/25/24 17:59 Potassium Chloride (K-Dur/Klor-Con 20meq) 20 meq AD PRN PO POTASSIUM PROTOCOL 07/26/24 18:00 08/25/24 17:59 08/02/24 06:06 20 MEQ Potassium Chloride (KCl 10% Elixir 20meq/15ml) 20 meq AD PRN PO POTASSIUM PROTOCOL 07/26/24 18:00 08/25/24 17:59 Thiamine HCl (Vitamin B-1) 100 mg DAILY PO 07/27/24 09:00 08/01/24 08:49 DC 07/29/24 08:33 100 MG Thiamine HCl (Vitamin B-1) 300 mg DAILY08 IVP 07/30/24 08:00 08/01/24 08:01 DC 08/01/24 08:27 300 MG Wound Care/ Dressing Products (Venelex Ointment) 1 gm BID TP 07/31/24 21:00 08/01/24 08:19 DC 07/31/24 22:25 1 GM Wound Care/ Dressing Products (Venelex Ointment) apply to buttocks BID TP 08/01/24 09:00 08/30/24 20:59 08/01/24 19:57 1 GM LABORATORY: [ ] Hematology Labs: Test 08/04/24 03:21 08/03/24 04:36 Range/Units White Blood Count 8.4 4.8-10.8 K/uL Red Blood Count 4.76 4.50-6.20 MIL/uL Hemoglobin 14.2 14.0-18.0 g/dL Hematocrit 46.5 42-54 % Mean Corpuscular Volume 97.7 79-99 fL Mean Corpuscular Hemoglobin 29.8 27.0-33.0 pg Mean Corpuscular Hemoglobin Concent 30.5 L 32.0-36.0 g/dL Red Cell Distribution Width 14.4 11.0-15.5 % Platelet Count 109 L 130-400 K/uL Mean Platelet Volume 10.2 7.5-10.5 fL Nucleated Red Blood Cells 0.0 0.0-0.19 % Immature Granulocyte % (Auto) 0.3 0-1 % Neutrophils (%) (Auto) 59.7 40.0-77.0 % Lymphocytes (%) (Auto) 27.6 21.0-51.0 % Monocytes (%) (Auto) 11.2 3.0-13.0 % Eosinophils (%) (Auto) 1.1 0.0-8.0 % Basophils (%) (Auto) 0.1 0.0-5.0 % Neutrophils # (Auto) 4.8 1.8-7.7 K/uL Lymphocytes # (Auto) 2.2 1.0-4.8 K/uL Monocytes # (Auto) 0.9 0.1-1.0 K/uL Eosinophils # (Auto) 0.09 0.00-0.70 K/uL Basophils # (Auto) 0.01 0.00-0.20 K/uL Absolute Immature Granulocyte (auto 0.02 0-1 K/uL Chemistry Labs: Test 08/04/24 03:21 08/03/24 04:36 Range/Units Sodium Level 140 136-145 mmol/L Potassium Level 4.0 3.5-5.1 mmol/L Chloride Level 100 L 101-111 mmol/L Carbon Dioxide Level 38 H 21-32 mmol/L Blood Urea Nitrogen 35 H 7-18 mg/dL Creatinine 1.6 H 0.5-1.3 mg/dL Glomerular Filtration Rate Calc 46 >90 mL/min Random Glucose 127 H 70-105 mg/dL Total Calcium 8.6 8.5-10.1 mg/dL Magnesium Level 2.00 1.80-2.40 mg/dL Total Bilirubin 0.7 0.2-1.0 mg/dL Aspartate Amino Transf (AST/SGOT) 20 10-37 U/L Alanine Aminotransferase (ALT/SGPT) 17 12-78 U/L Alkaline Phosphatase 71 50-136 U/L Total Protein 6.1 6.0-8.3 g/dL Albumin 3.1 L 3.5-5.0 g/dL Coagulation Labs: Test 08/04/24 03:21 Range/Units Activated Partial Thromboplast Time 121.2 #*H 26.3-35.5 SEC DIAGNOSTICS / RADIOLOGY: REASON: CHF ORDERING PHYSICIAN: TONG CACERES NP PROCEDURE: CXR1VW - CHEST 1VW Exam Type: CHEST 1VW Clinical Information: CHF Comparison: None Findings: Pulmonary pattern is as before. No worrisome interval changes have taken place. Impression: Stable exam. DICTATED BY: DANUTA IVAN MD DATE: 08/04/24 0849 REASON: CHF exacerbation ORDERING PHYSICIAN: TONG CACERES NP PROCEDURE: CXR1VW - CHEST 1VW CHEST 1VW HISTORY: CHF COMPARISON: 07/26/2024 FINDINGS: A frontal projection of the chest was obtained. Mild bilateral pulmonary infiltrates are seen may be related to mild pulmonary vascular congestion with possible superimposed pneumonitis. The heart is enlarged. Degenerative changes are seen. No evidence of aortic calcification is seen. IMPRESSION: 1. Mild bilateral pulmonary infiltrates are seen may be related to mild pulmonary vascular congestion with possible superimposed pneumonitis. DICTATED BY: ELIU ROMANO MD DATE: 07/31/2435 REASON: chf exacerbation, new onset a fib dr mcintyre to read ORDERING PHYSICIAN: LANI GRACIA MD PROCEDURE: ECHO CMP - ECHO 2-D COMPLETE APPROVED REPORT EXAM: Two-dimensional and M-mode echocardiogram with Doppler and color Doppler. INDICATION ICD: Congestive heart failure, new onset of atrial fibrillation 2D Dimensions RVDd 5.5 cm LVEF(%) 17.1 (>50%) LVED Vol(simp.) 151.0 mL IVSd 1.1 (0.7-1.1cm) FS(%) 8 % LVES Vol(simp.) 124.0 mL LVDd 6.1 (3.8-5.6cm) LA (2D) 6.0 (1.6-4.0cm) LVEF(%, simp.) 18 % PWd 1.2 (0.7-1.1cm) Ao Root(2D) 3.8 (2.0-3.7cm) LA ESV INDEX (BP) 46.39 mL/m2 IVSs 1.3 cm LVOT diam 2.6 (1.8-2.4cm) LVDs 5.6 (2.5-4.0cm) PWs 1.3 cm M-Mode Dimensions EPSS 1.8 cm LA (MM) 6.1 (1.6-4.0cm) Ao Root(MM) 4.3 (2.0-3.7cm) Aortic Valve AoV Vmax 1.0 m/s Ao Peak GR 3.9 mmHg LVOT Vmax 0.5 m/s AoV VTI 0.1 m Ao Mean GR 2.6 mmHg LVOT VTI 0.07 m GABRIELLA (VMAX) 2.41 cm2 GABRIELLA (VTI) 2.4 cm2 Mitral Valve MV E Vmax 85.1 cm/s DECEL Time 169 ms P 1/2 T 33 ms MVA (PHT) 6.7 cm2 TDI E/E' Medial 43.9 E/E' Lateral 16.0 Medial E' Peak V 1.94 cm/s Lateral E' Peak V 5.32 cm/s Tricuspid Valve TR Vmax 3.1 m/s RAP (EST) 8 mmHg RVSP 48.1 mmHg TR Peak GR 40.1 mmHg Left Ventricle The left ventricle is dilated. Severe hypokinesis There is normal left ventricular wall thickness. Severely reduced left ventricular function <20%. The LV diastolic function was unable to be assessed due to atrial arrhythmia. Right Ventricle The right ventricle is severely dilated. Right ventricular systolic function is severely reduced. Atria The left atrium is moderately dilated. The right atrium is severely dilated. Aortic Valve Aortic valve is trileaflet and opens well. No aortic regurgitation is present. There is no aortic valvular stenosis. Mitral Valve The mitral valve is normal in structure. There is mild mitral valve regurgitation noted. There is no mitral valve stenosis. Tricuspid Valve The tricuspid valve is normal in structure. There is mild to moderate tricuspid valve regurgitation noted. May be underestimated due to low flow pressure gradient. Pulmonic Valve The pulmonary valve is normal in structure. There is no pulmonic valvular regurgitation. Great Vessels The aortic root is normal in size. IVC is not well visualized. Pericardium There is no pericardial effusion. Other Information Quality : Adequate Conclusion Severely reduced left ventricular function <20%. The LV diastolic function was unable to be assessed due to atrial arrhythmia. There is normal left ventricular wall thickness. The left ventricle is dilated. Severe hypokinesis The right ventricle is severely dilated. Right ventricular systolic function is severely reduced. The left atrium is moderately dilated. The right atrium is severely dilated. There is mild mitral valve regurgitation noted. There is mild to moderate tricuspid valve regurgitation noted. May be underestimated due to low flow pressure gradient. There is no pericardial effusion. DICTATED BY: LANI GRACIA MD DATE: 07/27/24 0952 REASON: renal failure ORDERING PHYSICIAN: JORGE NAVA MD PROCEDURE: RENAL - US RENAL SONOGRAM US RENAL SONOGRAM HISTORY: renal failure TECHNIQUE: US RENAL SONOGRAM. FINDINGS: RIGHT KIDNEY: The right kidney measures 10.3cm. No hydronephrosis or renal calculus seen. LEFT KIDNEY: The left kidney measures 9.3cm. There is no hydronephrosis. There is an approximate pole cyst measuring 5.5 cm. The visualized urinary bladder is within normal limits. IMPRESSION: No hydronephrosis is seen. DICTATED BY: EDUARDA MANUEL MD DATE: 07/27/24 4948 ASSESSMENT: Acute kidney injury Acute CHF exacerbation Acute hypoxic respiratory failure secondary to CHF exacerbation New onset paroxysmal atrial fibrillation with RVR Generalized anasarca Lower extremity edema History of alcohol use Mild coagulopathy Mild leukocytosis differential infectious versus reactive PLAN: Labs, diagnostic, radiologic exams reviewed and interpreted by myself and supervising physician. We have reviewed external records in detail Diuretics as per Cardiology Pending left heart catheterization scheduled for tomorrow. Require close monitoring of renal function and electrolytes Order CBC, CMP,and electrolytes in am Renal diabetic diet BiPAP as necessary, for respiratory distress Monitor blood pressure adjust medication doses as needed Avoid hypotensive episodes May use Dilaudid 0.5 mg IV every 6 hours as needed for severe pain Monitor blood sugars Strict intake, output, and daily weight should be monitored Please renally adjust medications Avoid nephrotoxic and nonsteroidal drugs Avoid contrast if possible Will continue to monitor renal function, anemia, electrolytes Treatment plan discussed with patient Questions were answered We have discussed with the other team physicians in detail about the care plan We will continue to monitor the patient closely ATTESTATION BY PHYSICIAN I have seen and examined the patient. I reviewed the documentation, medical decision making, and treatment plan as noted by the mid-level provider above. I agree with the findings and plan of care. MARIVEL TOWNSEND MD, [facility] August 04, 2024 13:21
--- NOTE | 2024-08-04 17:35 | PN ---
[facility] PROGRESS NOTE Date Patient Seen: August 04, 2024 Time of Visit: 17:35 Supervising Physician: Dr. Oreilly Consulting Physician: Hospitalist Outpatient Specialists: [ ] Inpatient Consults: Dr. Mitchell (cardio) PROBLEM LIST: Acute hypoxic respiratory failure, POA Congestive heart failure, chest x-ray showed bilateral pulmonary congestion, with BNP above 900 POA Acute kidney injury, POA improving Leukocytosis, POA resolved Atrial fibrillation with RVR, POA Hematuria Morbid obesity, BMI of 38.7 INTERVAL HISTORY: Patient evaluated at bedside, he is currently on 3 L nasal cannula, patient has been transitioned to a furosemide drip along with Milrinone per Cardiology recommendations, patient's BNP this morning is 866, creatinine is 3.2. Patient negative for COVID and flu. Cardiology continuing with the aggressive management of his diuresis for biventricular heart failure. Pulmonary Services will continue to follow the patient while he remains in supplemental O2. 07/29/2024: At the time of my evaluation, the patient was lying in bed. Staff nurse reports no acute events overnight. On the monitor, the patient remains on nasal cannula. She is mildly tachycardic and normotensive. Patient had a urinary output of approximately 1 L over the past 24 hours. Laboratory data was notable for a sodium of 134, chloride of 98, BUN of 59, creatinine of 2.9 and a GFR of 23. BNP of 633. Remaining laboratory data were not of concern. Blood cultures x2 are negative. The patient remains on diuretic therapy with furosemide, Milrinone and is on a heparin drip. No new complaint. 07/30/2024: At the time of my evaluation, the patient was lying in bed. He reports feeling much better today. On the monitor, the patient is on room air and is hemodynamically stable. Laboratory data today is notable for improving renal parameters with a BUN of 59, creatinine of 2.8 and a GFR of 24. The patient had a urinary output in the last 24 hours of 1999 with a net balance of -485. No new imaging for review. The patient remains on a furosemide, Milrinone and heparin drip. No other complaint. 07/31/2024: At the time of my evaluation, the patient is lying in bed. Per the staff nurse the patient is started with hematuric changes to his urine. On monitor, the patient remains on a nasal cannula and is otherwise hemodynamically stable. Laboratory data today is notable for a chloride of 99, CO2 of 34, BUN of 53, creatinine of 2.3, GFR of 30 and a BNP of 800. Microbiology data showing blood cultures x2 with no growth. Chest x-ray today showing pulmonary vascular congestion bilaterally with suspicion for obscured pneumonic infiltrates. Currently, the patient continues on furosemide, Milrinone and heparin drip. Otherwise, no other complaint. 08/01/2024: At the time of evaluation, the patient was sitting up to the bedside chair. The family members we will bedside visiting with the patient. The patient reports persistent hematuria. He remains on nasal cannula and on the monitor he is hemodynamically stable. Laboratory data obtained today was notable for improving renal parameters with a BUN of 40 creatinine of 2.0 and a GFR of 35. Blood cultures x2 final results showing no growth. No new imaging for review today. The patient was taken off the Milrinone drip and is currently only on furosemide drip. No other complaint. 08/02/2024: At the time of my evaluation, the patient him up to the bedside chair and was visiting with his family members. He is on room air vital signs are hemodynamically stable laboratory data obtained notable for an potassium of 3.4 and improved renal parameters today BUN 43, creatinine of 1.5 and a GFR of 50. Blood cultures x2 are negative. No new imaging of the chest tube the patient continues with hematuria. He continued on heparin drip, furosemide, metoprolol, Milrinone and furosemide. No other complaint. 08/03/2024: At the time of my evaluation, the patient sitting up to the bedside did chair and reports feeling much better today. The patient was taken off heparin drip as requested and hematuria significantly improved. The patient is currently on nasal cannula and is hemodynamically stable. Laboratory data was notable for improved renal parameters with a BUN of 39, creatinine of 1.5 and a GFR 50. There was no coagulopathy no new imaging for review today. The patient currently continues on a Milrinone drip and is on t.i.d. furosemide injections. No other complaint. 08/04/2024: At the time of my evaluation, the patient is sitting up to the bedside chair. The staff nurse reports no acute event overnight. On the monitor, he is hemodynamically stable. Laboratory data was notable for a chloride of 100, CO2 38, BUN 35, creatinine of 1.6 and a GFR of 46. On chest x-ray, no noticeable acute intrapulmonary changes. The patient is back on the heparin drip and there was no hematuria. No other complaint. REVIEW OF SYSTEMS: 12 point ROS reviewed with patient. Pertinent positives mentioned above. Othe rwise negative. PHYSICAL EXAM: GENERAL: alert, weak, awake oriented x 3 HEENT: EOMI, Sclera non icteric, moist mucosa NECK: Supple, no JVD, trachea midline LUNGS: Coarse bilateral lung sounds HEART: Regular rate and rhythm. Normal S1 and S2, without murmurs ABD: Large abdomen EXT: 4+ pitting edema NEURO: Alert and oriented to person, follows commands Vital Signs (last 8hr) Date Time Temp Pulse Resp B/P (MAP) Pulse Ox O2 Delivery O2 Flow Rate FiO2 08/04/24 16:36 97.9 91 16 115/71 95 Nasal Cannula 2.0 08/04/24 14:27 102 113/59 08/04/24 13:05 97.7 104 16 94/70 100 Nasal Cannula 2.0 LABS: Hematology Labs: Test 08/04/24 03:21 08/03/24 04:36 Range/Units White Blood Count 8.4 4.8-10.8 K/uL Red Blood Count 4.76 4.50-6.20 MIL/uL Hemoglobin 14.2 14.0-18.0 g/dL Hematocrit 46.5 42-54 % Mean Corpuscular Volume 97.7 79-99 fL Mean Corpuscular Hemoglobin 29.8 27.0-33.0 pg Mean Corpuscular Hemoglobin Concent 30.5 L 32.0-36.0 g/dL Red Cell Distribution Width 14.4 11.0-15.5 % Platelet Count 109 L 130-400 K/uL Mean Platelet Volume 10.2 7.5-10.5 fL Nucleated Red Blood Cells 0.0 0.0-0.19 % Immature Granulocyte % (Auto) 0.3 0-1 % Neutrophils (%) (Auto) 59.7 40.0-77.0 % Lymphocytes (%) (Auto) 27.6 21.0-51.0 % Monocytes (%) (Auto) 11.2 3.0-13.0 % Eosinophils (%) (Auto) 1.1 0.0-8.0 % Basophils (%) (Auto) 0.1 0.0-5.0 % Neutrophils # (Auto) 4.8 1.8-7.7 K/uL Lymphocytes # (Auto) 2.2 1.0-4.8 K/uL Monocytes # (Auto) 0.9 0.1-1.0 K/uL Eosinophils # (Auto) 0.09 0.00-0.70 K/uL Basophils # (Auto) 0.01 0.00-0.20 K/uL Absolute Immature Granulocyte (auto 0.02 0-1 K/uL Chemistry Labs: Test 08/04/24 03:21 08/03/24 04:36 Range/Units Sodium Level 140 136-145 mmol/L Potassium Level 4.0 3.5-5.1 mmol/L Chloride Level 100 L 101-111 mmol/L Carbon Dioxide Level 38 H 21-32 mmol/L Blood Urea Nitrogen 35 H 7-18 mg/dL Creatinine 1.6 H 0.5-1.3 mg/dL Glomerular Filtration Rate Calc 46 >90 mL/min Random Glucose 127 H 70-105 mg/dL Total Calcium 8.6 8.5-10.1 mg/dL Magnesium Level 2.00 1.80-2.40 mg/dL Total Bilirubin 0.7 0.2-1.0 mg/dL Aspartate Amino Transf (AST/SGOT) 20 10-37 U/L Alanine Aminotransferase (ALT/SGPT) 17 12-78 U/L Alkaline Phosphatase 71 50-136 U/L Total Protein 6.1 6.0-8.3 g/dL Albumin 3.1 L 3.5-5.0 g/dL Coagulation Labs: Test 08/04/24 12:25 Range/Units Activated Partial Thromboplast Time > 139.0 *H 26.3-35.5 [facility] / RADIOLOGY RESULTS: [ ] PLAN 07/29/2024: For now, going to continue current management for the patient. We will continue diuresing the patient on the furosemide on Milrinone, we will hip close eye on the renal function. The patient is to continue to limit his fluid intake and strict I and O. We are going to follow the recommendation of the Nephrology and Cardiology Specialists. We will repeat surveillance labs in the morning. We will monitor the patient's progress and response to management. We will continue to provide general supportive care, GI and DVT prophylaxis. Further orders per attending MD and hospital course. 07/30/2024: For now, going to continue current management as guided by the Cardiology team. The patient will remain on current management and we will adjust as necessary. We will continue to monitor strict I and O. We will monitor the patient's progress and response to management. We will continue to provide general supportive care, GI and DVT prophylaxis. Further orders per attending MD and hospital course. 07/31/2024: For now, we are going to continue current management for the patient. We are going to continue diuresis as ordered and we will monitor the recommendation of the Cardiology team. Going to monitor the hematuria and possibly consult the urologist considering that the patient is on a heparin drip. We will monitor the patient's progress and response to management. We will continue to provide general supportive care, GI and DVT prophylaxis. Further orders per attending MD and hospital course. 08/01/2024: For now, going to continue current management for the patient. I am going to request a repeat UA CS and we will also perform STD testing. We w ill continue diuresis with furosemide monitor the renal parameters and urinary output. We will repeat surveillance labs in the morning. We will monitor the patient's progress and response to management continue to provide general supportive care, GI and DVT prophylaxis. Further orders per attending MD and hospital course. 08/02/2024: For now, going to continue current management for the patient. Because of the hematuria, cardiology okayed the discontinuation of the heparin drip and to continue monitoring the patient. He will continue on a Milrinone drip and Lasix was changed to IV t.i.d.. The possible plan is for possible ca rdiac intervention in the upcoming week. I discussed the findings and plan for further management with the patient. We will monitor the patient's progress and response to management. We will continue to provide general supportive care, GI and DVT prophylaxis. Further orders per attending MD and hospital course. 08/03/2024: For now, we are going to continue current management for the patient. He will continue on Milrinone drip and t.i.d. furosemide injections. We will follow the Cardiology plan for possible heart catheterization in the upcoming days. We will monitor for any recurrent hematuric events. Patient will continue on cardiac management per the Cardiology team. We will repeat surveillance labs in morning. We will follow the recommendation of the [facility] and we will intervene if necessary. We will continue to provide general supportive care, GI and DVT prophylaxis. Further orders per attending MD and hospital course. 08/04/2024: For now, we are going to continue current management for the coby wallace. He will continue on the heparin drip was ordered and we will monitor for any recurring hematuria. The plan is for left heart catheterization possibly tomorrow. The patient is going to continue on furosemide and will monitor the renal parameters. I discussed the findings and plan for further management with the patient. We will monitor the patient's progress and response to management. We will continue to provide general supportive care, GI and DVT prophylaxis. Further orders per attending MD and hospital course. NEURO: Minimize central acting medications as possible. Maintain fall precautions, adequate lighting during the day PULMONARY: Supplemental 02 as needed. Maintain aspiration precautions at all times CARDIOVASCULAR: Follow hemodynamics. Vital signs per facility protocol GI & NUTRITION: Continue with nutritional support. Continue stool softeners and laxatives as needed. KIDNEYS & ELECTROLYTES: Strict monitoring of intake, output and overall fluid balance. Avoid nephrotoxic medications to the extent possible. Medications to be dosed according to renal function. Monitor electrolytes and replace as needed ENDOCRINE: Maintain blood glucose between 100-180 at all times. Hypoglycemia protocol in place INFECTIOUS DISEASE: Trend temperature, WBC and procalcitonin level Follow cultures, deescalate antibiotics as soon as possible. Panculture if new onset fever ONCOLOGY/HEMATOLOGY/COAGULATION: Monitor for s/s of bleeding Monitor hemoglobin, coagulation studies as needed SKIN: Pressure ulcer prevention per facility protocol Specialty mattress ORTHO/REHAB: Continue PT/OT Prophylaxis: Continue GI and DVT prophylaxis Code Status: Full Resuscitation Disposition: TBD Other: The patient was seen and case was discussed with supervising MD. Plan was discussed and agreed upon. I personally spent 40 minutes of critical care time in treatment of this patient. This includes patient management, time at bedside, time reviewing tests, labs, appropriate images and studies, documentation, and patient care coordination. This time excludes separately billable procedures. TONG CACERES NP August 04, 2024 17:35
--- NOTE | 2024-08-04 18:09 | PN ---
CARDIOLOGY Reason for consult: CHF HPI/story at presentation: This is a pleasant 69-year-old male with past medical history as per present with complaints of shortness of breath with worsening edema and abdominal bloating and distention. He was diagnosed CHF exacerbation, cardiology scheduled for evaluation management. Patient was also found to be atrial fibrillation with rapid ventricular sponsor presentation to the hospital. Diuresis was initiated. Subjective: 07/26/2024 shortness of breath 07/29/2024 no complaints 07/30/2024 no complaints 07/31/2024 no complaints Past medical history: See below Allergies, Meds See chart Review of systems Review of Systems Constitutional: Negative for chills and fever. HENT: Negative for ear discharge and ear pain. Eyes: Negative for photophobia and discharge. Respiratory: Negative for cough, sputum production and stridor. Cardiovascular: Negative for chest pain and palpitations. Gastrointestinal: Negative for diarrhea and vomiting. Genitourinary: Negative for frequency. Musculoskeletal: Negative for myalgias. Skin: Negative for rash. Neurological: Negative for focal weakness and seizures. Endo/Heme/Allergies: Negative for polydipsia. Psychiatric/Behavioral: Negative for hallucinations. Vitals see chart PHYSICAL EXAMINATION GENERAL: The patient is alert and oriented*3 HEENT: Nonicteric sclerae, non traumatic HEART: Regular rate and rhythm with no murmurs LUNGS: mild crackles 07/26/2024 ABDOMEN: No acute issues, non tender GENITAL, RECTAL: deferred SKIN: No rash NEUROLOGIC: NFND EXTREMITIES: bilareral edema 07/26/2024 ASSESSMENT ATRIAL FIBRILLATION Presentation Associated RVR at presentation CONGESTIVE HEART FAILURE With abdominal distention lower extremity manage at presentation ACUTE KIDNEY INJURY At presentation Condition nephropathy versus prerenal OBESITY CORE MEASURES OTHER MEDICAL PROBLEMS Reviewed PLAN 07/26/2024 agree with rate control for atrial fibrillation, will likely benefit from further anticoagulation as well. Possible liver etiology of elevated INR. Follow-up with renal function panel including albumin ordered. Agree with diuresis for now. Echocardiogram has been ordered and is pending as well. On IV twice daily of Lasix and metoprolol at this time. Further recommendations after echo. Seen and examined 07/26/2024 around 1900 07/27/2024 Shortness of breath is stable. Labs reviewed. Renal function is still elevated between 2.6 and 3. On heparin for anticoagulation. Echocardiogram with EF less than 20%, arterial duplex was normal. Ultrasound of the lower extremities and venous duplex were within normal limits. Renal ultrasound was negative, bladder scan with less than 100 cc. Difficult situation in the setting of significant RV failure associated with edema and ascites in the setting of severe cardiomyopathy and A-fib RVR. Suspected nonischemic in setting of A-fib although, CAD has not been ruled out yet. Unable to proceed with catheterization given acute kidney injury. milrinone was started to better help with renal perfusion. Caution in the setting of underlying renal dysfunction and therefore starting a low dose first. No dobutamine as patient is on beta eugene for rate control . May transfer to the heart failure center if renal function continues to worsen or if rate control is a challenge. Critically ill, prognosis is guarded. Spoke with multiple family members during the course of the day seen and examined multiple times, 07/27/2024. 07/28/2024 Overnight, patient was started on milrinone to help with urine output but there is no significant response to bed and this was increased from 0.125- 0.25. However, even with elevated doses, no significant output was present after a few hours. Given underlying renal failure, milrinone was not increased any further. Also, patient was having issues with tachycardia with increased dose of milrinone. Metoprolol was increased to help with rate control. Dobutamine is not being considered because of metoprolol use. Diuresis was ineffective and therefore, patient was started on a Lasix drip at 10 to try to help with diuresis. This morning, urine output has improved about 200 cc. Low- dose milrinone has been continued, urine is dark, possibly ATN. Will watch for worsening renal function although, this is likely in the current situation. Will need to ensure there is quite adequate urine output. Discussed transfer to advanced heart failure management programs and at this time, plan is to wait. Seen and examined 07/28/2024 at around 1130 07/29/2024 Renal function somewhat better. Output has improved, continue current regimen. Breathing better rates are acceptable. May need to consider increasing beta-eugene. On 100 twice daily metoprolol succinate at this time. Seen and examined 07/29/2024 at around 1600 07/30/2024 Clinically, continues to improve, no active cardiac complaints at this time. Shortness of breath is better, abdominal bloating has improved. Induration edema is persistent but better as well. Continue current medical therapy. Will likely stop milrinone tomorrow to see how he does just with diuresis. Renal function continues to improve. Seen and examined 07/30/2024 at around 1600. 07/31/2024 stop milrinone and reevaluate. Good urine output. Remains on IV Lasix and heparin at this time. Appreciate nephrology, primary team. Clinically, doing well, ambulating encouraged.rates ok Seen and examined 07/31/2024 at around 1800. 08/01/2024 Creatinine continues to improve, currently at 2. Has done well without the milrinone, will continue to hold. Remains on Lasix stent and on heparin. Plans are made for eventual cardiac catheterization next week. Rates are good. Has some hematuria and this will need to be looked into. Defer to primary. Seen and examined 08/01/2024 at around 1800. 08/02/2024 urine color is better off heparin. however, patient remains at risk of thrombosis while off heparin. If hematuria resolves, would like to restart heparin. Plan for cardiac cath, likely on sunday after hematuria issues resolve. Seen and examined 08/03/2024 at around 1500 08/04/2024 Creatinine is stable close to 1.6, keep n.p.o. after midnight for possible catheterization tomorrow. Clinically, improved, hematuria has resolved, heparin has been restarted. This benefits of cardiac catheterization discussed. Given recent hematuria, EF of 83, will likely only consider diagnostic angiography tomorrow. ATTESTATION I was involved substantially in the care of this patient Number and complexity of problems addressed: 1 acute illness that is a threat to life or bodily function Amount and or complexity of data Review of prior external note(s) from each unique source: 2+ Ordering of each unique test : 0 Review of the result(s) of each unique test: 2+ Assessment requiring an independent historian(s): No Independent interpretation of test performed by another MD/QHCP/appropriate source (not separately reported) : No Discussion of management or test interpretation with external MD/QHCP/appropriate source (not separately reported) : IM Risk status (cardiac, billing related): high Vitals/Labs Vital Signs Date Time Temp Pulse Resp B/P (MAP) Pulse Ox O2 Delivery O2 Flow Rate FiO2 08/04/24 16:36 97.9 91 16 115/71 95 Nasal Cannula 2.0 08/04/24 09:20 21 Laboratory Tests 08/04/24 03:21 Medications Current Medications Furosemide 40 mg ONCE ONCE IV Last administered on 07/26/24at 15:44; Start 07/26/24 at 15:30; Stop 07/26/24 at 15:31; Status DC Diltiazem HCl 20 mg ONCE ONCE IVP Last administered on 07/26/24at 15:44; Start 07/26/24 at 16:00; Stop 07/26/24 at 16:01; Status DC Diltiazem HCl 30 mg ONCE ONCE PO Last administered on 07/26/24at 16:15; Start 07/26/24 at 16:30; Stop 07/26/24 at 16:31; Status DC Acetaminophen 500 mg Q6H PRN PO Last administered on 07/30/24at 10:06; Start 07/26/24 at 18:00; Stop 08/25/24 at 17:59 Thiamine HCl 100 mg DAILY PO Last administered on 07/29/24at 08:33; Start 07/27/24 at 09:00; Stop 08/01/24 at 08:49; Status DC Folic Acid 1 mg DAILY PO Last administered on 08/04/24at 09:19; Start 07/27/24 at 09:00; Stop 08/26/24 at 08:59 Metoprolol Tartrate 25 mg BID PO Last administered on 07/27/24at 08:53; Start 07/26/24 at 21:00; Stop 07/27/24 at 10:29; Status DC Potassium Chloride 100 ml @ 100 mls/hr AD PRN IV; Start 07/26/24 at 18:00; Stop 08/25/24 at 17:59 Potassium Chloride 20 meq AD PRN PO; Start 07/26/24 at 18:00; Stop 08/25/24 at 17:59 Potassium Chloride 20 meq AD PRN PO Last administered on 08/02/24at 21:18; Start 07/26/24 at 18:00; Stop 08/25/24 at 17:59 Magnesium Sulfate 50 ml @ 0 mls/hr PROTOCOL PRN IV; Start 07/26/24 at 18:00; Stop 08/25/24 at 17:59 Furosemide 40 mg Q12H IV Last administered on 07/26/24at 23:09; Start 07/26/24 at 23:00; Stop 07/27/24 at 06:31; Status DC Heparin Sodium (Porcine) 5,000 unit Q12H SQ Last administered on 07/26/24at 21:07; Start 07/26/24 at 21:00; Stop 07/27/24 at 00:12; Status DC Heparin Sodium/ Dextrose 250 ml @ 0 mls/hr Q6H IV Last administered on 08/02/24at 10:25; Start 07/27/24 at 01:00; Stop 08/02/24 at 14:47; Status DC Bumetanide 1 mg Q12H IVP Last administered on 07/27/24at 20:19; Start 07/27/24 at 09:00; Stop 07/28/24 at 02:44; Status DC Pantoprazole Sodium 40 mg DAILY IVP Last administered on 08/04/24at 09:20; Start 07/28/24 at 09:00; Stop 08/27/24 at 08:59 Metoprolol Succinate 50 mg BID PO Last administered on 07/27/24at 20:19; Start 07/27/24 at 10:30; Stop 07/27/24 at 22:52; Status DC Milrinone Lactate/ Dextrose 100 ml @ 0 mls/hr PROTOCOL IV; Start 07/27/24 at 18:00; Stop 07/27/24 at 18:05; Status DC Milrinone Lactate/ Dextrose 100 ml @ 0 mls/hr PROTOCOL IV Last administered on 07/30/24at 06:23; Start 07/27/24 at 18:30; Stop 08/26/24 at 18:29 Metoprolol Succinate 50 mg ONCE ONCE PO Last administered on 07/27/24at 23:43; Start 07/27/24 at 23:00; Stop 07/27/24 at 23:01; Status DC Metoprolol Succinate 100 mg BID PO Last administered on 08/04/24at 09:19; Start 07/28/24 at 09:00; Stop 08/27/24 at 08:59 Furosemide 100 mg/ Sodium Chloride 100 ml @ 0 mls/hr PROTOCOL IV Last administered on 08/02/24at 12:27; Start 07/28/24 at 03:00; Stop 08/02/24 at 14:47; Status DC Bacitracin Right and left lower leg DAILY TP Last administered on 08/04/24at 09:20; Start 07/29/24 at 09:00; Stop 08/28/24 at 08:59 Thiamine HCl 300 mg DAILY08 IVP Last administered on 08/01/24at 08:27; Start 07/30/24 at 08:00; Stop 08/01/24 at 08:01; Status DC Wound Care/ Dressing Products 1 gm BID TP Last administered on 07/31/24at 22:25; Start 07/31/24 at 21:00; Stop 08/01/24 at 08:19; Status DC Wound Care/ Dressing Products apply to buttocks BID TP Last administered on 08/04/24at 09:20; Start 08/01/24 at 09:00; Stop 08/30/24 at 20:59 Furosemide 40 mg TID IV Last administered on 08/04/24at 14:30; Start 08/02/24 at 21:00; Stop 09/01/24 at 20:59 Clotrimazole 1 APPL TP DAILY DAILY TP Last administered on 08/04/24at 09:20; Start 08/03/24 at 09:00; Stop 09/02/24 at 08:59 Heparin Sodium/ Dextrose 250 ml @ 0 mls/hr Q6H IV Last administered on 08/04/24at 14:36; Start 08/03/24 at 20:30; Stop 09/02/24 at 20:29 LANI GRACIA MD August 04, 2024 18:09
--- NOTE | 2024-08-04 22:40 | PN ---
[facility] PROGRESS NOTE Date of Service: August 04, 2024 Time of Service: 22:38 SUBJECTIVE: [69 old male admitted due to shortness of breaths, patient was at kidney failure on admission suspected due to acute tubular necrosis. Patient also was noted with cardiomyopathy, EF is less than 20%, patient is currently on oxygen supplementation. Today he continues with tachycardia, BB increased yesterday, now on Metoprolol XL 100 mg PO BID. He is still needs oxygen supplementation, on and off on 2L via [place]. Continue with strict I&O. 07/31/24 patient was seen and examined. Case discussed with RN. He has presented with ischemic cardiomyopathy requiring aggressive diuresis. He was on diuretics are being carefully managed by Nephrology and Cardiology monitoring his renal function. Clinically he says he was getting better 08/01/24 patient was seen and examined. Case discussed with the RN. He was co ntinuing with the aggressive diuresis and electrolytes and labs are being monitored. He was having bloody discharge from the end of the penis as if there was some trauma. We will continue to monitor H and H and if this is a consistent problem urology may need to evaluate him 08/02/24 patient was seen and examined. Case discussed with the RN and by the bedside. He is doing better today. Heparin drip has been turned off and the bloody discharge from the end of the pannus is improving. Continue to mo nitor that. Hemoglobin is stable. Cardiac catheterization has been planned for Sunday or Sunday08/03/24 patient was seen and examined. Case discussed with the RN and . He was more alert sitting up in the chair. He also worked with PT and walked a little bit. Hematuria seems to be improving with light her collar we will continue to monitor that. Hemoglobin continues to be stable cardiac catheterization is planned 08/04/24 patient was seen and examined. Case discussed with the RN and ./hematuria continues to lighten Hemoglobin continues to be stable cardiac catheterization is planned REVIEW OF SYSTEMS CONSTITUTIONAL: Denies fevers, chills, or night sweats. Denied any changes in weight NEUROLOGICAL: Denies headache, amaurosis fugax, motor weakness, sensory deficit, vertigo/spinning sensation, gait abnormalities, or tremors. ENT: No hearing loss, otalgia, otorrhea, rhinitis, rhinorrhea, hoarseness, or s ore throat. CARDIOVASCULAR: Denies any exertional angina, dyspnea on exertion, orthopnea, paroxysmal nocturnal dyspnea, palpitations, life-threatening arrhythmias, claudication. PULMONARY: Positive for shortness of breath, cough. Denied any sputum production GASTROINTESTINAL: Denies any type of dysphagia to either liquids or solids. Denies nausea, vomiting, pyrosis, early satiety, abdominal pain, diarrhea, constipation, or changes in stool consistency or caliber. Denies coffee-ground emesis, hematemesis, hematochezia, or melanotic stools. GENITOURINARY: Positive for decreased urination. Denied any hematuria, dysuria ENDOCRINOLOGIC: Denies polyuria, polydipsia, polyphagia or heat/cold intolerances. HEMATOLOGIC: Denies thrombophilia/previous clots, or coagulopathy/bleeding disorders. ONCOLOGIC: Denies personal history of malignancy. DERMATOLOGIC: Denies rashes or pruritus. PSYCHIATRIC: Denies any suicidal or homicidal ideation. Denies hallucinations. Musculoskeletal: Positive for swelling in the lower extremity PHYSICAL EXAM GENERAL APPEARANCE: The patient is awake, alert, and oriented, in no acute cardiopulmonary distress. NEUROLOGICAL: Cranial nerves II-XII grossly intact. Motor is 5/5 in bilateral upper and lower extremities proximal to distal. No sensory deficits. HEENT: Face is symmetric. Pupils are equal and reactive. Extraocular movements are intact. NECK: Supple. No JVD. No thyromegaly. No submental, submandibular, pre- /postauricular, occipital or supraclavicular lymphadenopathy. CHEST: Normal chest expansion. No Telemetry. LUNGS: Positive for crackles in the right side CARDIOVASCULAR: Regular. S1 and S2 normal. No appreciable rubs, murmurs or gallops. ABDOMEN: Abdomen is distended. He has soft tissue edema in the abdominal wall. Bowel sounds are active. : Deferred. No Garcia. EXTREMITIES:3+ pitting edema in the lower extremity bilaterally he also has venous stasis changes.. No clubbing. Good capillary refill. SKIN: No skin breakdown. Vital Signs (last 8hr) Date Time Temp Pulse Resp B/P (MAP) Pulse Ox O2 Delivery O2 Flow Rate FiO2 08/04/24 19:36 83 20 N/A Room Air 0.0 21 08/04/24 19:35 97.9 94 20 107/71 97 Room Air 08/04/24 16:36 97.9 91 16 115/71 95 Nasal Cannula 2.0 LABS: Laboratory: Test 08/04/24 18:20 08/04/24 03:21 08/03/24 04:36 Range/Units Activated Partial Thromboplast Time 134.0 *H 26.3-35.5 SEC White Blood Count 8.4 4.8-10.8 K/uL Red Blood Count 4.76 4.50-6.20 MIL/uL Hemoglobin 14.2 14.0-18.0 g/dL Hematocrit 46.5 42-54 % Mean Corpuscular Volume 97.7 79-99 fL Mean Corpuscular Hemoglobin 29.8 27.0-33.0 pg Mean Corpuscular Hemoglobin Concent 30.5 L 32.0-36.0 g/dL Red Cell Distribution Width 14.4 11.0-15.5 % Platelet Count 109 L 130-400 K/uL Mean Platelet Volume 10.2 7.5-10.5 fL Nucleated Red Blood Cells 0.0 0.0-0.19 % Sodium Level 140 136-145 mmol/L Potassium Level 4.0 3.5-5.1 mmol/L Chloride Level 100 L 101-111 mmol/L Carbon Dioxide Level 38 H 21-32 mmol/L Blood Urea Nitrogen 35 H 7-18 mg/dL Creatinine 1.6 H 0.5-1.3 mg/dL Glomerular Filtration Rate Calc 46 >90 mL/min Random Glucose 127 H 70-105 mg/dL Total Calcium 8.6 8.5-10.1 mg/dL Magnesium Level 2.00 1.80-2.40 mg/dL Immature Granulocyte % (Auto) 0.3 0-1 % Neutrophils (%) (Auto) 59.7 40.0-77.0 % Lymphocytes (%) (Auto) 27.6 21.0-51.0 % Monocytes (%) (Auto) 11.2 3.0-13.0 % Eosinophils (%) (Auto) 1.1 0.0-8.0 % Basophils (%) (Auto) 0.1 0.0-5.0 % Neutrophils # (Auto) 4.8 1.8-7.7 K/uL Lymphocytes # (Auto) 2.2 1.0-4.8 K/uL Monocytes # (Auto) 0.9 0.1-1.0 K/uL Eosinophils # (Auto) 0.09 0.00-0.70 K/uL Basophils # (Auto) 0.01 0.00-0.20 K/uL Absolute Immature Granulocyte (auto 0.02 0-1 K/uL Total Bilirubin 0.7 0.2-1.0 mg/dL Aspartate Amino Transf (AST/SGOT) 20 10-37 U/L Alanine Aminotransferase (ALT/SGPT) 17 12-78 U/L Alkaline Phosphatase 71 50-136 U/L Total Protein 6.1 6.0-8.3 g/dL Albumin 3.1 L 3.5-5.0 g/dL Current Medications Medications (Trade) Dose Ordered Sig/Melinda Route PRN Reason Start Time Stop Time Status Last Admin Dose Admin Acetaminophen (TYLenol 500MG TAB) 500 mg Q6H PRN PO MILD PAIN (1-3) 07/26/24 18:00 08/25/24 17:59 07/30/24 10:06 500 MG Bacitracin (Bacitracin 28.4gm) Right and left lower leg DAILY TP 07/29/24 09:00 08/28/24 08:59 08/04/24 09:20 1 GM Bumetanide (Bumex 1mg Vial) 1 mg Q12H IVP 07/27/24 09:00 07/28/24 02:44 DC 07/27/24 20:19 1 MG Clotrimazole (Lotrisone Cream) 1 APPL TP DAILY DAILY TP 08/03/24 09:00 09/02/24 08:59 08/04/24 09:20 1 GM Folic Acid (FOLic ACID 1 MG TABLET) 1 mg DAILY PO 07/27/24 09:00 08/26/24 08:59 08/04/24 09:19 1 MG Furosemide (LASix 40MG VIAL) 40 mg Q12H IV 07/26/24 23:00 07/27/24 06:31 DC 07/26/24 23:09 40 MG Furosemide (LASix 40MG VIAL) 40 mg TID IV 08/02/24 21:00 09/01/24 20:59 08/04/24 21:34 40 MG Furosemide 100 mg/ Sodium Chloride 100 ml @ 0 mls/hr PROTOCOL IV 07/28/24 03:00 08/02/24 14:47 DC 08/02/24 12:27 10 MLS/HR Heparin Sodium (Porcine) (HEParin 5,000 UNIT VIAL) 5,000 unit Q12H SQ 07/26/24 21:00 07/27/24 00:12 DC 07/26/24 21:07 5,000 UNIT Heparin Sodium/ Dextrose 250 ml @ 0 mls/hr Q6H IV 07/27/24 01:00 08/02/24 14:47 DC 08/02/24 10:25 10.43 MLS/HR Heparin Sodium/ Dextrose 250 ml @ 0 mls/hr Q6H IV 08/03/24 20:30 09/02/24 20:29 08/04/24 21:44 16.4 MLS/HR Magnesium Sulfate 50 ml @ 0 mls/hr PROTOCOL PRN IV hypomagnesemia 07/26/24 18:00 08/25/24 17:59 Metoprolol Succinate (TopROL XL) 50 mg BID PO 07/27/24 10:30 07/27/24 22:52 DC 07/27/24 20:19 50 MG Metoprolol Succinate (TopROL XL) 100 mg BID PO 07/28/24 09:00 08/27/24 08:59 08/04/24 21:34 100 MG Metoprolol Tartrate (loprESSOR) 25 mg BID PO 07/26/24 21:00 07/27/24 10:29 DC 07/27/24 08:53 25 MG Milrinone Lactate/ Dextrose 100 ml @ 0 mls/hr PROTOCOL IV 07/27/24 18:00 07/27/24 18:05 DC Milrinone Lactate/ Dextrose 100 ml @ 0 mls/hr PROTOCOL IV 07/27/24 18:30 08/26/24 18:29 07/30/24 06:23 2.58 MLS/HR Pantoprazole Sodium (PROTonix 40MG INJ) 40 mg DAILY IVP 07/28/24 09:00 08/27/24 08:59 08/04/24 09:20 40 MG Potassium Chloride 100 ml @ 100 mls/hr AD PRN IV POTASSIUM PROTOCOL 07/26/24 18:00 08/25/24 17:59 Potassium Chloride (K-Dur/Klor-Con 20meq) 20 meq AD PRN PO POTASSIUM PROTOCOL 07/26/24 18:00 08/25/24 17:59 08/02/24 21:18 20 MEQ Potassium Chloride (KCl 10% Elixir 20meq/15ml) 20 meq AD PRN PO POTASSIUM PROTOCOL 07/26/24 18:00 08/25/24 17:59 Thiamine HCl (Vitamin B-1) 100 mg DAILY PO 07/27/24 09:00 08/01/24 08:49 DC 07/29/24 08:33 100 MG Thiamine HCl (Vitamin B-1) 300 mg DAILY08 IVP 07/30/24 08:00 08/01/24 08:01 DC 08/01/24 08:27 300 MG Wound Care/ Dressing Products (Venelex Ointment) 1 gm BID TP 07/31/24 21:00 08/01/24 08:19 DC 07/31/24 22:25 1 GM Wound Care/ Dressing Products (Venelex Ointment) apply to buttocks BID TP 08/01/24 09:00 08/30/24 20:59 08/04/24 21:45 1 GM DIAGNOSTICS / RADIOLOGY: [ ] ASSESSMENT: Acute CHF exacerbation POA Acute hypoxic respiratory failure secondary to CHF exacerbation New onset paroxysmal atrial fibrillation with RVR Generalized anasarca Acute kidney injury, 2/2 ATN, POA Lower extremity edema History of alcohol use Mild coagulopathy Mild leukocytosis differential infectious versus reactive PLAN: - patient to be admitted to [facility] -in reference to CHF exacerbation; -CONTINUE WITH MILRINONE GTT CONTINUE WITH OXYGEN SUPPLEMENTATION TO KEEP O2 SAT GREATER THAN 92% PATIENT WILL BE ON STRICT I&O AND DAILY WEIGHTS PATIENT WILL BE ON HEPARIN DRIP PER PROTOCOL WE WILL CONTINUE TO MONITOR KIDNEY FUNCTION APPRECIATE REC' S FROM NEPHRO AND PULMO, WE WILL FOLLOW THEIR RECOMMENDATIONS CONTINUE WITH GI AND DVT PROPHYLAXIS REPEAT LABS TOMORROW CASE WAS SEEN AND EXAMINED WITH DR. ROTHMAN, ABOVE PLAN WAS FORMULATED YAZMIN ROTHMAN MD August 04, 2024 22:40
[2024-08-05] VITALS (15 sets, daily range): BP systolic 94–129; BP diastolic 63–81; PULSE 83–103; RESP 18–20; TEMP 97.7–98.2; O2SAT 96–97
[2024-08-05] MEDS ORDERED: 0.9% NACL 500ML IV.SOLN 500 ML IV SCH (04:30)
[2024-08-05 06:01] LABS: HEMATOCRIT 45.2 % (42-54); MEAN CORPUSCULAR HEMOGLOBIN 29.8 pg (27.0-33.0); MEAN CORPUSCULAR VOLUME 96.2 fL (79-99); RED BLOOD CELL COUNT(AUTO) 4.7 MIL/uL (4.50-6.20); RED CELL DISTRIBUTION WIDTH 14.4 % (11.0-15.5); WHITE BLOOD COUNT (AUTO) 7.9 K/uL (4.8-10.8)
[2024-08-05 06:12] LABS: INR 1.24 (0.85-1.15); PROTHROMBIN TIME 12.9 SEC (9.6-11.6)
[2024-08-05 06:21] LABS: ALBUMIN 3.1 g/dL (3.5-5.0); BILIRUBIN,TOTAL 0.8 mg/dL (0.2-1.0); CREATININE 1.6 mg/dL (0.5-1.3); PHOSPHORUS 3.1 mg/dL (2.5-4.9); POTASSIUM 3.8 mmol/L (3.5-5.1); TOTAL PROTEIN, SERUM 6.1 g/dL (6.0-8.3)
[2024-08-05 06:42] LABS: PARTIAL THROMBOPLASTIN TIME 122.1 SEC (26.3-35.5)
[2024-08-05] MEDS: PoTASSium chloRIDE 20MEQ/100ML 100 ML IV PRN (09:00)
--- NOTE | 2024-08-05 10:00 | PN ---
[facility] PROGRESS NOTE Date Patient Seen: August 05, 2024 Time of Visit: 10:00 Supervising Physician:Iggy Oreilly MD Consulting Physician: Hospitalist Outpatient Specialists: [ ] Inpatient Consults: Dr. 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 He is currently on room air and in NAD. He denies any chest pain. He however does report sob with some exertion. He is pending [facility] at noon today. REVIEW OF SYSTEMS: 12 point ROS reviewed with patient. Pertinent positives mentioned above. Otherwise negative. PHYSICAL EXAM: GENERAL: alert, weak, awake oriented x 3 HEENT: EOMI, Sclera non icteric, moist mucosa NECK: Supple, no JVD, trachea midline LUNGS: Coarse bilateral lung sounds HEART: Regular rate and rhythm. Normal S1 and S2, without murmurs ABD: Large abdomen EXT: 4+ pitting edema NEURO: Alert and oriented to person, follows commands Vital Signs (last 8hr) Date Time Temp Pulse Resp B/P (MAP) Pulse Ox O2 Delivery O2 Flow Rate FiO2 08/05/24 08:44 97.9 88 18 118/81 96 Room Air 08/05/24 03:40 97.7 96 20 111/77 96 Room Air LABS: Hematology Labs: Test 08/05/24 05:46 Range/Units White Blood Count 7.9 4.8-10.8 K/uL Red Blood Count 4.70 4.50-6.20 MIL/uL Hemoglobin 14.0 14.0-18.0 g/dL Hematocrit 45.2 42-54 % Mean Corpuscular Volume 96.2 79-99 fL Mean Corpuscular Hemoglobin 29.8 27.0-33.0 pg Mean Corpuscular Hemoglobin Concent 31.0 L 32.0-36.0 g/dL Red Cell Distribution Width 14.4 11.0-15.5 % Platelet Count 105 L 130-400 K/uL Mean Platelet Volume 10.0 7.5-10.5 fL Nucleated Red Blood Cells 0.0 0.0-0.19 % Chemistry Labs: Test 08/05/24 05:46 Range/Units Sodium Level 141 136-145 mmol/L Potassium Level 3.8 3.5-5.1 mmol/L Chloride Level 99 L 101-111 mmol/L Carbon Dioxide Level 38 H 21-32 mmol/L Blood Urea Nitrogen 31 H 7-18 mg/dL Creatinine 1.6 H 0.5-1.3 mg/dL Glomerular Filtration Rate Calc 46 >90 mL/min Random Glucose 124 H 70-105 mg/dL Total Calcium 8.8 8.5-10.1 mg/dL Phosphorus Level 3.1 2.5-4.9 mg/dL Magnesium Level 2.00 1.80-2.40 mg/dL Total Bilirubin 0.8 0.2-1.0 mg/dL Aspartate Amino Transf (AST/SGOT) 16 10-37 U/L Alanine Aminotransferase (ALT/SGPT) 14 12-78 U/L Alkaline Phosphatase 67 50-136 U/L Total Protein 6.1 6.0-8.3 g/dL Albumin 3.1 L 3.5-5.0 g/dL Coagulation Labs: Test 08/05/24 05:46 Range/Units Prothrombin Time 12.9 H 9.6-11.6 SEC Prothromb Time International Ratio 1.24 H 0.85-1.15 Activated Partial Thromboplast Time 122.1 *H 26.3-35.5 SEC DIAGNOSTICS / RADIOLOGY RESULTS: [ ] PLAN [facility] scheduled for noon today per cardiology chest XR in am will need 6 min wal prior to DC He will require pulmonology follow up on DC for PFT's and sleep study. NEURO: Minimize central acting medications as possible. Maintain fall precautions, adequate lighting during the day PULMONARY: Supplemental 02 as needed. Maintain aspiration precautions at all times CARDIOVASCULAR: Follow hemodynamics. Vital signs per facility protocol GI & NUTRITION: Continue with nutritional support. Continue stool softeners and laxatives as needed. KIDNEYS & ELECTROLYTES: Strict monitoring of intake, output and overall fluid balance. Avoid nephrotoxic medications to the extent possible. Medications to be dosed according to renal function. Monitor electrolytes and replace as needed ENDOCRINE: Maintain blood glucose between 100-180 at all times. Hypoglycemia protocol in place INFECTIOUS DISEASE: Trend temperature, WBC and procalcitonin level Follow cultures, deescalate antibiotics as soon as possible. Panculture if new onset fever ONCOLOGY/HEMATOLOGY/COAGULATION: Monitor for s/s of bleeding Monitor hemoglobin, coagulation studies as needed SKIN: Pressure ulcer prevention per facility protocol Specialty mattress ORTHO/REHAB: Continue PT/OT Prophylaxis: Continue GI and DVT prophylaxis Code Status: Full Resuscitation Disposition: TBD Other: The patient was seen and case was discussed with supervising MD. Plan was discussed and agreed upon. I personally spent 40 minutes of critical care time in treatment of this patient. This includes patient management, time at bedside, time reviewing tests, labs, appropriate images and studies, documentation, and patient care coordination. This time excludes separately billable procedures. ATTESTATION BY PHYSICIAN I attest that I reviewed and discussed the case with the Physician [employer]yst [employer] Operator as well as agree with the Physician [employer]yst [employer] Operator's findings, plans of care, and documentation above. Iggy Mart MD, NELLY J ARNP August 05, 2024 10:00
[2024-08-05] MEDS ORDERED: LIDOCAINE HCL 400MG/20ML VIAL ONE (11:06)
[2024-08-05] MEDS ORDERED: IOHEXOL 350 MG/ML 100ML INFUS..BTL IV ONE (11:07)
[2024-08-05] MEDS ORDERED: HEParin 10,000 UNIT/10ML (1,000 UNIT/ML) VIAL ONE (11:07)
[2024-08-05] MEDS ORDERED: niCARDIpine 25MG INJ IV ONE (11:07)
[2024-08-05] MEDS ORDERED: HEParin-NS 1,000 UNIT/500 ML 1,000 ML IV ONE (11:07)
[2024-08-05] MEDS ORDERED: NITROGLYCERIN 50MG VIAL ONE (11:08)
[2024-08-05] MEDS ORDERED: MIDAZOLAM HCL 1 MG/ML 2ML VIAL ONE (11:45)
[2024-08-05] MEDS ORDERED: FENTanyl CITRate PF 50 MCG/1 ML 2ML VIAL ONE (11:45)
--- NOTE | 2024-08-05 12:37 | OP ---
Operative Note: PROCEDURES PERFORMED: 1. Left heart catheterization. 2. Selective coronary angiography. 3. Moderate sedation INDICATION FOR PROCEDURE: DESCRIPTION OF PROCEDURE: The patient was brought to the cardiac catheterizati on lab in fasting state, informed consent was obtained and the patient was prepped and draped in sterile fashion. Mild sedation was administered via versed and fentanyl. I was present during administration of sedation. The right wrist/radial artery region was then anesthetized via 2 mL of 2% lidocaine and the right radial artery was accessed via double wall puncture technique and a 6-Montserratian Radial arterial sheath was advanced over a guidewire using modified Seldinger technique.Next, a 5-Montserratian RBL 3.5 and FR4 catheter were advanced over the guidewire to the level of the ascending aorta. The catheter(s) was used to selectively engage the left main coronary artery and RCA. The right coronary artery and LM and its branches were then imaged in multiple planes and views. At the conclusion of the procedure, the patient had the Radial arterial sheath removed in the cardiac catheterization lab with hemostasis obtained via manual hand Band application devise and the patient was transferred to the Supervisor Boarding observation area. Blood loss was minimal. Moderate sedation: Moderate sedation was used during the procedure, moderate sedation was started at 1200 and completed at 1230 . Patient tolerated the procedure well.Continuous hemodynamic and physiological monitoring was present throughout the procedure. ASA and Mallampatti were assessed prior to the procedure as well. SELECTIVE CORONARY ANGIOGRAPHY: 1. Left main: The left main bifurcates into the left anterior descending and circumflex coronary artery. Borderline 50% lesion of the distal left main 2. Left anterior descending: The left anterior descending coronary artery gives rise to diagonal(s) and terminates as the apical recurrent branch. Tandem 70% and 80% lesion of the prox LAD 3. Circumflex: The circumflex coronary artery is noted to provide obtuse marginal(s). Severe disease 80% of the OM 4. Right coronary artery: The right coronary artery is dominant and gives PDA and KAREN. No significant disease. 5. Left ventricular end-diastolic pressure is elevated. There was no gradient noted upon pullback. Impression Borderline 50% lesion of the distal left main Tandem 70% and 80% lesion of the prox LAD Severe disease 80% of the OM PLAN: Discuss management options Aggressive risk factors modification Maximize medical therapy LANI GRACIA MD August 05, 2024 12:37
--- NOTE | 2024-08-05 12:40 | PN ---
CARDIOLOGY Reason for consult: CHF HPI/story at presentation: This is a pleasant 69-year-old male with past medical history as per present with complaints of shortness of breath with worsening edema and abdominal bloating and distention. He was diagnosed CHF exacerbation, cardiology scheduled for evaluation management. Patient was also found to be atrial fibrillation with rapid ventricular sponsor presentation to the hospital. Diuresis was initiated. Subjective: 07/26/2024 shortness of breath 07/29/2024 no complaints 07/30/2024 no complaints 07/31/2024 no complaints 08/05/2024 no complaints Past medical history: See below Allergies, Meds See chart Review of systems Review of Systems Constitutional: Negative for chills and fever. HENT: Negative for ear discharge and ear pain. Eyes: Negative for photophobia and discharge. Respiratory: Negative for cough, sputum production and stridor. Cardiovascular: Negative for chest pain and palpitations. Gastrointestinal: Negative for diarrhea and vomiting. Genitourinary: Negative for frequency. Musculoskeletal: Negative for myalgias. Skin: Negative for rash. Neurological: Negative for focal weakness and seizures. Endo/Heme/Allergies: Negative for polydipsia. Psychiatric/Behavioral: Negative for hallucinations. Vitals see chart PHYSICAL EXAMINATION GENERAL: The patient is alert and oriented*3 HEENT: Nonicteric sclerae, non traumatic HEART: Regular rate and rhythm with no murmurs LUNGS: mild crackles 07/26/2024 ABDOMEN: No acute issues, non tender GENITAL, RECTAL: deferred SKIN: No rash NEUROLOGIC: NFND EXTREMITIES: bilareral edema 07/26/2024 ASSESSMENT ATRIAL FIBRILLATION Presentation Associated RVR at presentation CORONARY ARTERY DISEASE severe disease of LAD, LCx Borderline severe lesion of the distal LM CONGESTIVE HEART FAILURE With abdominal distention lower extremity manage at presentation ACUTE KIDNEY INJURY At presentation Condition nephropathy versus prerenal OBESITY CORE MEASURES OTHER MEDICAL PROBLEMS Reviewed PLAN 07/26/2024 agree with rate control for atrial fibrillation, will likely benefit from further anticoagulation as well. Possible liver etiology of elevated INR. Follow-up with renal function panel including albumin ordered. Agree with diuresis for now. Echocardiogram has been ordered and is pending as well. On IV twice daily of Lasix and metoprolol at this time. Further recommendations after echo. Seen and examined 07/26/2024 around 1900 07/27/2024 Shortness of breath is stable. Labs reviewed. Renal function is still elevated between 2.6 and 3. On heparin for anticoagulation. Echocardiogram with EF less than 20%, arterial duplex was normal. Ultrasound of the lower extremities and venous duplex were within normal limits. Renal ultrasound was negative, bladder scan with less than 100 cc. Difficult situation in the setting of significant RV failure associated with edema and ascites in the setting of severe cardiomyopathy and A-fib RVR. Suspected nonischemic in setting of A-fib although, CAD has not been ruled out yet. Unable to proceed with catheterization given acute kidney injury. milrinone was started to better help with renal perfusion. Caution in the setting of underlying renal dysfunction and therefore starting a low dose first. No dobutamine as patient is on beta eugene for rate control . May transfer to the heart failure center if renal function continues to worsen or if rate control is a challenge. Critically ill, prognosis is guarded. Spoke with multiple family members during the course of the day seen and examined multiple times, 07/27/2024. 07/28/2024 Overnight, patient was started on milrinone to help with urine output but there is no significant response to bed and this was increased from 0.125- 0.25. However, even with elevated doses, no significant output was present after a few hours. Given underlying renal failure, milrinone was not increased any further. Also, patient was having issues with tachycardia with increased dose of milrinone. Metoprolol was increased to help with rate control. Dobutamine is not being considered because of metoprolol use. Diuresis was ineffective and therefore, patient was started on a Lasix drip at 10 to try to help with diuresis. This morning, urine output has improved about 200 cc. Low- dose milrinone has been continued, urine is dark, possibly ATN. Will watch for worsening renal function although, this is likely in the current situation. Will need to ensure there is quite adequate urine output. Discussed transfer to advanced heart failure management programs and at this time, plan is to wait. Seen and examined 07/28/2024 at around 1130 07/29/2024 Renal function somewhat better. Output has improved, continue current regimen. Breathing better rates are acceptable. May need to consider increasing beta-eugene. On 100 twice daily metoprolol succinate at this time. Seen and examined 07/29/2024 at around 1600 07/30/2024 Clinically, continues to improve, no active cardiac complaints at this time. Shortness of breath is better, abdominal bloating has improved. Induration edema is persistent but better as well. Continue current medical therapy. Will likely stop milrinone tomorrow to see how he does just with diuresis. Renal function continues to improve. Seen and examined 07/30/2024 at around 1600. 07/31/2024 stop milrinone and reevaluate. Good urine output. Remains on IV Lasix and heparin at this time. Appreciate nephrology, primary team. Clinically, doing well, ambulating encouraged.rates ok Seen and examined 07/31/2024 at around 1800. 08/01/2024 Creatinine continues to improve, currently at 2. Has done well without the milrinone, will continue to hold. Remains on Lasix stent and on heparin. Plans are made for eventual cardiac catheterization next week. Rates are good. Has some hematuria and this will need to be looked into. Defer to primary. Seen and examined 08/01/2024 at around 1800. 08/02/2024 urine color is better off heparin. however, patient remains at risk of thrombosis while off heparin. If hematuria resolves, would like to restart heparin. Plan for cardiac cath, likely on sunday after hematuria issues resolve. Seen and examined 08/03/2024 at around 1500 08/04/2024 Creatinine is stable close to 1.6, keep n.p.o. after midnight for possible catheterization tomorrow. Clinically, improved, hematuria has resolved, heparin has been restarted. This benefits of cardiac catheterization discussed. Given recent hematuria, EF of 83, will likely only consider diagnostic angiography tomorrow. 08/05/2024 Creat stable, cardiac cath today with evidence of severe disease of LAD<, Lcx and borderline disease of the LM. May consider IVUS/FFR to the LM versus consideration of PCI versus CABG depending on LM severity. Will discuss with interventional cards. Watch renal function given recent contrast use. remains on diuresis. ATTESTATION I was involved substantially in the care of this patient Number and complexity of problems addressed: 1 acute illness that is a threat to life or bodily function Amount and or complexity of data Review of prior external note(s) from each unique source: 2+ Ordering of each unique test : 0 Review of the result(s) of each unique test: 2+ Assessment requiring an independent historian(s): No Independent interpretation of test performed by another MD/QHCP/appropriate source (not separately reported) : No Discussion of management or test interpretation with external MD/QHCP/appropriate source (not separately reported) : IM Risk status (cardiac, billing related): high Vitals/Labs Vital Signs Date Time Temp Pulse Resp B/P (MAP) Pulse Ox O2 Delivery O2 Flow Rate FiO2 08/05/24 08:44 97.9 88 18 118/81 96 Room Air 08/04/24 19:40 0 21 Laboratory Tests 08/05/24 05:46 Medications Current Medications Furosemide 40 mg ONCE ONCE IV Last administered on 07/26/24at 15:44; Start 07/26/24 at 15:30; Stop 07/26/24 at 15:31; Status DC Diltiazem HCl 20 mg ONCE ONCE IVP Last administered on 07/26/24at 15:44; Start 07/26/24 at 16:00; Stop 07/26/24 at 16:01; Status DC Diltiazem HCl 30 mg ONCE ONCE PO Last administered on 07/26/24at 16:15; Start 07/26/24 at 16:30; Stop 07/26/24 at 16:31; Status DC Acetaminophen 500 mg Q6H PRN PO Last administered on 07/30/24at 10:06; Start 07/26/24 at 18:00; Stop 08/25/24 at 17:59 Thiamine HCl 100 mg DAILY PO Last administered on 07/29/24at 08:33; Start 07/27/24 at 09:00; Stop 08/01/24 at 08:49; Status DC Folic Acid 1 mg DAILY PO Last administered on 08/04/24at 09:19; Start 07/27/24 at 09:00; Stop 08/26/24 at 08:59 Metoprolol Tartrate 25 mg BID PO Last administered on 07/27/24at 08:53; Start 07/26/24 at 21:00; Stop 07/27/24 at 10:29; Status DC Potassium Chloride 100 ml @ 100 mls/hr AD PRN IV Last administered on 08/05/24at 09:00; Start 07/26/24 at 18:00; Stop 08/25/24 at 17:59 Potassium Chloride 20 meq AD PRN PO; Start 07/26/24 at 18:00; Stop 08/25/24 at 17:59 Potassium Chloride 20 meq AD PRN PO Last administered on 08/02/24at 21:18; Start 07/26/24 at 18:00; Stop 08/25/24 at 17:59 Magnesium Sulfate 50 ml @ 0 mls/hr PROTOCOL PRN IV; Start 07/26/24 at 18:00; Stop 08/25/24 at 17:59 Furosemide 40 mg Q12H IV Last administered on 07/26/24at 23:09; Start 07/26/24 at 23:00; Stop 07/27/24 at 06:31; Status DC Heparin Sodium (Porcine) 5,000 unit Q12H SQ Last administered on 07/26/24at 21:07; Start 07/26/24 at 21:00; Stop 07/27/24 at 00:12; Status DC Heparin Sodium/ Dextrose 250 ml @ 0 mls/hr Q6H IV Last administered on 08/02/24at 10:25; Start 07/27/24 at 01:00; Stop 08/02/24 at 14:47; Status DC Bumetanide 1 mg Q12H IVP Last administered on 07/27/24at 20:19; Start 07/27/24 at 09:00; Stop 07/28/24 at 02:44; Status DC Pantoprazole Sodium 40 mg DAILY IVP Last administered on 08/05/24at 08:53; Start 07/28/24 at 09:00; Stop 08/27/24 at 08:59 Metoprolol Succinate 50 mg BID PO Last administered on 07/27/24at 20:19; Start 07/27/24 at 10:30; Stop 07/27/24 at 22:52; Status DC Milrinone Lactate/ Dextrose 100 ml @ 0 mls/hr PROTOCOL IV; Start 07/27/24 at 18:00; Stop 07/27/24 at 18:05; Status DC Milrinone Lactate/ Dextrose 100 ml @ 0 mls/hr PROTOCOL IV Last administered on 07/30/24at 06:23; Start 07/27/24 at 18:30; Stop 08/26/24 at 18:29 Metoprolol Succinate 50 mg ONCE ONCE PO Last administered on 07/27/24at 23:43; Start 07/27/24 at 23:00; Stop 07/27/24 at 23:01; Status DC Metoprolol Succinate 100 mg BID PO Last administered on 08/05/24at 08:53; Start 07/28/24 at 09:00; Stop 08/27/24 at 08:59 Furosemide 100 mg/ Sodium Chloride 100 ml @ 0 mls/hr PROTOCOL IV Last administered on 08/02/24at 12:27; Start 07/28/24 at 03:00; Stop 08/02/24 at 14:47; Status DC Bacitracin Right and left lower leg DAILY TP Last administered on 08/05/24at 08:54; Start 07/29/24 at 09:00; Stop 08/28/24 at 08:59 Thiamine HCl 300 mg DAILY08 IVP Last administered on 08/01/24at 08:27; Start 07/30/24 at 08:00; Stop 08/01/24 at 08:01; Status DC Wound Care/ Dressing Products 1 gm BID TP Last administered on 07/31/24at 22:25; Start 07/31/24 at 21:00; Stop 08/01/24 at 08:19; Status DC Wound Care/ Dressing Products apply to buttocks BID TP Last administered on 08/05/24at 08:57; Start 08/01/24 at 09:00; Stop 08/30/24 at 20:59 Furosemide 40 mg TID IV Last administered on 08/05/24at 08:52; Start 08/02/24 at 21:00; Stop 09/01/24 at 20:59 Clotrimazole 1 APPL TP DAILY DAILY TP Last administered on 08/05/24at 08:55; Start 08/03/24 at 09:00; Stop 09/02/24 at 08:59 Heparin Sodium/ Dextrose 250 ml @ 0 mls/hr Q6H IV Last administered on 08/05/24at 00:53; Start 08/03/24 at 20:30; Stop 08/05/24 at 08:08; Status DC Sodium Chloride 500 ml @ 0 mls/hr Q0M IV; Start 08/05/24 at 04:30; Stop 09/04/24 at 04:29 Lidocaine HCl 20 ml STK-MED ONCE .ROUTE; Start 08/05/24 at 11:06; Stop 08/05/24 at 11:07; Status DC Iohexol 35,000 mg STK-MED ONCE IV; Start 08/05/24 at 11:07; Stop 08/05/24 at 11:07; Status DC Heparin Sodium (Porcine) 10,000 unit STK-MED ONCE .ROUTE; Start 08/05/24 at 11:07; Stop 08/05/24 at 11:07; Status DC Nicardipine HCl 25 mg STK-MED ONCE IV; Start 08/05/24 at 11:07; Stop 08/05/24 at 11:08; Status DC Heparin Sodium/ Sodium Chloride 1,000 ml @ As Directed STK-MED ONCE IV; Start 08/05/24 at 11:07; Stop 08/05/24 at 11:08; Status DC Nitroglycerin 50 mg STK-MED ONCE .ROUTE; Start 08/05/24 at 11:08; Stop 08/05/24 at 11:08; Status DC Fentanyl Citrate 100 mcg STK-MED ONCE .ROUTE; Start 08/05/24 at 11:45; Stop 08/05/24 at 11:45; Status DC Midazolam HCl 2 mg STK-MED ONCE .ROUTE; Start 08/05/24 at 11:45; Stop 08/05/24 at 11:45; Status DC LANI GRACIA MD August 05, 2024 12:40
--- NOTE | 2024-08-05 12:55 | PN ---
NEPHROLOGY PROGRESS NOTE Date/Time Patient Seen: August 05, 2024 SUBJECTIVE: This is a 69-year-old male with no significant past medical history He has had a prolonged hospital course. The patient is admitted, found to have congestive heart failure. Workup is consistent with severe cardiomyopathy. He has been transitioned to IV Lasix 40 mg t.i.d. Milrinone drip has been discontinued The patient's creatinine continues to slowly improve. Urine output was noted The patient is being seen by Cardiology , S/P left heart catheterization He was seen in telemetry, in no acute distress Family at the bedside Condition remains guarded REVIEW OF SYSTEMS: GENERAL: Negative for any nausea, vomiting, fevers, chills, or weight loss. NEUROLOGIC: Negative for any blurry vision, blind spots, double vision, facial asymmetry, dysphagia, dysarthria, hemiparesis, hemisensory deficits, vertigo, ataxia. HEENT: Negative for any head trauma, neck trauma, neck stiffness, photophobia, phonophobia, sinusitis, rhinitis. CARDIAC: Negative for any chest pain, dyspnea on exertion, paroxysmal nocturnal dyspnea, peripheral edema. PULMONARY: Negative for any shortness of breath, wheezing, COPD, or TB exposure. GASTROINTESTINAL: Negative for any abdominal pain, nausea, vomiting, bright red blood per rectum, melena. GENITOURINARY: Negative for any dysuria, hematuria, incontinence. INTEGUMENTARY: Negative for any rashes, cuts, insect bites. RHEUMATOLOGIC: Negative for any joint pains, photosensitive rashes, history of vasculitis or kidney problems. HEMATOLOGIC: Negative for any abnormal bruising, frequent infections or bleeding. Vital Signs (last 8hr) Date Time Temp Pulse Resp B/P (MAP) Pulse Ox O2 Delivery O2 Flow Rate FiO2 08/02/24 07:34 97.7 97 18 113/76 97 Nasal Cannula 2.0 08/02/24 06:39 18 N/Cannula Low lpm 2.0 28 08/02/24 04:07 97.9 98 21 136/62 99 Nasal Cannula 2.0 PHYSICAL EXAM: GENERAL: Alert and oriented x 3. No acute distress. Well-nourished. EYES: EOMI. Anicteric. HENT: Moist mucous membranes. No scleral icterus. No cervical lymphadenopathy. LUNGS: Clear to auscultation bilaterally. No accessory muscle use. CARDIOVASCULAR: Regular rate and rhythm. No murmur. No JVD. ABDOMEN: Soft, non-tender and non-distended. No palpable masses. EXTREMITIES: No edema. Non-tender.?SKIN: No rashes or lesions. Warm. NEUROLOGIC: No focal neurological deficits. CN II-XII grossly intact, but not individually tested. PSYCHIATRIC: Cooperative. Appropriate mood and affect. Current Medications Medications (Trade) Dose Ordered Sig/Melinda Route PRN Reason Start Time Stop Time Status Last Admin Dose Admin Acetaminophen (TYLenol 500MG TAB) 500 mg Q6H PRN PO MILD PAIN (1-3) 07/26/24 18:00 08/25/24 17:59 07/30/24 10:06 500 MG Bacitracin (Bacitracin 28.4gm) Right and left lower leg DAILY TP 07/29/24 09:00 08/28/24 08:59 08/01/24 08:32 1 GM Bumetanide (Bumex 1mg Vial) 1 mg Q12H IVP 07/27/24 09:00 07/28/24 02:44 DC 07/27/24 20:19 1 MG Folic Acid (FOLic ACID 1 MG TABLET) 1 mg DAILY PO 07/27/24 09:00 08/26/24 08:59 08/01/24 08:30 1 MG Furosemide (LASix 40MG VIAL) 40 mg Q12H IV 07/26/24 23:00 07/27/24 06:31 DC 07/26/24 23:09 40 MG Furosemide 100 mg/ Sodium Chloride 100 ml @ 0 mls/hr PROTOCOL IV 07/28/24 03:00 08/27/24 02:59 08/02/24 00:38 10 MLS/HR Heparin Sodium (Porcine) (HEParin 5,000 UNIT VIAL) 5,000 unit Q12H SQ 07/26/24 21:00 07/27/24 00:12 DC 07/26/24 21:07 5,000 UNIT Heparin Sodium/ Dextrose 250 ml @ 0 mls/hr Q6H IV 07/27/24 01:00 08/26/24 00:59 08/01/24 11:23 13.65 MLS/HR Magnesium Sulfate 50 ml @ 0 mls/hr PROTOCOL PRN IV hypomagnesemia 07/26/24 18:00 08/25/24 17:59 Metoprolol Succinate (TopROL XL) 50 mg BID PO 07/27/24 10:30 07/27/24 22:52 DC 07/27/24 20:19 50 MG Metoprolol Succinate (TopROL XL) 100 mg BID PO 07/28/24 09:00 08/27/24 08:59 08/01/24 19:51 100 MG Metoprolol Tartrate (loprESSOR) 25 mg BID PO 07/26/24 21:00 07/27/24 10:29 DC 07/27/24 08:53 25 MG Milrinone Lactate/ Dextrose 100 ml @ 0 mls/hr PROTOCOL IV 07/27/24 18:00 07/27/24 18:05 DC Milrinone Lactate/ Dextrose 100 ml @ 0 mls/hr PROTOCOL IV 07/27/24 18:30 08/26/24 18:29 07/30/24 06:23 2.58 MLS/HR Pantoprazole Sodium (PROTonix 40MG INJ) 40 mg DAILY IVP 07/28/24 09:00 08/27/24 08:59 08/01/24 08:27 40 MG Potassium Chloride 100 ml @ 100 mls/hr AD PRN IV POTASSIUM PROTOCOL 07/26/24 18:00 08/25/24 17:59 Potassium Chloride (K-Dur/Klor-Con 20meq) 20 meq AD PRN PO POTASSIUM PROTOCOL 07/26/24 18:00 08/25/24 17:59 08/02/24 06:06 20 MEQ Potassium Chloride (KCl 10% Elixir 20meq/15ml) 20 meq AD PRN PO POTASSIUM PROTOCOL 07/26/24 18:00 08/25/24 17:59 Thiamine HCl (Vitamin B-1) 100 mg DAILY PO 07/27/24 09:00 08/01/24 08:49 DC 07/29/24 08:33 100 MG Thiamine HCl (Vitamin B-1) 300 mg DAILY08 IVP 07/30/24 08:00 08/01/24 08:01 DC 08/01/24 08:27 300 MG Wound Care/ Dressing Products (Venelex Ointment) 1 gm BID TP 07/31/24 21:00 08/01/24 08:19 DC 07/31/24 22:25 1 GM Wound Care/ Dressing Products (Venelex Ointment) apply to buttocks BID TP 08/01/24 09:00 08/30/24 20:59 08/01/24 19:57 1 GM LABORATORY: [ ] Hematology Labs: Test 08/05/24 05:46 Range/Units White Blood Count 7.9 4.8-10.8 K/uL Red Blood Count 4.70 4.50-6.20 MIL/uL Hemoglobin 14.0 14.0-18.0 g/dL Hematocrit 45.2 42-54 % Mean Corpuscular Volume 96.2 79-99 fL Mean Corpuscular Hemoglobin 29.8 27.0-33.0 pg Mean Corpuscular Hemoglobin Concent 31.0 L 32.0-36.0 g/dL Red Cell Distribution Width 14.4 11.0-15.5 % Platelet Count 105 L 130-400 K/uL Mean Platelet Volume 10.0 7.5-10.5 fL Nucleated Red Blood Cells 0.0 0.0-0.19 % Chemistry Labs: Test 08/05/24 05:46 Range/Units Sodium Level 141 136-145 mmol/L Potassium Level 3.8 3.5-5.1 mmol/L Chloride Level 99 L 101-111 mmol/L Carbon Dioxide Level 38 H 21-32 mmol/L Blood Urea Nitrogen 31 H 7-18 mg/dL Creatinine 1.6 H 0.5-1.3 mg/dL Glomerular Filtration Rate Calc 46 >90 mL/min Random Glucose 124 H 70-105 mg/dL Total Calcium 8.8 8.5-10.1 mg/dL Phosphorus Level 3.1 2.5-4.9 mg/dL Magnesium Level 2.00 1.80-2.40 mg/dL Total Bilirubin 0.8 0.2-1.0 mg/dL Aspartate Amino Transf (AST/SGOT) 16 10-37 U/L Alanine Aminotransferase (ALT/SGPT) 14 12-78 U/L Alkaline Phosphatase 67 50-136 U/L Total Protein 6.1 6.0-8.3 g/dL Albumin 3.1 L 3.5-5.0 g/dL Coagulation Labs: Test 08/05/24 05:46 Range/Units Prothrombin Time 12.9 H 9.6-11.6 SEC Prothromb Time International Ratio 1.24 H 0.85-1.15 Activated Partial Thromboplast Time 122.1 *H 26.3-35.5 SEC DIAGNOSTICS / RADIOLOGY: REASON: CHF ORDERING PHYSICIAN: TONG CACERES NP PROCEDURE: CXR1VW - CHEST 1VW Exam Type: CHEST 1VW Clinical Information: CHF Comparison: None Findings: Pulmonary pattern is as before. No worrisome interval changes have taken place. Impression: Stable exam. DICTATED BY: DANUTA IVAN MD DATE: 08/04/24 0849 REASON: CHF exacerbation ORDERING PHYSICIAN: TONG CACERES NP PROCEDURE: CXR1VW - CHEST 1VW CHEST 1VW HISTORY: CHF COMPARISON: 07/26/2024 FINDINGS: A frontal projection of the chest was obtained. Mild bilateral pulmonary infiltrates are seen may be related to mild pulmonary vascular congestion with possible superimposed pneumonitis. The heart is enlarged. Degenerative changes are seen. No evidence of aortic calcification is seen. IMPRESSION: 1. Mild bilateral pulmonary infiltrates are seen may be related to mild pulmonary vascular congestion with possible superimposed pneumonitis. DICTATED BY: ELIU ROMANO MD DATE: 07/31/2435 REASON: chf exacerbation, new onset a fib dr mcintyre to read ORDERING PHYSICIAN: LANI GRACIA MD PROCEDURE: ECHO CMP - ECHO 2-D COMPLETE APPROVED REPORT EXAM: Two-dimensional and M-mode echocardiogram with Doppler and color Doppler. INDICATION ICD: Congestive heart failure, new onset of atrial fibrillation 2D Dimensions RVDd 5.5 cm LVEF(%) 17.1 (>50%) LVED Vol(simp.) 151.0 mL IVSd 1.1 (0.7-1.1cm) FS(%) 8 % LVES Vol(simp.) 124.0 mL LVDd 6.1 (3.8-5.6cm) LA (2D) 6.0 (1.6-4.0cm) LVEF(%, simp.) 18 % PWd 1.2 (0.7-1.1cm) Ao Root(2D) 3.8 (2.0-3.7cm) LA ESV INDEX (BP) 46.39 mL/m2 IVSs 1.3 cm LVOT diam 2.6 (1.8-2.4cm) LVDs 5.6 (2.5-4.0cm) PWs 1.3 cm M-Mode Dimensions EPSS 1.8 cm LA (MM) 6.1 (1.6-4.0cm) Ao Root(MM) 4.3 (2.0-3.7cm) Aortic Valve AoV Vmax 1.0 m/s Ao Peak GR 3.9 mmHg LVOT Vmax 0.5 m/s AoV VTI 0.1 m Ao Mean GR 2.6 mmHg LVOT VTI 0.07 m GABRIELLA (VMAX) 2.41 cm2 GABRIELLA (VTI) 2.4 cm2 Mitral Valve MV E Vmax 85.1 cm/s DECEL Time 169 ms P 1/2 T 33 ms MVA (PHT) 6.7 cm2 TDI E/E' Medial 43.9 E/E' Lateral 16.0 Medial E' Peak V 1.94 cm/s Lateral E' Peak V 5.32 cm/s Tricuspid Valve TR Vmax 3.1 m/s RAP (EST) 8 mmHg RVSP 48.1 mmHg TR Peak GR 40.1 mmHg Left Ventricle The left ventricle is dilated. Severe hypokinesis There is normal left ventricular wall thickness. Severely reduced left ventricular function <20%. The LV diastolic function was unable to be assessed due to atrial arrhythmia. Right Ventricle The right ventricle is severely dilated. Right ventricular systolic function is severely reduced. Atria The left atrium is moderately dilated. The right atrium is severely dilated. Aortic Valve Aortic valve is trileaflet and opens well. No aortic regurgitation is present. There is no aortic valvular stenosis. Mitral Valve The mitral valve is normal in structure. There is mild mitral valve regurgitation noted. There is no mitral valve stenosis. Tricuspid Valve The tricuspid valve is normal in structure. There is mild to moderate tricuspid valve regurgitation noted. May be underestimated due to low flow pressure gradient. Pulmonic Valve The pulmonary valve is normal in structure. There is no pulmonic valvular regurgitation. Great Vessels The aortic root is normal in size. IVC is not well visualized. Pericardium There is no pericardial effusion. Other Information Quality : Adequate Conclusion Severely reduced left ventricular function <20%. The LV diastolic function was unable to be assessed due to atrial arrhythmia. There is normal left ventricular wall thickness. The left ventricle is dilated. Severe hypokinesis The right ventricle is severely dilated. Right ventricular systolic function is severely reduced. The left atrium is moderately dilated. The right atrium is severely dilated. There is mild mitral valve regurgitation noted. There is mild to moderate tricuspid valve regurgitation noted. May be underestimated due to low flow pressure gradient. There is no pericardial effusion. DICTATED BY: LANI GRACIA MD DATE: 07/27/24 0952 REASON: renal failure ORDERING PHYSICIAN: JORGE NAVA MD PROCEDURE: RENAL - US RENAL SONOGRAM US RENAL SONOGRAM HISTORY: renal failure TECHNIQUE: US RENAL SONOGRAM. FINDINGS: RIGHT KIDNEY: The right kidney measures 10.3cm. No hydronephrosis or renal calculus seen. LEFT KIDNEY: The left kidney measures 9.3cm. There is no hydronephrosis. There is an approximate pole cyst measuring 5.5 cm. The visualized urinary bladder is within normal limits. IMPRESSION: No hydronephrosis is seen. DICTATED BY: EDUARDA MANUEL MD DATE: 07/27/24 184 ASSESSMENT: Acute kidney injury Acute CHF exacerbation Acute hypoxic respiratory failure secondary to CHF exacerbation New onset paroxysmal atrial fibrillation with RVR Generalized anasarca Lower extremity edema History of alcohol use Mild coagulopathy Mild leukocytosis differential infectious versus reactive PLAN: Labs, diagnostic, radiologic exams reviewed and interpreted by myself and supervising physician. We have reviewed external records in detail Diuretics as per Cardiology Require close monitoring of renal function and electrolytes Order CBC, CMP,and electrolytes in am Renal diabetic diet BiPAP as necessary, for respiratory distress Monitor blood pressure adjust medication doses as needed Avoid hypotensive episodes May use Dilaudid 0.5 mg IV every 6 hours as needed for severe pain Monitor blood sugars Strict intake, output, and daily weight should be monitored Please renally adjust medications Avoid nephrotoxic and nonsteroidal drugs Avoid contrast if possible Will continue to monitor renal function, anemia, electrolytes Treatment plan discussed with patient Questions were answered We have discussed with the other team physicians in detail about the care plan We will continue to monitor the patient closely ATTESTATION BY PHYSICIAN I have seen and examined the patient. I reviewed the documentation, medical decision making, and treatment plan as noted by the mid-level provider above. I agree with the findings and plan of care. MARIVEL TOWNSEND MD, [facility] August 05, 2024 12:55
--- NOTE | 2024-08-05 13:32 | PN ---
[facility] PROGRESS NOTE Date of Service: August 05, 2024 Time of Service: 13:25 SUBJECTIVE: [69 old male admitted due to shortness of breaths, patient was at kidney failure on admission suspected due to acute tubular necrosis. Patient also was noted with cardiomyopathy, EF is less than 20%, patient is currently on oxygen supplementation. Today he continues with tachycardia, BB increased yesterday, now on Metoprolol XL 100 mg PO BID. He is still needs oxygen supplementation, on and off on 2L via [place]. Continue with strict I&O. 07/31/24 patient was seen and examined. Case discussed with RN. He has presented with ischemic cardiomyopathy requiring aggressive diuresis. He was on diuretics are being carefully managed by Nephrology and Cardiology monitoring his renal function. Clinically he says he was getting better 08/01/24 patient was seen and examined. Case discussed with the RN. He was co ntinuing with the aggressive diuresis and electrolytes and labs are being monitored. He was having bloody discharge from the end of the penis as if there was some trauma. We will continue to monitor H and H and if this is a consistent problem urology may need to evaluate him 08/02/24 patient was seen and examined. Case discussed with the RN and by the bedside. He is doing better today. Heparin drip has been turned off and the bloody discharge from the end of the pannus is improving. Continue to mo nitor that. Hemoglobin is stable. Cardiac catheterization has been planned for Sunday or Sunday08/03/24 patient was seen and examined. Case discussed with the RN and . He was more alert sitting up in the chair. He also worked with PT and walked a little bit. Hematuria seems to be improving with light her collar we will continue to monitor that. Hemoglobin continues to be stable cardiac catheterization is planned 08/04/24 patient was seen and examined. Case discussed with the RN and ./hematuria continues to lighten Hemoglobin continues to be stable cardiac catheterization is planned 08/05/24: Patient was seem and examined this morning. Patient had Left heart catheterization procedure today. The patient continues with hematuria today, urology has been consulted. Per cardiology, left heart catheterization showed severe disease of the LAD<LCX and borderline disease of the left main coronary artery. We will follow cardiology recommendations. Due to contrast use today, we will monitor renal function. REVIEW OF SYSTEMS CONSTITUTIONAL: Denies fevers, chills, or night sweats. Denied any changes in weight NEUROLOGICAL: Denies headache, amaurosis fugax, motor weakness, sensory deficit, vertigo/spinning sensation, gait abnormalities, or tremors. ENT: No hearing loss, otalgia, otorrhea, rhinitis, rhinorrhea, hoarseness, or sore throat. CARDIOVASCULAR: Denies any exertional angina, dyspnea on exertion, orthopnea, paroxysmal nocturnal dyspnea, palpitations, life-threatening arrhythmias, claudication. PULMONARY: Positive for shortness of breath, cough. Denied any sputum production GASTROINTESTINAL: Denies any type of dysphagia to either liquids or solids. Denies nausea, vomiting, pyrosis, early satiety, abdominal pain, diarrhea, constipation, or changes in stool consistency or caliber. Denies coffee-ground emesis, hematemesis, hematochezia, or melanotic stools. GENITOURINARY: Positive for decreased urination. Denied any hematuria, dysuria ENDOCRINOLOGIC: Denies polyuria, polydipsia, polyphagia or heat/cold intolerances. HEMATOLOGIC: Denies thrombophilia/previous clots, or coagulopathy/bleeding disorders. ONCOLOGIC: Denies personal history of malignancy. DERMATOLOGIC: Denies rashes or pruritus. PSYCHIATRIC: Denies any suicidal or homicidal ideation. Denies hallucinations. Musculoskeletal: Positive for swelling in the lower extremity PHYSICAL EXAM GENERAL APPEARANCE: The patient is awake, alert, and oriented, in no acute cardiopulmonary distress. NEUROLOGICAL: Cranial nerves II-XII grossly intact. Motor is 5/5 in bilateral upper and lower extremities proximal to distal. No sensory deficits. HEENT: Face is symmetric. Pupils are equal and reactive. Extraocular movements are intact. NECK: Supple. No JVD. No thyromegaly. No submental, submandibular, pre- /postauricular, occipital or supraclavicular lymphadenopathy. CHEST: Normal chest expansion. No Telemetry. LUNGS: Positive for crackles in the right side CARDIOVASCULAR: Regular. S1 and S2 normal. No appreciable rubs, murmurs or gallops. ABDOMEN: Abdomen is distended. He has soft tissue edema in the abdominal wall. Bowel sounds are active. : Deferred. No Garcia. EXTREMITIES:3+ pitting edema in the lower extremity bilaterally he also has venous stasis changes.. No clubbing. Good capillary refill. SKIN: No skin breakdown. Vital Signs (last 8hr) Date Time Temp Pulse Resp B/P (MAP) Pulse Ox O2 Delivery O2 Flow Rate FiO2 08/05/24 08:44 97.9 88 18 118/81 96 Room Air 08/05/24 08:00 97 Room Air* 0 21 LABS: Laboratory: Test 08/05/24 05:46 Range/Units White Blood Count 7.9 4.8-10.8 K/uL Red Blood Count 4.70 4.50-6.20 MIL/uL Hemoglobin 14.0 14.0-18.0 g/dL Hematocrit 45.2 42-54 % Mean Corpuscular Volume 96.2 79-99 fL Mean Corpuscular Hemoglobin 29.8 27.0-33.0 pg Mean Corpuscular Hemoglobin Concent 31.0 L 32.0-36.0 g/dL Red Cell Distribution Width 14.4 11.0-15.5 % Platelet Count 105 L 130-400 K/uL Mean Platelet Volume 10.0 7.5-10.5 fL Nucleated Red Blood Cells 0.0 0.0-0.19 % Prothrombin Time 12.9 H 9.6-11.6 SEC Prothromb Time International Ratio 1.24 H 0.85-1.15 Activated Partial Thromboplast Time 122.1 *H 26.3-35.5 SEC Sodium Level 141 136-145 mmol/L Potassium Level 3.8 3.5-5.1 mmol/L Chloride Level 99 L 101-111 mmol/L Carbon Dioxide Level 38 H 21-32 mmol/L Blood Urea Nitrogen 31 H 7-18 mg/dL Creatinine 1.6 H 0.5-1.3 mg/dL Glomerular Filtration Rate Calc 46 >90 mL/min Random Glucose 124 H 70-105 mg/dL Total Calcium 8.8 8.5-10.1 mg/dL Phosphorus Level 3.1 2.5-4.9 mg/dL Magnesium Level 2.00 1.80-2.40 mg/dL Total Bilirubin 0.8 0.2-1.0 mg/dL Aspartate Amino Transf (AST/SGOT) 16 10-37 U/L Alanine Aminotransferase (ALT/SGPT) 14 12-78 U/L Alkaline Phosphatase 67 50-136 U/L Total Protein 6.1 6.0-8.3 g/dL Albumin 3.1 L 3.5-5.0 g/dL Current Medications Medications (Trade) Dose Ordered Sig/Melinda Route PRN Reason Start Time Stop Time Status Last Admin Dose Admin Acetaminophen (TYLenol 500MG TAB) 500 mg Q6H PRN PO MILD PAIN (1-3) 07/26/24 18:00 08/25/24 17:59 07/30/24 10:06 500 MG Bacitracin (Bacitracin 28.4gm) Right and left lower leg DAILY TP 07/29/24 09:00 08/28/24 08:59 08/05/24 08:54 1 GM Bumetanide (Bumex 1mg Vial) 1 mg Q12H IVP 07/27/24 09:00 07/28/24 02:44 DC 07/27/24 20:19 1 MG Clotrimazole (Lotrisone Cream) 1 APPL TP DAILY DAILY TP 08/03/24 09:00 09/02/24 08:59 08/05/24 08:55 1 GM Folic Acid (FOLic ACID 1 MG TABLET) 1 mg DAILY PO 07/27/24 09:00 08/26/24 08:59 08/04/24 09:19 1 MG Furosemide (LASix 40MG VIAL) 40 mg Q12H IV 07/26/24 23:00 07/27/24 06:31 DC 07/26/24 23:09 40 MG Furosemide (LASix 40MG VIAL) 40 mg TID IV 08/02/24 21:00 09/01/24 20:59 08/05/24 08:52 40 MG Furosemide 100 mg/ Sodium Chloride 100 ml @ 0 mls/hr PROTOCOL IV 07/28/24 03:00 08/02/24 14:47 DC 08/02/24 12:27 10 MLS/HR Heparin Sodium (Porcine) (HEParin 5,000 UNIT VIAL) 5,000 unit Q12H SQ 07/26/24 21:00 07/27/24 00:12 DC 07/26/24 21:07 5,000 UNIT Heparin Sodium/ Dextrose 250 ml @ 0 mls/hr Q6H IV 07/27/24 01:00 08/02/24 14:47 DC 08/02/24 10:25 10.43 MLS/HR Heparin Sodium/ Dextrose 250 ml @ 0 mls/hr Q6H IV 08/03/24 20:30 5/6/25 08:08 DC 08/05/24 00:53 16.4 MLS/HR Magnesium Sulfate 50 ml @ 0 mls/hr PROTOCOL PRN IV hypomagnesemia 07/26/24 18:00 08/25/24 17:59 Metoprolol Succinate (TopROL XL) 50 mg BID PO 07/27/24 10:30 07/27/24 22:52 DC 07/27/24 20:19 50 MG Metoprolol Succinate (TopROL XL) 100 mg BID PO 07/28/24 09:00 08/27/24 08:59 08/05/24 08:53 100 MG Metoprolol Tartrate (loprESSOR) 25 mg BID PO 07/26/24 21:00 07/27/24 10:29 DC 07/27/24 08:53 25 MG Milrinone Lactate/ Dextrose 100 ml @ 0 mls/hr PROTOCOL IV 07/27/24 18:00 07/27/24 18:05 DC Milrinone Lactate/ Dextrose 100 ml @ 0 mls/hr PROTOCOL IV 07/27/24 18:30 08/26/24 18:29 07/30/24 06:23 2.58 MLS/HR Pantoprazole Sodium (PROTonix 40MG INJ) 40 mg DAILY IVP 07/28/24 09:00 08/27/24 08:59 08/05/24 08:53 40 MG Potassium Chloride 100 ml @ 100 mls/hr AD PRN IV POTASSIUM PROTOCOL 07/26/24 18:00 08/25/24 17:59 08/05/24 09:00 100 MLS/HR Potassium Chloride (K-Dur/Klor-Con 20meq) 20 meq AD PRN PO POTASSIUM PROTOCOL 07/26/24 18:00 08/25/24 17:59 08/02/24 21:18 20 MEQ Potassium Chloride (KCl 10% Elixir 20meq/15ml) 20 meq AD PRN PO POTASSIUM PROTOCOL 07/26/24 18:00 08/25/24 17:59 Sodium Chloride 500 ml @ 0 mls/hr Q0M IV 08/05/24 04:30 09/04/24 04:29 Thiamine HCl (Vitamin B-1) 100 mg DAILY PO 07/27/24 09:00 08/01/24 08:49 DC 07/29/24 08:33 100 MG Thiamine HCl (Vitamin B-1) 300 mg DAILY08 IVP 07/30/24 08:00 08/01/24 08:01 DC 08/01/24 08:27 300 MG Wound Care/ Dressing Products (Venelex Ointment) 1 gm BID TP 07/31/24 21:00 08/01/24 08:19 DC 07/31/24 22:25 1 GM Wound Care/ Dressing Products (Venelex Ointment) apply to buttocks BID TP 08/01/24 09:00 08/30/24 20:59 08/05/24 08:57 1 GM DIAGNOSTICS / RADIOLOGY: [place] [address] [address] IMAGING REPORT Signed PATIENT: FREDDIE JONES MR#: [id number] : 1955 SEX: M AGE: 69 LOCATION: 2D ORDER 0101 STATUS: ADM IN REPORT#: [id number] SERVICE 0600 REASON: CHF ORDERING PHYSICIAN: TONG CACERES NP PROCEDURE: CXR1VW - CHEST 1VW Exam Type: CHEST 1VW Clinical Information: CHF Comparison: None Findings: Pulmonary pattern is as before. No worrisome interval changes have taken place. Impression: Stable exam. DICTATED BY: DANUTA IVAN MD DATE: 08/04/24 0849 ELECTRONICALLY SIGNED BY: DANUTA IVAN MD DATE: 08/05/24 0857 ASSESSMENT: Acute CHF exacerbation POA Acute hypoxic respiratory failure secondary to CHF exacerbation New onset paroxysmal atrial fibrillation with RVR Generalized anasarca Acute kidney injury, 2/2 ATN, POA Lower extremity edema History of alcohol use Mild coagulopathy Mild leukocytosis differential infectious versus reactive PLAN: Acute CHF exacerbation - patient to be admitted to PCCU - Continue with Milrinone GGT - Continue with oxygen supplementation to keep O2 sat greater than 92%. - Monitor strict I&O's and daily weights. - Monitor kidney function carefully - Left heart catheterization day. Continue to follow cardiology recommendations. -Urology has been consulted for hematuria. Continue to follow their recommend ations. CASE WAS SEEN AND EXAMINED WITH DR. ROTHMAN, ABOVE PLAN WAS FORMULATED ALILI,ERA MD August 05, 2024 13:32
--- NOTE | 2024-08-05 15:10 | NUR ---
[facility] Follow-up: Patient re-assessed by wound healing team. Assessment and recommendations provided to primary nurse. Education provided. Wound care done. Addendum: 08/06/24 at 1335 by GAGE DOBBINS RN RN/ Amended: Links added.
--- NOTE | 2024-08-05 22:37 | CONS ---
CONSULTATION NOTE Date of Service: August 05, 2024 Reason for Consultation: Gross hematuria Requesting Physician: Attending shoe sticks repairer HISTORY OF PRESENT ILLNESS: 69-year-old man, presented to this facility 07/26/2024 reporting lower extremity edema of several weeks duration with concurrent shortness of breath. At that time he reported that he had not seen a physician in about 40 years. He has undergone a full workup since hospitalization found to have coronary arterial disease and the atrial fibrillation. Was heparinized and every time he is on heparin he sees blood in the urine. Underwent a cardiac cath eterizations/coronary angiography recently. Patient reports episodes at home where he pinches penis to allow spilling urine on the floor because he had urgency and soon after that he felt a burst sensation which was ensued by blood in the urine on several occasions. He is currently voiding volitionally via pure wick. A urological consult was requested for management of gross hem aturia. When he presented on admission there is evidence of chronic kidney disease. A CT scan abdomen and pelvis without contrast did not show any significant genitourinary tract abnormality. REVIEW OF SYSTEMS CONSTITUTIONAL: Denies fever, chills, or fatigue. HEAD/FACE: No signs of trauma. EENT: Denies eye pain, blurred vision, double vision, or light sensitivity. RESPIRATORY: Denies shortness of breath, cough, wheezing CARDIOVASCULAR: Denies chest pain, palpitation, syncope GASTROINTESTINAL/ABDOMINAL: Denies abdominal pain, constipation, diarrhea, nausea or vomiting GENITOURINARY: Gross hematuria. MUSCULOSKELETAL: Denies joint pain, tenderness, or trauma. INTEGUMENTARY: Denies rash or itchiness NEUROLOGICAL/PSYCH: Denies anxiety, depression, heat or cold intolerance. PAST MEDICAL HISTORY: Shortness of breath Coronary arterial disease Atrial fibrillation Lower extremity edema PAST SURGICAL HISTORY: Cardiac catheterizations PAST SOCIAL HISTORY: Denies smoking Denies ethanol Denies recreational drugs FAMILY HISTORY: Noncontributory to presenting complaint Coded Allergies: No Known Drug Allergies (Unverified Allergy, Unknown, 07/26/24) Penicillins (Verified Allergy, Unknown, 07/26/24) PHYSICAL EXAM EYES: Anicteric. Pupils equal and reactive. HENT: No oral thrush seen, moist Oral mucosa NECK: Supple, no JVD or thyromegaly. LUNGS: Good air entry. No rales, no rhonchi. CARDIOVASCULAR: S1, S2 regular. No murmur heard. ABDOMEN: Soft, non tender, bowel sounds present, no organomegaly CENTRAL NERVOUS SYSTEM: Awake, alert, oriented x 3. No focal deficits. SKIN: No rashes, no swelling. LYMPHATICS: No peripheral lymphadenopathy MUSCULOSKELETAL: No joint swelling, erythema or tenderness. EXTREMITIES: No cyanosis or clubbing BACK: No deformity, no pressure ulcer. GENITOURINARY: Uncircumcised, normal genitalia otherwise Vital Sign (Last 24 Hours) 08/05/24 08/05/24 08:00 16:30 Temp 97.9 Pulse 92 Resp 18 B/P (MAP) 94/64 Pulse Ox 95 O2 Delivery Room Air O2 Flow Rate 0 FiO2 21 l Intake & Output (last 24hrs) 08/04/24 08/04/24 08/05/24 15:00 23:00 07:00 Intake Total 375.0 ml 318.0 ml 360.0 ml Output Total 750 ml 600 ml Balance -375.0 ml 318.0 ml -240.0 ml LABS: Laboratory: Test 08/05/24 05:46 Range/Units White Blood Count 7.9 4.8-10.8 K/uL Red Blood Count 4.70 4.50-6.20 MIL/uL Hemoglobin 14.0 14.0-18.0 g/dL Hematocrit 45.2 42-54 % Mean Corpuscular Volume 96.2 79-99 fL Mean Corpuscular Hemoglobin 29.8 27.0-33.0 pg Mean Corpuscular Hemoglobin Concent 31.0 L 32.0-36.0 g/dL Red Cell Distribution Width 14.4 11.0-15.5 % Platelet Count 105 L 130-400 K/uL Mean Platelet Volume 10.0 7.5-10.5 fL Nucleated Red Blood Cells 0.0 0.0-0.19 % Prothrombin Time 12.9 H 9.6-11.6 SEC Prothromb Time International Ratio 1.24 H 0.85-1.15 Activated Partial Thromboplast Time 122.1 *H 26.3-35.5 SEC Sodium Level 141 136-145 mmol/L Potassium Level 3.8 3.5-5.1 mmol/L Chloride Level 99 L 101-111 mmol/L Carbon Dioxide Level 38 H 21-32 mmol/L Blood Urea Nitrogen 31 H 7-18 mg/dL Creatinine 1.6 H 0.5-1.3 mg/dL Glomerular Filtration Rate Calc 46 >90 mL/min Random Glucose 124 H 70-105 mg/dL Total Calcium 8.8 8.5-10.1 mg/dL Phosphorus Level 3.1 2.5-4.9 mg/dL Magnesium Level 2.00 1.80-2.40 mg/dL Total Bilirubin 0.8 0.2-1.0 mg/dL Aspartate Amino Transf (AST/SGOT) 16 10-37 U/L Alanine Aminotransferase (ALT/SGPT) 14 12-78 U/L Alkaline Phosphatase 67 50-136 U/L Total Protein 6.1 6.0-8.3 g/dL Albumin 3.1 L 3.5-5.0 g/dL DIAGNOSTICS / RADIOLOGY: CT abdomen and pelvis without contrast 07/26/2024 was reviewed. No genit ourinary tract abnormal findings. ASSESSMENT: 69-year-old man, obese, presented with shortness of breath and lower extremity edema, has had a workup and diagnosed with cardiac disease including arrhythmic issues, has been heparinized and reporting gross hematuria. PLAN: 1. Patient's renal function at this point precludes him from undergoing adequate imaging for investigation. We reviewed the CT scan from 07/26/2024 which was without contrast. 2. Patient is going to need an ambulatory cystoscopy especially given his reported self-induced urethral trauma. 3. If these counts of circumstances, a risk benefit analysis supersedes. It seems like this patient really needs to be on heparin given his atrial fibrillation. His hematuria is mild, he is not requiring transfusions, he is not hemodynamically unstable. So I think I a little bit of hematuria is acceptable in order to be able to address patient's cardiac rhythm issues. 4. Thank you for involving us in the care of this patient. 60 minutes spent to complete a consult more than half of the time spent in counseling and coordination of care and addressing questions posed by patient and family member present, some time was spent discussing with members of his care team, the rest of the time was spent reviewing medical records past and present as well as imaging laboratory data from this admission. GEORGE VASQUEZ MD August 05, 2024 22:37
[2024-08-06] VITALS (9 sets, daily range): BP systolic 102–114; BP diastolic 66–78; PULSE 93–103; RESP 16–20; TEMP 97.8–98.1; O2SAT 97
[2024-08-06 04:47] LABS: HEMATOCRIT 43.9 % (42-54); MEAN CORPUSCULAR HGB CONC 31.4 g/dL (32.0-36.0); MEAN CORPUSCULAR VOLUME 95.4 fL (79-99); RED BLOOD CELL COUNT(AUTO) 4.6 MIL/uL (4.50-6.20); RED CELL DISTRIBUTION WIDTH 14.4 % (11.0-15.5); WHITE BLOOD COUNT (AUTO) 7.5 K/uL (4.8-10.8)
[2024-08-06 05:58] LABS: ALBUMIN 3.2 g/dL (3.5-5.0); BILIRUBIN,TOTAL 0.8 mg/dL (0.2-1.0); CREATININE 1.6 mg/dL (0.5-1.3); MAGNESIUM 1.9 mg/dL (1.80-2.40); POTASSIUM 4.1 mmol/L (3.5-5.1); TOTAL PROTEIN, SERUM 6.1 g/dL (6.0-8.3)
[2024-08-06] MEDS: MAGNESIUM 2GM PREMIX 50ML 50 ML IV PRN (08:12)
--- NOTE | 2024-08-06 09:14 | HMCIMG ---
Exam Type: CHEST 1VW Clinical Information: post heart cath Comparison: None Findings: The lungs are clear of infiltrates. The heart is enlarged. Bony and soft tissue structures of the chest wall are unremarkable. IMPRESSION: Cardiomegaly. Clear lungs.
--- NOTE | 2024-08-06 10:19 | PN ---
[facility] PROGRESS NOTE Date Patient Seen: August 06, 2024 Time of Visit: 10:19 Supervising Physician: Seven Cruz MD Consulting Physician: Hospitalist Outpatient Specialists: [ ] Inpatient Consults: Dr. Mitchell (cardio) PROBLEM LIST: AFib with RVR POA Severe CAD of lad and LCx, borderline severe lesion of the distal LM Acute hypoxic respiratory failure, POA, resolving Acute on chronic combined chf with EF Severely reduced left ventricular function <20% on 2D echo POA suspected moderate pulmonary HTN RVSP 48.1 Acute kidney injury, POA improving Leukocytosis, POA resolved Atrial fibrillation with RVR, POA Hematuria Morbid obesity, BMI of 38.7 INTERVAL HISTORY: Pt is awake alert and oriented x3. No major overnight events as per RN. Patient is status post left heart catheterization yesterday with findings of multivessel CAD including LAD and LCx, medical management for now per Cardiology recommendation. Urology has cleared patient for anticoagulants if needed for cardio protection. CBC unremarkable. Chemistry chloride has improved to 101 carbon dioxide still elevated 37 consistent with likely undiagnosed and untreated sleep apnea BUN of 33 creatinine 1.6 and GFR of 46 glucose 180 mg/dL. Patient denies any chest pain palpitations shortness for breath at this time he is sitting up in recliner chair with no complaints at this time. Chest x-ray shows cardiomegaly but clear lungs. No pneumothorax. No infiltrates noted. REVIEW OF SYSTEMS: 12 point ROS reviewed with patient. Pertinent positives mentioned above. Otherwise negative. PHYSICAL EXAM: GENERAL: alert, weak, awake oriented x 3 HEENT: EOMI, Sclera non icteric, moist mucosa NECK: Supple, no JVD, trachea midline LUNGS: Coarse bilateral lung sounds HEART: Regular rate and rhythm. Normal S1 and S2, without murmurs ABD: Large abdomen EXT: 2+ pitting edema NEURO: Alert and oriented to person, follows commands Vital Signs (last 8hr) Date Time Temp Pulse Resp B/P (MAP) Pulse Ox O2 Delivery O2 Flow Rate FiO2 08/06/24 08:32 97.9 93 18 105/71 97 Room Air 08/06/24 04:00 97.9 96 20 114/78 96 Room Air LABS: Hematology Labs: Test 08/06/24 04:16 Range/Units White Blood Count 7.5 4.8-10.8 K/uL Red Blood Count 4.60 4.50-6.20 MIL/uL Hemoglobin 13.8 L 14.0-18.0 g/dL Hematocrit 43.9 42-54 % Mean Corpuscular Volume 95.4 79-99 fL Mean Corpuscular Hemoglobin 30.0 27.0-33.0 pg Mean Corpuscular Hemoglobin Concent 31.4 L 32.0-36.0 g/dL Red Cell Distribution Width 14.4 11.0-15.5 % Platelet Count 119 L 130-400 K/uL Mean Platelet Volume 10.5 7.5-10.5 fL Nucleated Red Blood Cells 0.0 0.0-0.19 % Chemistry Labs: Test 08/06/24 06:33 08/06/24 04:16 08/05/24 05:46 Range/Units Whole Blood Glucose 167 H 70-110 MG/DL Sodium Level 143 136-145 mmol/L Potassium Level 4.1 3.5-5.1 mmol/L Chloride Level 101 101-111 mmol/L Carbon Dioxide Level 37 H 21-32 mmol/L Blood Urea Nitrogen 33 H 7-18 mg/dL Creatinine 1.6 H 0.5-1.3 mg/dL Glomerular Filtration Rate Calc 46 >90 mL/min Random Glucose 118 H 70-105 mg/dL Total Calcium 8.9 8.5-10.1 mg/dL Magnesium Level 1.90 1.80-2.40 mg/dL Total Bilirubin 0.8 0.2-1.0 mg/dL Aspartate Amino Transf (AST/SGOT) 19 10-37 U/L Alanine Aminotransferase (ALT/SGPT) 15 12-78 U/L Alkaline Phosphatase 69 50-136 U/L Total Protein 6.1 6.0-8.3 g/dL Albumin 3.2 L 3.5-5.0 g/dL Phosphorus Level 3.1 2.5-4.9 mg/dL Coagulation Labs: Test 08/05/24 05:46 Range/Units Prothrombin Time 12.9 H 9.6-11.6 SEC Prothromb Time International Ratio 1.24 H 0.85-1.15 Activated Partial Thromboplast Time 122.1 *H 26.3-35.5 SEC DIAGNOSTICS / RADIOLOGY RESULTS: [ ]Signed PATIENT: FREDDIE JONES MR#: [id number] : 1955 SEX: M AGE: 69 LOCATION: 2D ORDER 28 STATUS: ADM IN REPORT#: [id number] SERVICE 06 REASON: post heart cath ORDERING PHYSICIAN: ROSALBA LANE PROCEDURE: CXR1VW - CHEST 1VW Exam Type: CHEST 1VW Clinical Information: post heart cath Comparison: None Findings: The lungs are clear of infiltrates. The heart is enlarged. Bony and soft tissue structures of the chest wall are unremarkable. IMPRESSION: Cardiomegaly. Clear lungs. DICTATED BY: DANUTA IVAN MD DATE: 08/06/24908 ELECTRONICALLY SIGNED BY: DANUTA IVAN MD DATE: 08/06/24913 PLAN Follow cardiology recommendations will need 6 min wal prior to DC He will require pulmonology follow up on DC for PFT's and sleep study. NEURO: Minimize central acting medications as possible. Maintain fall precautions, adequate lighting during the day PULMONARY: Supplemental 02 as needed. Maintain aspiration precautions at all times CARDIOVASCULAR: Follow hemodynamics. Vital signs per facility protocol GI & NUTRITION: Continue with nutritional support. Continue stool softeners and laxatives as needed. KIDNEYS & ELECTROLYTES: Strict monitoring of intake, output and overall fluid balance. Avoid nephrotoxic medications to the extent possible. Medications to be dosed according to renal function. Monitor electrolytes and replace as needed ENDOCRINE: Maintain blood glucose between 100-180 at all times. Hypoglycemia protocol in place INFECTIOUS DISEASE: Trend temperature, WBC and procalcitonin level Follow cultures, deescalate antibiotics as soon as possible. Panculture if new onset fever ONCOLOGY/HEMATOLOGY/COAGULATION: Monitor for s/s of bleeding Monitor hemoglobin, coagulation studies as needed SKIN: Pressure ulcer prevention per facility protocol Specialty mattress ORTHO/REHAB: Continue PT/OT Prophylaxis: Continue GI and DVT prophylaxis Code Status: Full Resuscitation Disposition: TBD Other: The patient was seen and case was discussed with supervising MD. Plan was discussed and agreed upon. I personally spent 40 minutes of critical care time in treatment of this patient. This includes patient management, time at bedside, time reviewing tests, labs, appropriate images and studies, documentation, and patient care coordination. This time excludes separately billable procedures. ATTESTATION BY PHYSICIAN I reviewed the documentation, medical decision making, and treatment plan as noted by the mid-level provider above. I agree with the findings and plan of care. Seven Cruz MD, NELLY J [facility] August 06, 2024 10:19
--- NOTE | 2024-08-06 11:48 | PN ---
[facility] PROGRESS NOTE Date of Service: August 06, 2024 Time of Service: 11:46 SUBJECTIVE: [69 old male admitted due to shortness of breaths, patient was at kidney failure on admission suspected due to acute tubular necrosis. Patient also was noted with cardiomyopathy, EF is less than 20%, patient is currently on oxygen supplementation. Today he continues with tachycardia, BB increased yesterday, now on Metoprolol XL 100 mg PO BID. He is still needs oxygen supplementation, on and off on 2L via NC. Continue with strict I&O. 07/31/24 patient was seen and examined. Case discussed with RN. He has presented with ischemic cardiomyopathy requiring aggressive diuresis. He was on diuretics are being carefully managed by Nephrology and Cardiology monitoring his renal function. Clinically he says he was getting better 08/01/24 patient was seen and examined. Case discussed with the RN. He was co ntinuing with the aggressive diuresis and electrolytes and labs are being monitored. He was having bloody discharge from the end of the penis as if there was some trauma. We will continue to monitor H and H and if this is a consistent problem urology may need to evaluate him 08/02/24 patient was seen and examined. Case discussed with the RN and by the bedside. He is doing better today. Heparin drip has been turned off and the bloody discharge from the end of the pannus is improving. Continue to mo nitor that. Hemoglobin is stable. Cardiac catheterization has been planned for Sunday or Sunday08/03/24 patient was seen and examined. Case discussed with the RN and . He was more alert sitting up in the chair. He also worked with PT and walked a little bit. Hematuria seems to be improving with light her collar we will continue to monitor that. Hemoglobin continues to be stable cardiac catheterization is planned 08/04/24 patient was seen and examined. Case discussed with the RN and ./hematuria continues to lighten Hemoglobin continues to be stable cardiac catheterization is planned 08/05/24: Patient was seen and examined this morning. Patient had Left heart catheterization procedure today. The patient continues with hematuria today, urology has been consulted. Per cardiology, left heart catheterization showed severe disease of the LAD<LCX and borderline disease of the left main coronary artery. We will follow cardiology recommendations. Due to contrast use today, we will monitor renal function. 5/7/25: Patient was seen and examined this morning at bedside. The patient just finished physical therapy. Patient had a left heart cath yesterday that showed severe disease of the LAD. We will continue to follow cardiology recommendations. Patients hematuria has improved this morning. We will continue to follow urology recommendations. Patients creatinine is stable today, at 1.6. The patients chest x-ray showed cardiomegaly, and clear lungs. REVIEW OF SYSTEMS CONSTITUTIONAL: Denies fevers, chills, or night sweats. Denied any changes in weight NEUROLOGICAL: Denies headache, amaurosis fugax, motor weakness, sensory deficit, vertigo/spinning sensation, gait abnormalities, or tremors. ENT: No hearing loss, otalgia, otorrhea, rhinitis, rhinorrhea, hoarseness, or sore throat. CARDIOVASCULAR: Denies any exertional angina, dyspnea on exertion, orthopnea, paroxysmal nocturnal dyspnea, palpitations, life-threatening arrhythmias, claudication. PULMONARY: Positive for shortness of breath, cough. Denied any sputum production GASTROINTESTINAL: Denies any type of dysphagia to either liquids or solids. Denies nausea, vomiting, pyrosis, early satiety, abdominal pain, diarrhea, constipation, or changes in stool consistency or caliber. Denies coffee-ground emesis, hematemesis, hematochezia, or melanotic stools. GENITOURINARY: Positive for decreased urination. Denied any hematuria, dysuria ENDOCRINOLOGIC: Denies polyuria, polydipsia, polyphagia or heat/cold intolerances. HEMATOLOGIC: Denies thrombophilia/previous clots, or coagulopathy/bleeding disorders. ONCOLOGIC: Denies personal history of malignancy. DERMATOLOGIC: Denies rashes or pruritus. PSYCHIATRIC: Denies any suicidal or homicidal ideation. Denies hallucinations. Musculoskeletal: Positive for swelling in the lower extremity PHYSICAL EXAM GENERAL APPEARANCE: The patient is awake, alert, and oriented, in no acute cardiopulmonary distress. NEUROLOGICAL: Cranial nerves II-XII grossly intact. Motor is 5/5 in bilateral upper and lower extremities proximal to distal. No sensory deficits. HEENT: Face is symmetric. Pupils are equal and reactive. Extraocular movements are intact. NECK: Supple. No JVD. No thyromegaly. No submental, submandibular, pre- /postauricular, occipital or supraclavicular lymphadenopathy. CHEST: Normal chest expansion. No Telemetry. LUNGS: Positive for crackles in the right side CARDIOVASCULAR: Regular. S1 and S2 normal. No appreciable rubs, murmurs or gallops. ABDOMEN: Abdomen is distended. He has soft tissue edema in the abdominal wall. Bowel sounds are active. : Deferred. No Garcia. EXTREMITIES:3+ pitting edema in the lower extremity bilaterally he also has venous stasis changes.. No clubbing. Good capillary refill. SKIN: No skin breakdown. Vital Signs (last 8hr) Date Time Temp Pulse Resp B/P (MAP) Pulse Ox O2 Delivery O2 Flow Rate FiO2 08/06/24 08:32 97.9 93 18 105/71 97 Room Air 08/06/24 04:00 97.9 96 20 114/78 96 Room Air LABS: Laboratory: Test 08/06/24 11:43 08/06/24 04:16 08/05/24 05:46 Range/Units Whole Blood Glucose 152 H 70-110 MG/DL White Blood Count 7.5 4.8-10.8 K/uL Red Blood Count 4.60 4.50-6.20 MIL/uL Hemoglobin 13.8 L 14.0-18.0 g/dL Hematocrit 43.9 42-54 % Mean Corpuscular Volume 95.4 79-99 fL Mean Corpuscular Hemoglobin 30.0 27.0-33.0 pg Mean Corpuscular Hemoglobin Concent 31.4 L 32.0-36.0 g/dL Red Cell Distribution Width 14.4 11.0-15.5 % Platelet Count 119 L 130-400 K/uL Mean Platelet Volume 10.5 7.5-10.5 fL Nucleated Red Blood Cells 0.0 0.0-0.19 % Sodium Level 143 136-145 mmol/L Potassium Level 4.1 3.5-5.1 mmol/L Chloride Level 101 101-111 mmol/L Carbon Dioxide Level 37 H 21-32 mmol/L Blood Urea Nitrogen 33 H 7-18 mg/dL Creatinine 1.6 H 0.5-1.3 mg/dL Glomerular Filtration Rate Calc 46 >90 mL/min Random Glucose 118 H 70-105 mg/dL Total Calcium 8.9 8.5-10.1 mg/dL Magnesium Level 1.90 1.80-2.40 mg/dL Total Bilirubin 0.8 0.2-1.0 mg/dL Aspartate Amino Transf (AST/SGOT) 19 10-37 U/L Alanine Aminotransferase (ALT/SGPT) 15 12-78 U/L Alkaline Phosphatase 69 50-136 U/L Total Protein 6.1 6.0-8.3 g/dL Albumin 3.2 L 3.5-5.0 g/dL Prothrombin Time 12.9 H 9.6-11.6 SEC Prothromb Time International Ratio 1.24 H 0.85-1.15 Activated Partial Thromboplast Time 122.1 *H 26.3-35.5 SEC Phosphorus Level 3.1 2.5-4.9 mg/dL Current Medications Medications (Trade) Dose Ordered Sig/Melinda Route PRN Reason Start Time Stop Time Status Last Admin Dose Admin Acetaminophen (TYLenol 500MG TAB) 500 mg Q6H PRN PO MILD PAIN (1-3) 07/26/24 18:00 08/25/24 17:59 07/30/24 10:06 500 MG Bacitracin (Bacitracin 28.4gm) Right and left lower leg DAILY TP 07/29/24 09:00 08/28/24 08:59 08/06/24 08:26 28.4 GM Bumetanide (Bumex 1mg Vial) 1 mg Q12H IVP 07/27/24 09:00 07/28/24 02:44 DC 07/27/24 20:19 1 MG Clotrimazole (Lotrisone Cream) 1 APPL TP DAILY DAILY TP 08/03/24 09:00 09/02/24 08:59 08/06/24 08:26 45 GM Folic Acid (FOLic ACID 1 MG TABLET) 1 mg DAILY PO 07/27/24 09:00 08/26/24 08:59 08/06/24 08:24 1 MG Furosemide (LASix 40MG VIAL) 40 mg Q12H IV 07/26/24 23:00 07/27/24 06:31 DC 07/26/24 23:09 40 MG Furosemide (LASix 40MG VIAL) 40 mg TID IV 08/02/24 21:00 09/01/24 20:59 08/06/24 08:33 40 MG Furosemide 100 mg/ Sodium Chloride 100 ml @ 0 mls/hr PROTOCOL IV 07/28/24 03:00 08/02/24 14:47 DC 08/02/24 12:27 10 MLS/HR Heparin Sodium (Porcine) (HEParin 5,000 UNIT VIAL) 5,000 unit Q12H SQ 07/26/24 21:00 07/27/24 00:12 DC 07/26/24 21:07 5,000 UNIT Heparin Sodium/ Dextrose 250 ml @ 0 mls/hr Q6H IV 07/27/24 01:00 08/02/24 14:47 DC 08/02/24 10:25 10.43 MLS/HR Heparin Sodium/ Dextrose 250 ml @ 0 mls/hr Q6H IV 08/03/24 20:30 08/05/24 08:08 DC 08/05/24 00:53 16.4 MLS/HR Magnesium Sulfate 50 ml @ 0 mls/hr PROTOCOL PRN IV hypomagnesemia 07/26/24 18:00 08/25/24 17:59 08/06/24 08:12 25 MLS/HR Metoprolol Succinate (TopROL XL) 50 mg BID PO 07/27/24 10:30 07/27/24 22:52 DC 07/27/24 20:19 50 MG Metoprolol Succinate (TopROL XL) 100 mg BID PO 07/28/24 09:00 08/27/24 08:59 08/06/24 08:25 100 MG Metoprolol Tartrate (loprESSOR) 25 mg BID PO 07/26/24 21:00 07/27/24 10:29 DC 07/27/24 08:53 25 MG Milrinone Lactate/ Dextrose 100 ml @ 0 mls/hr PROTOCOL IV 07/27/24 18:00 07/27/24 18:05 DC Milrinone Lactate/ Dextrose 100 ml @ 0 mls/hr PROTOCOL IV 07/27/24 18:30 08/26/24 18:29 07/30/24 06:23 2.58 MLS/HR Pantoprazole Sodium (PROTonix 40MG INJ) 40 mg DAILY IVP 07/28/24 09:00 08/27/24 08:59 08/06/24 08:25 40 MG Potassium Chloride 100 ml @ 100 mls/hr AD PRN IV POTASSIUM PROTOCOL 07/26/24 18:00 08/25/24 17:59 08/05/24 09:00 100 MLS/HR Potassium Chloride (K-Dur/Klor-Con 20meq) 20 meq AD PRN PO POTASSIUM PROTOCOL 07/26/24 18:00 08/25/24 17:59 08/05/24 17:36 20 MEQ Potassium Chloride (KCl 10% Elixir 20meq/15ml) 20 meq AD PRN PO POTASSIUM PROTOCOL 07/26/24 18:00 08/25/24 17:59 Sodium Chloride 500 ml @ 0 mls/hr Q0M IV 08/05/24 04:30 09/04/24 04:29 Thiamine HCl (Vitamin B-1) 100 mg DAILY PO 07/27/24 09:00 08/01/24 08:49 DC 07/29/24 08:33 100 MG Thiamine HCl (Vitamin B-1) 300 mg DAILY08 IVP 07/30/24 08:00 08/01/24 08:01 DC 08/01/24 08:27 300 MG Wound Care/ Dressing Products (Venelex Ointment) 1 gm BID TP 07/31/24 21:00 08/01/24 08:19 DC 07/31/24 22:25 1 GM Wound Care/ Dressing Products (Venelex Ointment) apply to buttocks BID TP 08/01/24 09:00 08/30/24 20:59 08/06/24 08:26 60 GM DIAGNOSTICS / RADIOLOGY: [address] [address] IMAGING REPORT Signed PATIENT: FREDDIE JONES MR#: [id number] : 1955 SEX: M AGE: 69 LOCATION: 2D ORDER [id number] STATUS: ADM IN REPORT#: [id number] SERVICE 0600 REASON: post heart cath ORDERING PHYSICIAN: ROSALBA LANE PROCEDURE: CXR1VW - CHEST 1VW Exam Type: CHEST 1VW Clinical Information: post heart cath Comparison: None Findings: The lungs are clear of infiltrates. The heart is enlarged. Bony and soft tissue structures of the chest wall are unremarkable. IMPRESSION: Cardiomegaly. Clear lungs. DICTATED BY: DANUTA IVAN MD DATE: 08/06/24 0909 ELECTRONICALLY SIGNED BY: DANUTA IVAN MD DATE: 08/06/24 0914 ASSESSMENT: Acute CHF exacerbation POA Acute hypoxic respiratory failure secondary to CHF exacerbation New onset paroxysmal atrial fibrillation with RVR Generalized anasarca Acute kidney injury, 2/2 ATN, POA Lower extremity edema History of alcohol use Mild coagulopathy Mild leukocytosis differential infectious versus reactive PLAN: Acute CHF exacerbation - patient to be admitted to PCCU - Continue with Milrinone GGT - Continue with oxygen supplementation to keep O2 sat greater than 92%. - Monitor strict I&O's and daily weights. - Monitor kidney function carefully - Left heart catheterization yesterday. Continue to follow cardiology recommendations. -Urology has been consulted for hematuria. Continue to follow their recommendations. CASE WAS SEEN AND EXAMINED WITH DR. ROTHMAN, ABOVE PLAN WAS FORMULATED GORDO PANIAGUA MD August 06, 2024 11:48
--- NOTE | 2024-08-06 13:12 | PN ---
NEPHROLOGY PROGRESS NOTE Date/Time Patient Seen: August 06, 2024 SUBJECTIVE: This is a 69-year-old male with no significant past medical history He has had a prolonged hospital course. The patient is admitted, found to have congestive heart failure. Workup is consistent with severe cardiomyopathy. He has been transitioned to IV Lasix 40 mg t.i.d. Milrinone drip has been discontinued The patient's creatinine continues to slowly improve. Urine output was noted The patient is being seen by Cardiology , S/P left heart catheterization, pending further Cardiology recommendations He was seen by Urology for hematuria. He was seen in telemetry, in no acute distress Family at the bedside Condition remains guarded REVIEW OF SYSTEMS: GENERAL: Negative for any nausea, vomiting, fevers, chills, or weight loss. NEUROLOGIC: Negative for any blurry vision, blind spots, double vision, facial asymmetry, dysphagia, dysarthria, hemiparesis, hemisensory deficits, vertigo, ataxia. HEENT: Negative for any head trauma, neck trauma, neck stiffness, photophobia, phonophobia, sinusitis, rhinitis. CARDIAC: Negative for any chest pain, dyspnea on exertion, paroxysmal nocturnal dyspnea, peripheral edema. PULMONARY: Negative for any shortness of breath, wheezing, COPD, or TB exposure. GASTROINTESTINAL: Negative for any abdominal pain, nausea, vomiting, bright red blood per rectum, melena. GENITOURINARY: Negative for any dysuria, hematuria, incontinence. INTEGUMENTARY: Negative for any rashes, cuts, insect bites. RHEUMATOLOGIC: Negative for any joint pains, photosensitive rashes, history of vasculitis or kidney problems. HEMATOLOGIC: Negative for any abnormal bruising, frequent infections or bleeding. Vital Signs (last 8hr) Vital Signs (last 8hr) Date Time Temp Pulse Resp B/P (MAP) Pulse Ox O2 Delivery O2 Flow Rate FiO2 08/06/24 12:00 98.1 98 16 106/68 95 Room Air 08/06/24 08:32 97.9 93 18 105/71 97 Room Air 08/06/24 07:50 97 Room Air* 0 21 PHYSICAL EXAM: GENERAL: Alert and oriented x 3. No acute distress. Well-nourished. EYES: EOMI. Anicteric. HENT: Moist mucous membranes. No scleral icterus. No cervical lymphadenopathy. LUNGS: Clear to auscultation bilaterally. No accessory muscle use. CARDIOVASCULAR: Regular rate and rhythm. No murmur. No JVD. ABDOMEN: Soft, non-tender and non-distended. No palpable masses. EXTREMITIES: No edema. Non-tender.?SKIN: No rashes or lesions. Warm. NEUROLOGIC: No focal neurological deficits. CN II-XII grossly intact, but not individually tested. PSYCHIATRIC: Cooperative. Appropriate mood and affect. Current Medications Medications (Trade) Dose Ordered Sig/Melinda Route PRN Reason Start Time Stop Time Status Last Admin Dose Admin Acetaminophen (TYLenol 500MG TAB) 500 mg Q6H PRN PO MILD PAIN (1-3) 07/26/24 18:00 08/25/24 17:59 07/30/24 10:06 500 MG Bacitracin (Bacitracin 28.4gm) Right and left lower leg DAILY TP 07/29/24 09:00 08/28/24 08:59 08/01/24 08:32 1 GM Bumetanide (Bumex 1mg Vial) 1 mg Q12H IVP 07/27/24 09:00 07/28/24 02:44 DC 07/27/24 20:19 1 MG Folic Acid (FOLic ACID 1 MG TABLET) 1 mg DAILY PO 07/27/24 09:00 08/26/24 08:59 08/01/24 08:30 1 MG Furosemide (LASix 40MG VIAL) 40 mg Q12H IV 07/26/24 23:00 07/27/24 06:31 DC 07/26/24 23:09 40 MG Furosemide 100 mg/ Sodium Chloride 100 ml @ 0 mls/hr PROTOCOL IV 07/28/24 03:00 08/27/24 02:59 08/02/24 00:38 10 MLS/HR Heparin Sodium (Porcine) (HEParin 5,000 UNIT VIAL) 5,000 unit Q12H SQ 07/26/24 21:00 07/27/24 00:12 DC 07/26/24 21:07 5,000 UNIT Heparin Sodium/ Dextrose 250 ml @ 0 mls/hr Q6H IV 07/27/24 01:00 08/26/24 00:59 08/01/24 11:23 13.65 MLS/HR Magnesium Sulfate 50 ml @ 0 mls/hr PROTOCOL PRN IV hypomagnesemia 07/26/24 18:00 08/25/24 17:59 Metoprolol Succinate (TopROL XL) 50 mg BID PO 07/27/24 10:30 07/27/24 22:52 DC 07/27/24 20:19 50 MG Metoprolol Succinate (TopROL XL) 100 mg BID PO 07/28/24 09:00 08/27/24 08:59 08/01/24 19:51 100 MG Metoprolol Tartrate (loprESSOR) 25 mg BID PO 07/26/24 21:00 07/27/24 10:29 DC 07/27/24 08:53 25 MG Milrinone Lactate/ Dextrose 100 ml @ 0 mls/hr PROTOCOL IV 07/27/24 18:00 07/27/24 18:05 DC Milrinone Lactate/ Dextrose 100 ml @ 0 mls/hr PROTOCOL IV 07/27/24 18:30 08/26/24 18:29 07/30/24 06:23 2.58 MLS/HR Pantoprazole Sodium (PROTonix 40MG INJ) 40 mg DAILY IVP 07/28/24 09:00 08/27/24 08:59 08/01/24 08:27 40 MG Potassium Chloride 100 ml @ 100 mls/hr AD PRN IV POTASSIUM PROTOCOL 07/26/24 18:00 08/25/24 17:59 Potassium Chloride (K-Dur/Klor-Con 20meq) 20 meq AD PRN PO POTASSIUM PROTOCOL 07/26/24 18:00 08/25/24 17:59 08/02/24 06:06 20 MEQ Potassium Chloride (KCl 10% Elixir 20meq/15ml) 20 meq AD PRN PO POTASSIUM PROTOCOL 07/26/24 18:00 08/25/24 17:59 Thiamine HCl (Vitamin B-1) 100 mg DAILY PO 07/27/24 09:00 08/01/24 08:49 DC 07/29/24 08:33 100 MG Thiamine HCl (Vitamin B-1) 300 mg DAILY08 IVP 07/30/24 08:00 08/01/24 08:01 DC 08/01/24 08:27 300 MG Wound Care/ Dressing Products (Venelex Ointment) 1 gm BID TP 07/31/24 21:00 08/01/24 08:19 DC 07/31/24 22:25 1 GM Wound Care/ Dressing Products (Venelex Ointment) apply to buttocks BID TP 08/01/24 09:00 08/30/24 20:59 08/01/24 19:57 1 GM LABORATORY: [ ] Hematology Labs: Test 08/06/24 04:16 Range/Units White Blood Count 7.5 4.8-10.8 K/uL Red Blood Count 4.60 4.50-6.20 MIL/uL Hemoglobin 13.8 L 14.0-18.0 g/dL Hematocrit 43.9 42-54 % Mean Corpuscular Volume 95.4 79-99 fL Mean Corpuscular Hemoglobin 30.0 27.0-33.0 pg Mean Corpuscular Hemoglobin Concent 31.4 L 32.0-36.0 g/dL Red Cell Distribution Width 14.4 11.0-15.5 % Platelet Count 119 L 130-400 K/uL Mean Platelet Volume 10.5 7.5-10.5 fL Nucleated Red Blood Cells 0.0 0.0-0.19 % Chemistry Labs: Test 08/06/24 11:43 08/06/24 04:16 08/05/24 05:46 Range/Units Whole Blood Glucose 152 H 70-110 MG/DL Sodium Level 143 136-145 mmol/L Potassium Level 4.1 3.5-5.1 mmol/L Chloride Level 101 101-111 mmol/L Carbon Dioxide Level 37 H 21-32 mmol/L Blood Urea Nitrogen 33 H 7-18 mg/dL Creatinine 1.6 H 0.5-1.3 mg/dL Glomerular Filtration Rate Calc 46 >90 mL/min Random Glucose 118 H 70-105 mg/dL Total Calcium 8.9 8.5-10.1 mg/dL Magnesium Level 1.90 1.80-2.40 mg/dL Total Bilirubin 0.8 0.2-1.0 mg/dL Aspartate Amino Transf (AST/SGOT) 19 10-37 U/L Alanine Aminotransferase (ALT/SGPT) 15 12-78 U/L Alkaline Phosphatase 69 50-136 U/L Total Protein 6.1 6.0-8.3 g/dL Albumin 3.2 L 3.5-5.0 g/dL Phosphorus Level 3.1 2.5-4.9 mg/dL Coagulation Labs: Test 08/05/24 05:46 Range/Units Prothrombin Time 12.9 H 9.6-11.6 SEC Prothromb Time International Ratio 1.24 H 0.85-1.15 Activated Partial Thromboplast Time 122.1 *H 26.3-35.5 SEC DIAGNOSTICS / RADIOLOGY: REASON: post heart cath ORDERING PHYSICIAN: ROSALBA LANE PROCEDURE: CXR1VW - CHEST 1VW Exam Type: CHEST 1VW Clinical Information: post heart cath Comparison: None Findings: The lungs are clear of infiltrates. The heart is enlarged. Bony and soft tissue structures of the chest wall are unremarkable. IMPRESSION: Cardiomegaly. Clear lungs. DICTATED BY: DANUTA IVAN MD DATE: 08/06/24 0909 REASON: CHF ORDERING PHYSICIAN: TONG CACERES NP PROCEDURE: CXR1VW - CHEST 1VW Exam Type: CHEST 1VW Clinical Information: CHF Comparison: None Findings: Pulmonary pattern is as before. No worrisome interval changes have taken place. Impression: Stable exam. DICTATED BY: DANUTA IVAN MD DATE: 08/04/24 0849 REASON: CHF exacerbation ORDERING PHYSICIAN: TONG CACERES [employer] PROCEDURE: CXR1VW - CHEST 1VW CHEST 1VW HISTORY: CHF COMPARISON: 07/26/2024 FINDINGS: A frontal projection of the chest was obtained. Mild bilateral pulmonary infiltrates are seen may be related to mild pulmonary vascular congestion with possible superimposed pneumonitis. The heart is enlarged. Degenerative changes are seen. No evidence of aortic calcification is seen. IMPRESSION: 1. Mild bilateral pulmonary infiltrates are seen may be related to mild pulmonary vascular congestion with possible superimposed pneumonitis. DICTATED BY: ELIU ROMANO MD DATE: 07/31/24 0935 REASON: chf exacerbation, new onset a fib dr mcintyre to read ORDERING PHYSICIAN: LANI GRACIA MD PROCEDURE: ECHO CMP - ECHO 2-D COMPLETE APPROVED REPORT EXAM: Two-dimensional and M-mode echocardiogram with Doppler and color Doppler. INDICATION ICD: Congestive heart failure, new onset of atrial fibrillation 2D Dimensions RVDd 5.5 cm LVEF(%) 17.1 (>50%) LVED Vol(simp.) 151.0 mL IVSd 1.1 (0.7-1.1cm) FS(%) 8 % LVES Vol(simp.) 124.0 mL LVDd 6.1 (3.8-5.6cm) LA (2D) 6.0 (1.6-4.0cm) LVEF(%, simp.) 18 % PWd 1.2 (0.7-1.1cm) Ao Root(2D) 3.8 (2.0-3.7cm) LA ESV INDEX (BP) 46.39 mL/m2 IVSs 1.3 cm LVOT diam 2.6 (1.8-2.4cm) LVDs 5.6 (2.5-4.0cm) PWs 1.3 cm M-Mode Dimensions EPSS 1.8 cm LA (MM) 6.1 (1.6-4.0cm) Ao Root(MM) 4.3 (2.0-3.7cm) Aortic Valve AoV Vmax 1.0 m/s Ao Peak GR 3.9 mmHg LVOT Vmax 0.5 m/s AoV VTI 0.1 m Ao Mean GR 2.6 mmHg LVOT VTI 0.07 m GABRIELLA (VMAX) 2.41 cm2 GABRIELLA (VTI) 2.4 cm2 Mitral Valve MV E Vmax 85.1 cm/s DECEL Time 169 ms P 1/2 T 33 ms MVA (PHT) 6.7 cm2 TDI E/E' Medial 43.9 E/E' Lateral 16.0 Medial E' Peak V 1.94 cm/s Lateral E' Peak V 5.32 cm/s Tricuspid Valve TR Vmax 3.1 m/s RAP (EST) 8 mmHg RVSP 48.1 mmHg TR Peak GR 40.1 mmHg Left Ventricle The left ventricle is dilated. Severe hypokinesis There is normal left ventricular wall thickness. Severely reduced left ventricular function <20%. The LV diastolic function was unable to be assessed due to atrial arrhythmia. Right Ventricle The right ventricle is severely dilated. Right ventricular systolic function is severely reduced. Atria The left atrium is moderately dilated. The right atrium is severely dilated. Aortic Valve Aortic valve is trileaflet and opens well. No aortic regurgitation is present. There is no aortic valvular stenosis. Mitral Valve The mitral valve is normal in structure. There is mild mitral valve regurgitation noted. There is no mitral valve stenosis. Tricuspid Valve The tricuspid valve is normal in structure. There is mild to moderate tricuspid valve regurgitation noted. May be underestimated due to low flow pressure gradient. Pulmonic Valve The pulmonary valve is normal in structure. There is no pulmonic valvular regurgitation. Great Vessels The aortic root is normal in size. IVC is not well visualized. Pericardium There is no pericardial effusion. Other Information Quality : Adequate Conclusion Severely reduced left ventricular function <20%. The LV diastolic function was unable to be assessed due to atrial arrhythmia. There is normal left ventricular wall thickness. The left ventricle is dilated. Severe hypokinesis The right ventricle is severely dilated. Right ventricular systolic function is severely reduced. The left atrium is moderately dilated. The right atrium is severely dilated. There is mild mitral valve regurgitation noted. There is mild to moderate tricuspid valve regurgitation noted. May be underestimated due to low flow pressure gradient. There is no pericardial effusion. DICTATED BY: LANI GRACIA MD DATE: 07/27/24 0952 REASON: renal failure ORDERING PHYSICIAN: JORGE NAVA MD PROCEDURE: RENAL - US RENAL SONOGRAM US RENAL SONOGRAM HISTORY: renal failure TECHNIQUE: US RENAL SONOGRAM. FINDINGS: RIGHT KIDNEY: The right kidney measures 10.3cm. No hydronephrosis or renal calculus seen. LEFT KIDNEY: The left kidney measures 9.3cm. There is no hydronephrosis. There is an approximate pole cyst measuring 5.5 cm. The visualized urinary bladder is within normal limits. IMPRESSION: No hydronephrosis is seen. DICTATED BY: EDUARDA MANUEL MD DATE: 07/27/24 1843 ASSESSMENT: Acute kidney injury Acute CHF exacerbation Acute hypoxic respiratory failure secondary to CHF exacerbation New onset paroxysmal atrial fibrillation with RVR Generalized anasarca Lower extremity edema History of alcohol use Mild coagulopathy Mild leukocytosis differential infectious versus reactive PLAN: Labs, diagnostic, radiologic exams reviewed and interpreted by myself and supervising physician. We have reviewed external records in detail Diuretics as per Cardiology Require close monitoring of renal function and electrolytes Order CBC, CMP,and electrolytes in am Renal diabetic diet BiPAP as necessary, for respiratory distress Monitor blood pressure adjust medication doses as needed Avoid hypotensive episodes May use Dilaudid 0.5 mg IV every 6 hours as needed for severe pain Monitor blood sugars Strict intake, output, and daily weight should be monitored Please renally adjust medications Avoid nephrotoxic and nonsteroidal drugs Avoid contrast if possible Will continue to monitor renal function, anemia, electrolytes Treatment plan discussed with patient Questions were answered We have discussed with the other team physicians in detail about the care plan We will continue to monitor the patient closely ATTESTATION BY PHYSICIAN I have seen and examined the patient. I reviewed the documentation, medical decision making, and treatment plan as noted by the mid-level provider above. I agree with the findings and plan of care. MARIVEL TOWNSEND MD, [facility] August 06, 2024 13:12
--- NOTE | 2024-08-06 17:16 | PN ---
CARDIOLOGY Reason for consult: CHF HPI/story at presentation: This is a pleasant 69-year-old male with past medical history as per present with complaints of shortness of breath with worsening edema and abdominal bloating and distention. He was diagnosed CHF exacerbation, cardiology scheduled for evaluation management. Patient was also found to be atrial fibrillation with rapid ventricular sponsor presentation to the hospital. Diuresis was initiated. Subjective: 07/26/2024 shortness of breath 07/29/2024 no complaints 07/30/2024 no complaints 07/31/2024 no complaints 08/05/2024 no complaints 08/06/2024 no complaints Past medical history: See below Allergies, Meds See chart Review of systems Review of Systems Constitutional: Negative for chills and fever. HENT: Negative for ear discharge and ear pain. Eyes: Negative for photophobia and discharge. Respiratory: Negative for cough, sputum production and stridor. Cardiovascular: Negative for chest pain and palpitations. Gastrointestinal: Negative for diarrhea and vomiting. Genitourinary: Negative for frequency. Musculoskeletal: Negative for myalgias. Skin: Negative for rash. Neurological: Negative for focal weakness and seizures. Endo/Heme/Allergies: Negative for polydipsia. Psychiatric/Behavioral: Negative for hallucinations. Vitals see chart PHYSICAL EXAMINATION GENERAL: The patient is alert and oriented*3 HEENT: Nonicteric sclerae, non traumatic HEART: Regular rate and rhythm with no murmurs LUNGS: mild crackles 07/26/2024 ABDOMEN: No acute issues, non tender GENITAL, RECTAL: deferred SKIN: No rash NEUROLOGIC: NFND EXTREMITIES: bilareral edema 07/26/2024 ASSESSMENT ATRIAL FIBRILLATION Presentation Associated RVR at presentation CORONARY ARTERY DISEASE severe disease of LAD, LCx Borderline severe lesion of the distal LM CONGESTIVE HEART FAILURE With abdominal distention lower extremity manage at presentation ACUTE KIDNEY INJURY At presentation Condition nephropathy versus prerenal OBESITY CORE MEASURES OTHER MEDICAL PROBLEMS Reviewed PLAN 07/26/2024 agree with rate control for atrial fibrillation, will likely benefit from further anticoagulation as well. Possible liver etiology of elevated INR. Follow-up with renal function panel including albumin ordered. Agree with diuresis for now. Echocardiogram has been ordered and is pending as well. On IV twice daily of Lasix and metoprolol at this time. Further recommendations after echo. Seen and examined 07/26/2024 around 1900 07/27/2024 Shortness of breath is stable. Labs reviewed. Renal function is still elevated between 2.6 and 3. On heparin for anticoagulation. Echocardiogram with EF less than 20%, arterial duplex was normal. Ultrasound of the lower extremities and venous duplex were within normal limits. Renal ultrasound was negative, bladder scan with less than 100 cc. Difficult situation in the setting of significant RV failure associated with edema and ascites in the setting of severe cardiomyopathy and A-fib RVR. Suspected nonischemic in setting of A-fib although, CAD has not been ruled out yet. Unable to proceed with catheterization given acute kidney injury. milrinone was started to better help with renal perfusion. Caution in the setting of underlying renal dysfunction and therefore starting a low dose first. No dobutamine as patient is on beta eugene for rate control . May transfer to the heart failure center if renal function continues to worsen or if rate control is a challenge. Critically ill, prognosis is guarded. Spoke with multiple family members during the course of the day seen and examined multiple times, 07/27/2024. 07/28/2024 Overnight, patient was started on milrinone to help with urine output but there is no significant response to bed and this was increased from 0.125- 0.25. However, even with elevated doses, no significant output was present after a few hours. Given underlying renal failure, milrinone was not increased any further. Also, patient was having issues with tachycardia with increased dose of milrinone. Metoprolol was increased to help with rate control. Dobutamine is not being considered because of metoprolol use. Diuresis was ineffective and therefore, patient was started on a Lasix drip at 10 to try to help with diuresis. This morning, urine output has improved about 200 cc. Low- dose milrinone has been continued, urine is dark, possibly ATN. Will watch for worsening renal function although, this is likely in the current situation. Will need to ensure there is quite adequate urine output. Discussed transfer to advanced heart failure management programs and at this time, plan is to wait. Seen and examined 07/28/2024 at around 1130 07/29/2024 Renal function somewhat better. Output has improved, continue current regimen. Breathing better rates are acceptable. May need to consider increasing beta-eugene. On 100 twice daily metoprolol succinate at this time. Seen and examined 07/29/2024 at around 1600 07/30/2024 Clinically, continues to improve, no active cardiac complaints at this time. Shortness of breath is better, abdominal bloating has improved. Induration edema is persistent but better as well. Continue current medical therapy. Will likely stop milrinone tomorrow to see how he does just with diuresis. Renal function continues to improve. Seen and examined 07/30/2024 at around 1600. 07/31/2024 stop milrinone and reevaluate. Good urine output. Remains on IV Lasix and heparin at this time. Appreciate nephrology, primary team. Clinically, doing well, ambulating encouraged.rates ok Seen and examined 07/31/2024 at around 1800. 08/01/2024 Creatinine continues to improve, currently at 2. Has done well without the milrinone, will continue to hold. Remains on Lasix stent and on heparin. Plans are made for eventual cardiac catheterization next week. Rates are good. Has some hematuria and this will need to be looked into. Defer to primary. Seen and examined 08/01/2024 at around 1800. 08/02/2024 urine color is better off heparin. however, patient remains at risk of thrombosis while off heparin. If hematuria resolves, would like to restart heparin. Plan for cardiac cath, likely on sunday after hematuria issues resolve. Seen and examined 08/03/2024 at around 1500 08/04/2024 Creatinine is stable close to 1.6, keep n.p.o. after midnight for possible catheterization tomorrow. Clinically, improved, hematuria has resolved, heparin has been restarted. This benefits of cardiac catheterization discussed. Given recent hematuria, EF of 83, will likely only consider diagnostic angiography tomorrow. 08/05/2024 Creat stable, cardiac cath today with evidence of severe disease of LAD<, Lcx and borderline disease of the LM. May consider IVUS/FFR to the LM versus consideration of PCI versus CABG depending on LM severity. Will discuss with interventional cards. Watch renal function given recent contrast use. remains on diuresis. 08/06/2024 Very long conversation with the patient at bedside and his daughter over the phone about management options. Discussed bypass surgery versus PCI. Renal function stable 1.5, status post cardiac catheterization yesterday. Multivessel disease noted on cardiac catheterization, recommendation is for possible bypass surgery. Family has not yet decided on course but would like to speak with the surgeons. Possible transfer to [place] for bypass per family wishes was also discussed. Implications of PCI, bleeding in the setting of hematuria addressed as well, currently not on heparin because of hematuria. Urology recommends continuing heparin. Seen and examined 08/06/2024 at around 1800 ATTESTATION I was involved substantially in the care of this patient Number and complexity of problems addressed: 1 acute illness that is a threat to life or bodily function Amount and or complexity of data Review of prior external note(s) from each unique source: 2+ Ordering of each unique test : 0 Review of the result(s) of each unique test: 2+ Assessment requiring an independent historian(s): No Independent interpretation of test performed by another MD/QHCP/appropriate source (not separately reported) : No Discussion of management or test interpretation with external MD/QHCP/appropriate source (not separately reported) : IM Risk status (cardiac, billing related): high Vitals/Labs Vital Signs Date Time Temp Pulse Resp B/P (MAP) Pulse Ox O2 Delivery O2 Flow Rate FiO2 08/06/24 16:00 98.1 103 16 109/67 96 Room Air 08/06/24 07:50 0 21 Laboratory Tests 08/06/24 04:16 Medications Current Medications Furosemide 40 mg ONCE ONCE IV Last administered on 07/26/24at 15:44; Start 07/26/24 at 15:30; Stop 07/26/24 at 15:31; Status DC Diltiazem HCl 20 mg ONCE ONCE IVP Last administered on 07/26/24at 15:44; Start 07/26/24 at 16:00; Stop 07/26/24 at 16:01; Status DC Diltiazem HCl 30 mg ONCE ONCE PO Last administered on 07/26/24at 16:15; Start 07/26/24 at 16:30; Stop 07/26/24 at 16:31; Status DC Acetaminophen 500 mg Q6H PRN PO Last administered on 07/30/24at 10:06; Start 07/26/24 at 18:00; Stop 08/25/24 at 17:59 Thiamine HCl 100 mg DAILY PO Last administered on 07/29/24at 08:33; Start 07/27/24 at 09:00; Stop 08/01/24 at 08:49; Status DC Folic Acid 1 mg DAILY PO Last administered on 08/06/24 08:24; Start 07/27/24 at 09:00; Stop 08/26/24 at 08:59 Metoprolol Tartrate 25 mg BID PO Last administered on 07/27/24at 08:53; Start 07/26/24 at 21:00; Stop 07/27/24 at 10:29; Status DC Potassium Chloride 100 ml @ 100 mls/hr AD PRN IV Last administered on 08/05/24at 09:00; Start 07/26/24 at 18:00; Stop 08/25/24 at 17:59 Potassium Chloride 20 meq AD PRN PO; Start 07/26/24 at 18:00; Stop 08/25/24 at 17:59 Potassium Chloride 20 meq AD PRN PO Last administered on 08/05/24at 17:36; Start 07/26/24 at 18:00; Stop 08/25/24 at 17:59 Magnesium Sulfate 50 ml @ 0 mls/hr PROTOCOL PRN IV Last administered on 08/06/24at 08:12; Start 07/26/24 at 18:00; Stop 08/25/24 at 17:59 Furosemide 40 mg Q12H IV Last administered on 07/26/24at 23:09; Start 07/26/24 at 23:00; Stop 07/27/24 at 06:31; Status DC Heparin Sodium (Porcine) 5,000 unit Q12H SQ Last administered on 07/26/24at 21:07; Start 07/26/24 at 21:00; Stop 07/27/24 at 00:12; Status DC Heparin Sodium/ Dextrose 250 ml @ 0 mls/hr Q6H IV Last administered on 08/02/24at 10:25; Start 07/27/24 at 01:00; Stop 08/02/24 at 14:47; Status DC Bumetanide 1 mg Q12H IVP Last administered on 07/27/24at 20:19; Start 07/27/24 at 09:00; Stop 07/28/24 at 02:44; Status DC Pantoprazole Sodium 40 mg DAILY IVP Last administered on 08/06/24at 08:25; Start 07/28/24 at 09:00; Stop 08/27/24 at 08:59 Metoprolol Succinate 50 mg BID PO Last administered on 07/27/24at 20:19; Start 07/27/24 at 10:30; Stop 07/27/24 at 22:52; Status DC Milrinone Lactate/ Dextrose 100 ml @ 0 mls/hr PROTOCOL IV; Start 07/27/24 at 18:00; Stop 07/27/24 at 18:05; Status DC Milrinone Lactate/ Dextrose 100 ml @ 0 mls/hr PROTOCOL IV Last administered on 07/30/24at 06:23; Start 07/27/24 at 18:30; Stop 08/26/24 at 18:29 Metoprolol Succinate 50 mg ONCE ONCE PO Last administered on 07/27/24at 23:43; Start 07/27/24 at 23:00; Stop 07/27/24 at 23:01; Status DC Metoprolol Succinate 100 mg BID PO Last administered on 08/06/24at 08:25; Start 07/28/24 at 09:00; Stop 08/27/24 at 08:59 Furosemide 100 mg/ Sodium Chloride 100 ml @ 0 mls/hr PROTOCOL IV Last administered on 08/02/24at 12:27; Start 07/28/24 at 03:00; Stop 08/02/24 at 14:47; Status DC Bacitracin Right and left lower leg DAILY TP Last administered on 08/06/24at 08:26; Start 07/29/24 at 09:00; Stop 08/28/24 at 08:59 Thiamine HCl 300 mg DAILY08 IVP Last administered on 08/01/24at 08:27; Start 07/30/24 at 08:00; Stop 08/01/24 at 08:01; Status DC Wound Care/ Dressing Products 1 gm BID TP Last administered on 07/31/24at 22:25; Start 07/31/24 at 21:00; Stop 08/01/24 at 08:19; Status DC Wound Care/ Dressing Products apply to buttocks BID TP Last administered on 08/06/24at 08:26; Start 08/01/24 at 09:00; Stop 08/30/24 at 20:59 Furosemide 40 mg TID IV Last administered on 08/06/24at 14:25; Start 08/02/24 at 21:00; Stop 09/01/24 at 20:59 Clotrimazole 1 APPL TP DAILY DAILY TP Last administered on 08/06/24at 08:26; Start 08/03/24 at 09:00; Stop 09/02/24 at 08:59 Heparin Sodium/ Dextrose 250 ml @ 0 mls/hr Q6H IV Last administered on 08/05/24at 00:53; Start 08/03/24 at 20:30; Stop 08/05/24 at 08:08; Status DC Sodium Chloride 500 ml @ 0 mls/hr Q0M IV; Start 08/05/24 at 04:30; Stop 09/04/24 at 04:29 Lidocaine HCl 20 ml STK-MED ONCE .ROUTE; Start 08/05/24 at 11:06; Stop 08/05/24 at 11:07; Status DC Iohexol 35,000 mg STK-MED ONCE IV; Start 08/05/24 at 11:07; Stop 08/05/24 at 11:07; Status DC Heparin Sodium (Porcine) 10,000 unit STK-MED ONCE .ROUTE; Start 08/05/24 at 11:07; Stop 08/05/24 at 11:07; Status DC Nicardipine HCl 25 mg STK-MED ONCE IV; Start 08/05/24 at 11:07; Stop 08/05/24 at 11:08; Status DC Heparin Sodium/ Sodium Chloride 1,000 ml @ As Directed STK-MED ONCE IV; Start 08/05/24 at 11:07; Stop 08/05/24 at 11:08; Status DC Nitroglycerin 50 mg STK-MED ONCE .ROUTE; Start 08/05/24 at 11:08; Stop 08/05/24 at 11:08; Status DC Fentanyl Citrate 100 mcg STK-MED ONCE .ROUTE; Start 08/05/24 at 11:45; Stop 08/05/24 at 11:45; Status DC Midazolam HCl 2 mg STK-MED ONCE .ROUTE; Start 08/05/24 at 11:45; Stop 08/05/24 at 11:45; Status DC LANI GRACIA MD August 06, 2024 17:16
--- NOTE | 2024-08-06 22:52 | NUR ---
received call from dr. lita milligan stated to restart patient on heparin iv drip. No bolus as per .
[2024-08-07] VITALS (9 sets, daily range): BP systolic 104–128; BP diastolic 68–79; PULSE 87–106; RESP 18–20; TEMP 97.6–98.5; O2SAT 95–99
[2024-08-07] MEDS: HEParin 25,000 UNITS/250ML D5W 250 ML IV SCH (00:21)
[2024-08-07 06:04] LABS: BASOPHILS # (AUTO) 0.02 K/uL (0.00-0.20); BASOPHILS % (AUTO) 0.3 % (0.0-5.0); EOSINOPHILS # (AUTO) 0.23 K/uL (0.00-0.70); IMMATURE GRANULOCYTE ABSOLUTE 0.02 K/uL (0-1); LYMPHOCYTES # (AUTO) 2.7 K/uL (1.0-4.8); LYMPHOCYTES % (AUTO) 34.6 % (21.0-51.0); MEAN CORPUSCULAR HGB CONC 31.6 g/dL (32.0-36.0); MONOCYTES # (AUTO) 0.7 K/uL (0.1-1.0); MONOCYTES % (AUTO) 9.1 % (3.0-13.0); NEUTROPHILS % (AUTO) 52.7 % (40.0-77.0); PLATELET COUNT (AUTO) 126 K/uL (130-400); RED BLOOD CELL COUNT(AUTO) 4.63 MIL/uL (4.50-6.20); RED CELL DISTRIBUTION WIDTH 14.3 % (11.0-15.5); WHITE BLOOD COUNT (AUTO) 7.7 K/uL (4.8-10.8)
[2024-08-07 06:44] LABS: ALBUMIN 3.1 g/dL (3.5-5.0); CREATININE 1.6 mg/dL (0.5-1.3); POTASSIUM 4.3 mmol/L (3.5-5.1)
--- NOTE | 2024-08-07 07:01 | NUR ---
@0700am ptt greater than 139. heparin drip hold x 1 hour and decrease by 2 units/kg/hr. resume heparin drip at 0800am at heparin at 15 units/kg/hr iv. next ptt at 12pm.
[2024-08-07 07:09] LABS: BILIRUBIN,TOTAL 0.8 mg/dL (0.2-1.0); TOTAL PROTEIN, SERUM 6.1 g/dL (6.0-8.3)
--- NOTE | 2024-08-07 12:51 | PN ---
CARDIOLOGY Reason for consult: CHF HPI/story at presentation: This is a pleasant 69-year-old male with past medical history as per present with complaints of shortness of breath with worsening edema and abdominal bloating and distention. He was diagnosed CHF exacerbation, cardiology scheduled for evaluation management. Patient was also found to be atrial fibrillation with rapid ventricular sponsor presentation to the hospital. Diuresis was initiated. Subjective: 07/26/2024 shortness of breath 07/29/2024 no complaints 07/30/2024 no complaints 07/31/2024 no complaints 08/05/2024 no complaints 08/06/2024 no complaints Past medical history: See below Allergies, Meds See chart Review of systems Review of Systems Constitutional: Negative for chills and fever. HENT: Negative for ear discharge and ear pain. Eyes: Negative for photophobia and discharge. Respiratory: Negative for cough, sputum production and stridor. Cardiovascular: Negative for chest pain and palpitations. Gastrointestinal: Negative for diarrhea and vomiting. Genitourinary: Negative for frequency. Musculoskeletal: Negative for myalgias. Skin: Negative for rash. Neurological: Negative for focal weakness and seizures. Endo/Heme/Allergies: Negative for polydipsia. Psychiatric/Behavioral: Negative for hallucinations. Vitals see chart PHYSICAL EXAMINATION GENERAL: The patient is alert and oriented*3 HEENT: Nonicteric sclerae, non traumatic HEART: Regular rate and rhythm with no murmurs LUNGS: mild crackles 07/26/2024 ABDOMEN: No acute issues, non tender GENITAL, RECTAL: deferred SKIN: No rash NEUROLOGIC: NFND EXTREMITIES: bilareral edema 07/26/2024 ASSESSMENT ATRIAL FIBRILLATION Presentation Associated RVR at presentation CORONARY ARTERY DISEASE severe disease of LAD, LCx Borderline severe lesion of the distal LM CONGESTIVE HEART FAILURE With abdominal distention lower extremity manage at presentation ACUTE KIDNEY INJURY At presentation Condition nephropathy versus prerenal OBESITY CORE MEASURES OTHER MEDICAL PROBLEMS Reviewed PLAN 07/26/2024 agree with rate control for atrial fibrillation, will likely benefit from further anticoagulation as well. Possible liver etiology of elevated INR. Follow-up with renal function panel including albumin ordered. Agree with diuresis for now. Echocardiogram has been ordered and is pending as well. On IV twice daily of Lasix and metoprolol at this time. Further recommendations after echo. Seen and examined 07/26/2024 around 1900 07/27/2024 Shortness of breath is stable. Labs reviewed. Renal function is still elevated between 2.6 and 3. On heparin for anticoagulation. Echocardiogram with EF less than 20%, arterial duplex was normal. Ultrasound of the lower extremities and venous duplex were within normal limits. Renal ultrasound was negative, bladder scan with less than 100 cc. Difficult situation in the setting of significant RV failure associated with edema and ascites in the setting of severe cardiomyopathy and A-fib RVR. Suspected nonischemic in setting of A-fib although, CAD has not been ruled out yet. Unable to proceed with catheterization given acute kidney injury. milrinone was started to better help with renal perfusion. Caution in the setting of underlying renal dysfunction and therefore starting a low dose first. No dobutamine as patient is on beta eugene for rate control . May transfer to the heart failure center if renal function continues to worsen or if rate control is a challenge. Critically ill, prognosis is guarded. Spoke with multiple family members during the course of the day seen and examined multiple times, 07/27/2024. 07/28/2024 Overnight, patient was started on milrinone to help with urine output but there is no significant response to bed and this was increased from 0.125- 0.25. However, even with elevated doses, no significant output was present after a few hours. Given underlying renal failure, milrinone was not increased any further. Also, patient was having issues with tachycardia with increased dose of milrinone. Metoprolol was increased to help with rate control. Dobutamine is not being considered because of metoprolol use. Diuresis was ineffective and therefore, patient was started on a Lasix drip at 10 to try to help with diuresis. This morning, urine output has improved about 200 cc. Low- dose milrinone has been continued, urine is dark, possibly ATN. Will watch for worsening renal function although, this is likely in the current situation. Will need to ensure there is quite adequate urine output. Discussed transfer to advanced heart failure management programs and at this time, plan is to wait. Seen and examined 07/28/2024 at around 1130 07/29/2024 Renal function somewhat better. Output has improved, continue current regimen. Breathing better rates are acceptable. May need to consider increasing beta-eugene. On 100 twice daily metoprolol succinate at this time. Seen and examined 07/29/2024 at around 1600 07/30/2024 Clinically, continues to improve, no active cardiac complaints at this time. Shortness of breath is better, abdominal bloating has improved. Induration edema is persistent but better as well. Continue current medical therapy. Will likely stop milrinone tomorrow to see how he does just with diuresis. Renal function continues to improve. Seen and examined 07/30/2024 at around 1600. 07/31/2024 stop milrinone and reevaluate. Good urine output. Remains on IV Lasix and heparin at this time. Appreciate nephrology, primary team. Clinically, doing well, ambulating encouraged.rates ok Seen and examined 07/31/2024 at around 1800. 08/01/2024 Creatinine continues to improve, currently at 2. Has done well without the milrinone, will continue to hold. Remains on Lasix stent and on heparin. Plans are made for eventual cardiac catheterization next week. Rates are good. Has some hematuria and this will need to be looked into. Defer to primary. Seen and examined 08/01/2024 at around 1800. 08/02/2024 urine color is better off heparin. however, patient remains at risk of thrombosis while off heparin. If hematuria resolves, would like to restart heparin. Plan for cardiac cath, likely on sunday after hematuria issues resolve. Seen and examined 08/03/2024 at around 1500 08/04/2024 Creatinine is stable close to 1.6, keep n.p.o. after midnight for possible catheterization tomorrow. Clinically, improved, hematuria has resolved, heparin has been restarted. This benefits of cardiac catheterization discussed. Given recent hematuria, EF of 83, will likely only consider diagnostic angiography tomorrow. 08/05/2024 Creat stable, cardiac cath today with evidence of severe disease of LAD<, Lcx and borderline disease of the LM. May consider IVUS/FFR to the LM versus consideration of PCI versus CABG depending on LM severity. Will discuss with interventional cards. Watch renal function given recent contrast use. remains on diuresis. 08/06/2024 Very long conversation with the patient at bedside and his daughter over the phone about management options. Discussed bypass surgery versus PCI. Renal function stable 1.5, status post cardiac catheterization yesterday. Multivessel disease noted on cardiac catheterization, recommendation is for possible bypass surgery. Family has not yet decided on course but would like to speak with the surgeons. Possible transfer to [place] for bypass per family wishes was also discussed. Implications of PCI, bleeding in the setting of hematuria addressed as well, currently not on heparin because of hematuria. Urology recommends continuing heparin. Seen and examined 08/06/2024 at around 1800 08/07/2024 Breathing better, edema has improved, creatinine is stable. Family wants patient to be transferred to [place] for CV evaluation, have restarted surgeon and waiting to hear back. No active cardiac complaints at this time however. Will consider repeat echocardiographic to reassess ejection fraction, limited study tomorrow. Seen and examined 08/07/2024 around 1400. ATTESTATION I was involved substantially in the care of this patient Number and complexity of problems addressed: 1 acute illness that is a threat to life or bodily function Amount and or complexity of data Review of prior external note(s) from each unique source: 2+ Ordering of each unique test : 0 Review of the result(s) of each unique test: 2+ Assessment requiring an independent historian(s): No Independent interpretation of test performed by another MD/QHCP/appropriate source (not separately reported) : No Discussion of management or test interpretation with external MD/QHCP/appropriate source (not separately reported) : IM Risk status (cardiac, billing related): high Vitals/Labs Vital Signs Date Time Temp Pulse Resp B/P (MAP) Pulse Ox O2 Delivery O2 Flow Rate FiO2 08/07/24 08:24 98.1 87 20 104/73 95 Room Air 08/07/24 08:15 0 21 Laboratory Tests 08/07/24 05:54 Medications Current Medications Furosemide 40 mg ONCE ONCE IV Last administered on 07/26/24at 15:44; Start 07/26/24 at 15:30; Stop 07/26/24 at 15:31; Status DC Diltiazem HCl 20 mg ONCE ONCE IVP Last administered on 07/26/24at 15:44; Start 07/26/24 at 16:00; Stop 07/26/24 at 16:01; Status DC Diltiazem HCl 30 mg ONCE ONCE PO Last administered on 07/26/24at 16:15; Start 07/26/24 at 16:30; Stop 07/26/24 at 16:31; Status DC Acetaminophen 500 mg Q6H PRN PO Last administered on 07/30/24 10:06; Start 07/26/24 at 18:00; Stop 08/25/24 at 17:59 Thiamine HCl 100 mg DAILY PO Last administered on 07/29/24at 08:33; Start 07/27/24 at 09:00; Stop 08/01/24 at 08:49; Status DC Folic Acid 1 mg DAILY PO Last administered on 08/07/24at 08:56; Start 07/27/24 at 09:00; Stop 08/26/24 at 08:59 Metoprolol Tartrate 25 mg BID PO Last administered on 07/27/24at 08:53; Start 07/26/24 at 21:00; Stop 07/27/24 at 10:29; Status DC Potassium Chloride 100 ml @ 100 mls/hr AD PRN IV Last administered on 08/05/24at 09:00; Start 07/26/24 at 18:00; Stop 08/25/24 at 17:59 Potassium Chloride 20 meq AD PRN PO; Start 07/26/24 at 18:00; Stop 08/25/24 at 17:59 Potassium Chloride 20 meq AD PRN PO Last administered on 08/05/24at 17:36; Start 07/26/24 at 18:00; Stop 08/25/24 at 17:59 Magnesium Sulfate 50 ml @ 0 mls/hr PROTOCOL PRN IV Last administered on 08/06/24at 08:12; Start 07/26/24 at 18:00; Stop 08/25/24 at 17:59 Furosemide 40 mg Q12H IV Last administered on 07/26/24at 23:09; Start 07/26/24 at 23:00; Stop 07/27/24 at 06:31; Status DC Heparin Sodium (Porcine) 5,000 unit Q12H SQ Last administered on 07/26/24at 21:07; Start 07/26/24 at 21:00; Stop 07/27/24 at 00:12; Status DC Heparin Sodium/ Dextrose 250 ml @ 0 mls/hr Q6H IV Last administered on 08/02/24at 10:25; Start 07/27/24 at 01:00; Stop 08/02/24 at 14:47; Status DC Bumetanide 1 mg Q12H IVP Last administered on 07/27/24at 20:19; Start 07/27/24 at 09:00; Stop 07/28/24 at 02:44; Status DC Pantoprazole Sodium 40 mg DAILY IVP Last administered on 08/07/24at 08:56; Start 07/28/24 at 09:00; Stop 08/27/24 at 08:59 Metoprolol Succinate 50 mg BID PO Last administered on 07/27/24at 20:19; Start 07/27/24 at 10:30; Stop 07/27/24 at 22:52; Status DC Milrinone Lactate/ Dextrose 100 ml @ 0 mls/hr PROTOCOL IV; Start 07/27/24 at 18:00; Stop 07/27/24 at 18:05; Status DC Milrinone Lactate/ Dextrose 100 ml @ 0 mls/hr PROTOCOL IV Last administered on 07/30/24at 06:23; Start 07/27/24 at 18:30; Stop 08/26/24 at 18:29 Metoprolol Succinate 50 mg ONCE ONCE PO Last administered on 07/27/24at 23:43; Start 07/27/24 at 23:00; Stop 07/27/24 at 23:01; Status DC Metoprolol Succinate 100 mg BID PO Last administered on 08/07/24at 08:56; Start 07/28/24 at 09:00; Stop 08/27/24 at 08:59 Furosemide 100 mg/ Sodium Chloride 100 ml @ 0 mls/hr PROTOCOL IV Last administered on 08/02/24at 12:27; Start 07/28/24 at 03:00; Stop 08/02/24 at 14:47; Status DC Bacitracin Right and left lower leg DAILY TP Last administered on 08/07/24at 08:57; Start 07/29/24 at 09:00; Stop 08/28/24 at 08:59 Thiamine HCl 300 mg DAILY08 IVP Last administered on 08/01/24at 08:27; Start 07/30/24 at 08:00; Stop 08/01/24 at 08:01; Status DC Wound Care/ Dressing Products 1 gm BID TP Last administered on 07/31/24at 22:25; Start 07/31/24 at 21:00; Stop 08/01/24 at 08:19; Status DC Wound Care/ Dressing Products apply to buttocks BID TP Last administered on 08/07/24at 09:15; Start 08/01/24 at 09:00; Stop 08/30/24 at 20:59 Furosemide 40 mg TID IV Last administered on 08/07/24at 08:57; Start 08/02/24 at 21:00; Stop 09/01/24 at 20:59 Clotrimazole 1 APPL TP DAILY DAILY TP Last administered on 08/07/24at 08:57; Start 08/03/24 at 09:00; Stop 09/02/24 at 08:59 Heparin Sodium/ Dextrose 250 ml @ 0 mls/hr Q6H IV Last administered on 08/05/24at 00:53; Start 08/03/24 at 20:30; Stop 08/05/24 at 08:08; Status DC Sodium Chloride 500 ml @ 0 mls/hr Q0M IV; Start 08/05/24 at 04:30; Stop 09/04/24 at 04:29 Lidocaine HCl 20 ml STK-MED ONCE .ROUTE; Start 08/05/24 at 11:06; Stop 08/05/24 at 11:07; Status DC Iohexol 35,000 mg STK-MED ONCE IV; Start 08/05/24 at 11:07; Stop 08/05/24 at 11:07; Status DC Heparin Sodium (Porcine) 10,000 unit STK-MED ONCE .ROUTE; Start 08/05/24 at 11:07; Stop 08/05/24 at 11:07; Status DC Nicardipine HCl 25 mg STK-MED ONCE IV; Start 08/05/24 at 11:07; Stop 08/05/24 at 11:08; Status DC Heparin Sodium/ Sodium Chloride 1,000 ml @ As Directed STK-MED ONCE IV; Start 08/05/24 at 11:07; Stop 08/05/24 at 11:08; Status DC Nitroglycerin 50 mg STK-MED ONCE .ROUTE; Start 08/05/24 at 11:08; Stop 08/05/24 at 11:08; Status DC Fentanyl Citrate 100 mcg STK-MED ONCE .ROUTE; Start 08/05/24 at 11:45; Stop 08/05/24 at 11:45; Status DC Midazolam HCl 2 mg STK-MED ONCE .ROUTE; Start 08/05/24 at 11:45; Stop 08/05/24 at 11:45; Status DC Heparin Sodium/ Dextrose 250 ml @ 0 mls/hr PROTOCOL IV Last administered on 08/07/24at 12:39; Start 08/06/24 at 23:00; Stop 09/05/24 at 22:59 LANI GRACIA MD August 07, 2024 12:51
--- NOTE | 2024-08-07 13:58 | PN ---
NEPHROLOGY PROGRESS NOTE Date/Time Patient Seen: August 07, 2024 SUBJECTIVE: This is a 69-year-old male with no significant past medical history He has had a prolonged hospital course. The patient is admitted, found to have congestive heart failure. Workup is consistent with severe cardiomyopathy. He has been transitioned to IV Lasix 40 mg t.i.d. Milrinone drip has been discontinued The patient's creatinine continues to slowly improve. Urine output was noted The patient is being seen by Cardiology , S/P left heart catheterization, pending further Cardiology recommendations He was seen by Urology for hematuria. He was seen in telemetry, in no acute distress Family at the bedside Condition remains guarded REVIEW OF SYSTEMS: GENERAL: Negative for any nausea, vomiting, fevers, chills, or weight loss. NEUROLOGIC: Negative for any blurry vision, blind spots, double vision, facial asymmetry, dysphagia, dysarthria, hemiparesis, hemisensory deficits, vertigo, ataxia. HEENT: Negative for any head trauma, neck trauma, neck stiffness, photophobia, phonophobia, sinusitis, rhinitis. CARDIAC: Negative for any chest pain, dyspnea on exertion, paroxysmal nocturnal dyspnea, peripheral edema. PULMONARY: Negative for any shortness of breath, wheezing, COPD, or TB exposure. GASTROINTESTINAL: Negative for any abdominal pain, nausea, vomiting, bright red blood per rectum, melena. GENITOURINARY: Negative for any dysuria, hematuria, incontinence. INTEGUMENTARY: Negative for any rashes, cuts, insect bites. RHEUMATOLOGIC: Negative for any joint pains, photosensitive rashes, history of vasculitis or kidney problems. HEMATOLOGIC: Negative for any abnormal bruising, frequent infections or bleeding. Vital Signs (last 8hr) Vital Signs (last 8hr) Date Time Temp Pulse Resp B/P (MAP) Pulse Ox O2 Delivery O2 Flow Rate FiO2 08/06/24 12:00 98.1 98 16 106/68 95 Room Air 08/06/24 08:32 97.9 93 18 105/71 97 Room Air 08/06/24 07:50 97 Room Air* 0 21 PHYSICAL EXAM: GENERAL: Alert and oriented x 3. No acute distress. Well-nourished. EYES: EOMI. Anicteric. HENT: Moist mucous membranes. No scleral icterus. No cervical lymphadenopathy. LUNGS: Clear to auscultation bilaterally. No accessory muscle use. CARDIOVASCULAR: Regular rate and rhythm. No murmur. No JVD. ABDOMEN: Soft, non-tender and non-distended. No palpable masses. EXTREMITIES: No edema. Non-tender.?SKIN: No rashes or lesions. Warm. NEUROLOGIC: No focal neurological deficits. CN II-XII grossly intact, but not individually tested. PSYCHIATRIC: Cooperative. Appropriate mood and affect. Current Medications Medications (Trade) Dose Ordered Sig/Melinda Route PRN Reason Start Time Stop Time Status Last Admin Dose Admin Acetaminophen (TYLenol 500MG TAB) 500 mg Q6H PRN PO MILD PAIN (1-3) 07/26/24 18:00 08/25/24 17:59 07/30/24 10:06 500 MG Bacitracin (Bacitracin 28.4gm) Right and left lower leg DAILY TP 07/29/24 09:00 08/28/24 08:59 08/01/24 08:32 1 GM Bumetanide (Bumex 1mg Vial) 1 mg Q12H IVP 07/27/24 09:00 07/28/24 02:44 DC 07/27/24 20:19 1 MG Folic Acid (FOLic ACID 1 MG TABLET) 1 mg DAILY PO 07/27/24 09:00 08/26/24 08:59 08/01/24 08:30 1 MG Furosemide (LASix 40MG VIAL) 40 mg Q12H IV 07/26/24 23:00 07/27/24 06:31 DC 07/26/24 23:09 40 MG Furosemide 100 mg/ Sodium Chloride 100 ml @ 0 mls/hr PROTOCOL IV 07/28/24 03:00 08/27/24 02:59 08/02/24 00:38 10 MLS/HR Heparin Sodium (Porcine) (HEParin 5,000 UNIT VIAL) 5,000 unit Q12H SQ 07/26/24 21:00 07/27/24 00:12 DC 07/26/24 21:07 5,000 UNIT Heparin Sodium/ Dextrose 250 ml @ 0 mls/hr Q6H IV 07/27/24 01:00 08/26/24 00:59 08/01/24 11:23 13.65 MLS/HR Magnesium Sulfate 50 ml @ 0 mls/hr PROTOCOL PRN IV hypomagnesemia 07/26/24 18:00 08/25/24 17:59 Metoprolol Succinate (TopROL XL) 50 mg BID PO 07/27/24 10:30 07/27/24 22:52 DC 07/27/24 20:19 50 MG Metoprolol Succinate (TopROL XL) 100 mg BID PO 07/28/24 09:00 08/27/24 08:59 08/01/24 19:51 100 MG Metoprolol Tartrate (loprESSOR) 25 mg BID PO 07/26/24 21:00 07/27/24 10:29 DC 07/27/24 08:53 25 MG Milrinone Lactate/ Dextrose 100 ml @ 0 mls/hr PROTOCOL IV 07/27/24 18:00 07/27/24 18:05 DC Milrinone Lactate/ Dextrose 100 ml @ 0 mls/hr PROTOCOL IV 07/27/24 18:30 08/26/24 18:29 07/30/24 06:23 2.58 MLS/HR Pantoprazole Sodium (PROTonix 40MG INJ) 40 mg DAILY IVP 07/28/24 09:00 08/27/24 08:59 08/01/24 08:27 40 MG Potassium Chloride 100 ml @ 100 mls/hr AD PRN IV POTASSIUM PROTOCOL 07/26/24 18:00 08/25/24 17:59 Potassium Chloride (K-Dur/Klor-Con 20meq) 20 meq AD PRN PO POTASSIUM PROTOCOL 07/26/24 18:00 08/25/24 17:59 08/02/24 06:06 20 MEQ Potassium Chloride (KCl 10% Elixir 20meq/15ml) 20 meq AD PRN PO POTASSIUM PROTOCOL 07/26/24 18:00 08/25/24 17:59 Thiamine HCl (Vitamin B-1) 100 mg DAILY PO 07/27/24 09:00 08/01/24 08:49 DC 07/29/24 08:33 100 MG Thiamine HCl (Vitamin B-1) 300 mg DAILY08 IVP 07/30/24 08:00 08/01/24 08:01 DC 08/01/24 08:27 300 MG Wound Care/ Dressing Products (Venelex Ointment) 1 gm BID TP 07/31/24 21:00 08/01/24 08:19 DC 07/31/24 22:25 1 GM Wound Care/ Dressing Products (Venelex Ointment) apply to buttocks BID TP 08/01/24 09:00 08/30/24 20:59 08/01/24 19:57 1 GM LABORATORY: [ ] Hematology Labs: Test 08/07/24 05:54 Range/Units White Blood Count 7.7 4.8-10.8 K/uL Red Blood Count 4.63 4.50-6.20 MIL/uL Hemoglobin 13.9 L 14.0-18.0 g/dL Hematocrit 44.0 42-54 % Mean Corpuscular Volume 95.0 79-99 fL Mean Corpuscular Hemoglobin 30.0 27.0-33.0 pg Mean Corpuscular Hemoglobin Concent 31.6 L 32.0-36.0 g/dL Red Cell Distribution Width 14.3 11.0-15.5 % Platelet Count 126 L 130-400 K/uL Mean Platelet Volume 10.3 7.5-10.5 fL Immature Granulocyte % (Auto) 0.3 0-1 % Neutrophils (%) (Auto) 52.7 40.0-77.0 % Lymphocytes (%) (Auto) 34.6 21.0-51.0 % Monocytes (%) (Auto) 9.1 3.0-13.0 % Eosinophils (%) (Auto) 3.0 0.0-8.0 % Basophils (%) (Auto) 0.3 0.0-5.0 % Neutrophils # (Auto) 4.0 1.8-7.7 K/uL Lymphocytes # (Auto) 2.7 1.0-4.8 K/uL Monocytes # (Auto) 0.7 0.1-1.0 K/uL Eosinophils # (Auto) 0.23 0.00-0.70 K/uL Basophils # (Auto) 0.02 0.00-0.20 K/uL Absolute Immature Granulocyte (auto 0.02 0-1 K/uL Nucleated Red Blood Cells 0.0 0.0-0.19 % Chemistry Labs: Test 08/07/24 11:55 08/07/24 05:54 08/06/24 04:16 Range/Units Whole Blood Glucose 139 H 70-110 MG/DL Sodium Level 142 136-145 mmol/L Potassium Level 4.3 3.5-5.1 mmol/L Chloride Level 100 L 101-111 mmol/L Carbon Dioxide Level 37 H 21-32 mmol/L Blood Urea Nitrogen 33 H 7-18 mg/dL Creatinine 1.6 H 0.5-1.3 mg/dL Glomerular Filtration Rate Calc 46 >90 mL/min Random Glucose 122 H 70-105 mg/dL Total Calcium 8.8 8.5-10.1 mg/dL Total Bilirubin 0.8 0.2-1.0 mg/dL Aspartate Amino Transf (AST/SGOT) 20 10-37 U/L Alanine Aminotransferase (ALT/SGPT) 16 12-78 U/L Alkaline Phosphatase 69 50-136 U/L Total Protein 6.1 6.0-8.3 g/dL Albumin 3.1 L 3.5-5.0 g/dL Magnesium Level 1.90 1.80-2.40 mg/dL Coagulation Labs: Test 08/07/24 11:58 Range/Units Activated Partial Thromboplast Time 72.0 #H 26.3-35.5 SEC DIAGNOSTICS / RADIOLOGY: REASON: post heart cath ORDERING PHYSICIAN: ROSALBA LANE PROCEDURE: CXR1VW - CHEST 1VW Exam Type: CHEST 1VW Clinical Information: post heart cath Comparison: None Findings: The lungs are clear of infiltrates. The heart is enlarged. Bony and soft tissue structures of the chest wall are unremarkable. IMPRESSION: Cardiomegaly. Clear lungs. DICTATED BY: DANUTA IVAN MD DATE: 08/06/2409 REASON: CHF ORDERING PHYSICIAN: TONG CACERES WINCHMAN/CRANE OPERATOR PROCEDURE: CXR1VW - CHEST 1VW Exam Type: CHEST 1VW Clinical Information: CHF Comparison: None Findings: Pulmonary pattern is as before. No worrisome interval changes have taken place. Impression: Stable exam. DICTATED BY: DANUTA IVAN MD DATE: 08/04/2449 REASON: CHF exacerbation ORDERING PHYSICIAN: TONG CACERES WINCHMAN/CRANE OPERATOR PROCEDURE: CXR1VW - CHEST 1VW CHEST 1VW HISTORY: CHF COMPARISON: 07/26/2024 FINDINGS: A frontal projection of the chest was obtained. Mild bilateral pulmonary infiltrates are seen may be related to mild pulmonary vascular congestion with possible superimposed pneumonitis. The heart is enlarged. Degenerative changes are seen. No evidence of aortic calcification is seen. IMPRESSION: 1. Mild bilateral pulmonary infiltrates are seen may be related to mild pulmonary vascular congestion with possible superimposed pneumonitis. DICTATED BY: ELIU ROMANO MD DATE: 07/31/24 0935 REASON: chf exacerbation, new onset a fib dr mcintyre to read ORDERING PHYSICIAN: LANI GRACIA MD PROCEDURE: ECHO CMP - ECHO 2-D COMPLETE APPROVED REPORT EXAM: Two-dimensional and M-mode echocardiogram with Doppler and color Doppler. INDICATION ICD: Congestive heart failure, new onset of atrial fibrillation 2D Dimensions RVDd 5.5 cm LVEF(%) 17.1 (>50%) LVED Vol(simp.) 151.0 mL IVSd 1.1 (0.7-1.1cm) FS(%) 8 % LVES Vol(simp.) 124.0 mL LVDd 6.1 (3.8-5.6cm) LA (2D) 6.0 (1.6-4.0cm) LVEF(%, simp.) 18 % PWd 1.2 (0.7-1.1cm) Ao Root(2D) 3.8 (2.0-3.7cm) LA ESV INDEX (BP) 46.39 mL/m2 IVSs 1.3 cm LVOT diam 2.6 (1.8-2.4cm) LVDs 5.6 (2.5-4.0cm) PWs 1.3 cm M-Mode Dimensions EPSS 1.8 cm LA (MM) 6.1 (1.6-4.0cm) Ao Root(MM) 4.3 (2.0-3.7cm) Aortic Valve AoV Vmax 1.0 m/s Ao Peak GR 3.9 mmHg LVOT Vmax 0.5 m/s AoV VTI 0.1 m Ao Mean GR 2.6 mmHg LVOT VTI 0.07 m GABRIELLA (VMAX) 2.41 cm2 GABRIELLA (VTI) 2.4 cm2 Mitral Valve MV E Vmax 85.1 cm/s DECEL Time 169 ms P 1/2 T 33 ms MVA (PHT) 6.7 cm2 TDI E/E' Medial 43.9 E/E' Lateral 16.0 Medial E' Peak V 1.94 cm/s Lateral E' Peak V 5.32 cm/s Tricuspid Valve TR Vmax 3.1 m/s RAP (EST) 8 mmHg RVSP 48.1 mmHg TR Peak GR 40.1 mmHg Left Ventricle The left ventricle is dilated. Severe hypokinesis There is normal left ventricular wall thickness. Severely reduced left ventricular function <20%. The LV diastolic function was unable to be assessed due to atrial arrhythmia. Right Ventricle The right ventricle is severely dilated. Right ventricular systolic function is severely reduced. Atria The left atrium is moderately dilated. The right atrium is severely dilated. Aortic Valve Aortic valve is trileaflet and opens well. No aortic regurgitation is present. There is no aortic valvular stenosis. Mitral Valve The mitral valve is normal in structure. There is mild mitral valve regurgitation noted. There is no mitral valve stenosis. Tricuspid Valve The tricuspid valve is normal in structure. There is mild to moderate tricuspid valve regurgitation noted. May be underestimated due to low flow pressure gradient. Pulmonic Valve The pulmonary valve is normal in structure. There is no pulmonic valvular regurgitation. Great Vessels The aortic root is normal in size. IVC is not well visualized. Pericardium There is no pericardial effusion. Other Information Quality : Adequate Conclusion Severely reduced left ventricular function <20%. The LV diastolic function was unable to be assessed due to atrial arrhythmia. There is normal left ventricular wall thickness. The left ventricle is dilated. Severe hypokinesis The right ventricle is severely dilated. Right ventricular systolic function is severely reduced. The left atrium is moderately dilated. The right atrium is severely dilated. There is mild mitral valve regurgitation noted. There is mild to moderate tricuspid valve regurgitation noted. May be underestimated due to low flow pressure gradient. There is no pericardial effusion. DICTATED BY: LANI GRACIA MD DATE: 07/27/24 0952 REASON: renal failure ORDERING PHYSICIAN: JORGE NAVA MD PROCEDURE: RENAL - US RENAL SONOGRAM US RENAL SONOGRAM HISTORY: renal failure TECHNIQUE: US RENAL SONOGRAM. FINDINGS: RIGHT KIDNEY: The right kidney measures 10.3cm. No hydronephrosis or renal calculus seen. LEFT KIDNEY: The left kidney measures 9.3cm. There is no hydronephrosis. There is an approximate pole cyst measuring 5.5 cm. The visualized urinary bladder is within normal limits. IMPRESSION: No hydronephrosis is seen. DICTATED BY: EDUARDA MANUEL MD DATE: 07/27/24 1846 ASSESSMENT: Acute kidney injury Acute CHF exacerbation Acute hypoxic respiratory failure secondary to CHF exacerbation New onset paroxysmal atrial fibrillation with RVR Generalized anasarca Lower extremity edema History of alcohol use Mild coagulopathy Mild leukocytosis differential infectious versus reactive PLAN: Labs, diagnostic, radiologic exams reviewed and interpreted by myself and supervising physician. We have reviewed external records in detail Diuretics as per Cardiology Require close monitoring of renal function and electrolytes Order CBC, CMP,and electrolytes in am Renal diabetic diet BiPAP as necessary, for respiratory distress Monitor blood pressure adjust medication doses as needed Avoid hypotensive episodes May use Dilaudid 0.5 mg IV every 6 hours as needed for severe pain Monitor blood sugars Strict intake, output, and daily weight should be monitored Please renally adjust medications Avoid nephrotoxic and nonsteroidal drugs Avoid contrast if possible Will continue to monitor renal function, anemia, electrolytes Treatment plan discussed with patient Questions were answered We have discussed with the other team physicians in detail about the care plan We will continue to monitor the patient closely ATTESTATION BY PHYSICIAN I have seen and examined the patient. I reviewed the documentation, medical decision making, and treatment plan as noted by the mid-level provider above. I agree with the findings and plan of care. MARIVEL TOWNSEND MD, [facility] August 07, 2024 13:58
--- NOTE | 2024-08-07 14:40 | NUR ---
SR. WILLARD IN TO SEE PATIENT AND SPOKE WITH PATIENT AND ALSO CALLED AND SPOKE WITH PATIENT'S DAUGHTER, TIANNA. PER TIANNA, SHE IS REQUESTING PATIENT TO BE TRANSFERRED TO [facility] AND IS REQUESTING DR. DONALD NICOLE, CARDIOTHORACIC SURGEON TO CONSULT WITH PATIENT. DR. WILLARD STATED THAT HE WOULD BE CALLING DR. NICOLE AND WILL CALL NURSE PATRICIA WITH UPDATE WITH TRANSFER.
--- NOTE | 2024-08-07 15:00 | NUR ---
[facility] Follow-up: Patient re-assessed by wound healing team. Patient up in chair, per primary nurse, wounds stable. Assessment and recommendations provided to primary nurse. Education provided. Addendum: 08/08/24 at 1224 by GAGE DOBBINS RN RN/ Amended: Links added.
--- NOTE | 2024-08-07 15:05 | NUR ---
DCP Spoke to Dr Francisco community development coordinator regarding pt and Daughter wishes for transfer to [facility], Dr. Francisco stated he will reach out to see if MD in [facility] would consider taking the case. Dr Francisco stated once accepting Physician is in place he will input order to initiate transfer.
--- NOTE | 2024-08-07 16:14 | PN ---
[facility] PROGRESS NOTE Date Patient Seen: August 07, 2024 Time of Visit: 16:11 Supervising Physician: Vito Alonso MD Consulting Physician: Hospitalist Outpatient Specialists: [ ] Inpatient Consults: Dr. 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 Back on heparin drip per protocol. He denies any chest pain palpitation or shortness for breath. He is in no apparent distress on room air. Currently patient's atrial fibrillation rate control in the 90s, CBC unremarkable, creatinine seems to be at baseline 1.6, GFR of 46, glucose 122 mg/dL. We will continue to follow cardiology recommendations. REVIEW OF SYSTEMS: 12 point ROS reviewed with patient. Pertinent positives mentioned above. Otherwise negative. PHYSICAL EXAM: GENERAL: alert, weak, awake oriented x 3 HEENT: EOMI, Sclera non icteric, moist mucosa NECK: Supple, no JVD, trachea midline LUNGS: Coarse bilateral lung sounds HEART: Regular rate and rhythm. Normal S1 and S2, without murmurs ABD: Large abdomen EXT: 2+ pitting edema NEURO: Alert and oriented to person, follows commands Vital Signs (last 8hr) Date Time Temp Pulse Resp B/P (MAP) Pulse Ox O2 Delivery O2 Flow Rate FiO2 08/07/24 12:00 97.5 94 20 120/69 98 Room Air 08/07/24 08:24 98.1 87 20 104/73 95 Room Air 08/07/24 08:15 99 Room Air* 0 21 LABS: Hematology Labs: Test 08/07/24 05:54 Range/Units White Blood Count 7.7 4.8-10.8 K/uL Red Blood Count 4.63 4.50-6.20 MIL/uL Hemoglobin 13.9 L 14.0-18.0 g/dL Hematocrit 44.0 42-54 % Mean Corpuscular Volume 95.0 79-99 fL Mean Corpuscular Hemoglobin 30.0 27.0-33.0 pg Mean Corpuscular Hemoglobin Concent 31.6 L 32.0-36.0 g/dL Red Cell Distribution Width 14.3 11.0-15.5 % Platelet Count 126 L 130-400 K/uL Mean Platelet Volume 10.3 7.5-10.5 fL Immature Granulocyte % (Auto) 0.3 0-1 % Neutrophils (%) (Auto) 52.7 40.0-77.0 % Lymphocytes (%) (Auto) 34.6 21.0-51.0 % Monocytes (%) (Auto) 9.1 3.0-13.0 % Eosinophils (%) (Auto) 3.0 0.0-8.0 % Basophils (%) (Auto) 0.3 0.0-5.0 % Neutrophils # (Auto) 4.0 1.8-7.7 K/uL Lymphocytes # (Auto) 2.7 1.0-4.8 K/uL Monocytes # (Auto) 0.7 0.1-1.0 K/uL Eosinophils # (Auto) 0.23 0.00-0.70 K/uL Basophils # (Auto) 0.02 0.00-0.20 K/uL Absolute Immature Granulocyte (auto 0.02 0-1 K/uL Nucleated Red Blood Cells 0.0 0.0-0.19 % Chemistry Labs: Test 08/07/24 11:55 08/07/24 05:54 08/06/24 04:16 Range/Units Whole Blood Glucose 139 H 70-110 MG/DL Sodium Level 142 136-145 mmol/L Potassium Level 4.3 3.5-5.1 mmol/L Chloride Level 100 L 101-111 mmol/L Carbon Dioxide Level 37 H 21-32 mmol/L Blood Urea Nitrogen 33 H 7-18 mg/dL Creatinine 1.6 H 0.5-1.3 mg/dL Glomerular Filtration Rate Calc 46 >90 mL/min Random Glucose 122 H 70-105 mg/dL Total Calcium 8.8 8.5-10.1 mg/dL Total Bilirubin 0.8 0.2-1.0 mg/dL Aspartate Amino Transf (AST/SGOT) 20 10-37 U/L Alanine Aminotransferase (ALT/SGPT) 16 12-78 U/L Alkaline Phosphatase 69 50-136 U/L Total Protein 6.1 6.0-8.3 g/dL Albumin 3.1 L 3.5-5.0 g/dL Magnesium Level 1.90 1.80-2.40 mg/dL Coagulation Labs: Test 08/07/24 11:58 Range/Units Activated Partial Thromboplast Time 72.0 #H 26.3-35.5 SEC DIAGNOSTICS / RADIOLOGY RESULTS: [ ] PLAN NEURO: Minimize central acting medications as possible. Fall Precautions. Well lighted room through the day and minimize interruptions through the night to prevent acute delirium. PULMONARY: Supplemental 02 as needed Titrate Fio2 to keep Spo2 > or = 90% DuoNeb�s and CPT as needed IS hourly while awake for pulmonary hygiene Out of bed to chair as tolerated VAP Bundle Vent/BIPAP Settings: [ ] Driving pressure: [ ] P Plat: [ ] Static C: [ ] Static R: [ ] P/F Ratio: [ ] CARDIOVASCULAR: Follow hemodynamics. Titrate vasopressor to keep MAP >65 or systolic blood pressure >95mmHg DIPS: Heparin drip LINES: PIV GI & NUTRITION: Continue nutritional support Aspirations precautions Prokinetic agents and laxatives as needed KIDNEYS & ELECTROLYTES: Strict monitoring of intake and output Daily weights Avoid nephrotoxic agents Monitor electrolytes and replace as needed Goal urine output of 30mL/hr or 0.5mL/kg/hr Urine output: [ ] Fluid Balance: [ ] ENDOCRINE: Maintain blood glucose between 100-180 at all times. Insulin sliding scale for blood glucose management INFECTIOUS DISEASE: Trend temperature. Jaffe-culture if febrile. Micro: [ ] Antibiotics: [ ] HEMATOLOGY & COAGULATION: Monitor H&H. Keep Hgb > 7 Transfuse 1 unit of PRBC for Hgb < 7 Transfuse 1 pack of platelets of platelets < 20, 000 Watch for any signs and symptoms of bleeding SKIN: Pressure ulcer prevention per facility protocol Rehab: PT/OT Prophylaxis: GI: [Protonix DVT: Heparin drip Code Status: Full Resuscitation Disposition: TBD Other: Total patient care time exceeds 35 minutes excluding all procedures. Case was discussed and seen with my supervising physician. The above plan was formulated and agreed upon. ROSALBA LANE August 07, 2024 16:14
--- NOTE | 2024-08-07 16:19 | NUR ---
Nutrition consult per LOS > 7 Reviewed labs, notes, and medications. Pt drinks 4-5 beer every 3 days, SOB POA, on N.C, on HH, b-complex, lasix, elevated Cr 1.6, elevated BUN 33, A1C 7, elevated CRP, elevated LDL 106, HDL 30(L) per chart review. Wt via standing scale, 100%PO intake, last BM 08/06/24, buttock ulcer, moderate pitting, well nourished, -870 ml 08/06/24 balance per nursing. Pt with PCM per BMI of 46. Recommendations: -Provide 75 gm cho + HH + shakila BID w/ dinner tray -Monitor PO intake -Encourage PO intake as able -Monitor BM -If no BM >3 days consider stool softener -Monitor electrolytes -Replenish electrolytes per protocol -Monitor wts -Reweigh as able -Order Vit D, vit b-12 labs to rule out deficiencies -Provide b-complex QD, vit. C 500 mg BID, zinc 220 mg QD to aid in wound healing -Recommend Pt to follow up with PCP -Monitor goals of care RD to follow + available for consult per protocol Addendum: 08/07/24 at [address] Amended: Links added.
--- NOTE | 2024-08-07 17:43 | NUR ---
RECEIVED CALL FROM KASI FROM [facility] AND GIVEN ALL CLINICALS INFORMATION. SHE STATED SHE WOULD CALL BACK IF NEED BE.
--- NOTE | 2024-08-07 23:45 | NUR ---
DR WILLARD MADE AWARE OF ACCEPTANCE TO [facility]
--- NOTE | 2024-08-08 02:00 | NUR ---
REPORT GIVEN TO EMS TEAM, ARINA JOINER ABOUT PATIENT STATUS, DIAGNOSIS, AND REASON OF TRANSFER TO [facility] [place], PER ARINA JOINER, EMS CREW WILL BE HERE AT [facility] ON 08/08/24 BETWEEN 0700 AND 0900 TO FULFILL THE TRANSFER. WILL CONT TO MONITOR
--- NOTE | 2024-08-08 02:20 | NUR ---
REPORT GIVEN TO NURSE MARCELA LIPSCOMB AT [facility] PT TO BE TRANSFERRED TO ROOM 480 PCCU/TELE
[2024-08-08 03:00] VITALS: BP 120/71; PULSE 100; RESP 18; TEMP 98.7
[2024-08-08 07:00] VITALS: BP 112/73; PULSE 91; RESP 20; TEMP 98.4
[2024-08-08 08:00] VITALS: O2SAT 95
--- NOTE | 2024-08-08 09:00 | NUR ---
EMS TRANSPORT IN TO TRANSFER PATIENT TO [facility]. HEPARIN DRIP INFUSING CURRENTLY AT 9UNITS/KG/HR.
--- NOTE | 2024-08-08 09:35 | NUR ---
REPORT CALLED TO RUEL WOMACK AT TELEMETRY FLOOR AT [facility] [place] [phone].
--- NOTE | 2024-08-08 13:24 | PN ---
[facility] PROGRESS NOTE Date of Service: August 08, 2024 Time of Service: 13:22 SUBJECTIVE: [69 old male admitted due to shortness of breaths, patient was at kidney failure on admission suspected due to acute tubular necrosis. Patient also was noted with cardiomyopathy, EF is less than 20%, patient is currently on oxygen supplementation. Today he continues with tachycardia, BB increased yesterday, now on Metoprolol XL 100 mg PO BID. He is still needs oxygen supplementation, on and off on 2L via [place]. Continue with strict I&O. 07/31/24 patient was seen and examined. Case discussed with RN. He has presented with ischemic cardiomyopathy requiring aggressive diuresis. He was on diuretics are being carefully managed by Nephrology and Cardiology monitoring his renal function. Clinically he says he was getting better 08/01/24 patient was seen and examined. Case discussed with the RN. He was co ntinuing with the aggressive diuresis and electrolytes and labs are being monitored. He was having bloody discharge from the end of the penis as if there was some trauma. We will continue to monitor H and H and if this is a consistent problem urology may need to evaluate him 08/02/24 patient was seen and examined. Case discussed with the RN and by the bedside. He is doing better today. Heparin drip has been turned off and the bloody discharge from the end of the pannus is improving. Continue to mo nitor that. Hemoglobin is stable. Cardiac catheterization has been planned for Sunday or Sunday08/03/24 patient was seen and examined. Case discussed with the RN and . He was more alert sitting up in the chair. He also worked with PT and walked a little bit. Hematuria seems to be improving with light her collar we will continue to monitor that. Hemoglobin continues to be stable cardiac catheterization is planned 08/04/24 patient was seen and examined. Case discussed with the RN and ./hematuria continues to lighten Hemoglobin continues to be stable cardiac catheterization is planned 08/05/24: Patient was seen and examined this morning. Patient had Left heart catheterization procedure today. The patient continues with hematuria today, urology has been consulted. Per cardiology, left heart catheterization showed severe disease of the LAD<LCX and borderline disease of the left main coronary artery. We will follow cardiology recommendations. Due to contrast use today, we will monitor renal function. 5/7/25: Patient was seen and examined this morning at bedside. The patient just finished physical therapy. Patient had a left heart cath yesterday that showed severe disease of the LAD. We will continue to follow cardiology recommendations. Patients hematuria has improved this morning. We will continue to follow urology recommendations. Patients creatinine is stable today, at 1.6. The patients chest x-ray showed cardiomegaly, and clear lungs. 08/08: Unable to assess patient due to transfer already taken place. Patient will be transferred to [facility]. The transfer was initiated by Director Mortgage Dr. Mitchell. Patient was deemed stable for discharge. REVIEW OF SYSTEMS CONSTITUTIONAL: Denies fevers, chills, or night sweats. Denied any changes in weight NEUROLOGICAL: Denies headache, amaurosis fugax, motor weakness, sensory deficit, vertigo/spinning sensation, gait abnormalities, or tremors. ENT: No hearing loss, otalgia, otorrhea, rhinitis, rhinorrhea, hoarseness, or sore throat. CARDIOVASCULAR: Denies any exertional angina, dyspnea on exertion, orthopnea, paroxysmal nocturnal dyspnea, palpitations, life-threatening arrhythmias, claudication. PULMONARY: Positive for shortness of breath, cough. Denied any sputum production GASTROINTESTINAL: Denies any type of dysphagia to either liquids or solids. Denies nausea, vomiting, pyrosis, early satiety, abdominal pain, diarrhea, constipation, or changes in stool consistency or caliber. Denies coffee-ground emesis, hematemesis, hematochezia, or melanotic stools. GENITOURINARY: Positive for decreased urination. Denied any hematuria, dysuria ENDOCRINOLOGIC: Denies polyuria, polydipsia, polyphagia or heat/cold intolerances. HEMATOLOGIC: Denies thrombophilia/previous clots, or coagulopathy/bleeding disorders. ONCOLOGIC: Denies personal history of malignancy. DERMATOLOGIC: Denies rashes or pruritus. PSYCHIATRIC: Denies any suicidal or homicidal ideation. Denies hallucinations. Musculoskeletal: Positive for swelling in the lower extremity PHYSICAL EXAM GENERAL APPEARANCE: The patient is awake, alert, and oriented, in no acute cardiopulmonary distress. NEUROLOGICAL: Cranial nerves II-XII grossly intact. Motor is 5/5 in bilateral upper and lower extremities proximal to distal. No sensory deficits. HEENT: Face is symmetric. Pupils are equal and reactive. Extraocular movements are intact. NECK: Supple. No JVD. No thyromegaly. No submental, submandibular, pre- /postauricular, occipital or supraclavicular lymphadenopathy. CHEST: Normal chest expansion. No Telemetry. LUNGS: Positive for crackles in the right side CARDIOVASCULAR: Regular. S1 and S2 normal. No appreciable rubs, murmurs or gallops. ABDOMEN: Abdomen is distended. He has soft tissue edema in the abdominal wall. Bowel sounds are active. : Deferred. No Garcia. EXTREMITIES:3+ pitting edema in the lower extremity bilaterally he also has venous stasis changes.. No clubbing. Good capillary refill. SKIN: No skin breakdown. Vital Signs (last 8hr) Date Time Temp Pulse Resp B/P (MAP) Pulse Ox O2 Delivery O2 Flow Rate FiO2 08/08/24 08:00 95 Room Air* 0 21 08/08/24 07:00 98.4 91 20 112/73 96 Room Air LABS: Laboratory: Test 08/08/24 02:10 08/07/24 16:31 08/07/24 05:54 Range/Units Activated Partial Thromboplast Time 101.9 *H 26.3-35.5 SEC Whole Blood Glucose 129 H 70-110 MG/DL White Blood Count 7.7 4.8-10.8 K/uL Red Blood Count 4.63 4.50-6.20 MIL/uL Hemoglobin 13.9 L 14.0-18.0 g/dL Hematocrit 44.0 42-54 % Mean Corpuscular Volume 95.0 79-99 fL Mean Corpuscular Hemoglobin 30.0 27.0-33.0 pg Mean Corpuscular Hemoglobin Concent 31.6 L 32.0-36.0 g/dL Red Cell Distribution Width 14.3 11.0-15.5 % Platelet Count 126 L 130-400 K/uL Mean Platelet Volume 10.3 7.5-10.5 fL Immature Granulocyte % (Auto) 0.3 0-1 % Neutrophils (%) (Auto) 52.7 40.0-77.0 % Lymphocytes (%) (Auto) 34.6 21.0-51.0 % Monocytes (%) (Auto) 9.1 3.0-13.0 % Eosinophils (%) (Auto) 3.0 0.0-8.0 % Basophils (%) (Auto) 0.3 0.0-5.0 % Neutrophils # (Auto) 4.0 1.8-7.7 K/uL Lymphocytes # (Auto) 2.7 1.0-4.8 K/uL Monocytes # (Auto) 0.7 0.1-1.0 K/uL Eosinophils # (Auto) 0.23 0.00-0.70 K/uL Basophils # (Auto) 0.02 0.00-0.20 K/uL Absolute Immature Granulocyte (auto 0.02 0-1 K/uL Nucleated Red Blood Cells 0.0 0.0-0.19 % Sodium Level 142 136-145 mmol/L Potassium Level 4.3 3.5-5.1 mmol/L Chloride Level 100 L 101-111 mmol/L Carbon Dioxide Level 37 H 21-32 mmol/L Blood Urea Nitrogen 33 H 7-18 mg/dL Creatinine 1.6 H 0.5-1.3 mg/dL Glomerular Filtration Rate Calc 46 >90 mL/min Random Glucose 122 H 70-105 mg/dL Total Calcium 8.8 8.5-10.1 mg/dL Total Bilirubin 0.8 0.2-1.0 mg/dL Aspartate Amino Transf (AST/SGOT) 20 10-37 U/L Alanine Aminotransferase (ALT/SGPT) 16 12-78 U/L Alkaline Phosphatase 69 50-136 U/L Total Protein 6.1 6.0-8.3 g/dL Albumin 3.1 L 3.5-5.0 g/dL Current Medications Medications (Trade) Dose Ordered Sig/Melinda Route PRN Reason Start Time Stop Time Status Last Admin Dose Admin Acetaminophen (TYLenol 500MG TAB) 500 mg Q6H PRN PO MILD PAIN (1-3) 07/26/24 18:00 08/08/24 09:16 DC 07/30/24 10:06 500 MG Bacitracin (Bacitracin 28.4gm) Right and left lower leg DAILY TP 07/29/24 09:00 08/08/24 09:16 DC 08/07/24 08:57 1 GM Bumetanide (Bumex 1mg Vial) 1 mg Q12H IVP 07/27/24 09:00 07/28/24 02:44 DC 07/27/24 20:19 1 MG Clotrimazole (Lotrisone Cream) 1 APPL TP DAILY DAILY TP 08/03/24 09:00 08/08/24 09:16 DC 08/07/24 08:57 1 GM Folic Acid (FOLic ACID 1 MG TABLET) 1 mg DAILY PO 07/27/24 09:00 08/08/24 09:16 DC 08/07/24 08:56 1 MG Furosemide (LASix 40MG VIAL) 40 mg Q12H IV 07/26/24 23:00 07/27/24 06:31 DC 07/26/24 23:09 40 MG Furosemide (LASix 40MG VIAL) 40 mg TID IV 08/02/24 21:00 08/08/24 09:16 DC 08/07/24 21:09 40 MG Furosemide 100 mg/ Sodium Chloride 100 ml @ 0 mls/hr PROTOCOL IV 07/28/24 03:00 08/02/24 14:47 DC 08/02/24 12:27 10 MLS/HR Heparin Sodium (Porcine) (HEParin 5,000 UNIT VIAL) 5,000 unit Q12H SQ 07/26/24 21:00 07/27/24 00:12 DC 07/26/24 21:07 5,000 UNIT Heparin Sodium/ Dextrose 250 ml @ 0 mls/hr PROTOCOL IV 08/06/24 23:00 08/08/24 09:16 DC 08/08/24 06:05 13.06 MLS/HR Heparin Sodium/ Dextrose 250 ml @ 0 mls/hr Q6H IV 07/27/24 01:00 08/02/24 14:47 DC 08/02/24 10:25 10.43 MLS/HR Heparin Sodium/ Dextrose 250 ml @ 0 mls/hr Q6H IV 08/03/24 20:30 08/05/24 08:08 DC 08/05/24 00:53 16.4 MLS/HR Magnesium Sulfate 50 ml @ 0 mls/hr PROTOCOL PRN IV hypomagnesemia 07/26/24 18:00 08/08/24 09:16 DC 08/06/24 08:12 25 MLS/HR Metoprolol Succinate (TopROL XL) 50 mg BID PO 07/27/24 10:30 07/27/24 22:52 DC 07/27/24 20:19 50 MG Metoprolol Succinate (TopROL XL) 100 mg BID PO 07/28/24 09:00 08/08/24 09:16 DC 08/07/24 21:09 100 MG Metoprolol Tartrate (loprESSOR) 25 mg BID PO 07/26/24 21:00 07/27/24 10:29 DC 07/27/24 08:53 25 MG Milrinone Lactate/ Dextrose 100 ml @ 0 mls/hr PROTOCOL IV 07/27/24 18:00 07/27/24 18:05 DC Milrinone Lactate/ Dextrose 100 ml @ 0 mls/hr PROTOCOL IV 07/27/24 18:30 08/08/24 09:16 DC 07/30/24 06:23 2.58 MLS/HR Pantoprazole Sodium (PROTonix 40MG INJ) 40 mg DAILY IVP 07/28/24 09:00 08/08/24 09:16 DC 08/07/24 08:56 40 MG Potassium Chloride 100 ml @ 100 mls/hr AD PRN IV POTASSIUM PROTOCOL 07/26/24 18:00 08/08/24 09:16 DC 08/05/24 09:00 100 MLS/HR Potassium Chloride (K-Dur/Klor-Con 20meq) 20 meq AD PRN PO POTASSIUM PROTOCOL 07/26/24 18:00 08/08/24 09:16 DC 08/05/24 17:36 20 MEQ Potassium Chloride (KCl 10% Elixir 20meq/15ml) 20 meq AD PRN PO POTASSIUM PROTOCOL 07/26/24 18:00 08/08/24 09:16 DC Sodium Chloride 500 ml @ 0 mls/hr Q0M IV 08/05/24 04:30 08/08/24 09:16 DC Thiamine HCl (Vitamin B-1) 100 mg DAILY PO 07/27/24 09:00 08/01/24 08:49 DC 07/29/24 08:33 100 MG Thiamine HCl (Vitamin B-1) 300 mg DAILY08 IVP 07/30/24 08:00 08/01/24 08:01 DC 08/01/24 08:27 300 MG Wound Care/ Dressing Products (Venelex Ointment) 1 gm BID TP 07/31/24 21:00 08/01/24 08:19 DC 07/31/24 22:25 1 GM Wound Care/ Dressing Products (Venelex Ointment) apply to buttocks BID TP 08/01/24 09:00 08/08/24 09:16 DC 08/07/24 21:10 1 GM DIAGNOSTICS / RADIOLOGY: [ ] ASSESSMENT: Acute CHF exacerbation POA Acute hypoxic respiratory failure secondary to CHF exacerbation New onset paroxysmal atrial fibrillation with RVR Generalized anasarca Acute kidney injury, 2/2 ATN, POA Lower extremity edema History of alcohol use Mild coagulopathy Mild leukocytosis differential infectious versus reactive PLAN: Acute CHF exacerbation - patient to be admitted to PCCU - Continue with Milrinone GGT - Continue with oxygen supplementation to keep O2 sat greater than 92%. - Monitor strict I&O's and daily weights. - Monitor kidney function carefully - Left heart catheterization yesterday. Continue to follow cardiology recommendations. -Urology has been consulted for hematuria. Continue to follow their recommendations. -Patient [facility] be transferred to [facility] for cardiac procedure. CASE WAS SEEN AND EXAMINED WITH DR. ROTHMAN, ABOVE PLAN WAS FORMULATED GORDO PANIAGUA MD August 08, 2024 13:24
--- NOTE | 2024-08-08 15:41 | PN ---
[facility] PROGRESS NOTE Date Patient Seen: August 08, 2024 Time of Visit: 08:30 Supervising Physician: Vito Alonso MD Consulting Physician: Hospitalist Outpatient Specialists: [ ] Inpatient Consults: Dr. 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 He is awake alert and oriented x3. Hemodynamically stable and afebrile. Currently saturating 96% on room air. Laboratory unremarkable, similar to yesterday. Patient offers no complaints. Denies chest pain palpitation shortness breast at this time. REVIEW OF SYSTEMS: 12 point ROS reviewed with patient. Pertinent positives mentioned above. Other rhoades negative. PHYSICAL EXAM: GENERAL: alert, weak, awake oriented x 3 HEENT: EOMI, Sclera non icteric, moist mucosa NECK: Supple, no JVD, trachea midline LUNGS: Coarse bilateral lung sounds HEART: Regular rate and rhythm. Normal S1 and S2, without murmurs ABD: Large abdomen EXT: 2+ pitting edema NEURO: Alert and oriented to person, follows commands Vital Signs (last 8hr) Date Time Temp Pulse Resp B/P (MAP) Pulse Ox O2 Delivery O2 Flow Rate FiO2 08/08/24 08:00 95 Room Air* 0 21 LABS: Hematology Labs: Test 08/07/24 05:54 Range/Units White Blood Count 7.7 4.8-10.8 K/uL Red Blood Count 4.63 4.50-6.20 MIL/uL Hemoglobin 13.9 L 14.0-18.0 g/dL Hematocrit 44.0 42-54 % Mean Corpuscular Volume 95.0 79-99 fL Mean Corpuscular Hemoglobin 30.0 27.0-33.0 pg Mean Corpuscular Hemoglobin Concent 31.6 L 32.0-36.0 g/dL Red Cell Distribution Width 14.3 11.0-15.5 % Platelet Count 126 L 130-400 K/uL Mean Platelet Volume 10.3 7.5-10.5 fL Immature Granulocyte % (Auto) 0.3 0-1 % Neutrophils (%) (Auto) 52.7 40.0-77.0 % Lymphocytes (%) (Auto) 34.6 21.0-51.0 % Monocytes (%) (Auto) 9.1 3.0-13.0 % Eosinophils (%) (Auto) 3.0 0.0-8.0 % Basophils (%) (Auto) 0.3 0.0-5.0 % Neutrophils # (Auto) 4.0 1.8-7.7 K/uL Lymphocytes # (Auto) 2.7 1.0-4.8 K/uL Monocytes # (Auto) 0.7 0.1-1.0 K/uL Eosinophils # (Auto) 0.23 0.00-0.70 K/uL Basophils # (Auto) 0.02 0.00-0.20 K/uL Absolute Immature Granulocyte (auto 0.02 0-1 K/uL Nucleated Red Blood Cells 0.0 0.0-0.19 % Chemistry Labs: Test 08/07/24 16:31 08/07/24 05:54 Range/Units Whole Blood Glucose 129 H 70-110 MG/DL Sodium Level 142 136-145 mmol/L Potassium Level 4.3 3.5-5.1 mmol/L Chloride Level 100 L 101-111 mmol/L Carbon Dioxide Level 37 H 21-32 mmol/L Blood Urea Nitrogen 33 H 7-18 mg/dL Creatinine 1.6 H 0.5-1.3 mg/dL Glomerular Filtration Rate Calc 46 >90 mL/min Random Glucose 122 H 70-105 mg/dL Total Calcium 8.8 8.5-10.1 mg/dL Total Bilirubin 0.8 0.2-1.0 mg/dL Aspartate Amino Transf (AST/SGOT) 20 10-37 U/L Alanine Aminotransferase (ALT/SGPT) 16 12-78 U/L Alkaline Phosphatase 69 50-136 U/L Total Protein 6.1 6.0-8.3 g/dL Albumin 3.1 L 3.5-5.0 g/dL Coagulation Labs: Test 08/08/24 02:10 Range/Units Activated Partial Thromboplast Time 101.9 *H 26.3-35.5 SEC DIAGNOSTICS / RADIOLOGY RESULTS: [ ] PLAN Follow cardiology recommendations Pending transferred to [facility] NEURO: Minimize central acting medications as possible. Maintain fall precautions, adequate lighting during the day PULMONARY: Supplemental 02 as needed. Maintain aspiration precautions at all times CARDIOVASCULAR: Follow hemodynamics. Vital signs per facility protocol GI & NUTRITION: Continue with nutritional support. Continue stool softeners and laxatives as needed. KIDNEYS & ELECTROLYTES: Strict monitoring of intake, output and overall fluid balance. Avoid nephrotoxic medications to the extent possible. Medications to be dosed according to renal function. Monitor electrolytes and replace as needed ENDOCRINE: Maintain blood glucose between 100-180 at all times. Hypoglycemia protocol in place INFECTIOUS DISEASE: Trend temperature, WBC and procalcitonin level Follow cultures, deescalate antibiotics as soon as possible. Panculture if new onset fever ONCOLOGY/HEMATOLOGY/COAGULATION: Monitor for s/s of bleeding Monitor hemoglobin, coagulation studies as needed SKIN: Pressure ulcer prevention per facility protocol Specialty mattress ORTHO/REHAB: Continue PT/OT Prophylaxis: Continue GI and DVT prophylaxis Code Status: Full Resuscitation Disposition: TBD Other: The patient was seen and case was discussed with supervising MD. Plan was discussed and agreed upon. I personally spent 40 minutes of critical care time in treatment of this patient. This includes patient management, time at bedside, time reviewing tests, labs, appropriate images and studies, documentation, and patient care coordination. This time excludes separately billable procedures. ROSALBA LANE August 08, 2024 15:40
--- NOTE | 2024-08-08 16:24 | DS ---
Discharge Summary Hospital Course Summary: The patient is a 69 year old male with no past medical history was admitted due to shortness of breath with worsening edema, abdominal bloating, and distention. He was diagnosed with congestive heart failure exacerbation, and cardiology was consulted. In the Emergency department, the patient was found to be in atrial fibrillation with rapid ventricular rate. Metoprolol was started for his AFIB RVR. The patient presente with ischemic cardiomyopathy, and diuresis was initiated. The patient was found to be in kidney failure on admission, suspected due to acute tubular necrosis. Patient had a 2D echo preformed in the ED, was was found to have a LVEF of <20%. Patient was started on Heparin for anticoagulation. Ultrasound of the lower extremities and venous duplex were within normal limits. Renal ultrasound was negative, and a bladder scan showed less than 100cc. Nephrology was consulted. A low dose of milrinone was started to help improve renal perfusion. Metoprolol dose was increased, due to the elevation in heart rate that was seen due the use of Milrinone. Diuresis was ineffective, and the patient was started on a Lasix drip. The urine output improved the following morning, however the urine was dark in color. Acute tubular necrosis was suspected. Renal function began to improve, as well as urine output. Milrinone was discontinued due to the patients improvement in urine output and renal function. Plans for a cardiac catheterization were made due to patients creatinine improving. Heparin was discontinued due to hematuria. Hematuria began resolving, and the patient was deemed stable for a cardiac catheterization. Cardiac catheterization showed severe multivessel disease of the LAD<LCX and borderline disease of the left main coronary artery. Cardiology recommended possible bypass surgery. Treatment options were discussed with the patient and his family. Urology was consulted for the patients hematuria. Urology recommended a ambulatory cystoscopy, and recommended continuing with the Heparin. Family wanted to transfer care to [facility]. Patients breathing, and edema were improved. The patients creatinine was stable. The patient and his family decided they wanted to transfer to [facility] and continue their care with Dr.Chad Esposito, a cardiothoracic surgeon. The patient was deemed stable for transfer to [facility], and the transfer was initiated by Dr. Lani Boswell. 08/08: Unable to assess patient due to transfer already taken place. Patient will be transferred to [facility]. The transfer was initiated by Cashier Courtesy Booth Dr. Mitchell. 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 [id number] IMAGING REPORT Signed PATIENT: FREDDIE JONES MR#: [id number] : 1955 SEX: M AGE: 69 LOCATION: 2DH ORDER 2329 STATUS: ADM IN REPORT#: [id number] SERVICE 0600 REASON: post heart cath ORDERING PHYSICIAN: ROSALBA LANE PROCEDURE: CXR1VW - CHEST 1VW Exam Type: CHEST 1VW Clinical Information: post heart cath Comparison: None Findings: The lungs are clear of infiltrates. The heart is enlarged. Bony and soft tissue structures of the chest wall are unremarkable. IMPRESSION: Cardiomegaly. Clear lungs. DICTATED BY: DANUTA IVAN MD DATE: 08/06/24 0909 ELECTRONICALLY SIGNED BY: DANUTA IVAN MD DATE: 08/06/24 0914 [place] [address] [id number] IMAGING REPORT Signed PATIENT: FREDDIE JONES MR#: [id number] : 1955 SEX: M AGE: 69 LOCATION: 2DH ORDER 0101 STATUS: ADM IN REPORT#: [id number] SERVICE 06 REASON: CHF ORDERING PHYSICIAN: TONG CAECRES NP PROCEDURE: CXR1VW - CHEST 1VW Exam Type: CHEST 1VW Clinical Information: CHF Comparison: None Findings: Pulmonary pattern is as before. No worrisome interval changes have taken place. Impression: Stable exam. DICTATED BY: DANUTA IVAN MD DATE: 08/04/24 0894 ELECTRONICALLY SIGNED BY: DANUTA IVAN MD DATE: 08/05/24 0804 [place] [id number] [phone] IMAGING REPORT Signed PATIENT: FREDDIE JONES MR#: [id number] : 1955 SEX: M AGE: 69 LOCATION: 2DH ORDER 2300 STATUS: ADM IN REPORT#: [id number] SERVICE 0600 REASON: CHF exacerbation ORDERING PHYSICIAN: TONG CACERES NP PROCEDURE: CXR1VW - CHEST 1VW CHEST 1VW HISTORY: CHF COMPARISON: 07/26/2024 FINDINGS: A frontal projection of the chest was obtained. Mild bilateral pulmonary infiltrates are seen may be related to mild pulmonary vascular congestion with possible superimposed pneumonitis. The heart is enlarged. Degenerative changes are seen. No evidence of aortic calcification is seen. IMPRESSION: 1. Mild bilateral pulmonary infiltrates are seen may be related to mild pulmonary vascular congestion with possible superimposed pneumonitis. DICTATED BY: ELIU ROMANO MD DATE: 07/31/24934 ELECTRONICALLY SIGNED BY: ELIU ROMANO MD DATE: 07/31/[address] [address] IMAGING REPORT Signed PATIENT: FREDDIE JONES MR#: [id number] : 1955 SEX: M AGE: 69 LOCATION: 2DH ORDER 190 STATUS: ADM IN REPORT#: [id number] SERVICE 1904 REASON: chf exacerbation, new onset a fib dr mitchell to read ORDERING PHYSICIAN: LANI BOSWELL MD PROCEDURE: ECHO CMP - ECHO 2-D COMPLETE APPROVED REPORT EXAM: Two-dimensional and M-mode echocardiogram with Doppler and color Doppler. INDICATION ICD: Congestive heart failure, new onset of atrial fibrillation 2D Dimensions RVDd 5.5 cm LVEF(%) 17.1 (>50%) LVED Vol(simp.) 151.0 mL IVSd 1.1 (0.7-1.1cm) FS(%) 8 % LVES Vol(simp.) 124.0 mL LVDd 6.1 (3.8-5.6cm) LA (2D) 6.0 (1.6-4.0cm) LVEF(%, simp.) 18 % PWd 1.2 (0.7-1.1cm) Ao Root(2D) 3.8 (2.0-3.7cm) LA ESV INDEX (BP) 46.39 mL/m2 IVSs 1.3 cm LVOT diam 2.6 (1.8-2.4cm) LVDs 5.6 (2.5-4.0cm) PWs 1.3 cm M-Mode Dimensions EPSS 1.8 cm LA (MM) 6.1 (1.6-4.0cm) Ao Root(MM) 4.3 (2.0-3.7cm) Aortic Valve AoV Vmax 1.0 m/s Ao Peak GR 3.9 mmHg LVOT Vmax 0.5 m/s AoV VTI 0.1 m Ao Mean GR 2.6 mmHg LVOT VTI 0.07 m GABRIELLA (VMAX) 2.41 cm2 GABRIELLA (VTI) 2.4 cm2 Mitral Valve MV E Vmax 85.1 cm/s DECEL Time 169 ms P 1/2 T 33 ms MVA (PHT) 6.7 cm2 TDI E/E' Medial 43.9 E/E' Lateral 16.0 Medial E' Peak V 1.94 cm/s Lateral E' Peak V 5.32 cm/s Tricuspid Valve TR Vmax 3.1 m/s RAP (EST) 8 mmHg RVSP 48.1 mmHg TR Peak GR 40.1 mmHg Left Ventricle The left ventricle is dilated. Severe hypokinesis There is normal left ventricular wall thickness. Severely reduced left ventricular function <20%. The LV diastolic function was unable to be assessed due to atrial arrhythmia. Right Ventricle The right ventricle is severely dilated. Right ventricular systolic function is severely reduced. Atria The left atrium is moderately dilated. The right atrium is severely dilated. Aortic Valve Aortic valve is trileaflet and opens well. No aortic regurgitation is present. There is no aortic valvular stenosis. Mitral Valve The mitral valve is normal in structure. There is mild mitral valve regurgitation noted. There is no mitral valve stenosis. Tricuspid Valve The tricuspid valve is normal in structure. There is mild to moderate tricuspid valve regurgitation noted. May be underestimated due to low flow pressure gradient. Pulmonic Valve The pulmonary valve is normal in structure. There is no pulmonic valvular regurgitation. Great Vessels The aortic root is normal in size. IVC is not well visualized. Pericardium There is no pericardial effusion. Other Information Quality : Adequate Conclusion Severely reduced left ventricular function <20%. The LV diastolic function was unable to be assessed due to atrial arrhythmia. There is normal left ventricular wall thickness. The left ventricle is dilated. Severe hypokinesis The right ventricle is severely dilated. Right ventricular systolic function is severely reduced. The left atrium is moderately dilated. The right atrium is severely dilated. There is mild mitral valve regurgitation noted. There is mild to moderate tricuspid valve regurgitation noted. May be underestimated due to low flow pressure gradient. There is no pericardial effusion. DICTATED BY: LANI BOSWELL MD DATE: 07/27/24 0952 ELECTRONICALLY SIGNED BY: LANI BOSWELL MD DATE: 07/27/24 1221 [place] [address] IMAGING REPORT Signed PATIENT: FREDDIE JONES MR#: [id number] : 1955 SEX: M AGE: 69 LOCATION: [facility] ORDER 1414 STATUS: ADM IN REPORT#: [id number] SERVICE 1411 REASON: CHECK CIRCULATION ORDERING PHYSICIAN: ALICE DE LOS SANTOS PROCEDURE: ART B LE - US ARTERIAL BILAT LOW EXT DUPL US ARTERIAL BILAT LOW EXT DUPL HISTORY: CHECK CIRCULATION TECHNIQUE: Real-time arterial doppler ultrasound of the lower extremity was performed using B mode, color flow and spectral analysis. FINDINGS: RIGHT: Normal triphasic and biphasic waveforms seen in the evaluated arteries. The visualized common femoral, superficial femoral, popliteal, posterior tibial, anterior tibial and dorsalis pedis arteries demonstrate velocities within normal limits. LEFT: Normal triphasic and biphasic waveforms seen in the evaluated arteries. The visualized common femoral, superficial femoral, popliteal, posterior tibial, anterior tibial and dorsalis pedis arteries demonstrate velocities within normal limits. IMPRESSION: No evidence of major vessel occlusion or high-grade stenosis. DICTATED BY: EDUARDA MANUEL MD DATE: 07/27/241846 ELECTRONICALLY SIGNED BY: EDUARDA MANUEL MD DATE: 07/27/241850 [address] [id number] IMAGING REPORT Signed PATIENT: FREDDIE JONES MR#: [id number] : 1955 SEX: M AGE: 69 LOCATION: [facility] ORDER 03 STATUS: ADM IN REPORT#: [id number] SERVICE 02 REASON: renal failure ORDERING PHYSICIAN: JORGE NAVA MD PROCEDURE: RENAL - US RENAL SONOGRAM US RENAL SONOGRAM HISTORY: renal failure TECHNIQUE: US RENAL SONOGRAM. FINDINGS: RIGHT KIDNEY: The right kidney measures 10.3cm. No hydronephrosis or renal calculus seen. LEFT KIDNEY: The left kidney measures 9.3cm. There is no hydronephrosis. There is an approximate pole cyst measuring 5.5 cm. The visualized urinary bladder is within normal limits. IMPRESSION: No hydronephrosis is seen. DICTATED BY: EDUARDA MANUEL MD DATE: 07/27/241842 ELECTRONICALLY SIGNED BY: EDUARDA MANUEL MD DATE: 07/27/241844 [address] [address] IMAGING REPORT Signed PATIENT: FREDDIE JONES MR#: [id number] : 1955 SEX: M AGE: 69 LOCATION: [facility] ORDER 54 STATUS: ADM IN REPORT#: [id number] SERVICE 53 REASON: assess for dvt ORDERING PHYSICIAN: SHERRI YOUNG MD PROCEDURE: VENOUS JASS - US VENOUS DOPPLER BILATERAL US VENOUS DOPPLER BILATERAL INDICATION: Swelling. Evaluate for dvt TECHNIQUE: US VENOUS DOPPLER BILATERAL Real-time venous Doppler ultrasound was performed using B mode, color flow and spectral analysis. FINDINGS: The visualized greater saphenous junction, common femoral, deep femoral, superficial femoral, popliteal and posterior tibial veins demonstrate normal compressibility and flow. No DVT is identified. Left superficial femoral vein was not visualized. Study is degraded due to patient's large body habitus. IMPRESSION: No evidence of DVT in the visualized bilateral extremities. DICTATED BY: DEUARDA MANUEL MD DATE: 07/26/242027 ELECTRONICALLY SIGNED BY: EDUARDA MANUEL MD DATE: 07/26/242029 [place] [address] [place] [phone] IMAGING REPORT Signed PATIENT: FREDDIE JONES MR#: [id number] : 1955 SEX: M AGE: 69 LOCATION: [facility] ORDER 44 STATUS: ADM IN REPORT#: [id number] SERVICE 37 REASON: abdominal distention, jefferson. ORDERING PHYSICIAN: SHERRI YOUNG MD PROCEDURE: ABD PEL WO - CT ABDOMEN/PELVIS W/O CONTRAST CT ABDOMEN/PELVIS W/O CONTRAST INDICATION: abdominal distention, jefferson. TECHNIQUE: CT ABDOMEN/PELVIS W/O CONTRAST. Oral contrast was not given. Coronal and sagittal reformats were performed. CT was performed with one or more of the following dose reduction techniques: Automated exposure control, adjustment of the mA and/or kV according to the patient's size, or use of the iterative reconstruction technique. Comparison: None. FINDINGS: The noncontrast nature this study limits evaluation of abdominal viscera. Small right pleural effusion is seen with right lower lobe atelectasis infection. There is cardiomegaly. There is hepatic steatosis. No calcified gallstone is seen. The spleen, pancreas, and adrenal glands are within normal limits. No hydronephrosis. The urinary bladder is partially collapsed. 5.9 cm hypodense focus in the left kidney, probably a cyst. Consider correlation with nonemergent renal ultrasound. Study is degraded due to patient's large body habitus. No bowel obstruction is seen. Scattered diverticulosis coli without evidence of acute diverticulitis. Small amount of ascites seen in the upper abdomen and pelvis. There is diffuse soft tissue anasarca and mesenteric edema. Appendix is not clearly visualized limiting evaluation. Correlate clinically. Atherosclerotic changes of the aorta with calcified plaques. Degenerative changes of the spine are seen. IMPRESSION: 1. Study is degraded due to patient's large body habitus. No bowel obstruction is seen. 2. Scattered diverticulosis coli without evidence of acute diverticulitis. 3. Small amount of ascites seen in the upper abdomen and pelvis. 4. There is diffuse soft tissue anasarca and mesenteric edema. Additional findings as described above. DICTATED BY: EDUARDA MANUEL MD DATE: 07/26/241829 ELECTRONICALLY SIGNED BY: EDUARDA MANUEL MD DATE: 07/26/241834 [facility] [address] [place] [phone] IMAGING REPORT Signed PATIENT: FREDDIE JONES MR#: [id number] : 1955 SEX: M AGE: 69 LOCATION: ED ORDER 53 STATUS: [facility] REPORT#: [id number] SERVICE 51 REASON: dyspnea ORDERING PHYSICIAN: CONNOR FERRELL DO PROCEDURE: CXR1VW - CHEST 1VW INDICATION: dyspnea TECHNIQUE: CHEST 1VW COMPARISON: None FINDINGS AND IMPRESSION: Mild bilateral airspace consolidation suggesting vascular congestion/edema versus pneumonia. Trace of right effusion is seen. Cardiomegaly is seen Mild degenerative changes of the spine. The visualized upper abdomen appears unremarkable. DICTATED BY: EDUARDA MANUEL MD DATE: 07/26/241620 ELECTRONICALLY SIGNED BY: EDUARDA MANUEL MD DATE: 07/26/241623 [place] [id number] [place] [phone] ELECTRO CARDIOGRAM Signed PATIENT: FREDDIE JONES MR#: [id number] : 1955 SEX: M AGE: 69 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 Assessment/Plan: ASSESSMENT: Acute CHF exacerbation POA Acute hypoxic respiratory failure secondary to CHF exacerbation New onset paroxysmal atrial fibrillation with RVR Generalized anasarca Acute kidney injury, 2/2 ATN, POA Lower extremity edema History of alcohol use Mild coagulopathy Mild leukocytosis differential infectious versus reactive Discharge Instructions: Patient has been transferred to [facility]. GORDO PANIAGUA MD August 08, 2024 16:23
--- NOTE | 2024-08-08 20:55 | PN ---
NEPHROLOGY NOTE SUBJECTIVE: The patient has multiple problems. A 69-year-old gentleman, shortness of breath, edema, CHF, atrial fibrillation. The patient has hematuria. The patient was found to have multivessel coronary artery disease. Possible bypass has been considered. The patient is being transferred to [place] for further care including CABG. No other associated findings, although the systemic review is unchanged. PHYSICAL EXAMINATION: GENERAL: Pale, no other distress. VITAL SIGNS: Blood pressure is 128/70, respiratory rate is 18. HEENT: Head is atraumatic. Pupils are round and reactive. Sclerae are anicteric. Conjunctivae not pale. Oral mucosa is not dry. NECK: Supple. No masses or bruits. Thyroid is palpable. Neck has no bruits. CHEST: Shows equal thoracic percussion note being resonant in all areas. CARDIAC: Regular rhythm. No rub, no S3 or S4. No parasternal heave. LABORATORY DATA: We have reviewed available labs in detail with a hemoglobin of 13.9, creatinine now is 1.6, BUN of 33. Old record and imaging studies are reviewed. PROBLEMS: * Renal failure, acute on chronic. * Coronary artery disease. * Multiple other comorbidities RECOMMENDATIONS: The patient is being transferred to [place] for further care including possible CABG. The patient will have a followup on electrolyte and renal function. Please avoid nephrotoxics. Adjust doses of medicine. Follow up on urine output. We will be monitoring until he is here, and after transfer, he may need further Nephrology workup in [place]. TID: [id number] RECEIPT: [id number] [facility]ITALAlexander
== END 2024-08-08 09:00 | disposition short-term general hospital (02) | DRG 286 ==
LOC: EDH 14:43 → EDHIP 17:38 → 2DH 07-27 10:09
PROVIDERS: ADMIT Internal Medicine; ATTEND Internal Medicine
PROC: 4A023N7 Measurement of Cardiac Sampling and Pressure, Left Heart, Percutaneous Approach (ICD-10-PCS; principal; 2024-08-05)
PROC: B2111ZZ Fluoroscopy of Multiple Coronary Arteries using Low Osmolar Contrast (ICD-10-PCS; 2024-08-05)
DX: I13.0 Hypertensive heart and chronic kidney disease with heart failure and stage 1 through stage 4 chronic kidney disease, or unspecified chronic kidney disease (principal); I50.43 Acute on chronic combined systolic (congestive) and diastolic (congestive) heart failure; J96.01 Acute respiratory failure with hypoxia; N17.0 Acute kidney failure with tubular necrosis; R18.8 Other ascites; D68.9 Coagulation defect, unspecified; Z68.42 Body mass index [BMI] 45.0-49.9, adult; I48.0 Paroxysmal atrial fibrillation; D72.829 Elevated white blood cell count, unspecified; E66.01 Morbid (severe) obesity due to excess calories; I25.10 Atherosclerotic heart disease of native coronary artery without angina pectoris; N18.9 Chronic kidney disease, unspecified; K57.30 Diverticulosis of large intestine without perforation or abscess without bleeding; I25.5 Ischemic cardiomyopathy; I07.1 Rheumatic tricuspid insufficiency; E11.22 Type 2 diabetes mellitus with diabetic chronic kidney disease; B35.1 Tinea unguium; Z88.0 Allergy status to penicillin; Z95.1 Presence of aortocoronary bypass graft
CPT/HCPCS: 36415; 36600; 71045; 74176; 76770; 80048; 80053; 80061; 81001; 82550; 82570; 82803; 82948; 83036; 83735; 83880; 84100; 84145; 84300; 84443; 84484; 85014; 85018; 85025; 85027; 85610; 85730; 86140; 87040; 87426; 87491; 87591; 87804; 93005; 93306; 93458; 93925; 93970; 94660; 96372; 96374; 96375; 96376; 99156; 99157; 99291; C1769; G0378; J1644; J1938; J1940; J2250; J2260; J2470; J3010; J3411; J3475; J3480; J3490; Q9967; A4649; C1887; C1894; Q9965